=== PATIENT | male | born 1940 | race Caucasian/White ===

== ENCOUNTER 2017-03-29 06:15 | Day surgery (SDC) | payer MEDICARE, OTHER ==
[~2017-03-29] VITALS: Ht 165.1 cm; Wt 83.6 kg
[~2017-03-29 06:15] MED LIST: ACET325T PO; ASPI81CH CHEW; BENA1TAB PO; DIPH25CA PO; DOCU8.6T PO; GLUC15002; PYRI1TAB2 PO; SIMV20TA PO
[2017-03-29 07:01] VITALS: BP 160/84; PULSE 86; RESP 18; TEMP 98.2; O2SAT 94
[2017-03-29] MEDS ORDERED: PYRI100T4 PO (07:05)
[2017-03-29] MEDS ORDERED: [UNRECOGNIZED DRUG - CODE] (07:05)
[2017-03-29] MEDS ORDERED: HYDR-3534 PO (07:05)
[2017-03-29] MEDS ORDERED: IBRU1CAP (07:05)
[2017-03-29] MEDS ORDERED: MULTTAB22 (07:05)
[2017-03-29] MEDS ORDERED: LIDOCAINE HCL 1% 20 ML VIAL ONE (07:55)
[2017-03-29] MEDS ORDERED: SODIUM BICARBONATE 8.4% INJ 50 ML ONE (07:55)
[2017-03-29] MEDS ORDERED: SODIUM CHLOR 0.9% 1000 ML IV SCH (08:00)
[2017-03-29] MEDS ORDERED: MIDAZOLAM HCL 2 MG/2 ML VIAL ONE (08:03)
[2017-03-29 09:00] VITALS: BP 135/71; PULSE 79; PULSE 82; RESP 18; RESP 20; TEMP 98; O2SAT 95; O2SAT 97
[2017-03-29 09:15] VITALS: BP 141/73; PULSE 89; RESP 20; O2SAT 96
[2017-03-29] MEDS ORDERED: ACETAMINOPHEN/HYDROcodone 325 MG/7.5 MG TAB PO PRN (09:30)
[2017-03-29 09:45] VITALS: BP 145/70; PULSE 80; RESP 18; O2SAT 98
[2017-03-29 10:15] VITALS: BP 124/56; PULSE 72; RESP 20; O2SAT 98
[2017-03-29 10:45] VITALS: BP 108/55; PULSE 75; RESP 20; O2SAT 93
--- NOTE | 2017-03-29 15:30 | RADRPT ---
EXAM DATE/TIME: 03/29/2017 08:18 [facility] COMPARISON: No previous studies available for comparison. INDICATIONS : Left retroperitoneal mass. SEDATION TIME: 30 minutes BIOPSY SITE: Left retroperitoneum MEDICATION(S): 1.) 1.5 mg midazolam (Versed) IV 2.) 100 mcg fentanyl (Sublimaze) IV DEVICE(S): 1.) 18 gauge Temno core biopsy needle 15cm MEDICAL HISTORY : Leukemia. Kidney disease SURGICAL HISTORY : None. ENCOUNTER: Initial ACUITY: 1 day PAIN SCORE: 0/10 LOCATION: Left retroperitoneum A total of two core specimen(s) were obtained and sent to the laboratory for pathologic evaluation. PROCEDURE: 1. CT guided abdomen biopsy. 2. Conscious sedation with continuous EKG and oximetry monitoring. Prior to the procedure informed consent was obtained. Any appropriate prior imaging studies were rev iewed. Using automated exposure control and adjustment of the mA and/or kV according to patient size, radiat ion dose was kept as low as reasonably achievable to obtain optimal diagnostic quality images. DICOM format image data is available electronically for review and comparison. The site was prepped in a sterile fashion. Full sterile technique was used, including cap, mask, tony rile gloves and gown and a large sterile sheet. Hand hygiene and 2% chlorhexidine and/or betadine/al cohol prep was utilized per protocol for cutaneous antisepsis. The skin and subcutaneous tissues wer e infiltrated with local anesthetic solution. With CT guidance the previously identified target was localized. Biopsy was performed using the presc ribed needle as above. Adequate hemostasis was obtained with compression at the puncture site. Follow-up CT scan reveals no hemorrhage. The patient tolerated the procedure well and there were no complications. The patient was returned to the Radiology Outpatient Unit in stable condition. CONCLUSION: Uncomplicated CT guided biopsy. Denilson Do MD on March 29, 2017 at 15:28 Board Certified Radiologist. This report was verified electronically.
== END 2017-03-29 11:20 | disposition home or self-care (01) ==
LOC: HRAD 06:15 → HRIP 06:16 → HRAD 11:20
PROVIDERS: ATTEND Internal Medicine Hematology & Oncology
DX: R19.00 Intra-abdominal and pelvic swelling, mass and lump, unspecified site (principal)
CPT/HCPCS: 49180; 77012; 88184; 88185; 88307; 88341; 88342; 99152; 99153; J2250; J3010; J7030; 88305

== ENCOUNTER 2017-05-02 10:20 | Inpatient (IN) | payer MEDICARE, OTHER ==
[~2017-05-02] VITALS: Ht 165.1 cm; Wt 70.7 kg
[~2017-05-02 10:20] MED LIST changes: -ACET325T PO; -DIPH25CA PO; +HYDR-3534 PO; +IBRU1CAP; +MULTTAB22; +PYRI100T4 PO; -PYRI1TAB2 PO; +[UNRECOGNIZED DRUG - CODE]
[2017-05-02 10:56] VITALS: BP 120/54; PULSE 103; RESP 14; TEMP 98.4; O2SAT 95
[2017-05-02] MEDS ORDERED: SODIUM CHLORIDE 0.9% FLUSH 10 ML FLUSH IVF PRN (11:00)
--- NOTE | 2017-05-02 11:04 | PD ---
HPI Chief Complaint: general weakness Time Seen by Provider: 11:00 Travel History International Travel<30 days: No Contact w/Intl Traveler<30days: No Traveled to known affect area: No History of Present Illness HPI 76-year-old male patient with history of CLL, currently following up with Dr. Pereira, had urethral stents placed by Dr. Bull yesterday, here today because of general weakness. He feels that he cannot get up to go to his appointment today with oncology. He denies any fevers, chest pains, shortness of breath, or any other issues. Modifying Factors: None Associated Signs & Symptoms: General weakness Risk Factors: Urethral stents yesterday, CLL PFSH Past Medical History Arthritis: Yes Cancer: Yes ( CLL , LEUKEMIA) Cardiovascular Problems: No High Cholesterol: Yes Diabetes: No Diminished Hearing: No Endocrine: No Genitourinary: No Hepatitis: No Hiatal Hernia: No Hypertension: Yes Immune Disorder: Yes Musculoskeletal: Yes (neck pain ) Neurologic: No Psychiatric: No Reproductive: No Respiratory: Yes (copd) Immunizations Current: Yes Thyroid Disease: No Past Surgical History Abdominal Surgery: Yes (LEFT INGUINAL HERNIA REPAIR) AICD: No Joint Replacement: No Oral Surgery: Yes (tonsillectomy) Pacemaker: No Social History Alcohol Use: No Tobacco Use: Yes (1 PPD) Substance Use: No Allergies-Medications (Allergen,Severity, Reaction): Coded Allergies: levofloxacin (Verified Allergy, Severe, welts and rash, 05/02/17) patient states not an allergy; r/o after it was entered in as an allergy. Sulfa (Sulfonamide Antibiotics) (Verified Allergy, Unknown, welts and rash , 05/02/17) Reported Meds & Prescriptions Reported Meds & Active Scripts Active Reported Lortab (Hydrocodone-Acetaminophen) 7.5-325 Mg Tab 1 Tab PO Q6H PRN Imbruvica (Ibrutinib) 140 Mg Cap 420 Mg Wal-Dryl Allergy (Diphenhydramine HCl) 25 Mg Cap Pyridoxine (Pyridoxine HCl) 100 Mg Tab 100 Mg PO DAILY Multi For Him (Multiple Vitamins W/ Minerals) 0.4 Mg-2 Mg-250 Mcg Tab Simvastatin 20 Mg Tab 20 Mg PO DAILY Lotensin Hct (Benazepril-Hydrochlorothiazide) 10-12.5 Mg Tab 1 Tab PO DAILY Glucosamine 1500 Complex (Fmoghflutmi-Zhcjfdeklru-Oip C-) 1 Cap Cap Docusate Sodium-Senna (Sennosides-Docusate Sodium) 8.6-50 Mg Tab 1 Tab PO HS Aspirin 81 Mg Chew 81 Mg CHEW DAILY Review of Systems Except as stated in HPI: all other systems reviewed are Neg Physical Exam Narrative GENERAL: Well-developed elderly white male patient currently in mild distress. Awake and oriented 3. SKIN: Focused skin assessment warm/dry. HEAD: Atraumatic. Normocephalic. EYES: Pupils equal and round. No scleral icterus. No injection or drainage. ENT: No nasal bleeding or discharge. Mucous membranes pink and moist. NECK: Trachea midline. No JVD. CARDIOVASCULAR: Regular rate and rhythm. No murmur appreciated. RESPIRATORY: No accessory muscle use. Clear to auscultation. Breath sounds equal bilaterally. GASTROINTESTINAL: Abdomen soft, mild left lower quadrant tenderness without guarding or rebound, nondistended. Hepatic and splenic margins not palpable. RECTAL EXAM: No masses or tenderness, stool is brown. Hemoccult negative. MUSCULOSKELETAL: No obvious deformities. No clubbing. No cyanosis. No edema. NEUROLOGICAL: Awake and alert. No obvious cranial nerve deficits. Motor grossly within normal limits. Normal speech. PSYCHIATRIC: Appropriate mood and affect; insight and judgment normal. Data Data Last Documented VS Vital Signs Date Time Temp Pulse Resp B/P (MAP) Pulse Ox O2 Delivery O2 Flow Rate FiO2 05/02/17 11:08 96 Room Air 05/02/17 10:56 98.4 103 14 120/54 (76) Orders Orders Electrocardiogram (05/02/17 11:00) Complete Blood Count With Diff (05/02/17 11:00) Comprehensive Metabolic Panel (05/02/17 11:00) Magnesium (Mg) (05/02/17 11:00) Ckmb (Isoenzyme) Profile (05/02/17 11:00) Troponin I (05/02/17 11:00) Act Partial Throm Time (Ptt) (05/02/17 11:00) Prothrombin Time / Inr (Pt) (05/02/17 11:00) Urinalysis - C+S If Indicated (05/02/17 11:00) Chest, Single Ap (05/02/17 11:00) Ecg Monitoring (05/02/17 11:00) Iv Access Insert/Monitor (05/02/17 11:00) Oximetry (05/02/17 11:00) Sodium Chloride 0.9% Flush (Ns Flush) (05/02/17 11:00) Blood Culture (05/02/17 11:00) Type And Screen (05/02/17 11:00) CKMB (05/02/17 11:10) CKMB% (05/02/17 11:10) Piperacil-Tazo 4.5 Gm Premix (Zosyn 4.5 (05/02/17 12:10) Sodium Chlorid 0.9% 500 Ml Inj (Ns 500 M (05/02/17 12:30) Urine Culture (05/02/17 13:40) Labs Laboratory Tests Test 05/02/17 11:10 05/02/17 13:40 White Blood Count 24.9 TH/MM3 Red Blood Count 3.98 MIL/MM3 Hemoglobin 11.3 GM/DL Hematocrit 35.4 % Mean Corpuscular Volume 88.9 FL Mean Corpuscular Hemoglobin 28.4 PG Mean Corpuscular Hemoglobin Concent 31.9 % Red Cell Distribution Width 14.4 % Platelet Count 210 TH/MM3 Mean Platelet Volume 8.1 FL Neutrophils (%) (Auto) 44.0 % Lymphocytes (%) (Auto) 54.0 % Monocytes (%) (Auto) 1.8 % Eosinophils (%) (Auto) 0.0 % Basophils (%) (Auto) 0.2 % Neutrophils # (Auto) 11.0 TH/MM3 Lymphocytes # (Auto) 13.4 TH/MM3 Monocytes # (Auto) 0.5 TH/MM3 Eosinophils # (Auto) 0.0 TH/MM3 Basophils # (Auto) 0.1 TH/MM3 CBC Comment AUTO DIFF Differential Total Cells Counted 100 Neutrophils % (Manual) 32 % Band Neutrophils % 9 % Lymphocytes % 58 % Monocytes % 1 % Neutrophils # (Manual) 10.2 TH/MM3 Differential Comment FINAL DIFF MANUAL Smudge Cells PRESENT Platelet Estimate NORMAL Platelet Morphology Comment NORMAL Red Cell Morphology Comment NORMAL Prothrombin Time 11.3 SEC Prothromb Time International Ratio 1.0 RATIO Activated Partial Thromboplast Time 28.4 SEC Blood Urea Nitrogen 39 MG/DL Creatinine 2.09 MG/DL Random Glucose 69 MG/DL Total Protein 5.8 GM/DL Albumin 2.9 GM/DL Calcium Level 9.3 MG/DL Magnesium Level 1.7 MG/DL Alkaline Phosphatase 71 U/L Aspartate Amino Transf (AST/SGOT) 67 U/L Alanine Aminotransferase (ALT/SGPT) 22 U/L Total Bilirubin 0.6 MG/DL Sodium Level 128 MEQ/L Potassium Level 3.6 MEQ/L Chloride Level 92 MEQ/L Carbon Dioxide Level 26.2 MEQ/L Anion Gap 10 MEQ/L Estimat Glomerular Filtration Rate 31 ML/MIN Total Creatine Kinase 618 U/L Creatine Kinase MB 16.8 NG/ML Creatine Kinase MB % 2.7 % Troponin I 0.05 NG/ML Urine Color LIGHT-RED Urine Turbidity HAZY Urine pH 6.0 Urine Specific [place] 1.017 Urine Protein 100 mg/dL Urine Glucose (UA) NEG mg/dL Urine Ketones TRACE mg/dL Urine Occult Blood LARGE Urine Nitrite NEG Urine Bilirubin NEG Urine Urobilinogen LESS THAN 2.0 MG/DL Urine Leukocyte Esterase MOD Urine RBC /hpf Urine WBC 63 /hpf Urine Bacteria FEW /hpf Urine Mucus FEW /lpf Microscopic Urinalysis Comment CULTURE INDICATED MDM Medical Decision Making Medical Screen Exam Complete: Yes Emergency Medical Condition: Yes Medical Record Reviewed: Yes Interpretation(s) EKG shows sinus tachycardia at a rate of 100 bpm with no signs of acute ST-T changes. Laboratory Tests Test 05/02/17 11:10 05/02/17 13:40 White Blood Count 24.9 TH/MM3 (4.0-11.0) Red Blood Count 3.98 MIL/MM3 (4.50-5.90) Hemoglobin 11.3 GM/DL (13.0-17.0) Hematocrit 35.4 % (39.0-51.0) Mean Corpuscular Hemoglobin Concent 31.9 % (32.0-36.0) Lymphocytes (%) (Auto) 54.0 % (9.0-44.0) Neutrophils # (Auto) 11.0 TH/MM3 (1.8-7.7) Lymphocytes # (Auto) 13.4 TH/MM3 (1.0-4.8) Band Neutrophils % 9 % (0-6) Lymphocytes % 58 % (9-44) Neutrophils # (Manual) 10.2 TH/MM3 (1.8-7.7) Blood Urea Nitrogen 39 MG/DL (7-18) Creatinine 2.09 MG/DL (0.60-1.30) Random Glucose 69 MG/DL (74-106) Total Protein 5.8 GM/DL (6.4-8.2) Albumin 2.9 GM/DL (3.4-5.0) Aspartate Amino Transf (AST/SGOT) 67 U/L (15-37) Sodium Level 128 MEQ/L (136-145) Chloride Level 92 MEQ/L (98-107) Estimat Glomerular Filtration Rate 31 ML/MIN (>89) Total Creatine Kinase 618 U/L (39-308) Creatine Kinase MB 16.8 NG/ML (0.5-3.6) Urine Color LIGHT-RED (YELLW/STRAW) Urine Turbidity HAZY (CLEAR) Urine Protein 100 mg/dL (NEG-TRACE) Urine Ketones TRACE mg/dL (NEG) Urine Occult Blood LARGE (NEG) Urine Leukocyte Esterase MOD (NEG) Urine WBC 63 /hpf (0-5) Urine Bacteria FEW /hpf (NONE) Urine Mucus FEW /lpf (OCC) Last 24 hours Impressions Chest X-Ray 05/02/17 1100 Signed Impressions: Service Date/Time: Tuesday, May 02, 2017 11:36 - CONCLUSION: Small bilateral pleural effusions otherwise negative. Ted Ray MD FACR Differential Diagnosis General weakness: Metabolic issues versus dehydration versus sepsis Narrative Course Patient is tachycardic, lab work shows elevated BUN/creatinine concerning for dehydration and UA shows significant UTI. There is concern of possible underlying sepsis and IV antibiotics were initiated after cultures were drawn. Case was then discussed with Dr. Pellteier for admission. [facility] Point of Care Internal Pos. & Neg. Controls: Passed Fecal Specimen Occult Blood: Negative Diagnosis Primary Impression: UTI (urinary tract infection) Additional Impression: Dehydration Admitting Information Admitting Physician Requests: Admit Al Peres MD May 02, 2017 11:04
[2017-05-02 11:08] VITALS: O2SAT 96
--- NOTE | 2017-05-02 11:49 | RADRPT ---
EXAM DATE/TIME: 05/02/2017 11:36 [facility] COMPARISON: No previous studies available for comparison. INDICATIONS : Palpitations, stomach and lower back pain. MEDICAL HISTORY : having chemo for chronic lymphatic lymphoma SURGICAL HISTORY : port for chemo ENCOUNTER: Initial ACUITY: 1 day PAIN SCORE: Non-responsive. LOCATION: Bilateral chest FINDINGS: Owjbwn-y-Nigy in good position. Minimal bibasilar parietal changes worse on the right than the left. There is no pneumothorax. CONCLUSION: Small bilateral pleural effusions otherwise negative. Ted Ray MD FACR on May 02, 2017 at 11:47 Board Certified Radiologist. This report was verified electronically.
[2017-05-02 11:50] LABS: BASOPHIL # 0.1 TH/MM3 (0-0.2); BASOPHIL % 0.2 % (0.0-2.0); HEMATOCRIT 35.4 % (39.0-51.0); LYMPHOCYTE # 13.4 TH/MM3 (1.0-4.8); MEAN CELL VOLUME 88.9 FL (80.0-100.0); MEAN CORPUSCULAR HEMOGLOBIN 28.4 PG (27.0-34.0); MEAN CORPUSCULAR HGB CONC 31.9 % (32.0-36.0); MONO % 1.8 % (0.0-8.0); PLATELET COUNT 210 TH/MM3 (150-450); RED BLOOD COUNT 3.98 MIL/MM3 (4.50-5.90); RED CELL DISTRIBUTION WIDTH 14.4 % (11.6-17.2); WHITE BLOOD COUNT 24.9 TH/MM3 (4.0-11.0)
[2017-05-02 11:56] LABS: HEMO FLAGS AUTO DIFF
[2017-05-02 12:01] LABS: APTT (PATIENT) 28.4 SEC (24.3-30.1); PROTHROMBIN TIME - PATIENT 11.3 SEC (9.8-11.6)
[2017-05-02 12:05] LABS: ALT (GPT) 22 U/L (12-78); ANION GAP 10 MEQ/L (5-15); AST (GOT) 67 U/L (15-37); BICARBONATE 26.2 MEQ/L (21.0-32.0); BLOOD UREA NITROGEN 39 MG/DL (7-18); CHLORIDE 92 MEQ/L (98-107); GLOMERULAR FILTRATION RATE 31 ML/MIN (>89); MAGNESIUM 1.7 MG/DL (1.5-2.5); POTASSIUM 3.6 MEQ/L (3.5-5.1); SODIUM (NA) 128 MEQ/L (136-145)
[2017-05-02 12:09] LABS: ALKALINE PHOSPHATASE 71 U/L (45-117); CREATINE KINASE 618 U/L (39-308); TOTAL BILIRUBIN ADULT 0.6 MG/DL (0.2-1.0)
[2017-05-02] MEDS ORDERED: PIPERACIL-TAZO 4.5 GM PREMIX 100 ML IV STA (12:10)
[2017-05-02 12:21] LABS: CKMB 16.8 NG/ML (0.5-3.6)
[2017-05-02] MEDS ORDERED: SODIUM CHLORID 0.9% 500 ML INJ 500 ML IV ONE ×2 (12:30→16:30)
[2017-05-02 13:51] LABS: BANDS 9 % (0-6); NEUTROPHIL # MANUAL DIFF 10.2 TH/MM3 (1.8-7.7); PLATELET ESTIMATE SMEAR NORMAL (NORMAL); PLATELET MORPHOLOGY NORMAL (NORMAL); POLYS (SEG NEUTROPHILS) 32 % (16-70); SCAN/DIFF FINAL DIFF MANUAL; SMUDGE CELLS PRESENT PRESENT; WBC DIFF SAMPLE 100
[2017-05-02 14:20] LABS: BACTERIA, URINE FEW /hpf; BLOOD, URINE LARGE (NEG); COMMENT (UR) CULTURE INDICATED; CULTURE IF INDICATED CULTURE INDICATED; GLUCOSE,URINE NEG (NEG); KETONE, URINE TRACE mg/dL (NEG); MUCUS URINE FEW /lpf (OCC); NITRITE,URINE NEG (NEG)
[2017-05-02 14:21] LABS: URINE COLOR LIGHT-RED (YELLW/STRAW)
--- NOTE | 2017-05-02 14:47 | EKG ---
Date Performed: 05/02/2017 Time Performed: 11:13:22 PTAGE: 76 years EKG: SINUS TACHYCARDIA POSSIBLE LEFT ATRIAL ENLARGEMENT NONSPECIFIC T-WAVE ABNORMALITY ABNORMAL RHYTHM ECG PREVIOUS TRACING : 03/30/2015 10.09 Compared to prior tracing no significant change DOCTOR: Aaron Ty Interpretating Date/Time 05/02/2017 14:47:35
--- NOTE | 2017-05-02 15:19 | HHI.HP ---
[facility] Primary Care Physician Admission Diagnosis Diagnoses: Chief Complaint: Weakness Travel History International Travel<30 Days: No Contact w/Intl Traveler <30 Da: No Traveled to Known Affected Are: No History of Present Illness This is a pleasant 76 y/o male on management by forensic specialist Doctor Aaron Montalvo due to Chronic Lymphocytic Leukemia deletion 13Q he developed bulky adenopathy treated with Rituximab and Bendamustine without clear response, on Ibrutinib with improvement, but developed a large mass in the retroperitoneum extending into the pole of the left kidney, 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 today he came to ER after he had a procedure performed yesterday by Doctor Bull had Urethral stens placed came due to General Weakness. Seen in Emergency room in the presence of nurse, dehydrated. oral thrush. severe ecchymotic lesions on all four extremities. Hematuria present. 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 He developed bulky adenopathy in the neck, mediastinum, axillary, retroperitoneal, para-aortic area. He also developed anemia and thrombocytopenia. He has no hemolysis. Rituxan/Treanda x 2 cycle Jul 2016 poor tolerance ibrutinib 08/2016) Hyperlipidemia Hypertension Kidney Disease Obesity Preferred Language for Healthcare Information (Jamaican) Temporal arteritis COPD Past Surgical History Hernia repair in 1963 - Left Right 03/2015 Tonsillectomy in 1948 Reported Medications Reported Meds & Active Scripts Active Reported Lortab (Hydrocodone-Acetaminophen) 7.5-325 Mg Tab 1 Tab PO Q6H PRN Imbruvica (Ibrutinib) 140 Mg Cap 420 Mg Wal-Dryl Allergy (Diphenhydramine HCl) 25 Mg Cap Pyridoxine (Pyridoxine HCl) 100 Mg Tab 100 Mg PO DAILY Multi For Him (Multiple Vitamins W/ Minerals) 0.4 Mg-2 Mg-250 Mcg Tab Simvastatin 20 Mg Tab 20 Mg PO DAILY Lotensin Hct (Benazepril-Hydrochlorothiazide) 10-12.5 Mg Tab 1 Tab PO DAILY Glucosamine 1500 Complex (Wgxlidxvykj-Tyyzmpqruhy-Nng C-) 1 Cap Cap Docusate Sodium-Senna (Sennosides-Docusate Sodium) 8.6-50 Mg Tab 1 Tab PO HS Aspirin 81 Mg Chew 81 Mg CHEW DAILY Allergies: Coded Allergies: levofloxacin (Verified Allergy, Severe, welts and rash, 05/02/17) patient states not an allergy; r/o after it was entered in as an allergy. Sulfa (Sulfonamide Antibiotics) (Verified Allergy, Unknown, welts and rash , 05/02/17) Active Ordered Medications Current Medications Medications (Trade) Dose Ordered Sig/Stuart Route Start Time Stop Time Status Last Admin (NS Flush) 2 ml UNSCH PRN IVF 05/02/17 11:00 Sodium Chloride 1,000 ml @ 100 mls/hr Q10H IV 05/02/17 15:25 UNV (NS Flush) 2 ml UNSCH PRN IV FLUSH 05/02/17 15:30 UNV (NS Flush) 2 ml BID IV FLUSH 05/02/17 21:00 UNV (Tylenol) 650 mg Q4H PRN PO 05/02/17 15:30 UNV (Zofran Inj) 4 mg Q6H PRN IVP 05/02/17 15:30 UNV (Narcan Inj) 0.4 mg UNSCH PRN IV PUSH 05/02/17 15:30 UNV (Ninfa-Colace) 1 tab BID PO 05/02/17 21:00 UNV (Milk Of Magnesia Liq) 30 ml Q12H PRN PO 05/02/17 15:30 UNV (Senokot) 17.2 mg Q12H PRN PO 05/02/17 15:30 UNV (Dulcolax Supp) 10 mg DAILY PRN RECTAL 05/02/17 15:30 UNV (Lactulose Liq) 30 ml DAILY PRN PO 05/02/17 15:30 UNV (Aspirin Chew) 81 mg DAILY CHEW 05/03/17 09:00 UNV ([place] 7.5-325 Mg) 1 tab Q6H PRN PO 05/02/17 15:30 UNV Non-Formulary Medication 100 mg DAILY PO 05/03/17 09:00 UNV Non-Formulary Medication 20 mg DAILY PO 05/03/17 09:00 UNV Ceftriaxone Sodium 1000 mg/ Sodium Chloride 100 ml @ 200 mls/hr Q24H IV 05/02/17 15:30 UNV (KCl) 40 meq ONCE ONCE PO 05/02/17 15:45 05/02/17 15:46 UNV Family History Father with Cardiac pathologies. Social History Lives with his Son in Law Tobacco dependence one pack daily Physical Exam Vital Signs Vital Signs Date Time Temp Pulse Resp B/P (MAP) Pulse Ox O2 Delivery O2 Flow Rate FiO2 05/02/17 11:08 96 Room Air 05/02/17 10:56 98.4 103 14 120/54 (76) 95 Physical Exam GENERAL: Well-developed elderly white male patient currently in mild distress. Awake and oriented 3. SKIN: Focused skin has Severe ecchymotic lesions on four extremities. HEAD: Atraumatic. Normocephalic. EYES: Pupils equal and round. No scleral icterus. No injection or drainage. ENT: No nasal bleeding or discharge. Oral thrush. NECK: Trachea midline. No JVD. CARDIOVASCULAR: Regular rate and rhythm. No murmur appreciated. RESPIRATORY: Decreased breath sounds bilateral, mild expiratory wheezing. GASTROINTESTINAL: Abdomen soft, mild left lower quadrant tenderness without guarding or rebound, nondistended. MUSCULOSKELETAL: No obvious deformities. Ecchymosis on all four extremities. NEUROLOGICAL: Awake and alert. No obvious cranial nerve deficits. PSYCHIATRIC: Appropriate mood and affect; insight and judgment normal. Laboratory Laboratory Tests Test 05/02/17 11:10 05/02/17 13:40 White Blood Count 24.9 Red Blood Count 3.98 Hemoglobin 11.3 Hematocrit 35.4 Mean Corpuscular Volume 88.9 Mean Corpuscular Hemoglobin 28.4 Mean Corpuscular Hemoglobin Concent 31.9 Red Cell Distribution Width 14.4 Platelet Count 210 Mean Platelet Volume 8.1 Neutrophils (%) (Auto) 44.0 Lymphocytes (%) (Auto) 54.0 Monocytes (%) (Auto) 1.8 Eosinophils (%) (Auto) 0.0 Basophils (%) (Auto) 0.2 Neutrophils # (Auto) 11.0 Lymphocytes # (Auto) 13.4 Monocytes # (Auto) 0.5 Eosinophils # (Auto) 0.0 Basophils # (Auto) 0.1 CBC Comment AUTO DIFF Differential Total Cells Counted 100 Neutrophils % (Manual) 32 Band Neutrophils % 9 Lymphocytes % 58 Monocytes % 1 Neutrophils # (Manual) 10.2 Differential Comment FINAL DIFF MANUAL Smudge Cells PRESENT Platelet Estimate NORMAL Platelet Morphology Comment NORMAL Red Cell Morphology Comment NORMAL Prothrombin Time 11.3 Prothromb Time International Ratio 1.0 Activated Partial Thromboplast Time 28.4 Blood Urea Nitrogen 39 Creatinine 2.09 Random Glucose 69 Total Protein 5.8 Albumin 2.9 Calcium Level 9.3 Magnesium Level 1.7 Alkaline Phosphatase 71 Aspartate Amino Transf (AST/SGOT) 67 Alanine Aminotransferase (ALT/SGPT) 22 Total Bilirubin 0.6 Sodium Level 128 Potassium Level 3.6 Chloride Level 92 Carbon Dioxide Level 26.2 Anion Gap 10 Estimat Glomerular Filtration Rate 31 Total Creatine Kinase 618 Creatine Kinase MB 16.8 Creatine Kinase MB % 2.7 Troponin I 0.05 Urine Color LIGHT-RED Urine Turbidity HAZY Urine pH 6.0 Urine Specific [place] 1.017 Urine Protein 100 Urine Glucose (UA) NEG Urine Ketones TRACE Urine Occult Blood LARGE Urine Nitrite NEG Urine Bilirubin NEG Urine Urobilinogen LESS THAN 2.0 Urine Leukocyte Esterase MOD Urine RBC Urine WBC 63 Urine Bacteria FEW Urine Mucus FEW Microscopic Urinalysis Comment CULTURE INDICATED Date/Time Source Procedure Growth Status 05/02/17 11:15 Blood Peripheral Aerobic Blood Culture Pending Received 05/02/17 11:15 Blood Peripheral Anaerobic Blood Culture Pending Received 05/02/17 13:40 Urine Random Urine Urine Culture Pending Received Result Diagram: 05/02/17 1110 05/02/17 1110 Imaging Last Impressions Chest X-Ray 05/02/17 1100 Signed Impressions: Service Date/Time: Sunday, May 02, 2017 11:36 - CONCLUSION: Small bilateral pleural effusions otherwise negative. Ted Ray MD FACR Caprini VTE Risk Assessment Caprini VTE Risk Assessment: Mod/High Risk (score >= 2) Caprini Risk Assessment Model Point Value = 1 Point Value = 2 Point Value = 3 Point Value = 5 Age 41-60 Minor surgery BMI > 25 kg/m2 Swollen legs Varicose veins or History of unexplained or recurrent spontaneous Oral contraceptives or hormone replacement Sepsis (< 1 month) Serious lung disease, including pneumonia (< 1 month) Abnormal pulmonary function Acute myocardial infarction Congestive heart failure (< 1 month) History of inflammatory bowel disease Medical patient at bed rest Age 61-74 Arthroscopic surgery Major open surgery (> 45 min) Laparoscopic surgery (> 45 min) Malignancy Confined to bed (> 72 hours) Immobilizing plaster cast Central venous access Age >= 75 History of VTE Family history of VTE Factor V Leiden Prothrombin [id number] Lupus anticoagulant Anticardiolipin antibodies Elevated serum homocysteine Heparin-induced thrombocytopenia Other congenital or acquired thrombophilia Stroke (< 1 month) Elective arthroplasty Hip, pelvis, or leg fracture Acute spinal cord injury (< 1 month) Prophylaxis Regimen Total Risk Factor Score Risk Level Prophylaxis Regimen 0-1 Low Early ambulation 2 Moderate Order ONE of the following: *Sequential Compression Device (SCD) *Heparin 5000 units SQ BID 3-4 Higher Order ONE of the following medications: *Heparin 5000 units SQ TID *Enoxaparin/Lovenox 40 mg SQ daily (WT < 150 kg, CrCl > 30 mL/min) *Enoxaparin/Lovenox 30 mg SQ daily (WT < 150 kg, CrCl > 10-29 mL/min) *Enoxaparin/Lovenox 30 mg SQ BID (WT < 150 kg, CrCl > 30 mL/min) AND/OR *Sequential Compression Device (SCD) 5 or more Highest Order ONE of the following medications: *Heparin 5000 units SQ TID (Preferred with Epidurals) *Enoxaparin/Lovenox 40 mg SQ daily (WT < 150 kg, CrCl > 30 mL/min) *Enoxaparin/Lovenox 30 mg SQ daily (WT < 150 kg, CrCl > 10-29 mL/min) *Enoxaparin/Lovenox 30 mg SQ BID (WT < 150 kg, CrCl > 30 mL/min) AND *Sequential Compression Device (SCD) Assessment and Plan Assessment and Plan 1. 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 will consult his primary forensic specialist Doctor Aaron Montalvo 2. Urolithiasis status post ureteral Stent placement today after Baugh cath placement due to Urinary Retention he has Hematuria asked for Urology specialist consult. 3. Acute Renal Injury on chronic kidney disease III, the patient is visibly dehydrated will continue IV fluids and follow on hold SONU inhibitors and diuretics 4. electrolyte derangement replacing and following. 5. Hyperlipidemia will continue Home medicines 6. Hypertension on hold SONU inhibitor and diuretics due to acute on chronic renal failure 7. COPD on Bronchodilator, Mucolytic and incentive spirometry. 8. Oral Thrush started on Nystatin DVT prophylaxis SCDs, the patient has hematuria contraindicated chemical prophylaxis. Consult Urology specialist, forensic specialist, Instructor [employer]am[employer]. Discussed Condition With Al Peres MD Physician Certification 2 Midnight Certification Type: Admission for Inpatient Services Order for Inpatient Services The services are ordered in accordance with Medicare regulations or non- Medicare payer requirements, as applicable. In the case of services not specified as inpatient-only, they are appropriately provided as inpatient services in accordance with the 2-midnight benchmark. Estimated LOS (days): 1 days is the estimated time the patient will need to remain in the hospital, assuming treatment plan goals are met and no additional complications. Post-Hospital Plan: Not yet determined Yoav Bell MD May 02, 2017 15:19
[2017-05-02] MEDS ORDERED: MAGNESIUM HYDROXIDE SUSP 30 ML CUP PO PRN (15:30)
[2017-05-02] MEDS ORDERED: LACTULOSE SYRUP 20 GM/30 ML CUP PO PRN (15:30)
[2017-05-02] MEDS ORDERED: BISACODYL 10 MG SUPP RECTAL PRN (15:30)
[2017-05-02] MEDS ORDERED: NALOXONE HCL 0.4 MG/ML AMP IV PUSH PRN (15:30)
[2017-05-02] MEDS ORDERED: SENNOSIDES 8.6 MG TAB PO PRN (15:30)
[2017-05-02] MEDS ORDERED: ONDANSETRON HCL 4 MG/2 ML VIAL IVP PRN (15:30)
[2017-05-02] MEDS: POTASSIUM CHLORIDE 20 MEQ CONTROLLED RELEASE TAB PO ONE (16:15)
[2017-05-02 16:45] VITALS: BP 136/67; PULSE 102; RESP 17; TEMP 97.2; O2SAT 95
[2017-05-02] MEDS: cefTRIAXone INJ 1,000 MG in SODIUM CHLORIDE 0.9% INJ 100 ML IV SCH ×2 (17:00→22:30)
[2017-05-02] MEDS: MAGNESIUM SULFATE 1 GM PREMIX 100 ML IV SCH ×3 (17:00→23:36)
[2017-05-02] MEDS: NYSTATIN SUSP 500,000 U/5 ML CUP SWISH-SWAL SCH ×2 (18:00→20:37)
[2017-05-02] MEDS: SODIUM CHLOR 0.9% 1000 ML INJ 1,000 ML IV SCH (18:30)
[2017-05-02] MEDS ORDERED: DIATRIZOATE MEGLUM/DIATRIZOATE SOD 9 ML CUP PO ONE (19:30)
[2017-05-02 19:51] LABS: CKMB 9.4 NG/ML (0.5-3.6)
[2017-05-02 20:14] VITALS: BP 120/62; PULSE 93; RESP 18; TEMP 98; O2SAT 93
[2017-05-02] MEDS: DOCUSATE SODIUM 50 MG/SENNA 8.6 MG TAB PO SCH (20:37)
[2017-05-02] MEDS: guaiFENesin E.R. 600 MG TAB PO SCH (20:37)
[2017-05-02] MEDS: HEPARIN SODIUM - SQ 10,000 UNITS/ML VIAL SQ SCH (20:38)
[2017-05-02] MEDS: SODIUM CHLORIDE 0.9% FLUSH 10 ML FLUSH IV FLUSH SCH (20:38)
--- NOTE | 2017-05-02 23:05 | MB ---
cc: MARYAM COLEAMN DATE OF CONSULTATION: 05/02/2017 REASON FOR CONSULTATION: HISTORY OF PRESENT ILLNESS: This is a pleasant 76-year-old male who has a history of chronic lymphocytic leukemia, diagnosed back in 2013. He recently had progression with bulky adenopathy and yesterday underwent cystoscopy with stent placement by Dr. Bull. Due to weakness, the patient came to the emergency room and was admitted. Urology was consulted due to some hematuria and recent ureteral stent placement. CT scan was reviewed from March 2017 which did show mild to moderate bilateral hydronephrosis at the time of the biopsy of the retroperitoneum. The patient states that his pain progressed and the recommendation was to undergo stent placement. PAST MEDICAL HISTORY: 1. Arthritis. 2. Chronic lymphocytic leukemia. 3. Hyperlipidemia. 4. Hypertension. 5. Kidney disease. 6. Temporal arteritis. 7. COPD. PAST SURGICAL HISTORY: 1. Recent ureteral stent placement. 2. Hernia repair. 3. Tonsillectomy. MEDICATIONS: Please refer to the chart. ALLERGIES: LEVAQUIN SULFA FAMILY HISTORY: Notable for cardiac disease. SOCIAL HISTORY: Long history of smoking as noted. REVIEW OF SYSTEMS: Generalized weakness. Denies chest pain. Some shortness of breath is noted. Chronic back pain, flank pain. Denies constipation. Denies trouble with urination. Notes nocturia one to two times. The remainder of the review of systems is reviewed and is negative. PHYSICAL EXAMINATION: VITAL SIGNS: Temperature 97.2, heart rate 102, respiratory rate 17, blood pressure 136/67. GENERAL: A well-developed, well-nourished 76 year-old man in no acute distress. HEENT: Normocephalic, atraumatic. Pupils equal, round and reactive to light. Extraocular movements intact. NECK: Supple. HEART: Regular rate and rhythm. LUNGS: Clear. ABDOMEN: Soft, non-tender, non-distended. : Uncircumcised phallus. Testes descended. 1+ edema is noted. Multiple petechia are noted. Ext: neg C/C/E Neuro: CNII-XII intact Psych: generalized mood MS: neck midline Skin: petechia noted LABORATORY VALUES: White count 24.9, hemoglobin 11.3, hematocrit 35.4, platelet count of 210. Sodium 128, potassium 3.6, chloride 92, CO2 26.2. BUN 39, creatinine 2.0. Glucose of 69. Urinalysis with large blood, moderate leukesterase. 63 white cells, numerous red cells. ASSESSMENT: The patient is a 76 year-old male with a history of chronic lymphocytic leukemia, bulky adenopathy, status post recent stent placement by Dr. Bull with weakness, possible sepsis. Baugh catheter placed at the bedside. Urine is slightly pink in color. The patient not in retention but due to his inability to ambulate, will maintain Baugh catheter for now and follow creatinine, evidence of acute renal failure with creatinine of 2.09. Will obtain KUB x-ray to identify recent stent insertion. Continue IV antibiotics. Check urine culture. Will follow closely with you. Thank you for the consult and allowing me to participate in the care of this patient. Roosevelt MELARA /5:52 PM /10:46 PM MTDKira
--- NOTE | 2017-05-02 23:45 | MB ---
cc: ALBA BARRIOS M.D. DATE OF CONSULTATION May 02, [address] Pelletier REASON FOR CONSULTATION Oncology consulted to render opinion regarding patient with chronic lymphocytic leukemia/lymphoma, admitted with abdominal pain and back pain and a urinary tract infection. 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 Brought in the emergency room by the family because of increased weakness. He was supposed to start chemotherapy at the clinic today. He went to see Dr. Bull yesterday and had a urethral stent placement for hydronephrosis. He stated when he woke up this morning he was very weak. The family had a hard time getting him into the car. He could not get up. He slipped from the seat of his car to the ground and had abrasion on his legs. He also had hematuria since the stent placement. He has not been eating much or drinking much for a few days. He was brought into the emergency room. He is found to be dehydrated and has possible urinary tract infection. He denies any fever or chills. Denies any chest pain. Denies shortness of breath or cough. Denies any nausea. He has pain in bilateral flank area that radiated down the groin to the anterior legs. He also had back pain. 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 Osteoarthritis. Hypertension, hyperlipidemia. Chronic kidney disease. Temporal arteritis. PAST SURGICAL HISTORY Hernia repair, port placement, tonsillectomy. FAMILY HISTORY Noncontributory. SOCIAL HISTORY A 50 pack-year smoking history. He has quit alcohol. ALLERGIES SULFA, LEVAQUIN. MEDICATIONS 1. Aspirin. 2. Vitamin B6. 3. Pravachol. 4. Ninfa-Colace. 5. Guaifenesin. 6. Nystatin. 7. Ceftriaxone. 8. DuoNebs. REVIEW OF SYSTEMS CONSTITUTIONAL: As above. EYES: Negative. ENT: Negative. CARDIOVASCULAR: No chest pressure, palpitation. RESPIRATORY: Denies shortness of breath or cough. GI: As above. : As above. MUSCULOSKELETAL: As above. HEMATOLOGY: As above. ENDOCRINE: Negative. DERMATOLOGY: As above. NEUROLOGIC: As above. PSYCHIATRIC: Negative. PHYSICAL EXAMINATION VITAL SIGNS: Temperature 97.2, blood pressure 136/67, O2 saturation 95% on room air. GENERAL: He is alert and oriented x3. No acute distress. Looks weak. HEENT: Atraumatic, normocephalic. Pupils equal, round and reactive to light. Extraocular muscles intact. No scleral icterus. Oropharynx dry mucosa. Positive thrush. NECK: No thyromegaly. No palpable masses. LYMPHATICS: No palpable cervical, clavicular, axillary, inguinal lymph node. CARDIOVASCULAR: Regular S1-S2. No murmur. LUNGS: Clear to auscultation bilaterally. ABDOMEN: Soft, a little tender in bilateral groin and lower abdominal area. Could not palpate liver or spleen. EXTREMITIES: No cyanosis, clubbing. He has about 2+ bilateral lower extremity edema. BACK: No paravertebral tenderness. SKIN: He has abrasion of bilateral leg. NEUROLOGIC: Exam nonfocal. LABORATORY DATA Reviewed. ASSESSMENT 1. 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 He first presented with bulky adenopathy, treated with Rituxan and bendamustine without clear response. He was then switched to Ibrutinib with very good response. The neck and axillary adenopathy are no longer palpable. However, he recently developed a large mass in retroperitoneum extending from the lower pole of left kidney down along the iliopsoas muscle to the pelvis, measured at least 10 cm. 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 The initial plan is to treat him with Revlimid along with R-CHOP. He was supposed to start chemotherapy at the clinic today but he was not able to make it in the clinic because of weakness. At this point will hold the chemotherapy until he is a little stronger. If he is too weak to be discharge. we may have to give him the chemotherapy as inpatient. 2. Abdominal pain and flank pain due to the large retroperitoneal mass encroaching the iliopsoas muscle. He has more pain in the back. He has now developed lower extremity weakness. He attributed that to pain. I am going to get another CT of the abdomen and pelvic for further evaluation. May also need to do a CT or MRI of the spine if the CT of the abdomen and pelvis is non-revealing. 3. Acute on chronic renal insufficiency due to hydronephrosis. He just had a urethral stent placed yesterday. He possibly has a urinary tract infection. Urology has been consulted. 4. Pleural effusion which was new. He has no significant shortness of breath at this time. 5. Dehydration due to decreased oral intake. 6. Possible urinary tract infection. He was started on antibiotic. RECOMMENDATIONS 1. Get CT chest, abdomen and pelvis without contrast for evaluation. 2. Continue IV fluid hydration. 3. Continue antibiotic per primary team. 4. DVT prophylaxis with heparin. 5. May have to consider starting chemotherapy while he is in the hospital if he does not improve in the next few days. Thank you Dr. Pelletier for asking me to see this patient. MD MARIO Casey/DELONTE /6:19 PM /11:16 PM MTDD
[2017-05-03] VITALS (8 sets, daily range): BP systolic 109–193; BP diastolic 55–87; PULSE 89–100; RESP 16–18; TEMP 96.4–99.1; O2SAT 93–97
[2017-05-03] MEDS: RESP: ALBUTEROL 2.5 MG/IPRATROPIUM 0.5 MG NEB (SCH) NEB ×7 (00:16→23:45)
--- NOTE | 2017-05-03 01:53 | RADRPT ---
EXAM DATE/TIME: 05/03/2017 01:27 [facility] COMPARISON: CT NEEDLE BIOPSY ABDOMEN, March 29, 2017, 8:18. CT ABDOMEN & PELVIS W CONTRAST, February 22, 2014, 17:20. INDICATIONS : Shortness of breath. Evaluate pleural effusion. RADIATION DOSE: 16.19 CTDIvol (mGy) ; Combined studies - Thorax/Abdomen/Pelvis MEDICAL HISTORY : Hypertension. Chronic obstructive pulmonary disease. Leukemia. Kidney disease. SURGICAL HISTORY : None. ENCOUNTER: Initial ACUITY: 1 day PAIN SCALE: 0/10 LOCATION: chest TECHNIQUE: Volumetric scanning of the chest was performed. Using automated exposure control and adjustment of t he mA and/or kV according to patient size, radiation dose was kept as low as reasonably achievable to obtain optimal diagnostic quality images. DICOM format image data is available electronically for r eview and comparison. Follow-up recommendations for detected pulmonary nodules are based at a minimum on nodule size and pa tient risk factors according to Fleischner Society Guidelines. FINDINGS: LUNGS: There is a 2.8 cm masslike area of rounded parenchymal density in the lateral left upper lobe. There is some nodular parenchymal disease in the right lung base. There is compressive atelectasis adjacent to moderately large bilateral pleural effusions. PLEURAE: Moderately large bilateral pleural effusions. MEDIASTINUM: The heart and great vessels demonstrate no acute abnormality. There is no mediastinal or hilar lymph adenopathy. Coronary artery calcifications. AXILLAE: Within normal limits. No lymphadenopathy. MUSCULOSKELETAL: Destructive process involving the T11 vertebra with surrounding soft tissue mass suspected. CONCLUSION: Left upper lobe nodular mass. Parenchymal disease in the right lung base. Moderately large bilateral pleural effusions. Destructive process involving T11 vertebral body Guzman Alcaraz MD on May 03, 2017 at 1:43 Board Certified Radiologist. This report was verified electronically.
--- NOTE | 2017-05-03 01:58 | RADRPT ---
EXAM DATE/TIME: 05/03/2017 01:27 [facility] COMPARISON: No previous studies available for comparison. INDICATIONS : Diffuse abdominal pain. ORAL CONTRAST: Prescribed oral contrast ingested. RADIATION DOSE: 16.19 CTDIvol (mGy) ; Combined studies - Thorax/Abdomen/Pelvis MEDICAL HISTORY : Hypertension. Chronic obstructive pulmonary disease. Leukemia. Kidney disease. SURGICAL HISTORY : Inguinal hernia repair. ENCOUNTER: Initial ACUITY: 1 day PAIN SCALE: 6/10 LOCATION: All quadrants. TECHNIQUE: Volumetric scanning of the abdomen and pelvis was performed. Using automated exposure control and ad justment of the mA and/or kV according to patient size, radiation dose was kept as low as reasonably achievable to obtain optimal diagnostic quality images. DICOM format image data is available electro nically for review and comparison. FINDINGS: LIVER: Homogeneous density without lesion. There is no dilation of the biliary tree. No calcified gallston es. SPLEEN: Normal size without lesion. PANCREAS: Within normal limits. KIDNEYS: Bilateral ureteral stents in place. Nonspecific perinephric fatty tissue stranding. Small stones invo lving the right renal pelvis. ADRENAL GLANDS: Within normal limits. VASCULAR: There is no aortic aneurysm. BOWEL/MESENTERY: Distal colonic diverticula. No abnormal dilatation of bowel. ABDOMINAL WALL: Within normal limits. RETROPERITONEUM: Extensive abnormal soft tissue in the para-aortic region throughout the abdomen and extending into th e upper pelvis. Lobular soft tissue density in the celiac region, likely adenopathy. BLADDER: Decompressed with Baugh catheter. REPRODUCTIVE: Within normal limits. INGUINAL: There is no lymphadenopathy or hernia. MUSCULOSKELETAL: Destructive process involving T11 vertebra with some degree of compressive deformity and bony retropu lsion. CONCLUSION: Extensive abnormal retroperitoneal soft tissue, presumably confluent adenopathy and adenopathy also p resent in the celiac region in the upper abdomen. Destructive process involving T11. Bilateral ureteral stents in place. Guzman Alcaraz MD on May 03, 2017 at 1:51 Board Certified Radiologist. This report was verified electronically.
[2017-05-03] MEDS: SODIUM CHLOR 0.9% 1000 ML INJ 1,000 ML IV SCH ×2 (03:08→12:25)
[2017-05-03 03:18] LABS: AUTOMATED NEUTROPHIL # 6.2 TH/MM3 (1.8-7.7); BASOPHIL % 0.2 % (0.0-2.0); EOSINOPHIL % 0.1 % (0.0-4.0); LYMPH % 62.5 % (9.0-44.0); LYMPHOCYTE # 10.8 TH/MM3 (1.0-4.8); MEAN CELL VOLUME 88.8 FL (80.0-100.0); MEAN CORPUSCULAR HEMOGLOBIN 29.4 PG (27.0-34.0); MEAN CORPUSCULAR HGB CONC 33.1 % (32.0-36.0); MONO % 1.2 % (0.0-8.0); PLATELET COUNT 175 TH/MM3 (150-450); RED BLOOD COUNT 3.49 MIL/MM3 (4.50-5.90); RED CELL DISTRIBUTION WIDTH 14.5 % (11.6-17.2); WHITE BLOOD COUNT 17.3 TH/MM3 (4.0-11.0)
[2017-05-03 03:26] LABS: HEMO FLAGS AUTO DIFF
[2017-05-03 03:44] LABS: BICARBONATE 28.3 MEQ/L (21.0-32.0); URIC ACID 6.3 MG/DL (2.6-7.2)
[2017-05-03 04:14] LABS: BANDS 13 % (0-6); MYELOCYTES 1 % (0-0); NEUTROPHIL # MANUAL DIFF 10.9 TH/MM3 (1.8-7.7); POLYS (SEG NEUTROPHILS) 49 % (16-70); WBC DIFF SAMPLE 100
[2017-05-03 04:15] LABS: PLATELET ESTIMATE SMEAR NORMAL (NORMAL); PLATELET MORPHOLOGY NORMAL (NORMAL); SCAN/DIFF FINAL DIFF MANUAL
[2017-05-03] MEDS ORDERED: POTASSIUM CHLORIDE 25 MEQ EFFERVESCENT TAB PO ONE (06:45)
--- NOTE | 2017-05-03 08:23 | HHI.PR ---
Subjective Patient symptoms today Pt seen and examined. Urine clear. Objective Vital Signs Vital Signs Date Time Temp Pulse Resp B/P (MAP) Pulse Ox O2 Delivery O2 Flow Rate FiO2 05/03/17 08:00 98.1 94 16 127/58 (81) 94 05/03/17 00:19 95 Nasal Cannula 2.00 05/03/17 00:03 96.4 89 18 109/55 (73) 94 05/02/17 20:14 98.0 93 18 120/62 (81) 93 05/02/17 17:25 05/02/17 16:45 97.2 102 17 136/67 (90) 95 05/02/17 11:08 96 Room Air 05/02/17 10:56 98.4 103 14 120/54 (76) 95 Intake & Output 05/03/17 05/03/17 07:00 19:00 Intake Total 2080 ml Output Total 2000 ml Balance 80 ml Intake Oral 780 ml IV Total 1300 ml Output Urine Total 2000 ml # Bowel Movements 0 Result Diagram: 05/03/17 0255 05/03/17 0255 Imaging Last 24 hours Impressions Chest X-Ray 05/02/17 1100 Signed Impressions: Service Date/Time: Tuesday, May 02, 2017 11:36 - CONCLUSION: Small bilateral pleural effusions otherwise negative. Ted Ray MD FACR Objective Remarks Abd:soft,nt,nd Mcmillan with clear urine Medications and IVs Current Medications Medications (Trade) Dose Ordered Sig/Stuart Route Start Time Stop Time Status Last Admin Sodium Chloride 1,000 ml @ 100 mls/hr Q10H IV 05/02/17 17:00 05/03/17 03:08 (NS Flush) 2 ml UNSCH PRN IV FLUSH 05/02/17 15:30 (NS Flush) 2 ml BID IV FLUSH 05/02/17 21:00 (Tylenol) 650 mg Q4H PRN PO 05/02/17 15:30 (Zofran Inj) 4 mg Q6H PRN IVP 05/02/17 15:30 (Narcan Inj) 0.4 mg UNSCH PRN IV PUSH 05/02/17 15:30 (Ninfa-Colace) 1 tab BID PO 05/02/17 21:00 05/02/17 20:37 (Milk Of Magnesia Liq) 30 ml Q12H PRN PO 05/02/17 15:30 (Senokot) 17.2 mg Q12H PRN PO 05/02/17 15:30 (Dulcolax Supp) 10 mg DAILY PRN RECTAL 05/02/17 15:30 (Lactulose Liq) 30 ml DAILY PRN PO 05/02/17 15:30 (Aspirin Chew) 81 mg DAILY CHEW 05/03/17 09:00 ([place] 7.5-325 Mg) 1 tab Q6H PRN PO 05/02/17 15:30 (Vitamin B6) 100 mg DAILY PO 05/03/17 09:00 (Pravachol) 40 mg DAILY PO 05/03/17 09:00 Ceftriaxone Sodium 1000 mg/ Sodium Chloride 100 ml @ 200 mls/hr Q24H IV 05/02/17 17:00 05/02/17 22:30 (Duoneb Neb) 1 ampule Q4HR NEB NEB 05/02/17 16:00 05/03/17 03:03 (Mucinex Er) 600 mg BID PO 05/02/17 21:00 05/02/17 20:37 (Mycostatin Liq) 5 ml QID SWISH-SWAL 05/02/17 18:00 05/02/17 20:37 (Heparin Inj) 5,000 units Q12HR SQ 05/02/17 21:00 05/02/17 20:38 Assessment and Plan Assessment and Plan 76 y.o. male with CLL s/p bilateral ureteral stent placement and AUR Maintain mcmillan for now. Void trial once strength has improved. Rx constipation F/U with Roosevelt Dominguez DO May 03, 2017 08:23
[2017-05-03] MEDS ORDERED: POTASSIUM CHLORIDE 20 MEQ PWD PACKET PO ONE ×2 (08:45→12:00)
[2017-05-03] MEDS: NYSTATIN SUSP 500,000 U/5 ML CUP SWISH-SWAL SCH ×4 (08:48→21:45)
[2017-05-03] MEDS: DOCUSATE SODIUM 50 MG/SENNA 8.6 MG TAB PO SCH ×2 (08:48→21:00)
[2017-05-03] MEDS: PYRIDOXINE HCL 50 MG TAB PO SCH (08:48)
[2017-05-03] MEDS: HEPARIN SODIUM - SQ 10,000 UNITS/ML VIAL SQ SCH ×2 (08:48→21:45)
[2017-05-03] MEDS: SODIUM CHLORIDE 0.9% FLUSH 10 ML FLUSH IV FLUSH SCH ×2 (08:49→21:00)
[2017-05-03] MEDS: PRAVASTATIN SOD 40 MG TAB PO SCH (08:49)
[2017-05-03] MEDS: guaiFENesin E.R. 600 MG TAB PO SCH ×2 (08:49→21:45)
[2017-05-03] MEDS: ASPIRIN 81 MG CHEW TAB CHEW SCH (08:49)
[2017-05-03] MEDS: ACETAMINOPHEN/HYDROcodone 325 MG/7.5 MG TAB PO PRN ×3 (08:54→23:28)
--- NOTE | 2017-05-03 10:36 | HHI.PR ---
Subjective Remarks This is a pleasant 76 y/o male on management by mechanical service specialist Doctor Aaron Montalvo due to Chronic Lymphocytic Leukemia deletion 13Q he developed bulky adenopathy treated with Rituximab and Bendamustine without clear response, on Ibrutinib with improvement, but developed a large mass in the retroperitoneum extending into the pole of the left kidney, 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 today he came to ER after he had a procedure performed yesterday by Doctor Bull had Urethral stens placed came due to General Weakness. Stable in his bedroom already seen by Urology specialist and mechanical service specialist , will need to continue present care, no nausea, vomit or diarrhea on hold Oncologic medicines, meanwhile the patient gets stronger. Objective Vital Signs Date Time Temp Pulse Resp B/P (MAP) Pulse Ox O2 Delivery O2 Flow Rate FiO2 05/03/17 08:00 98.1 94 16 127/58 (81) 94 05/03/17 00:19 95 Nasal Cannula 2.00 05/03/17 00:03 96.4 89 18 109/55 (73) 94 05/02/17 20:14 98.0 93 18 120/62 (81) 93 05/02/17 17:25 05/02/17 16:45 97.2 102 17 136/67 (90) 95 05/02/17 11:08 96 Room Air 05/02/17 10:56 98.4 103 14 120/54 (76) 95 I/O 05/02/17 05/02/17 05/02/17 05/03/17 05/03/17 05/03/17 07:00 15:00 23:00 07:00 15:00 23:00 Intake Total 700 ml 2080 ml Output Total 600 ml 2000 ml Balance 700 ml -600 ml 80 ml Intake Oral 780 ml IV Total 700 ml 1300 ml Output Urine Total 600 ml 2000 ml # Bowel Movements 0 Result Diagram: 05/03/17 0255 05/03/17 0255 Imaging Last Impressions Chest X-Ray 05/02/17 1100 Signed Impressions: Service Date/Time: Tuesday, May 02, 2017 11:36 - CONCLUSION: Small bilateral pleural effusions otherwise negative. Ted Ray MD FACR Chest CT 05/02/17 0000 Signed Impressions: Service Date/Time: April 01:27 - CONCLUSION: Left upper lobe nodular mass. Parenchymal disease in the right lung base. Moderately large bilateral pleural effusions. Destructive process involving T11 vertebral body Guzman Alcaraz MD Abdomen/Pelvis CT 05/02/17 0000 Signed Impressions: Service Date/Time: April 01:27 - CONCLUSION: Extensive abnormal retroperitoneal soft tissue, presumably confluent adenopathy and adenopathy also present in the celiac region in the upper abdomen. Destructive process involving T11. Bilateral ureteral stents in place. Guzman Alcaraz MD Procedures None Other Results Laboratory Tests Test 05/02/17 11:10 05/02/17 13:40 05/02/17 18:45 05/03/17 02:55 Smudge Cells PRESENT Prothrombin Time 11.3 SEC Prothromb Time International Ratio 1.0 RATIO Activated Partial Thromboplast Time 28.4 SEC Blood Urea Nitrogen 39 MG/DL 30 MG/DL Creatinine 2.09 MG/DL 1.22 MG/DL Random Glucose 69 MG/DL 78 MG/DL Total Protein 5.8 GM/DL Albumin 2.9 GM/DL Calcium Level 9.3 MG/DL 8.5 MG/DL Magnesium Level 1.7 MG/DL Alkaline Phosphatase 71 U/L Aspartate Amino Transf (AST/SGOT) 67 U/L Alanine Aminotransferase (ALT/SGPT) 22 U/L Total Bilirubin 0.6 MG/DL Sodium Level 128 MEQ/L 131 MEQ/L Potassium Level 3.6 MEQ/L 3.0 MEQ/L Chloride Level 92 MEQ/L 96 MEQ/L Carbon Dioxide Level 26.2 MEQ/L 28.3 MEQ/L Urine Color LIGHT-RED Urine Turbidity HAZY Urine pH 6.0 Urine Specific [place] 1.017 Urine Protein 100 mg/dL Urine Glucose (UA) NEG mg/dL Urine Ketones TRACE mg/dL Urine Occult Blood LARGE Urine Nitrite NEG Urine Bilirubin NEG Urine Urobilinogen LESS THAN 2.0 MG/DL Urine Leukocyte Esterase MOD Urine RBC /hpf Urine WBC 63 /hpf Urine Bacteria FEW /hpf Urine Mucus FEW /lpf Microscopic Urinalysis Comment CULTURE INDICATED Creatine Kinase MB 9.4 NG/ML Creatine Kinase MB % 2.2 % White Blood Count 17.3 TH/MM3 Red Blood Count 3.49 MIL/MM3 Hemoglobin 10.2 GM/DL Hematocrit 31.0 % Mean Corpuscular Volume 88.8 FL Mean Corpuscular Hemoglobin 29.4 PG Mean Corpuscular Hemoglobin Concent 33.1 % Red Cell Distribution Width 14.5 % Platelet Count 175 TH/MM3 Mean Platelet Volume 8.3 FL Neutrophils (%) (Auto) 36.0 % Lymphocytes (%) (Auto) 62.5 % Monocytes (%) (Auto) 1.2 % Eosinophils (%) (Auto) 0.1 % Basophils (%) (Auto) 0.2 % Neutrophils # (Auto) 6.2 TH/MM3 Lymphocytes # (Auto) 10.8 TH/MM3 Monocytes # (Auto) 0.2 TH/MM3 Eosinophils # (Auto) 0.0 TH/MM3 Basophils # (Auto) 0.0 TH/MM3 CBC Comment AUTO DIFF Differential Total Cells Counted 100 Neutrophils % (Manual) 49 % Band Neutrophils % 13 % Lymphocytes % 35 % Monocytes % 2 % Neutrophils # (Manual) 10.9 TH/MM3 Myelocytes 1 % Differential Comment FINAL DIFF MANUAL Platelet Estimate NORMAL Platelet Morphology Comment NORMAL Red Cell Morphology Comment NORMAL Uric Acid 6.3 MG/DL Lactate Dehydrogenase 267 U/L Anion Gap 7 MEQ/L Estimat Glomerular Filtration Rate 58 ML/MIN Total Creatine Kinase 227 U/L Troponin I 0.04 NG/ML Objective Remarks GENERAL: Well-developed, no acute distress. SKIN: Focused skin has Severe ecchymotic lesions on four extremities. HEAD: Atraumatic. Normocephalic. EYES: Pupils equal and round. No scleral icterus. No injection or drainage. ENT: No nasal bleeding or discharge. Oral thrush. NECK: Trachea midline. No JVD. CARDIOVASCULAR: Regular rate and rhythm. No murmur appreciated. RESPIRATORY: Decreased breath sounds bilateral, mild expiratory wheezing. GASTROINTESTINAL: Abdomen soft, mild left lower quadrant tenderness without guarding or rebound, nondistended. MUSCULOSKELETAL: No obvious deformities. Ecchymosis on all four extremities. NEUROLOGICAL: Awake and alert. No obvious cranial nerve deficits. PSYCHIATRIC: Appropriate mood and affect; insight and judgment normal. Medications and IVs Current Medications Medications (Trade) Dose Ordered Sig/Stuart Route Start Time Stop Time Status Last Admin Sodium Chloride 1,000 ml @ 100 mls/hr Q10H IV 05/02/17 17:00 05/03/17 03:08 (NS Flush) 2 ml UNSCH PRN IV FLUSH 05/02/17 15:30 (NS Flush) 2 ml BID IV FLUSH 05/02/17 21:00 (Tylenol) 650 mg Q4H PRN PO 05/02/17 15:30 (Zofran Inj) 4 mg Q6H PRN IVP 05/02/17 15:30 (Narcan Inj) 0.4 mg UNSCH PRN IV PUSH 05/02/17 15:30 (Ninfa-Colace) 1 tab BID PO 05/02/17 21:00 05/03/17 08:48 (Milk Of Magnesia Liq) 30 ml Q12H PRN PO 05/02/17 15:30 (Senokot) 17.2 mg Q12H PRN PO 05/02/17 15:30 (Dulcolax Supp) 10 mg DAILY PRN RECTAL 05/02/17 15:30 (Lactulose Liq) 30 ml DAILY PRN PO 05/02/17 15:30 (Aspirin Chew) 81 mg DAILY CHEW 05/03/17 09:00 05/03/17 08:49 ([place] 7.5-325 Mg) 1 tab Q6H PRN PO 05/02/17 15:30 05/03/17 08:54 (Vitamin B6) 100 mg DAILY PO 05/03/17 09:00 05/03/17 08:48 (Pravachol) 40 mg DAILY PO 05/03/17 09:00 05/03/17 08:49 Ceftriaxone Sodium 1000 mg/ Sodium Chloride 100 ml @ 200 mls/hr Q24H IV 05/02/17 17:00 05/02/17 22:30 (Duoneb Neb) 1 ampule Q4HR NEB NEB 05/02/17 16:00 05/03/17 03:03 (Mucinex Er) 600 mg BID PO 05/02/17 21:00 05/03/17 08:49 (Mycostatin Liq) 5 ml QID SWISH-SWAL 05/02/17 18:00 05/03/17 08:48 (Heparin Inj) 5,000 units Q12HR SQ 05/02/17 21:00 05/03/17 08:48 (KCl Powder) 40 meq ONCE ONCE PO 05/03/17 12:00 05/03/17 12:01 A/P Assessment and Plan 1. 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 seen by his primary mechanical service specialist Doctor Aaron Montalvo, on hold oncologic medicine 2. Urolithiasis status post ureteral Stent placement today after Baugh cath placement due to Urinary Retention he has Hematuria asked for Urology specialist consult. recommended to continue Baugh cath and antibiotics. 3. Acute Renal Injury on chronic kidney disease III, Improved to baseline. 4. electrolyte derangement replacing and following. 5. Hyperlipidemia will continue Home medicines 6. Hypertension on hold SONU inhibitor and diuretics due to acute on chronic renal failure will follow hospitalized re start blood pressure medicine depend of clinical course. 7. COPD on Bronchodilator, Mucolytic and incentive spirometry. 8. Oral Thrush continue on Nystatin DVT prophylaxis SCDs, the patient has hematuria contraindicated chemical prophylaxis. Discussed Condition With Patient in the room, all questions answered to the best of my abilities. Discharge Planning Once cleared by specialists. Yoav Bell MD May 03, 2017 10:36
--- NOTE | 2017-05-03 11:59 | RF ---
cc: OCTAVIANO CAREY MD F o l l o w u p R e p o r t DATE OF SERVICE: 05/03/2017 AGE: 76 SEX: M Mr. Hercules is a 76-year-old male inpatient with history of lymphoma, now with biopsy-proven involvement of the thoracic spine and abdomen. Recent pathology obtained as an inpatient demonstrates this. Dr. Montalvo contacted me about the circumstances. He has pain at the T11 area. He does have collapse of the vertical body there. CT of the abdomen and pelvis demonstrate the destructive process involving T11 vertebral body with compressive deformity, bony retropulsion, as well as extensive abnormal retroperitoneal soft tissue adenopathy present in the celiac area of the upper abdomen as well. He was initially diagnosed with CLL in 2013 and now is with new bulky adenopathy. Biopsy again confirms the area at the retroperitoneum. He notes significant back pain. PAST MEDICAL AND SURGICAL HISTORY 1. Arthritis. 2. CLL. 3. Hyperlipidemia. 4. Hypertension. 5. Kidney disease. 6. Temporal arteritis. 7. COPD. 8. Neural stent replacement. 9. Tonsillectomy. ALLERGIES LEVAQUIN. SULFA. FAMILY HISTORY No first degree relatives with malignancy. SOCIAL HISTORY History of smoking. MEDICATIONS See electronic medical records. REVIEW OF SYSTEMS Reports back pain, flank pain. Denies constipation. Denies urination. Notes nocturia. Reports difficulty walking due to pain. He is an inpatient currently. He reports some weight loss due to decreased appetite. He denies chest pain, palpitations, denies cough. Denies any prior radiation therapy. Denies history of lupus, collagen vascular disease, scleroderma, ulcerative colitis or Crohn's. We discussed palliative radiation therapy to spine. Potential pain could be from retroperitoneal adenopathy. We discussed palliative radiation therapy to the spine. He may have bone cement placed. We will schedule CT simulation. Due to the palliative doses, would not anticipate bone cement, density changing dosimetry to the spinal cord to critical normal structure. We discussed 3-D planning. Complex blocking will be done. CT images will be reconstructed and treatment planning. We will schedule him for CT simulation today. He does note difficulty walking due to the pain. PLAN 20-30 Gy five-ten fractions to T11 and L2. To begin chemotherapy first due to disease progression discussed with dr montalvo. Also consider palliative radiation therapy to retroperitoneal adenopathy. Octaviano Carey MD Radiation Oncologist TOD[facility] /11:31 AM /11:38 AM ROMULO
[2017-05-03] MEDS ORDERED: LORazepam 2 MG/ML VIAL IV PUSH ONE (12:00)
[2017-05-03] MEDS ORDERED: MORPHINE SULFATE 2 MG/ML INJ IV PRN (12:00)
--- NOTE | 2017-05-03 12:01 | PD.ONC.PN ---
Subjective Subjective Remarks Afebrile overnight Reports he still has significant back pain despite the Lortab. Objective Data Date Time Temp Pulse Resp B/P (MAP) Pulse Ox O2 Delivery O2 Flow Rate FiO2 05/03/17 08:00 98.1 94 16 127/58 (81) 94 05/03/17 00:19 95 Nasal Cannula 2.00 05/03/17 00:03 96.4 89 18 109/55 (73) 94 05/02/17 20:14 98.0 93 18 120/62 (81) 93 05/02/17 17:25 05/02/17 16:45 97.2 102 17 136/67 (90) 95 05/03/17 05/03/17 05/03/17 07:00 15:00 23:00 Intake Total 2080 ml Output Total 2000 ml Balance 80 ml Result Diagram: 05/03/17 0255 05/03/17 0255 Laboratory Results Laboratory Tests Test 05/02/17 13:40 05/02/17 18:45 05/03/17 02:55 Urine Color LIGHT-RED Urine Turbidity HAZY Urine pH 6.0 Urine Specific [place] 1.017 Urine Protein 100 mg/dL Urine Glucose (UA) NEG mg/dL Urine Ketones TRACE mg/dL Urine Occult Blood LARGE Urine Nitrite NEG Urine Bilirubin NEG Urine Urobilinogen LESS THAN 2.0 MG/DL Urine Leukocyte Esterase MOD Urine RBC /hpf Urine WBC 63 /hpf Urine Bacteria FEW /hpf Urine Mucus FEW /lpf Microscopic Urinalysis Comment CULTURE INDICATED Total Creatine Kinase 424 U/L 227 U/L Creatine Kinase MB 9.4 NG/ML Creatine Kinase MB % 2.2 % Troponin I 0.05 NG/ML 0.04 NG/ML White Blood Count 17.3 TH/MM3 Red Blood Count 3.49 MIL/MM3 Hemoglobin 10.2 GM/DL Hematocrit 31.0 % Mean Corpuscular Volume 88.8 FL Mean Corpuscular Hemoglobin 29.4 PG Mean Corpuscular Hemoglobin Concent 33.1 % Red Cell Distribution Width 14.5 % Platelet Count 175 TH/MM3 Mean Platelet Volume 8.3 FL Neutrophils (%) (Auto) 36.0 % Lymphocytes (%) (Auto) 62.5 % Monocytes (%) (Auto) 1.2 % Eosinophils (%) (Auto) 0.1 % Basophils (%) (Auto) 0.2 % Neutrophils # (Auto) 6.2 TH/MM3 Lymphocytes # (Auto) 10.8 TH/MM3 Monocytes # (Auto) 0.2 TH/MM3 Eosinophils # (Auto) 0.0 TH/MM3 Basophils # (Auto) 0.0 TH/MM3 CBC Comment AUTO DIFF Differential Total Cells Counted 100 Neutrophils % (Manual) 49 % Band Neutrophils % 13 % Lymphocytes % 35 % Monocytes % 2 % Neutrophils # (Manual) 10.9 TH/MM3 Myelocytes 1 % Differential Comment FINAL DIFF MANUAL Platelet Estimate NORMAL Platelet Morphology Comment NORMAL Red Cell Morphology Comment NORMAL Blood Urea Nitrogen 30 MG/DL Creatinine 1.22 MG/DL Random Glucose 78 MG/DL Calcium Level 8.5 MG/DL Uric Acid 6.3 MG/DL Lactate Dehydrogenase 267 U/L Sodium Level 131 MEQ/L Potassium Level 3.0 MEQ/L Chloride Level 96 MEQ/L Carbon Dioxide Level 28.3 MEQ/L Anion Gap 7 MEQ/L Estimat Glomerular Filtration Rate 58 ML/MIN Culture Results Microbiology Date/Time Source Procedure Growth Status 05/02/17 11:15 Blood Peripheral Aerobic Blood Culture - Preliminary NO GROWTH IN 1 DAY Resulted 05/02/17 11:15 Blood Peripheral Anaerobic Blood Culture - Preliminary NO GROWTH IN 1 DAY Resulted 05/02/17 11:10 Blood Peripheral Aerobic Blood Culture - Preliminary NO GROWTH IN 1 DAY Resulted 05/02/17 11:10 Blood Peripheral Anaerobic Blood Culture - Preliminary NO GROWTH IN 1 DAY Resulted 05/02/17 13:40 Urine Random Urine Urine Culture Pending Received Administered Medications Medications (Trade) Dose Ordered Sig/Stuart Route PRN Reason Start Time Stop Time Status Last Admin Dose Admin Sodium Chloride 1,000 ml @ 100 mls/hr Q10H IV 05/02/17 17:00 05/03/17 03:08 Senna/Docusate Sodium (Ninfa-Colace) 1 tab BID PO 05/02/17 21:00 05/03/17 08:48 Aspirin (Aspirin Chew) 81 mg DAILY CHEW 05/03/17 09:00 05/03/17 08:49 Acetaminophen/ Hydrocodone Bitart ([place] 7.5-325 Mg) 1 tab Q6H PRN PO PAIN 05/02/17 15:30 05/03/17 08:54 Pyridoxine HCl (Vitamin B6) 100 mg DAILY PO 05/03/17 09:00 05/03/17 08:48 Pravastatin Sodium (Pravachol) 40 mg DAILY PO 05/03/17 09:00 05/03/17 08:49 Ceftriaxone Sodium 1000 mg/ Sodium Chloride 100 ml @ 200 mls/hr Q24H IV 05/02/17 17:00 05/02/17 22:30 Albuterol/ Ipratropium (Duoneb Neb) 1 ampule Q4HR NEB NEB 05/02/17 16:00 05/03/17 03:03 Guaifenesin (Mucinex Er) 600 mg BID PO 05/02/17 21:00 05/03/17 08:49 Nystatin (Mycostatin Liq) 5 ml QID SWISH-SWAL 05/02/17 18:00 05/03/17 08:48 Heparin Sodium (Porcine) (Heparin Inj) 5,000 units Q12HR SQ 05/02/17 21:00 05/03/17 08:48 Objective Remarks GENERAL: Older male, resting in bed in no acute distress SKIN: Warm and dry. Multiple scattered ecchymoses to upper and lower extremities. HEAD: Normocephalic. EYES: No injection or drainage. NECK: Supple, trachea midline. CARDIOVASCULAR: Regular rate and rhythm without murmurs. RESPIRATORY: Clear anteriorly. Breathing unlabored. GASTROINTESTINAL: Abdomen soft, nondistended. Tender to deep palpation EXTREMITIES: No cyanosis. Generalized edema to bilateral lower extremities NEUROLOGICAL: No obvious focal deficit. Awake, alert, and oriented x3. Assessment/Plan Problem List: (1) CLL (chronic lymphocytic leukemia) ICD Codes: C91.10 - Chronic lymphocytic leukemia of B-cell type not having achieved remission Plan: -- Abdominal pain and flank pain due to the large retroperitoneal mass encroaching the iliopsoas muscle. 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 She was supposed to begin chemotherapy in the clinic yesterday however developed significant weakness and fell when his family was trying to get him into the car. He was brought to the emergency room for further evaluation Assessment 76-year-old male with chronic lymphocytic leukemia/lymphoma, admitted with abdominal pain and back pain and a urinary tract infection. Plan 1. We'll get MRI thoracic and lumbar for possible kyphoplasty 2. Interventional radiology consulted 3. Patient will have radiation simulation today with possible start of radiation on Sunday 4. Add on low-dose morphine for pain uncontrolled by Lortab. Attending Statement The exam, history, and the medical decision-making described in the above note were completed with the assistance of the mid-level provider. I reviewed and agree with the findings presented. I attest that I had a [id number] encounter with the patient on the same day, and personally performed and documented my assessment and findings in the medical record. +low back pain radiating to groin. Reviewed CT with radiologist and . Will get MRI to see if he is a good candidate for kyphoplasty +/- RFA. Plan to give him palliative XRT. He will also need chemotherapy and will coordinate with XRT. Will give him pulse decadron. Lyla Villaseñor May 03, 2017 12:01 Aaron Montalvo MD May 03, 2017 16:42
--- NOTE | 2017-05-03 12:03 | PD.WCN.NOT ---
Wound Consult Additional Information: Patitimmy not seen spoke with RN regarding inappropriate wound consult. Diane Sharif [facility] May 03, 2017 12:03
--- NOTE | 2017-05-03 15:11 | RADRPT ---
EXAM DATE/TIME: 05/03/2017 12:42 [facility] COMPARISON: CT ABDOMEN & PELVIS W/O CONTRAST, May 03, 2017, 1:27. INDICATIONS : Lesion. Back pain. MEDICAL HISTORY : Leukemia. SURGICAL HISTORY : Hernia repair. ENCOUNTER: Subsequent ACUITY: 2 day PAIN SCORE: 5/10 LOCATION: back. TECHNIQUE: Multiplanar multisequence MRI of the lumbar spine was performed without contrast. FINDINGS: Study is degraded somewhat by motion artifact. See the MRI of the thoracic spine reported separately. The most caudal appearing lumbar vertebra is numbered as L5. VERTEBRAE: There is abnormal signal involving the L2 vertebral body with mild loss of height. This abnormal sign al extends into the pedicles bilaterally. Some involvement of the lamina also noted on the left. Ther e is bowing of the posterior cortical margin with extension and 4 mm posteriorly. 10% loss of height of the vertebral body. [place]: Normal level and configuration. T12-L1: The thecal sac has a normal diameter. No evidence of disc bulge or protrusion. The neural foramina are patent bilaterally. L1-L2: The thecal sac has a normal diameter. No evidence of disc bulge or protrusion. The neural foramina are patent bilaterally. L2-L3: Destructive changes involving the L2 vertebral body as detailed in the above discussion. There is bow ing of the posterior cortical margin of 4 mm which narrows the central canal. There is obscuration of the neural foramina bilaterally by the destructive changes. This is more pronounced on the left. L3-L4: The thecal sac has a normal diameter. No evidence of disc bulge or protrusion. The neural foramina are patent bilaterally. L4-L5: The thecal sac has a normal diameter. No evidence of disc bulge or protrusion. The neural foramina are patent bilaterally. L5-S1: The thecal sac has a normal diameter. No evidence of disc bulge or protrusion. The neural foramina are patent bilaterally. CONCLUSION: 1. Please see the MRI of the thoracic spine reported separately. 2. Current study limited by motion artifact. 3. Destructive process involving the L2 vertebral body with extension into the pedicles bilaterally a s well the left lamina with narrowing of the central canal due to posterior displacement of the poste rior cortical margin as well as obscuration of the neural foramina. 10% loss of height. This is felt to relate to a metastatic focus. 4. Prominent retroperitoneal soft tissue previous described on the CT scan. Rakesh Farnsworth Jr., MD on May 03, 2017 at 13:27 Board Certified Radiologist. This report was verified electronically.
--- NOTE | 2017-05-03 15:13 | RADRPT ---
EXAM DATE/TIME: 05/03/2017 12:42 [facility] COMPARISON: No previous studies available for comparison. INDICATIONS : Lesion. Back pain. MEDICAL HISTORY : Leukemia. SURGICAL HISTORY : Hernia repair. Finger amputation. ENCOUNTER: Subsequent ACUITY: 2 day PAIN SCORE: 5/10 LOCATION: back. TECHNIQUE: Multiplanar multisequence MRI of the thoracic spine was performed. FINDINGS: The study is degraded by motion artifact. Please see the MRI of the lumbar spine reported separately. VERTEBRA: There is abnormal signal involving the T11 vertebral body which extends into the pedicles bilaterally . No displacement of the posterior cord margin. 40% loss of height of the vertebral body. The remaini ng vertebral bodies are unremarkable. ALIGNMENT: Normal. CORD: Normal position and configuration. T1-T2: Normal. T2-T3: The thecal sac has a normal diameter. No evidence of disc bulge or protrusion. T3-T4: The thecal sac has a normal diameter. No evidence of disc bulge or protrusion. T4-T5: The thecal sac has a normal diameter. No evidence of disc bulge or protrusion. T5-T6: The thecal sac has a normal diameter. No evidence of disc bulge or protrusion. T6-T7: The thecal sac has a normal diameter. No evidence of disc bulge or protrusion. T7-T8: The thecal sac has a normal diameter. No evidence of disc bulge or protrusion. T8-T9: The thecal sac has a normal diameter. No evidence of disc bulge or protrusion. T9-T10: The thecal sac has a normal diameter. No evidence of disc bulge or protrusion. T10-T11: The thecal sac has a normal diameter. No evidence of disc bulge or protrusion. T11-T12: The thecal sac has a normal diameter. No evidence of disc bulge or protrusion. T12-L1: The thecal sac has a normal diameter. No evidence of disc bulge or protrusion. CONCLUSION: 1. Please see the MRI of the lumbar spine reported separately. 2. Study is motion degraded. 3. Destructive process involving the T11 vertebral body with 40% loss of height but no retropulsion. This is suggestive of a metastatic focus. Rakesh Farnsworth Jr., MD on May 03, 2017 at 15:09 Board Certified Radiologist. This report was verified electronically.
[2017-05-03] MEDS: cefTRIAXone INJ 1,000 MG in SODIUM CHLORIDE 0.9% INJ 100 ML IV SCH (17:06)
[2017-05-04] VITALS (11 sets, daily range): BP systolic 128–190; BP diastolic 61–90; PULSE 91–114; RESP 17–22; TEMP 97.2–100.7; O2SAT 93–96
[2017-05-04] MEDS: SODIUM CHLOR 0.9% 1000 ML INJ 1,000 ML IV SCH ×2 (02:45→08:11)
[2017-05-04] MEDS: RESP: ALBUTEROL 2.5 MG/IPRATROPIUM 0.5 MG NEB (SCH) NEB ×4 (03:48→15:18)
[2017-05-04 06:33] LABS: AUTOMATED NEUTROPHIL # 8.1 TH/MM3 (1.8-7.7); BASOPHIL # 0.1 TH/MM3 (0-0.2); BASOPHIL % 0.5 % (0.0-2.0); HEMATOCRIT 34.6 % (39.0-51.0); LYMPH % 56.6 % (9.0-44.0); MEAN CELL VOLUME 88.6 FL (80.0-100.0); MEAN CORPUSCULAR HEMOGLOBIN 28.5 PG (27.0-34.0); MEAN CORPUSCULAR HGB CONC 32.2 % (32.0-36.0); MONO % 1.3 % (0.0-8.0); NEUT % 41.6 % (16.0-70.0); PLATELET COUNT 221 TH/MM3 (150-450); RED CELL DISTRIBUTION WIDTH 14.4 % (11.6-17.2); WHITE BLOOD COUNT 19.4 TH/MM3 (4.0-11.0)
[2017-05-04 06:46] LABS: HEMO FLAGS AUTO DIFF
[2017-05-04] MEDS: DOCUSATE SODIUM 50 MG/SENNA 8.6 MG TAB PO SCH ×2 (06:53→21:00)
[2017-05-04 07:33] LABS: BLOOD UREA NITROGEN 14 MG/DL (7-18)
[2017-05-04 07:34] LABS: ALKALINE PHOSPHATASE 64 U/L (45-117); ALT (GPT) 20 U/L (12-78); ANION GAP 11 MEQ/L (5-15); AST (GOT) 49 U/L (15-37); BICARBONATE 23.1 MEQ/L (21.0-32.0); CHLORIDE 96 MEQ/L (98-107); GLOMERULAR FILTRATION RATE 112 ML/MIN (>89); POTASSIUM 3.6 MEQ/L (3.5-5.1); SODIUM (NA) 130 MEQ/L (136-145); TOTAL BILIRUBIN ADULT 0.6 MG/DL (0.2-1.0)
[2017-05-04] MEDS: ASPIRIN 81 MG CHEW TAB CHEW SCH (08:11)
[2017-05-04] MEDS: NYSTATIN SUSP 500,000 U/5 ML CUP SWISH-SWAL SCH ×4 (08:11→21:59)
[2017-05-04] MEDS: SODIUM CHLORIDE 0.9% FLUSH 10 ML FLUSH IV FLUSH SCH ×2 (08:11→22:00)
[2017-05-04] MEDS: PRAVASTATIN SOD 40 MG TAB PO SCH (08:11)
[2017-05-04] MEDS: guaiFENesin E.R. 600 MG TAB PO SCH ×2 (08:11→22:00)
[2017-05-04] MEDS: DEXAMETHASONE 4 MG TAB PO SCH (08:11)
[2017-05-04] MEDS: PYRIDOXINE HCL 50 MG TAB PO SCH (08:11)
[2017-05-04] MEDS: HEPARIN SODIUM - SQ 10,000 UNITS/ML VIAL SQ SCH ×2 (08:12→22:00)
--- NOTE | 2017-05-04 08:21 | HHI.PR ---
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 today he came to ER after he had a procedure performed yesterday by Doctor Blul had Urethral stens placed came due to General Weakness. 05/04: Seen in his bedroom, stable but frustrated due to the worsening Metastatic disease and the need for Palliative Radiation, discussed with patient and his Son Mr. Maldonado Hercules, and his Daughter in law, overall poor short term prognosis. No nausea, vomit or diarrhea. Objective Vital Signs Date Time Temp Pulse Resp B/P (MAP) Pulse Ox O2 Delivery O2 Flow Rate FiO2 05/04/17 07:35 96 Nasal Cannula 3.00 05/04/17 00:00 98.2 91 18 128/61 (83) 96 05/03/17 21:40 96 Nasal Cannula 3.00 05/03/17 20:13 97 Nasal Cannula 3.00 05/03/17 20:00 99.1 100 18 154/70 (98) 96 05/03/17 16:07 96 Nasal Cannula 3.00 05/03/17 16:00 97.6 94 18 193/87 (122) 96 05/03/17 12:00 96.4 97 17 176/78 (110) 93 I/O 05/03/17 05/03/17 05/03/17 05/04/17 05/04/17 05/04/17 07:00 15:00 23:00 07:00 15:00 23:00 Intake Total 2080 ml 300 ml 1800 ml Output Total 2000 ml 1300 ml 2200 ml Balance 80 ml -1000 ml -400 ml Intake Oral 780 ml 300 ml 800 ml IV Total 1300 ml 1000 ml Output Urine Total 2000 ml 1300 ml 2200 ml # Bowel Movements 0 1 Result Diagram: 10/13/17 0611 10/13/17 0611 Imaging Last Impressions Thoracic Spine MRI 05/03/17 0000 Signed Impressions: Service Date/Time: April 12:42 - CONCLUSION: 1. Please see the MRI of the lumbar spine reported separately. 2. Study is motion degraded. 3. Destructive process involving the T11 vertebral body with 40%% loss of height but no retropulsion. This is suggestive of a metastatic focus. Rakesh Farnsworth Jr., MD Lumbar Spine MRI 05/03/17 0000 Signed Impressions: Service Date/Time: April 12:42 - CONCLUSION: 1. Please see the MRI of the thoracic spine reported separately. 2. Current study limited by motion artifact. 3. Destructive process involving the L2 vertebral body with extension into the pedicles bilaterally as well the left lamina with narrowing of the central canal due to posterior displacement of the posterior cortical margin as well as obscuration of the neural foramina. 10%% loss of height. This is felt to relate to a metastatic focus. 4. Prominent retroperitoneal soft tissue previous described on the CT scan. Rakesh Farnsworth Jr., MD Chest X-Ray 05/02/17 1100 Signed Impressions: Service Date/Time: Tuesday, May 02, 2017 11:36 - CONCLUSION: Small bilateral pleural effusions otherwise negative. Ted Ray MD FACR Chest CT 05/02/17 0000 Signed Impressions: Service Date/Time: April 01:27 - CONCLUSION: Left upper lobe nodular mass. Parenchymal disease in the right lung base. Moderately large bilateral pleural effusions. Destructive process involving T11 vertebral body Guzman Alcaraz MD Abdomen/Pelvis CT 05/02/17 0000 Signed Impressions: Service Date/Time: April 01:27 - CONCLUSION: Extensive abnormal retroperitoneal soft tissue, presumably confluent adenopathy and adenopathy also present in the celiac region in the upper abdomen. Destructive process involving T11. Bilateral ureteral stents in place. Guzman Alcaraz MD Procedures None Other Results Laboratory Tests Test 05/02/17 11:10 05/02/17 13:40 05/02/17 18:45 05/03/17 02:55 Smudge Cells PRESENT Prothrombin Time 11.3 SEC Prothromb Time International Ratio 1.0 RATIO Activated Partial Thromboplast Time 28.4 SEC Blood Urea Nitrogen 39 MG/DL 30 MG/DL Creatinine 2.09 MG/DL 1.22 MG/DL Random Glucose 69 MG/DL 78 MG/DL Total Protein 5.8 GM/DL Albumin 2.9 GM/DL Calcium Level 9.3 MG/DL 8.5 MG/DL Magnesium Level 1.7 MG/DL Alkaline Phosphatase 71 U/L Aspartate Amino Transf (AST/SGOT) 67 U/L Alanine Aminotransferase (ALT/SGPT) 22 U/L Total Bilirubin 0.6 MG/DL Sodium Level 128 MEQ/L 131 MEQ/L Potassium Level 3.6 MEQ/L 3.0 MEQ/L Chloride Level 92 MEQ/L 96 MEQ/L Carbon Dioxide Level 26.2 MEQ/L 28.3 MEQ/L Urine Color LIGHT-RED Urine Turbidity HAZY Urine pH 6.0 Urine Specific [place] 1.017 Urine Protein 100 mg/dL Urine Glucose (UA) NEG mg/dL Urine Ketones TRACE mg/dL Urine Occult Blood LARGE Urine Nitrite NEG Urine Bilirubin NEG Urine Urobilinogen LESS THAN 2.0 MG/DL Urine Leukocyte Esterase MOD Urine RBC /hpf Urine WBC 63 /hpf Urine Bacteria FEW /hpf Urine Mucus FEW /lpf Microscopic Urinalysis Comment CULTURE INDICATED Creatine Kinase MB 9.4 NG/ML Creatine Kinase MB % 2.2 % Differential Total Cells Counted 100 Neutrophils % (Manual) 49 % Band Neutrophils % 13 % Lymphocytes % 35 % Monocytes % 2 % Neutrophils # (Manual) 10.9 TH/MM3 Myelocytes 1 % Platelet Estimate NORMAL Platelet Morphology Comment NORMAL Red Cell Morphology Comment NORMAL Uric Acid 6.3 MG/DL Lactate Dehydrogenase 267 U/L Total Creatine Kinase 227 U/L Troponin I 0.04 NG/ML Test 05/04/17 06:11 White Blood Count 19.4 TH/MM3 Red Blood Count 3.90 MIL/MM3 Hemoglobin 11.1 GM/DL Hematocrit 34.6 % Mean Corpuscular Volume 88.6 FL Mean Corpuscular Hemoglobin 28.5 PG Mean Corpuscular Hemoglobin Concent 32.2 % Red Cell Distribution Width 14.4 % Platelet Count 221 TH/MM3 Mean Platelet Volume 7.9 FL Neutrophils (%) (Auto) 41.6 % Lymphocytes (%) (Auto) 56.6 % Monocytes (%) (Auto) 1.3 % Eosinophils (%) (Auto) 0.0 % Basophils (%) (Auto) 0.5 % Neutrophils # (Auto) 8.1 TH/MM3 Lymphocytes # (Auto) 11.0 TH/MM3 Monocytes # (Auto) 0.3 TH/MM3 Eosinophils # (Auto) 0.0 TH/MM3 Basophils # (Auto) 0.1 TH/MM3 CBC Comment AUTO DIFF Blood Urea Nitrogen 14 MG/DL Creatinine 0.69 MG/DL Random Glucose 77 MG/DL Total Protein 5.3 GM/DL Albumin 2.4 GM/DL Calcium Level 8.5 MG/DL Alkaline Phosphatase 64 U/L Aspartate Amino Transf (AST/SGOT) 49 U/L Alanine Aminotransferase (ALT/SGPT) 20 U/L Total Bilirubin 0.6 MG/DL Sodium Level 130 MEQ/L Potassium Level 3.6 MEQ/L Chloride Level 96 MEQ/L Carbon Dioxide Level 23.1 MEQ/L Anion Gap 11 MEQ/L Estimat Glomerular Filtration Rate 112 ML/MIN Objective Remarks GENERAL: Well-developed, no acute distress. SKIN: Focused skin has Severe ecchymotic lesions on four extremities. HEAD: Atraumatic. Normocephalic. EYES: Pupils equal and round. No scleral icterus. No injection or drainage. ENT: No nasal bleeding or discharge. Oral thrush. NECK: Trachea midline. No JVD. CARDIOVASCULAR: Regular rate and rhythm. No murmur appreciated. RESPIRATORY: Decreased breath sounds bilateral, mild expiratory wheezing. GASTROINTESTINAL: Abdomen soft, mild left lower quadrant tenderness without guarding or rebound, nondistended. MUSCULOSKELETAL: No obvious deformities. Ecchymosis on all four extremities. NEUROLOGICAL: Awake and alert. No obvious cranial nerve deficits. PSYCHIATRIC: Appropriate mood and affect; insight and judgment normal. Medications and IVs Current Medications Medications (Trade) Dose Ordered Sig/Stuart Route Start Time Stop Time Status Last Admin Sodium Chloride 1,000 ml @ 100 mls/hr Q10H IV 05/02/17 17:00 05/04/17 02:45 (NS Flush) 2 ml UNSCH PRN IV FLUSH 05/02/17 15:30 (NS Flush) 2 ml BID IV FLUSH 05/02/17 21:00 (Tylenol) 650 mg Q4H PRN PO 05/02/17 15:30 (Zofran Inj) 4 mg Q6H PRN IVP 05/02/17 15:30 (Narcan Inj) 0.4 mg UNSCH PRN IV PUSH 05/02/17 15:30 (Ninfa-Colace) 1 tab BID PO 05/02/17 21:00 05/03/17 08:48 (Milk Of Magnesia Liq) 30 ml Q12H PRN PO 05/02/17 15:30 (Senokot) 17.2 mg Q12H PRN PO 05/02/17 15:30 (Dulcolax Supp) 10 mg DAILY PRN RECTAL 05/02/17 15:30 (Lactulose Liq) 30 ml DAILY PRN PO 05/02/17 15:30 (Aspirin Chew) 81 mg DAILY CHEW 05/03/17 09:00 05/04/17 08:11 ([place] 7.5-325 Mg) 1 tab Q6H PRN PO 05/02/17 15:30 05/03/17 23:28 (Vitamin B6) 100 mg DAILY PO 05/03/17 09:00 05/04/17 08:11 (Pravachol) 40 mg DAILY PO 05/03/17 09:00 05/04/17 08:11 Ceftriaxone Sodium 1000 mg/ Sodium Chloride 100 ml @ 200 mls/hr Q24H IV 05/02/17 17:00 05/03/17 17:06 (Duoneb Neb) 1 ampule Q4HR NEB NEB 05/02/17 16:00 05/04/17 07:35 (Mucinex Er) 600 mg BID PO 05/02/17 21:00 05/04/17 08:11 (Mycostatin Liq) 5 ml QID SWISH-SWAL 05/02/17 18:00 05/04/17 08:11 (Heparin Inj) 5,000 units Q12HR SQ 05/02/17 21:00 05/04/17 08:12 (Morphine Inj) 2 mg Q4H PRN IV 05/03/17 12:00 (Decadron) 40 mg DAILY PO 05/04/17 09:00 05/07/17 08:59 05/04/17 08:11 A/P Assessment and Plan 1. Chronic lymphocytic leukemia deletion 13Q, developed bulky adenopathy, treated initially with Rituximab, then Ibrutinib, developed a large mass in the retroperitoneum extending from the pole of left kidney along the iliopsoas muscle down to the pelvis, Biopsy showed lymphoplasma blastic lymphoma, taken by Oncology as probable transformation from chronic lymphocytic leukemia The plan is to treat him with Revlimid and R-CHOP, Seen by Radiation client technical specialist Doctor Octaviano Carey, due to Back pain, and destructive process at T11, recommended for Palliative Radiation therapy to Spine, schedule for CT stimulation. also recommended Palliative Radiation to his retroperitoneal Adenopathy. 2. Urolithiasis status post ureteral Stent placement today after Baugh cath placement due to Urinary Retention he has Hematuria asked for Urology specialist consult. recommended to continue Baugh cath and antibiotics. 3. Acute Renal Injury improved. 4. electrolyte derangement replacing and following. 5. Hyperlipidemia will continue Home medicines 6. Hypertension uncontrolled will re start his home medicine at the same dosages. 7. COPD on Bronchodilator, Mucolytic and incentive spirometry. 8. Oral Thrush continue on Nystatin DVT prophylaxis SCDs, the patient has hematuria contraindicated chemical prophylaxis. Discussed Condition With Patient, his Son Mr. Maldonado Hercules and Daughter in law. all questions answered to the best of my abilities. Overall Poor short term prognosis. Discharge Planning Once cleared by specialists. Yoav Bell MD May 04, 2017 08:21
[2017-05-04] MEDS ORDERED: POTASSIUM CHLORIDE 20 MEQ CONTROLLED RELEASE TAB PO ONE (08:30)
[2017-05-04] MEDS ORDERED: MORPHINE SULFATE 2 MG/ML INJ IV PUSH ONE (08:45)
[2017-05-04] MEDS ORDERED: REMOVE OLD PATCH T-DERMAL SCH (09:00)
[2017-05-04] MEDS ORDERED: MORPHINE SULFATE 2 MG/ML INJ IV PRN (09:00)
[2017-05-04] MEDS ORDERED: NICOTINE 14 MG/24 HR PATCH T-DERMAL SCH (09:00)
[2017-05-04] MEDS: NICOTINE 21 MG/24 HR PATCH T-DERMAL SCH (09:51)
[2017-05-04 09:52] LABS: BANDS 1 % (0-6); BASOPHILS 1 % (0-2); METAMYELOCYTES 1 % (0-1); NEUTROPHIL # MANUAL DIFF 3.9 TH/MM3 (1.8-7.7); POLYS (SEG NEUTROPHILS) 18 % (16-70); SMUDGE CELLS PRESENT PRESENT; WBC DIFF SAMPLE 100
[2017-05-04 09:53] LABS: TOXIC GRANULATION 2+ (NORMAL)
[2017-05-04 09:54] LABS: OVALOCYTES 1+ (NORMAL)
[2017-05-04 09:55] LABS: ACANTHOCYTES OCC (NORMAL); SCAN/DIFF FINAL DIFF MANUAL
--- NOTE | 2017-05-04 10:41 | PD.ONC.PN ---
Subjective Subjective Remarks Afebrile overnight. Patient resting in bed. Complaining of pain in back. Morphine 2mg not relieving pain. Objective Data Date Time Temp Pulse Resp B/P (MAP) Pulse Ox O2 Delivery O2 Flow Rate FiO2 05/04/17 08:00 98.5 114 18 190/88 (122) 93 05/04/17 07:35 96 Nasal Cannula 3.00 05/04/17 00:00 98.2 91 18 128/61 (83) 96 05/03/17 21:40 96 Nasal Cannula 3.00 05/03/17 20:13 97 Nasal Cannula 3.00 05/03/17 20:00 99.1 100 18 154/70 (98) 96 05/03/17 16:07 96 Nasal Cannula 3.00 05/03/17 16:00 97.6 94 18 193/87 (122) 96 05/03/17 12:00 96.4 97 17 176/78 (110) 93 05/04/17 05/04/17 05/04/17 07:00 15:00 23:00 Intake Total 1800 ml Output Total 2200 ml Balance -400 ml Result Diagram: 05/04/17 0611 05/04/17 0611 Laboratory Results Laboratory Tests Test 05/04/17 06:11 White Blood Count 19.4 TH/MM3 Red Blood Count 3.90 MIL/MM3 Hemoglobin 11.1 GM/DL Hematocrit 34.6 % Mean Corpuscular Volume 88.6 FL Mean Corpuscular Hemoglobin 28.5 PG Mean Corpuscular Hemoglobin Concent 32.2 % Red Cell Distribution Width 14.4 % Platelet Count 221 TH/MM3 Mean Platelet Volume 7.9 FL Neutrophils (%) (Auto) 41.6 % Lymphocytes (%) (Auto) 56.6 % Monocytes (%) (Auto) 1.3 % Eosinophils (%) (Auto) 0.0 % Basophils (%) (Auto) 0.5 % Neutrophils # (Auto) 8.1 TH/MM3 Lymphocytes # (Auto) 11.0 TH/MM3 Monocytes # (Auto) 0.3 TH/MM3 Eosinophils # (Auto) 0.0 TH/MM3 Basophils # (Auto) 0.1 TH/MM3 CBC Comment AUTO DIFF Differential Total Cells Counted 100 Neutrophils % (Manual) 18 % Band Neutrophils % 1 % Lymphocytes % 77 % Monocytes % 2 % Basophils % 1 % Neutrophils # (Manual) 3.9 TH/MM3 Metamyelocytes 1 % Differential Comment FINAL DIFF MANUAL Smudge Cells PRESENT Toxic Granulation 2+ Ovalocytes 1+ Acanthocytes OCC Blood Urea Nitrogen 14 MG/DL Creatinine 0.69 MG/DL Random Glucose 77 MG/DL Total Protein 5.3 GM/DL Albumin 2.4 GM/DL Calcium Level 8.5 MG/DL Alkaline Phosphatase 64 U/L Aspartate Amino Transf (AST/SGOT) 49 U/L Alanine Aminotransferase (ALT/SGPT) 20 U/L Total Bilirubin 0.6 MG/DL Sodium Level 130 MEQ/L Potassium Level 3.6 MEQ/L Chloride Level 96 MEQ/L Carbon Dioxide Level 23.1 MEQ/L Anion Gap 11 MEQ/L Estimat Glomerular Filtration Rate 112 ML/MIN Culture Results Microbiology Date/Time Source Procedure Growth Status 05/02/17 11:15 Blood Peripheral Aerobic Blood Culture - Preliminary NO GROWTH IN 1 DAY Resulted 05/02/17 11:15 Blood Peripheral Anaerobic Blood Culture - Preliminary NO GROWTH IN 1 DAY Resulted 05/02/17 11:10 Blood Peripheral Aerobic Blood Culture - Preliminary NO GROWTH IN 1 DAY Resulted 05/02/17 11:10 Blood Peripheral Anaerobic Blood Culture - Preliminary NO GROWTH IN 1 DAY Resulted 05/02/17 13:40 Urine Random Urine Urine Culture - Final NO GROWTH IN 48 HOURS. Complete Administered Medications Medications (Trade) Dose Ordered Sig/Stuart Route PRN Reason Start Time Stop Time Status Last Admin Dose Admin Sodium Chloride 1,000 ml @ 100 mls/hr Q10H IV 05/02/17 17:00 05/04/17 02:45 Senna/Docusate Sodium (Ninfa-Colace) 1 tab BID PO 05/02/17 21:00 05/03/17 08:48 Aspirin (Aspirin Chew) 81 mg DAILY CHEW 05/03/17 09:00 05/04/17 08:11 Pyridoxine HCl (Vitamin B6) 100 mg DAILY PO 05/03/17 09:00 05/04/17 08:11 Pravastatin Sodium (Pravachol) 40 mg DAILY PO 05/03/17 09:00 05/04/17 08:11 Ceftriaxone Sodium 1000 mg/ Sodium Chloride 100 ml @ 200 mls/hr Q24H IV 05/02/17 17:00 05/03/17 17:06 Albuterol/ Ipratropium (Duoneb Neb) 1 ampule Q4HR NEB NEB 05/02/17 16:00 05/04/17 07:35 Guaifenesin (Mucinex Er) 600 mg BID PO 05/02/17 21:00 05/04/17 08:11 Nystatin (Mycostatin Liq) 5 ml QID SWISH-SWAL 05/02/17 18:00 05/04/17 08:11 Heparin Sodium (Porcine) (Heparin Inj) 5,000 units Q12HR SQ 05/02/17 21:00 05/04/17 08:12 Dexamethasone (Decadron) 40 mg DAILY PO 05/04/17 09:00 05/07/17 08:59 05/04/17 08:11 Nicotine (Habitrol 21 Mg Patch.24 Hr) 1 patch DAILY T-DERMAL 05/04/17 09:00 05/04/17 09:51 Objective Remarks GENERAL: Pleasant elderly male sitting upright in bed in nad. SKIN: Warm and dry. HEAD: Normocephalic. EYES: No injection or drainage. NECK: Supple, trachea midline. CARDIOVASCULAR: Regular rate and rhythm RESPIRATORY: anterior sanchez clear. on 3L O2 via NC GASTROINTESTINAL: Abdomen soft, non-tender, nondistended. EXTREMITIES: No cyanosis NEUROLOGICAL: awake and alert, normal speech. Assessment/Plan Problem List: (1) CLL (chronic lymphocytic leukemia) ICD Codes: C91.10 - Chronic lymphocytic leukemia of B-cell type not having achieved remission Plan: -- Abdominal pain and flank pain due to the large retroperitoneal mass encroaching the iliopsoas muscle. -- Lesion noted on T11 that may be able to get kyphoplasty -- Radiation oncology following simulation planned for 05/04. 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 She was supposed to begin chemotherapy in the clinic yesterday however developed significant weakness and fell when his family was trying to get him into the car. He was brought to the emergency room for further evaluation Assessment 76-year-old male with chronic lymphocytic leukemia/lymphoma, admitted with abdominal pain and back pain and a urinary tract infection. Plan 1. XRT simulation today 2. increase morphine to 4mg IV q 2 hours PRN pain for pain 6-10. will titrate up as needed 3. continue bowel regimen 4. transfer to oncology unit--plan to give Rituxan/EPOCH starting today. Attending Statement The exam, history, and the medical decision-making described in the above note were completed with the assistance of the mid-level provider. I reviewed and agree with the findings presented. I attest that I had a [id number] encounter with the patient on the same day, and personally performed and documented my assessment and findings in the medical record. Still has back pain. Will increase morphine. Consider SENIOR DENTIST if pain not controlled. Will give pulse decadron x1. Discussed with , pt was not able to tolerate simulation yesterday, will try again today. He may not be able to tolerate XRT because he can not lay flat. Plan to treat him with R-EPOCH and then give him the XRT after the chemo. Contiue allopurinol and monitor for TLS. Explained to pt and family. They understand the plan. Karen Pinto May 04, 2017 10:41 Aaron Montalvo MD May 04, 2017 15:01
[2017-05-04] MEDS: LISINOPRIL 10 MG TAB PO SCH (11:16)
[2017-05-04] MEDS: HYDROCHLOROTHIAZIDE 12.5 MG CAP PO SCH (11:16)
[2017-05-04] MEDS: MORPHINE SULFATE 4 MG/ML INJ IV PUSH PRN ×2 (11:43→17:57)
[2017-05-04] MEDS ORDERED: ALLOPURINOL 300 MG TAB PO ONE (15:00)
[2017-05-04] MEDS ORDERED: MORPHINE SULFATE 2 MG/ML INJ IV PUSH PRN (15:00)
[2017-05-04] MEDS ORDERED: diphenhydrAMINE HCL 50 MG CAP PO ONE (15:30)
[2017-05-04] MEDS ORDERED: ACETAMINOPHEN 325 MG TAB PO ONE (15:30)
[2017-05-04] MEDS ORDERED: SODIUM CHLORID 0.9% IV ONE (16:00)
[2017-05-04] MEDS ORDERED: RITUXIMAB IV ONE (16:00)
[2017-05-04] MEDS: REMOVE OLD PATCH T-DERMAL SCH (21:00)
[2017-05-05] VITALS (8 sets, daily range): BP systolic 139–164; BP diastolic 75–85; PULSE 102–111; RESP 16–20; TEMP 98.3–99; O2SAT 91–95
[2017-05-05] MEDS: RESP: ALBUTEROL 2.5 MG/IPRATROPIUM 0.5 MG NEB (SCH) NEB ×7 (01:53→23:45)
[2017-05-05] MEDS: MORPHINE SULFATE 4 MG/ML INJ IV PUSH PRN ×7 (02:10→21:23)
[2017-05-05] MEDS: cefTRIAXone INJ 1,000 MG in SODIUM CHLORIDE 0.9% INJ 100 ML IV SCH (04:50)
[2017-05-05] MEDS: SODIUM CHLOR 0.9% 1000 ML INJ 1,000 ML IV SCH (04:52)
[2017-05-05 05:18] LABS: BASOPHIL # 0.1 TH/MM3 (0-0.2); BASOPHIL % 0.3 % (0.0-2.0); HEMATOCRIT 33.4 % (39.0-51.0); LYMPH % 48.7 % (9.0-44.0); LYMPHOCYTE # 9.7 TH/MM3 (1.0-4.8); MEAN CELL VOLUME 87.4 FL (80.0-100.0); MEAN CORPUSCULAR HEMOGLOBIN 28.3 PG (27.0-34.0); MEAN CORPUSCULAR HGB CONC 32.4 % (32.0-36.0); MONO % 0.9 % (0.0-8.0); NEUT % 50.1 % (16.0-70.0); PLATELET COUNT 213 TH/MM3 (150-450); RED BLOOD COUNT 3.83 MIL/MM3 (4.50-5.90); RED CELL DISTRIBUTION WIDTH 14.4 % (11.6-17.2); WHITE BLOOD COUNT 19.9 TH/MM3 (4.0-11.0)
[2017-05-05 05:23] LABS: HEMO FLAGS AUTO DIFF
[2017-05-05 05:31] LABS: ANION GAP 11 MEQ/L (5-15); AST (GOT) 61 U/L (15-37); BICARBONATE 24.5 MEQ/L (21.0-32.0); BLOOD UREA NITROGEN 13 MG/DL (7-18); CHLORIDE 96 MEQ/L (98-107); GLOMERULAR FILTRATION RATE 116 ML/MIN (>89); POTASSIUM 3.8 MEQ/L (3.5-5.1); SODIUM (NA) 131 MEQ/L (136-145)
[2017-05-05 05:40] LABS: ALKALINE PHOSPHATASE 57 U/L (45-117); ALT (GPT) 23 U/L (12-78); LDH SERUM 453 U/L (87-241); TOTAL BILIRUBIN ADULT 0.6 MG/DL (0.2-1.0); URIC ACID 5.5 MG/DL (2.6-7.2)
--- NOTE | 2017-05-05 08:31 | PD.ONC.PN ---
Subjective Subjective Remarks Tmax 100.7 overnight. Patient resting in bed in nad. Tolerated Rituxan yesterday. Had one episode of diarrhea overnight. Pain better controlled on 4mg morphine IV. Objective Data Date Time Temp Pulse Resp B/P (MAP) Pulse Ox O2 Delivery O2 Flow Rate FiO2 05/05/17 08:06 92 Nasal Cannula 2.00 05/05/17 04:00 98.3 109 20 155/85 (108) 95 05/05/17 03:10 18 05/05/17 01:53 93 Nasal Cannula 2.00 05/05/17 00:25 99.0 102 18 149/84 (105) 94 05/04/17 23:25 99.6 106 20 163/89 (113) 94 05/04/17 22:25 99.6 100 20 145/80 (101) 94 05/04/17 21:25 99.6 105 20 141/76 (97) 94 05/04/17 20:00 100.7 105 20 141/76 (97) 94 05/04/17 18:21 155/80 (105) 05/04/17 17:35 99.5 99 22 165/90 (115) 94 05/04/17 17:00 Nasal Cannula 2.00 05/04/17 16:00 97.2 103 18 187/84 (118) 94 05/04/17 12:00 98.1 103 17 151/72 (98) 94 05/05/17 05/05/17 05/05/17 07:00 15:00 23:00 Intake Total 1600 ml Output Total 2000 ml Balance -400 ml Result Diagram: 05/05/17 0456 05/05/17 0456 Laboratory Results Laboratory Tests Test 05/04/17 12:11 05/05/17 04:56 Lactic Acid Level 1.2 mmol/L White Blood Count 19.9 TH/MM3 Red Blood Count 3.83 MIL/MM3 Hemoglobin 10.8 GM/DL Hematocrit 33.4 % Mean Corpuscular Volume 87.4 FL Mean Corpuscular Hemoglobin 28.3 PG Mean Corpuscular Hemoglobin Concent 32.4 % Red Cell Distribution Width 14.4 % Platelet Count 213 TH/MM3 Mean Platelet Volume 7.9 FL Neutrophils (%) (Auto) 50.1 % Lymphocytes (%) (Auto) 48.7 % Monocytes (%) (Auto) 0.9 % Eosinophils (%) (Auto) 0.0 % Basophils (%) (Auto) 0.3 % Neutrophils # (Auto) 10.0 TH/MM3 Lymphocytes # (Auto) 9.7 TH/MM3 Monocytes # (Auto) 0.2 TH/MM3 Eosinophils # (Auto) 0.0 TH/MM3 Basophils # (Auto) 0.1 TH/MM3 CBC Comment AUTO DIFF Blood Urea Nitrogen 13 MG/DL Creatinine 0.67 MG/DL Random Glucose 104 MG/DL Total Protein 5.5 GM/DL Albumin 2.5 GM/DL Calcium Level 9.3 MG/DL Uric Acid 5.5 MG/DL Alkaline Phosphatase 57 U/L Aspartate Amino Transf (AST/SGOT) 61 U/L Alanine Aminotransferase (ALT/SGPT) 23 U/L Lactate Dehydrogenase 453 U/L Total Bilirubin 0.6 MG/DL Sodium Level 131 MEQ/L Potassium Level 3.8 MEQ/L Chloride Level 96 MEQ/L Carbon Dioxide Level 24.5 MEQ/L Anion Gap 11 MEQ/L Estimat Glomerular Filtration Rate 116 ML/MIN Culture Results Microbiology Date/Time Source Procedure Growth Status 05/02/17 11:15 Blood Peripheral Aerobic Blood Culture - Preliminary NO GROWTH IN 2 DAYS Resulted 05/02/17 11:15 Blood Peripheral Anaerobic Blood Culture - Preliminary NO GROWTH IN 2 DAYS Resulted 05/02/17 11:10 Blood Peripheral Aerobic Blood Culture - Preliminary NO GROWTH IN 2 DAYS Resulted 05/02/17 11:10 Blood Peripheral Anaerobic Blood Culture - Preliminary NO GROWTH IN 2 DAYS Resulted 05/02/17 13:40 Urine Random Urine Urine Culture - Final NO GROWTH IN 48 HOURS. Complete Administered Medications Medications (Trade) Dose Ordered Sig/Stuart Route PRN Reason Start Time Stop Time Status Last Admin Dose Admin Sodium Chloride 1,000 ml @ 100 mls/hr Q10H IV 05/02/17 17:00 05/05/17 04:52 Sodium Chloride (NS Flush) 2 ml BID IV FLUSH 05/02/17 21:00 05/04/17 22:00 Senna/Docusate Sodium (Ninfa-Colace) 1 tab BID PO 05/02/17 21:00 05/03/17 08:48 Aspirin (Aspirin Chew) 81 mg DAILY CHEW 05/03/17 09:00 05/04/17 08:11 Pyridoxine HCl (Vitamin B6) 100 mg DAILY PO 05/03/17 09:00 05/04/17 08:11 Pravastatin Sodium (Pravachol) 40 mg DAILY PO 05/03/17 09:00 05/04/17 08:11 Ceftriaxone Sodium 1000 mg/ Sodium Chloride 100 ml @ 200 mls/hr Q24H IV 05/02/17 17:00 05/05/17 04:50 Albuterol/ Ipratropium (Duoneb Neb) 1 ampule Q4HR NEB NEB 05/02/17 16:00 05/05/17 08:03 Guaifenesin (Mucinex Er) 600 mg BID PO 05/02/17 21:00 05/04/17 22:00 Nystatin (Mycostatin Liq) 5 ml QID SWISH-SWAL 05/02/17 18:00 05/04/17 21:59 Heparin Sodium (Porcine) (Heparin Inj) 5,000 units Q12HR SQ 05/02/17 21:00 05/04/17 22:00 Dexamethasone (Decadron) 40 mg DAILY PO 05/04/17 09:00 05/07/17 08:59 05/04/17 08:11 Nicotine (Habitrol 21 Mg Patch.24 Hr) 1 patch DAILY T-DERMAL 05/04/17 09:00 05/04/17 09:51 Miscellaneous Information 1 HS T-DERMAL 05/04/17 21:00 05/04/17 21:00 Morphine Sulfate (Morphine Inj) 4 mg Q2HR PRN IV PUSH PAIN SCALE 6 TO 8 05/04/17 08:45 05/05/17 04:52 Hydrochlorothiazide (Microzide) 12.5 mg DAILY PO 05/04/17 10:30 05/04/17 11:16 Lisinopril (Prinivil) 10 mg DAILY PO 05/04/17 10:30 05/04/17 11:16 Objective Remarks GENERAL: Pleasant male, lying in bed in nad. SKIN: Warm and dry. scattered bruising on arms and legs. HEAD: Normocephalic. EYES: No injection or drainage. NECK: Supple, trachea midline. CARDIOVASCULAR: Regular rate and rhythm RESPIRATORY: diminished at bases, anterior sanchez clear. on 2L O2 via [place] GASTROINTESTINAL: Abdomen soft, non-tender, nondistended. EXTREMITIES: No cyanosis NEUROLOGICAL: awake and alert, normal speech. 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 --first presented with bulky adenopathy, treated with Rituxan and bendamustine without clear response. --then switched to Ibrutinib with very good response. neck and axillary adenopathy are no longer palpable. --recently developed a large mass in retroperitoneum extending from the lower pole of left kidney down along the iliopsoas muscle to the pelvis, measured at least 10 cm. 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 --plan was to treat him with Revlimid along with R-CHOP. was supposed to start chemotherapy at the clinic but was too weak. (3) Flank pain ICD Codes: R10.9 - Unspecified abdominal pain Plan: --on PRN IV morphine. -- Abdominal pain and flank pain due to the large retroperitoneal mass encroaching the iliopsoas muscle. -- Lesion noted on T11 that may be able to get kyphoplasty -- s/p simulation 05/04. (4) Dehydration ICD Codes: E86.0 - Dehydration Status: Acute Plan: --on IVF --monitor hyponatremia (5) History of urethral stent ICD Codes: Z98.890 - Other specified postprocedural states Plan: --had a urethral stent placement for hydronephrosis on 05/01 Assessment 76-year-old male with chronic lymphocytic leukemia/lymphoma, admitted with abdominal pain and back pain and a urinary tract infection. Attending Statement The exam, history, and the medical decision-making described in the above note were completed with the assistance of the mid-level provider. I reviewed and agree with the findings presented. I attest that I had a [id number] encounter with the patient on the same day, and personally performed and documented my assessment and findings in the medical record. Tolerated Rituxan well last night. On EPOCH chemo today. so far has no problem. pt states `` I was wrong last night and nurse was right. I apologize``. Karen Pinto May 05, 2017 08:31 Carter Hooper MD May 05, 2017 19:17
[2017-05-05] MEDS: NYSTATIN SUSP 500,000 U/5 ML CUP SWISH-SWAL SCH ×4 (08:35→21:09)
[2017-05-05] MEDS: SODIUM CHLORIDE 0.9% FLUSH 10 ML FLUSH IV FLUSH SCH ×2 (08:35→21:00)
[2017-05-05] MEDS: guaiFENesin E.R. 600 MG TAB PO SCH ×2 (08:35→21:09)
[2017-05-05] MEDS: ASPIRIN 81 MG CHEW TAB CHEW SCH (08:36)
[2017-05-05] MEDS: DEXAMETHASONE 4 MG TAB PO SCH (08:36)
[2017-05-05] MEDS: LISINOPRIL 10 MG TAB PO SCH (08:38)
[2017-05-05] MEDS: ALLOPURINOL 300 MG TAB PO SCH (08:39)
[2017-05-05] MEDS: predniSONE 50 MG TAB PO SCH (08:39)
[2017-05-05] MEDS: HYDROCHLOROTHIAZIDE 12.5 MG CAP PO SCH (08:39)
[2017-05-05] MEDS: predniSONE 5 MG TAB PO SCH (08:39)
[2017-05-05] MEDS: HEPARIN SODIUM - SQ 10,000 UNITS/ML VIAL SQ SCH ×2 (08:39→21:09)
[2017-05-05] MEDS: PRAVASTATIN SOD 40 MG TAB PO SCH (08:39)
[2017-05-05] MEDS: NICOTINE 21 MG/24 HR PATCH T-DERMAL SCH (08:40)
[2017-05-05] MEDS: DOCUSATE SODIUM 50 MG/SENNA 8.6 MG TAB PO SCH ×2 (08:46→21:00)
[2017-05-05] MEDS: PYRIDOXINE HCL 50 MG TAB PO SCH (08:46)
[2017-05-05 09:57] LABS: BANDS 1 % (0-6); NEUTROPHIL # MANUAL DIFF 5.2 TH/MM3 (1.8-7.7); POLYS (SEG NEUTROPHILS) 25 % (16-70); TOXIC GRANULATION 2+ (NORMAL); WBC DIFF SAMPLE 100
[2017-05-05 09:58] LABS: ACANTHOCYTES OCC (NORMAL); OVALOCYTES 1+ (NORMAL); PLATELET ESTIMATE SMEAR NORMAL (NORMAL); PLATELET MORPHOLOGY ENLARGED (NORMAL)
[2017-05-05 09:59] LABS: SCAN/DIFF FINAL DIFF MANUAL; SMUDGE CELLS PRESENT PRESENT
[2017-05-05] MEDS ORDERED: DEXAMETHASONE INJ 20 MG in SODIUM CHLORIDE 0.9% INJ 50 ML IV SCH (10:30)
[2017-05-05] MEDS: GRANISETRON HCL 1 MG/ML VIAL IV SCH (11:18)
[2017-05-05] MEDS: DOXORUBICIN IV SCH (12:03)
[2017-05-05] MEDS: [UNRECOGNIZED DRUG - OTHER] IV SCH (12:03)
[2017-05-05] MEDS: ETOPOSIDE IV SCH (12:03)
[2017-05-05] MEDS: VINCRISTINE IV SCH (12:03)
--- NOTE | 2017-05-05 12:45 | HHI.PR ---
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 today he came to ER after he had a procedure performed yesterday by Doctor Bull had Urethral stens placed came due to General Weakness. 05/04: Seen in his bedroom, stable but frustrated due to the worsening Metastatic disease and the need for Palliative Radiation, discussed with patient and his Son Mr. Maldonado Hercules, and his Daughter in law, overall poor short term prognosis. 05/05: Stable seen in his bedroom he is Frustrated with his management, discussed with security systems specialist SHELL, Miss Karen Pinto, patient with Lymphoblastic diffuse Lymphoma, Given Rituxan, and today for first day of EPOCH (Etoposide Phosphate, Prednisone Vincristine Sulfate, Cyclophosphamide, Doxorubicin Hydrochloride), that started as Chronic Lymphocytic Leukemia. complaint of Nausea. no diarrhea. Objective Vital Signs Date Time Temp Pulse Resp B/P (MAP) Pulse Ox O2 Delivery O2 Flow Rate FiO2 05/05/17 11:24 98.3 104 18 139/80 (99) 91 05/05/17 08:06 92 Nasal Cannula 2.00 05/05/17 08:00 98.5 107 18 164/84 (110) 92 05/05/17 04:00 98.3 109 20 155/85 (108) 95 05/05/17 03:10 18 05/05/17 01:53 93 Nasal Cannula 2.00 05/05/17 00:25 99.0 102 18 149/84 (105) 94 05/04/17 23:25 99.6 106 20 163/89 (113) 94 05/04/17 22:25 99.6 100 20 145/80 (101) 94 05/04/17 21:25 99.6 105 20 141/76 (97) 94 05/04/17 20:00 100.7 105 20 141/76 (97) 94 05/04/17 18:21 155/80 (105) 05/04/17 17:35 99.5 99 22 165/90 (115) 94 05/04/17 17:00 Nasal Cannula 2.00 05/04/17 16:00 97.2 103 18 187/84 (118) 94 I/O 05/04/17 05/04/17 05/04/17 05/05/17 05/05/17 05/05/17 07:00 15:00 23:00 07:00 15:00 23:00 Intake Total 1800 ml 1600 ml 510 ml Output Total 2200 ml 2000 ml Balance -400 ml -400 ml 510 ml Intake Oral 800 ml 600 ml IV Total 1000 ml 1000 ml 510 ml Output Urine Total 2200 ml 2000 ml # Bowel Movements 1 Result Diagram: 05/05/17 0456 05/05/17 0456 Imaging Last Impressions Thoracic Spine MRI 05/03/17 0000 Signed Impressions: Service Date/Time: April 12:42 - CONCLUSION: 1. Please see the MRI of the lumbar spine reported separately. 2. Study is motion degraded. 3. Destructive process involving the T11 vertebral body with 40%% loss of height but no retropulsion. This is suggestive of a metastatic focus. Rakesh Farnsworth Jr., MD Lumbar Spine MRI 05/03/17 0000 Signed Impressions: Service Date/Time: April 12:42 - CONCLUSION: 1. Please see the MRI of the thoracic spine reported separately. 2. Current study limited by motion artifact. 3. Destructive process involving the L2 vertebral body with extension into the pedicles bilaterally as well the left lamina with narrowing of the central canal due to posterior displacement of the posterior cortical margin as well as obscuration of the neural foramina. 10%% loss of height. This is felt to relate to a metastatic focus. 4. Prominent retroperitoneal soft tissue previous described on the CT scan. Rakesh Farnsworth Jr., MD Chest X-Ray 05/02/17 1100 Signed Impressions: Service Date/Time: Tuesday, May 02, 2017 11:36 - CONCLUSION: Small bilateral pleural effusions otherwise negative. Ted Ray MD FACR Chest CT 05/02/17 0000 Signed Impressions: Service Date/Time: April 01:27 - CONCLUSION: Left upper lobe nodular mass. Parenchymal disease in the right lung base. Moderately large bilateral pleural effusions. Destructive process involving T11 vertebral body Guzman Alcaraz MD Abdomen/Pelvis CT 05/02/17 0000 Signed Impressions: Service Date/Time: April 01:27 - CONCLUSION: Extensive abnormal retroperitoneal soft tissue, presumably confluent adenopathy and adenopathy also present in the celiac region in the upper abdomen. Destructive process involving T11. Bilateral ureteral stents in place. Guzman Alcaraz MD Procedures None Other Results Laboratory Tests Test 05/02/17 11:10 05/02/17 13:40 05/02/17 18:45 05/03/17 02:55 Prothrombin Time 11.3 SEC Prothromb Time International Ratio 1.0 RATIO Activated Partial Thromboplast Time 28.4 SEC Blood Urea Nitrogen 39 MG/DL Creatinine 2.09 MG/DL Random Glucose 69 MG/DL Total Protein 5.8 GM/DL Albumin 2.9 GM/DL Calcium Level 9.3 MG/DL Magnesium Level 1.7 MG/DL Alkaline Phosphatase 71 U/L Aspartate Amino Transf (AST/SGOT) 67 U/L Alanine Aminotransferase (ALT/SGPT) 22 U/L Total Bilirubin 0.6 MG/DL Sodium Level 128 MEQ/L Potassium Level 3.6 MEQ/L Chloride Level 92 MEQ/L Carbon Dioxide Level 26.2 MEQ/L Urine Color LIGHT-RED Urine Turbidity HAZY Urine pH 6.0 Urine Specific [place] 1.017 Urine Protein 100 mg/dL Urine Glucose (UA) NEG mg/dL Urine Ketones TRACE mg/dL Urine Occult Blood LARGE Urine Nitrite NEG Urine Bilirubin NEG Urine Urobilinogen LESS THAN 2.0 MG/DL Urine Leukocyte Esterase MOD Urine RBC /hpf Urine WBC 63 /hpf Urine Bacteria FEW /hpf Urine Mucus FEW /lpf Microscopic Urinalysis Comment CULTURE INDICATED Creatine Kinase MB 9.4 NG/ML Creatine Kinase MB % 2.2 % Myelocytes 1 % Red Cell Morphology Comment NORMAL Total Creatine Kinase 227 U/L Troponin I 0.04 NG/ML Test 05/04/17 06:11 05/04/17 12:11 05/05/17 04:56 Monocytes % 2 % Basophils % 1 % Metamyelocytes 1 % Lactic Acid Level 1.2 mmol/L White Blood Count 19.9 TH/MM3 Red Blood Count 3.83 MIL/MM3 Hemoglobin 10.8 GM/DL Hematocrit 33.4 % Mean Corpuscular Volume 87.4 FL Mean Corpuscular Hemoglobin 28.3 PG Mean Corpuscular Hemoglobin Concent 32.4 % Red Cell Distribution Width 14.4 % Platelet Count 213 TH/MM3 Mean Platelet Volume 7.9 FL Neutrophils (%) (Auto) 50.1 % Lymphocytes (%) (Auto) 48.7 % Monocytes (%) (Auto) 0.9 % Eosinophils (%) (Auto) 0.0 % Basophils (%) (Auto) 0.3 % Neutrophils # (Auto) 10.0 TH/MM3 Lymphocytes # (Auto) 9.7 TH/MM3 Monocytes # (Auto) 0.2 TH/MM3 Eosinophils # (Auto) 0.0 TH/MM3 Basophils # (Auto) 0.1 TH/MM3 CBC Comment AUTO DIFF Differential Total Cells Counted 100 Neutrophils % (Manual) 25 % Band Neutrophils % 1 % Lymphocytes % 74 % Neutrophils # (Manual) 5.2 TH/MM3 Differential Comment FINAL DIFF MANUAL Smudge Cells PRESENT Toxic Granulation 2+ Platelet Estimate NORMAL Platelet Morphology Comment ENLARGED Ovalocytes 1+ Acanthocytes OCC Blood Urea Nitrogen 13 MG/DL Creatinine 0.67 MG/DL Random Glucose 104 MG/DL Total Protein 5.5 GM/DL Albumin 2.5 GM/DL Calcium Level 9.3 MG/DL Uric Acid 5.5 MG/DL Alkaline Phosphatase 57 U/L Aspartate Amino Transf (AST/SGOT) 61 U/L Alanine Aminotransferase (ALT/SGPT) 23 U/L Lactate Dehydrogenase 453 U/L Total Bilirubin 0.6 MG/DL Sodium Level 131 MEQ/L Potassium Level 3.8 MEQ/L Chloride Level 96 MEQ/L Carbon Dioxide Level 24.5 MEQ/L Anion Gap 11 MEQ/L Estimat Glomerular Filtration Rate 116 ML/MIN Objective Remarks GENERAL: Well-developed, no acute distress. SKIN: Focused skin has Severe ecchymotic lesions on four extremities. HEAD: Atraumatic. Normocephalic. EYES: Pupils equal and round. No scleral icterus. No injection or drainage. ENT: No nasal bleeding or discharge. Oral thrush. NECK: Trachea midline. No JVD. CARDIOVASCULAR: Regular rate and rhythm. No murmur appreciated. RESPIRATORY: Decreased breath sounds bilateral, mild expiratory wheezing. GASTROINTESTINAL: Abdomen soft, mild left lower quadrant tenderness without guarding or rebound, nondistended. MUSCULOSKELETAL: No obvious deformities. Ecchymosis on all four extremities. NEUROLOGICAL: Awake and alert. No obvious cranial nerve deficits. PSYCHIATRIC: Appropriate mood and affect; insight and judgment normal. Medications and IVs Current Medications Medications (Trade) Dose Ordered Sig/Stuart Route Start Time Stop Time Status Last Admin (NS Flush) 2 ml UNSCH PRN IV FLUSH 05/02/17 15:30 (NS Flush) 2 ml BID IV FLUSH 05/02/17 21:00 05/05/17 08:35 (Tylenol) 650 mg Q4H PRN PO 05/02/17 15:30 (Zofran Inj) 4 mg Q6H PRN IVP 05/02/17 15:30 (Narcan Inj) 0.4 mg UNSCH PRN IV PUSH 05/02/17 15:30 (Ninfa-Colace) 1 tab BID PO 05/02/17 21:00 05/03/17 08:48 (Milk Of Magnesia Liq) 30 ml Q12H PRN PO 05/02/17 15:30 (Senokot) 17.2 mg Q12H PRN PO 05/02/17 15:30 (Dulcolax Supp) 10 mg DAILY PRN RECTAL 05/02/17 15:30 (Lactulose Liq) 30 ml DAILY PRN PO 05/02/17 15:30 (Aspirin Chew) 81 mg DAILY CHEW 05/03/17 09:00 05/05/17 08:36 (Vitamin B6) 100 mg DAILY PO 05/03/17 09:00 05/05/17 08:46 (Pravachol) 40 mg DAILY PO 05/03/17 09:00 05/05/17 08:39 Ceftriaxone Sodium 1000 mg/ Sodium Chloride 100 ml @ 200 mls/hr Q24H IV 05/02/17 17:00 05/05/17 04:50 (Duoneb Neb) 1 ampule Q4HR NEB NEB 05/02/17 16:00 05/05/17 11:27 (Mucinex Er) 600 mg BID PO 05/02/17 21:00 05/05/17 08:35 (Mycostatin Liq) 5 ml QID SWISH-SWAL 05/02/17 18:00 05/05/17 08:35 (Heparin Inj) 5,000 units Q12HR SQ 05/02/17 21:00 05/05/17 08:39 (Decadron) 40 mg DAILY PO 05/04/17 09:00 05/07/17 08:59 05/05/17 08:36 (Habitrol 21 Mg Patch.24 Hr) 1 patch DAILY T-DERMAL 05/04/17 09:00 05/05/17 08:40 Miscellaneous Information 1 HS T-DERMAL 05/04/17 21:00 05/04/17 21:00 (Morphine Inj) 2 mg Q2HR PRN IV 05/04/17 09:00 (Morphine Inj) 4 mg Q2HR PRN IV PUSH 05/04/17 08:45 05/05/17 11:18 (Microzide) 12.5 mg DAILY PO 05/04/17 10:30 05/05/17 08:39 (Prinivil) 10 mg DAILY PO 05/04/17 10:30 05/05/17 08:38 (Morphine Inj) 6 mg Q4H PRN IV PUSH 05/04/17 15:00 (Zyloprim) 300 mg DAILY PO 05/05/17 09:00 05/05/17 08:39 (Deltasone) 100 mg DAILY PO 05/05/17 09:00 05/09/17 09:01 05/05/17 08:39 (Deltasone) 5 mg DAILY PO 05/05/17 09:00 05/09/17 09:01 05/05/17 08:39 (Kytril Inj) 1 mg DAILY@1030 IV 05/05/17 10:30 05/09/17 10:31 05/05/17 11:18 Dexamethasone Sodium Phosphate 20 mg/Sodium Chloride 55 ml @ 330 mls/hr DAILY@1030 IV 05/05/17 10:30 05/09/17 10:39 05/05/17 11:18 Etoposide 89 mg/ Doxorubicin HCl 17.8 mg/ Vincristine Sulfate 0.7 mg/ Sodium Chloride 514.05 ml @ 21.419 mls/hr DAILY@1100 IV 05/05/17 11:00 05/09/17 10:59 05/05/17 12:03 Cyclophosphamide 1335 mg/Sodium Chloride 570 ml @ 570 mls/hr DAILY@1100 ONCE IV 05/09/17 11:00 05/09/17 11:59 A/P Assessment and Plan 1. Chronic lymphocytic leukemia deletion 13Q, developed bulky adenopathy, treated initially with Rituximab, then Ibrutinib, developed a large mass in the retroperitoneum extending from the pole of left kidney along the iliopsoas muscle down to the pelvis, Biopsy showed lymphoplasma blastic lymphoma, taken by Oncology as probable transformation from chronic lymphocytic leukemia The plan is to treat him with Revlimid and R-CHOP, Seen by Radiation security systems specialist Doctor Octaviano Carey, due to Back pain, and destructive process at T11, recommended for Palliative Radiation therapy to Spine, discussed with security systems specialist FILLER BLENDER, Miss Kaern Pinto, Given Rituxan, and today for first day of EPOCH ( Etoposide Phosphate, Prednisone Vincristine Sulfate, Cyclophosphamide, Doxorubicin Hydrochloride). 2. Urolithiasis status post ureteral Stent placement today after Baugh cath placement due to Urinary Retention he has Hematuria asked for Urology specialist consult. recommended to continue Baugh cath and antibiotics. 3. Acute Renal Injury improved. 4. electrolyte derangement replaced 5. Hyperlipidemia will continue Home medicines 6. Hypertension controlled. 7. COPD on Bronchodilator, Mucolytic and incentive spirometry. 8. Oral Thrush continue on Nystatin DVT prophylaxis SCDs, the patient has hematuria contraindicated chemical prophylaxis. Discussed Condition With Patient. all questions answered to the best of my abilities. Discharge Planning Once cleared by specialists. Yoav Bell MD May 05, 2017 12:45
[2017-05-05] MEDS: REMOVE OLD PATCH T-DERMAL SCH (21:00)
[2017-05-06] VITALS (7 sets, daily range): BP systolic 116–156; BP diastolic 59–88; PULSE 97–119; RESP 16–18; TEMP 97.6–99.1; O2SAT 91–95
[2017-05-06] MEDS: RESP: ALBUTEROL 2.5 MG/IPRATROPIUM 0.5 MG NEB (SCH) NEB ×4 (03:06→15:44)
[2017-05-06] MEDS: MORPHINE SULFATE 4 MG/ML INJ IV PUSH PRN ×2 (04:15→09:30)
[2017-05-06] MEDS: cefTRIAXone INJ 1,000 MG in SODIUM CHLORIDE 0.9% INJ 100 ML IV SCH (04:30)
[2017-05-06 06:20] LABS: AUTOMATED NEUTROPHIL # 11.3 TH/MM3 (1.8-7.7); BASOPHIL % 0.2 % (0.0-2.0); HEMATOCRIT 33.5 % (39.0-51.0); LYMPHOCYTE # 8.1 TH/MM3 (1.0-4.8); MEAN CELL VOLUME 87.4 FL (80.0-100.0); MEAN CORPUSCULAR HEMOGLOBIN 28.3 PG (27.0-34.0); MEAN CORPUSCULAR HGB CONC 32.4 % (32.0-36.0); MONO % 1.4 % (0.0-8.0); NEUT % 57.4 % (16.0-70.0); PLATELET COUNT 218 TH/MM3 (150-450); RED BLOOD COUNT 3.84 MIL/MM3 (4.50-5.90); RED CELL DISTRIBUTION WIDTH 14.5 % (11.6-17.2); WHITE BLOOD COUNT 19.8 TH/MM3 (4.0-11.0)
[2017-05-06 06:26] LABS: HEMO FLAGS AUTO DIFF
[2017-05-06 06:51] LABS: ANION GAP 10 MEQ/L (5-15); AST (GOT) 59 U/L (15-37); BICARBONATE 27.5 MEQ/L (21.0-32.0); BLOOD UREA NITROGEN 15 MG/DL (7-18); CHLORIDE 98 MEQ/L (98-107); GLOMERULAR FILTRATION RATE 142 ML/MIN (>89); POTASSIUM 3.4 MEQ/L (3.5-5.1); SODIUM (NA) 135 MEQ/L (136-145)
[2017-05-06 06:52] LABS: ALT (GPT) 31 U/L (12-78); LDH SERUM 422 U/L (87-241); URIC ACID 5.6 MG/DL (2.6-7.2)
[2017-05-06 06:55] LABS: ALKALINE PHOSPHATASE 55 U/L (45-117); TOTAL BILIRUBIN ADULT 0.4 MG/DL (0.2-1.0)
[2017-05-06] MEDS ORDERED: POTASSIUM CHLORIDE 20 MEQ CONTROLLED RELEASE TAB PO ONE (07:45)
[2017-05-06 08:30] LABS: BANDS 2 % (0-6); NEUTROPHIL # MANUAL DIFF 8.7 TH/MM3 (1.8-7.7); POLYS (SEG NEUTROPHILS) 42 % (16-70); WBC DIFF SAMPLE 100
[2017-05-06 08:33] LABS: PLATELET ESTIMATE SMEAR NORMAL (NORMAL); PLATELET MORPHOLOGY NORMAL (NORMAL); SCAN/DIFF FINAL DIFF MANUAL; SMUDGE CELLS PRESENT PRESENT
[2017-05-06] MEDS: SODIUM CHLORIDE 0.9% FLUSH 10 ML FLUSH IV FLUSH SCH ×2 (09:00→21:25)
[2017-05-06] MEDS: HEPARIN SODIUM - SQ 10,000 UNITS/ML VIAL SQ SCH ×2 (09:29→21:25)
[2017-05-06] MEDS: predniSONE 5 MG TAB PO SCH (09:30)
[2017-05-06] MEDS: ASPIRIN 81 MG CHEW TAB CHEW SCH (09:30)
[2017-05-06] MEDS: PRAVASTATIN SOD 40 MG TAB PO SCH (09:30)
[2017-05-06] MEDS: guaiFENesin E.R. 600 MG TAB PO SCH ×2 (09:30→21:25)
[2017-05-06] MEDS: NYSTATIN SUSP 500,000 U/5 ML CUP SWISH-SWAL SCH ×4 (09:31→21:25)
[2017-05-06] MEDS: ALLOPURINOL 300 MG TAB PO SCH (09:31)
[2017-05-06] MEDS: DOCUSATE SODIUM 50 MG/SENNA 8.6 MG TAB PO SCH ×2 (09:31→21:25)
[2017-05-06] MEDS: PYRIDOXINE HCL 50 MG TAB PO SCH (09:31)
[2017-05-06] MEDS: NICOTINE 21 MG/24 HR PATCH T-DERMAL SCH (09:31)
[2017-05-06] MEDS: LISINOPRIL 10 MG TAB PO SCH (09:31)
[2017-05-06] MEDS: HYDROCHLOROTHIAZIDE 12.5 MG CAP PO SCH (09:31)
--- NOTE | 2017-05-06 10:13 | PD.ONC.PN ---
Subjective Subjective Remarks Afebrile overnight. Patient slept well overnight. Tolerating chemotherapy. No complaints. Objective Data Date Time Temp Pulse Resp B/P (MAP) Pulse Ox O2 Delivery O2 Flow Rate FiO2 05/06/17 09:27 97.6 105 18 150/75 (100) 91 05/06/17 07:26 93 Nasal Cannula 3.00 05/06/17 04:42 98 16 137/79 (98) 92 05/06/17 00:33 98.7 119 16 156/88 (110) 92 05/05/17 21:24 91 Nasal Cannula 2.00 05/05/17 21:09 Nasal Cannula 2.00 05/05/17 16:31 98.7 111 16 146/75 (98) 91 05/05/17 11:24 98.3 104 18 139/80 (99) 91 05/06/17 05/06/17 05/06/17 07:00 15:00 23:00 Intake Total 256 ml Output Total 1550 ml Balance -1294 ml Result Diagram: 05/06/17 0415 05/06/17 0415 Laboratory Results Laboratory Tests Test 05/06/17 04:15 White Blood Count 19.8 TH/MM3 Red Blood Count 3.84 MIL/MM3 Hemoglobin 10.9 GM/DL Hematocrit 33.5 % Mean Corpuscular Volume 87.4 FL Mean Corpuscular Hemoglobin 28.3 PG Mean Corpuscular Hemoglobin Concent 32.4 % Red Cell Distribution Width 14.5 % Platelet Count 218 TH/MM3 Mean Platelet Volume 7.8 FL Neutrophils (%) (Auto) 57.4 % Lymphocytes (%) (Auto) 41.0 % Monocytes (%) (Auto) 1.4 % Eosinophils (%) (Auto) 0.0 % Basophils (%) (Auto) 0.2 % Neutrophils # (Auto) 11.3 TH/MM3 Lymphocytes # (Auto) 8.1 TH/MM3 Monocytes # (Auto) 0.3 TH/MM3 Eosinophils # (Auto) 0.0 TH/MM3 Basophils # (Auto) 0.0 TH/MM3 CBC Comment AUTO DIFF Differential Total Cells Counted 100 Neutrophils % (Manual) 42 % Band Neutrophils % 2 % Lymphocytes % 56 % Neutrophils # (Manual) 8.7 TH/MM3 Differential Comment FINAL DIFF MANUAL Smudge Cells PRESENT Platelet Estimate NORMAL Platelet Morphology Comment NORMAL Basophilic Stippling FAINT Blood Urea Nitrogen 15 MG/DL Creatinine 0.56 MG/DL Random Glucose 99 MG/DL Total Protein 5.3 GM/DL Albumin 2.4 GM/DL Calcium Level 9.1 MG/DL Uric Acid 5.6 MG/DL Alkaline Phosphatase 55 U/L Aspartate Amino Transf (AST/SGOT) 59 U/L Alanine Aminotransferase (ALT/SGPT) 31 U/L Lactate Dehydrogenase 422 U/L Total Bilirubin 0.4 MG/DL Sodium Level 135 MEQ/L Potassium Level 3.4 MEQ/L Chloride Level 98 MEQ/L Carbon Dioxide Level 27.5 MEQ/L Anion Gap 10 MEQ/L Estimat Glomerular Filtration Rate 142 ML/MIN Administered Medications Medications (Trade) Dose Ordered Sig/Stuart Route PRN Reason Start Time Stop Time Status Last Admin Dose Admin Sodium Chloride (NS Flush) 2 ml BID IV FLUSH 05/02/17 21:00 05/05/17 08:35 Senna/Docusate Sodium (Ninfa-Colace) 1 tab BID PO 05/02/17 21:00 05/06/17 09:31 Aspirin (Aspirin Chew) 81 mg DAILY CHEW 05/03/17 09:00 05/06/17 09:30 Pyridoxine HCl (Vitamin B6) 100 mg DAILY PO 05/03/17 09:00 05/06/17 09:31 Pravastatin Sodium (Pravachol) 40 mg DAILY PO 05/03/17 09:00 05/06/17 09:30 Albuterol/ Ipratropium (Duoneb Neb) 1 ampule Q4HR NEB NEB 05/02/17 16:00 05/06/17 07:26 Guaifenesin (Mucinex Er) 600 mg BID PO 05/02/17 21:00 05/06/17 09:30 Nystatin (Mycostatin Liq) 5 ml QID SWISH-SWAL 05/02/17 18:00 05/06/17 09:31 Heparin Sodium (Porcine) (Heparin Inj) 5,000 units Q12HR SQ 05/02/17 21:00 05/06/17 09:29 Dexamethasone (Decadron) 40 mg DAILY PO 05/04/17 09:00 05/07/17 08:59 05/05/17 08:36 Nicotine (Habitrol 21 Mg Patch.24 Hr) 1 patch DAILY T-DERMAL 05/04/17 09:00 05/06/17 09:31 Miscellaneous Information 1 HS T-DERMAL 05/04/17 21:00 05/05/17 21:00 Morphine Sulfate (Morphine Inj) 4 mg Q2HR PRN IV PUSH PAIN SCALE 6 TO 8 05/04/17 08:45 05/06/17 09:30 Hydrochlorothiazide (Microzide) 12.5 mg DAILY PO 05/04/17 10:30 05/06/17 09:31 Lisinopril (Prinivil) 10 mg DAILY PO 05/04/17 10:30 05/06/17 09:31 Allopurinol (Zyloprim) 300 mg DAILY PO 05/05/17 09:00 05/06/17 09:31 Prednisone (Deltasone) 100 mg DAILY PO 05/05/17 09:00 05/09/17 09:01 05/05/17 08:39 Prednisone (Deltasone) 5 mg DAILY PO 05/05/17 09:00 05/09/17 09:01 05/06/17 09:30 Granisetron HCl (Kytril Inj) 1 mg DAILY@1030 IV 05/05/17 10:30 05/09/17 10:31 05/05/17 11:18 Etoposide 89 mg/ Doxorubicin HCl 17.8 mg/ Vincristine Sulfate 0.7 mg/ Sodium Chloride 514.05 ml @ 21.419 mls/hr DAILY@1100 IV 05/05/17 11:00 05/09/17 10:59 05/05/17 12:03 Ceftriaxone Sodium 1000 mg/ Sodium Chloride 100 ml @ 200 mls/hr Q24H IV 05/06/17 05:00 05/06/17 04:30 Objective Remarks GENERAL: Pleasant male, supine in bed resting. SKIN: Warm and dry. HEAD: Normocephalic. EYES: No injection or drainage. NECK: Supple, trachea midline. CARDIOVASCULAR: Regular rate and rhythm RESPIRATORY: diminished at bases. anterior sanchez clear. On 3L O2 via NC GASTROINTESTINAL: Abdomen soft, non-tender, nondistended. EXTREMITIES: No cyanosis NEUROLOGICAL: awake and alert, normal speech. 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 --05/06: D2 EPOCH. tolerating chemo. no adverse effects. replace potassium. 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 --first presented with bulky adenopathy, treated with Rituxan and bendamustine without clear response. --then switched to Ibrutinib with very good response. neck and axillary adenopathy are no longer palpable. --recently developed a large mass in retroperitoneum extending from the lower pole of left kidney down along the iliopsoas muscle to the pelvis, measured at least 10 cm. 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 --plan was to treat him with Revlimid along with R-CHOP. was supposed to start chemotherapy at the clinic but was too weak. (3) Flank pain ICD Codes: R10.9 - Unspecified abdominal pain Plan: --on PRN IV morphine. -- Abdominal pain and flank pain due to the large retroperitoneal mass encroaching the iliopsoas muscle. -- Lesion noted on T11 that may be able to get kyphoplasty -- s/p simulation 05/04. (4) History of urethral stent ICD Codes: Z98.890 - Other specified postprocedural states Plan: --had a urethral stent placement for hydronephrosis on 05/01 Assessment 76-year-old male with chronic lymphocytic leukemia/lymphoma, admitted with abdominal pain and back pain and a urinary tract infection. Attending Statement The exam, history, and the medical decision-making described in the above note were completed with the assistance of the mid-level provider. I reviewed and agree with the findings presented. I attest that I had a [id number] encounter with the patient on the same day, and personally performed and documented my assessment and findings in the medical record. c/o epigastric and back pain. NO N/V day 2 of EPOCH with no problems so far. pain meds for backache. Karen Pinto May 06, 2017 10:12 Carter Hooper MD May 06, 2017 17:09
[2017-05-06] MEDS: predniSONE 50 MG TAB PO SCH (10:25)
--- NOTE | 2017-05-06 11:13 | HHI.PR ---
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 today he came to ER after he had a procedure performed yesterday by Doctor Bull had Urethral stens placed came due to General Weakness. 05/04: Seen in his bedroom, stable but frustrated due to the worsening Metastatic disease and the need for Palliative Radiation, discussed with patient and his Son Mr. Maldonado Hercules, and his Daughter in law, overall poor short term prognosis. 05/05: Stable seen in his bedroom he is Frustrated with his management, discussed with post closing specialist SHELL, Miss Karen Pinto, patient with Lymphoblastic diffuse Lymphoma, Given Rituxan, and today for first day of EPOCH (Etoposide Phosphate, Prednisone Vincristine Sulfate, Cyclophosphamide, Doxorubicin Hydrochloride), that started as Chronic Lymphocytic Leukemia. complaint of Nausea. no diarrhea. 10-15 STILL HAVING SOME PAIN- HE STATES NOT WELL CONTROLLED WILL ADJUST DW RN AND PT AND FAMILY PERCOCET 1 TO 2 Q4H PRN PAINS Objective Vitals Vital Signs Date Time Temp Pulse Resp B/P (MAP) Pulse Ox O2 Delivery O2 Flow Rate FiO2 05/06/17 09:27 97.6 105 18 150/75 (100) 91 05/06/17 09:00 Nasal Cannula 2.00 05/06/17 07:26 93 Nasal Cannula 3.00 05/06/17 04:42 98 16 137/79 (98) 92 05/06/17 00:33 98.7 119 16 156/88 (110) 92 05/05/17 21:24 91 Nasal Cannula 2.00 05/05/17 21:09 Nasal Cannula 2.00 05/05/17 16:31 98.7 111 16 146/75 (98) 91 05/05/17 11:24 98.3 104 18 139/80 (99) 91 I/O 05/05/17 05/05/17 05/05/17 05/06/17 05/06/17 05/06/17 07:00 15:00 23:00 07:00 15:00 23:00 Intake Total 1600 ml 510 ml 256 ml Output Total 2000 ml 2000 ml 1550 ml Balance -400 ml 510 ml -2000 ml -1294 ml Intake Oral 600 ml IV Total 1000 ml 510 ml 256 ml Output Urine Total 2000 ml 2000 ml 1550 ml # Bowel Movements 1 1 Result Diagram: 05/06/17 0415 05/06/17 0415 Other Results Laboratory Tests Test 05/04/17 06:11 05/04/17 12:11 05/05/17 04:56 05/06/17 04:15 White Blood Count 19.4 TH/MM3 19.9 TH/MM3 19.8 TH/MM3 Red Blood Count 3.90 MIL/MM3 3.83 MIL/MM3 3.84 MIL/MM3 Hemoglobin 11.1 GM/DL 10.8 GM/DL 10.9 GM/DL Hematocrit 34.6 % 33.4 % 33.5 % Mean Corpuscular Volume 88.6 FL 87.4 FL 87.4 FL Mean Corpuscular Hemoglobin 28.5 PG 28.3 PG 28.3 PG Mean Corpuscular Hemoglobin Concent 32.2 % 32.4 % 32.4 % Red Cell Distribution Width 14.4 % 14.4 % 14.5 % Platelet Count 221 TH/MM3 213 TH/MM3 218 TH/MM3 Mean Platelet Volume 7.9 FL 7.9 FL 7.8 FL Neutrophils (%) (Auto) 41.6 % 50.1 % 57.4 % Lymphocytes (%) (Auto) 56.6 % 48.7 % 41.0 % Monocytes (%) (Auto) 1.3 % 0.9 % 1.4 % Eosinophils (%) (Auto) 0.0 % 0.0 % 0.0 % Basophils (%) (Auto) 0.5 % 0.3 % 0.2 % Neutrophils # (Auto) 8.1 TH/MM3 10.0 TH/MM3 11.3 TH/MM3 Lymphocytes # (Auto) 11.0 TH/MM3 9.7 TH/MM3 8.1 TH/MM3 Monocytes # (Auto) 0.3 TH/MM3 0.2 TH/MM3 0.3 TH/MM3 Eosinophils # (Auto) 0.0 TH/MM3 0.0 TH/MM3 0.0 TH/MM3 Basophils # (Auto) 0.1 TH/MM3 0.1 TH/MM3 0.0 TH/MM3 CBC Comment AUTO DIFF AUTO DIFF AUTO DIFF Differential Total Cells Counted 100 100 100 Neutrophils % (Manual) 18 % 25 % 42 % Band Neutrophils % 1 % 1 % 2 % Lymphocytes % 77 % 74 % 56 % Monocytes % 2 % Basophils % 1 % Neutrophils # (Manual) 3.9 TH/MM3 5.2 TH/MM3 8.7 TH/MM3 Metamyelocytes 1 % Differential Comment FINAL DIFF MANUAL FINAL DIFF MANUAL FINAL DIFF MANUAL Smudge Cells PRESENT PRESENT PRESENT Toxic Granulation 2+ 2+ Ovalocytes 1+ 1+ Acanthocytes OCC OCC Blood Urea Nitrogen 14 MG/DL 13 MG/DL 15 MG/DL Creatinine 0.69 MG/DL 0.67 MG/DL 0.56 MG/DL Random Glucose 77 MG/DL 104 MG/DL 99 MG/DL Total Protein 5.3 GM/DL 5.5 GM/DL 5.3 GM/DL Albumin 2.4 GM/DL 2.5 GM/DL 2.4 GM/DL Calcium Level 8.5 MG/DL 9.3 MG/DL 9.1 MG/DL Alkaline Phosphatase 64 U/L 57 U/L 55 U/L Aspartate Amino Transf (AST/SGOT) 49 U/L 61 U/L 59 U/L Alanine Aminotransferase (ALT/SGPT) 20 U/L 23 U/L 31 U/L Total Bilirubin 0.6 MG/DL 0.6 MG/DL 0.4 MG/DL Sodium Level 130 MEQ/L 131 MEQ/L 135 MEQ/L Potassium Level 3.6 MEQ/L 3.8 MEQ/L 3.4 MEQ/L Chloride Level 96 MEQ/L 96 MEQ/L 98 MEQ/L Carbon Dioxide Level 23.1 MEQ/L 24.5 MEQ/L 27.5 MEQ/L Anion Gap 11 MEQ/L 11 MEQ/L 10 MEQ/L Estimat Glomerular Filtration Rate 112 ML/MIN 116 ML/MIN 142 ML/MIN Lactic Acid Level 1.2 mmol/L Platelet Estimate NORMAL NORMAL Platelet Morphology Comment ENLARGED NORMAL Uric Acid 5.5 MG/DL 5.6 MG/DL Lactate Dehydrogenase 453 U/L 422 U/L Basophilic Stippling FAINT Imaging Laboratory Tests Test 05/04/17 06:11 05/04/17 12:11 05/05/17 04:56 05/06/17 04:15 White Blood Count 19.4 TH/MM3 19.9 TH/MM3 19.8 TH/MM3 Red Blood Count 3.90 MIL/MM3 3.83 MIL/MM3 3.84 MIL/MM3 Hemoglobin 11.1 GM/DL 10.8 GM/DL 10.9 GM/DL Hematocrit 34.6 % 33.4 % 33.5 % Mean Corpuscular Volume 88.6 FL 87.4 FL 87.4 FL Mean Corpuscular Hemoglobin 28.5 PG 28.3 PG 28.3 PG Mean Corpuscular Hemoglobin Concent 32.2 % 32.4 % 32.4 % Red Cell Distribution Width 14.4 % 14.4 % 14.5 % Platelet Count 221 TH/MM3 213 TH/MM3 218 TH/MM3 Mean Platelet Volume 7.9 FL 7.9 FL 7.8 FL Neutrophils (%) (Auto) 41.6 % 50.1 % 57.4 % Lymphocytes (%) (Auto) 56.6 % 48.7 % 41.0 % Monocytes (%) (Auto) 1.3 % 0.9 % 1.4 % Eosinophils (%) (Auto) 0.0 % 0.0 % 0.0 % Basophils (%) (Auto) 0.5 % 0.3 % 0.2 % Neutrophils # (Auto) 8.1 TH/MM3 10.0 TH/MM3 11.3 TH/MM3 Lymphocytes # (Auto) 11.0 TH/MM3 9.7 TH/MM3 8.1 TH/MM3 Monocytes # (Auto) 0.3 TH/MM3 0.2 TH/MM3 0.3 TH/MM3 Eosinophils # (Auto) 0.0 TH/MM3 0.0 TH/MM3 0.0 TH/MM3 Basophils # (Auto) 0.1 TH/MM3 0.1 TH/MM3 0.0 TH/MM3 CBC Comment AUTO DIFF AUTO DIFF AUTO DIFF Differential Total Cells Counted 100 100 100 Neutrophils % (Manual) 18 % 25 % 42 % Band Neutrophils % 1 % 1 % 2 % Lymphocytes % 77 % 74 % 56 % Monocytes % 2 % Basophils % 1 % Neutrophils # (Manual) 3.9 TH/MM3 5.2 TH/MM3 8.7 TH/MM3 Metamyelocytes 1 % Differential Comment FINAL DIFF MANUAL FINAL DIFF MANUAL FINAL DIFF MANUAL Smudge Cells PRESENT PRESENT PRESENT Toxic Granulation 2+ 2+ Ovalocytes 1+ 1+ Acanthocytes OCC OCC Blood Urea Nitrogen 14 MG/DL 13 MG/DL 15 MG/DL Creatinine 0.69 MG/DL 0.67 MG/DL 0.56 MG/DL Random Glucose 77 MG/DL 104 MG/DL 99 MG/DL Total Protein 5.3 GM/DL 5.5 GM/DL 5.3 GM/DL Albumin 2.4 GM/DL 2.5 GM/DL 2.4 GM/DL Calcium Level 8.5 MG/DL 9.3 MG/DL 9.1 MG/DL Alkaline Phosphatase 64 U/L 57 U/L 55 U/L Aspartate Amino Transf (AST/SGOT) 49 U/L 61 U/L 59 U/L Alanine Aminotransferase (ALT/SGPT) 20 U/L 23 U/L 31 U/L Total Bilirubin 0.6 MG/DL 0.6 MG/DL 0.4 MG/DL Sodium Level 130 MEQ/L 131 MEQ/L 135 MEQ/L Potassium Level 3.6 MEQ/L 3.8 MEQ/L 3.4 MEQ/L Chloride Level 96 MEQ/L 96 MEQ/L 98 MEQ/L Carbon Dioxide Level 23.1 MEQ/L 24.5 MEQ/L 27.5 MEQ/L Anion Gap 11 MEQ/L 11 MEQ/L 10 MEQ/L Estimat Glomerular Filtration Rate 112 ML/MIN 116 ML/MIN 142 ML/MIN Lactic Acid Level 1.2 mmol/L Platelet Estimate NORMAL NORMAL Platelet Morphology Comment ENLARGED NORMAL Uric Acid 5.5 MG/DL 5.6 MG/DL Lactate Dehydrogenase 453 U/L 422 U/L Basophilic Stippling FAINT Objective Remarks Last Impressions Thoracic Spine MRI 05/03/17 Signed Impressions: Service Date/Time: April 12:42 - CONCLUSION: 1. Please see the MRI of the lumbar spine reported separately. 2. Study is motion degraded. 3. Destructive process involving the T11 vertebral body with 40%% loss of height but no retropulsion. This is suggestive of a metastatic focus. Rakesh Farnsworth Jr., MD Lumbar Spine MRI 05/03/17 Signed Impressions: Service Date/Time: April 12:42 - CONCLUSION: 1. Please see the MRI of the thoracic spine reported separately. 2. Current study limited by motion artifact. 3. Destructive process involving the L2 vertebral body with extension into the pedicles bilaterally as well the left lamina with narrowing of the central canal due to posterior displacement of the posterior cortical margin as well as obscuration of the neural foramina. 10%% loss of height. This is felt to relate to a metastatic focus. 4. Prominent retroperitoneal soft tissue previous described on the CT scan. Rakesh Farnsworth Jr., MD Chest X-Ray 05/02/17 1100 Signed Impressions: Service Date/Time: Tuesday, May 02, 2017 11:36 - CONCLUSION: Small bilateral pleural effusions otherwise negative. Ted Ray MD FACR Chest CT 05/02/17 0000 Signed Impressions: Service Date/Time: April 01:27 - CONCLUSION: Left upper lobe nodular mass. Parenchymal disease in the right lung base. Moderately large bilateral pleural effusions. Destructive process involving T11 vertebral body Guzman Alcaraz MD Abdomen/Pelvis CT 05/02/17 0000 Signed Impressions: Service Date/Time: April 01:27 - CONCLUSION: Extensive abnormal retroperitoneal soft tissue, presumably confluent adenopathy and adenopathy also present in the celiac region in the upper abdomen. Destructive process involving T11. Bilateral ureteral stents in place. Guzman Alcaraz MD Medications and IVs Current Medications Sodium Chloride (NS Flush) 2 ml UNSCH PRN IVF FLUSH AFTER USING IV ACCESS; Start 05/02/17 at 11:00; Stop 05/02/17 at 16:02; Status DC Piperacillin Sod/ Tazobactam Sod 100 ml @ 200 mls/hr ONCE STAT IV Last administered on 05/02/17 12:10; Start 05/02/17 at 12:10; Stop 05/02/17 at 12 :39; Status DC Sodium Chloride 500 ml @ 500 mls/hr BOLUS ONCE IV Last administered on 12:30; Start 05/02/17 at 12:30; Stop 05/02/17 at 13:29; Status DC Sodium Chloride 1,000 ml @ 100 mls/hr Q10H IV Last administered on 05/05/17 04:52; Start 05/02/17 at 17:00; Stop 05/05/17 at 12:21; Status DC Sodium Chloride (NS Flush) 2 ml UNSCH PRN IV FLUSH FLUSH AFTER USING IV ACCESS ; Start 05/02/17 at 15:30 Sodium Chloride (NS Flush) 2 ml BID IV FLUSH Last administered on 05/05/17 08 :35; Start 05/02/17 at 21:00 Acetaminophen (Tylenol) 650 mg Q4H PRN PO TEMP > 100.4; Start 05/02/17 at 15: 30 Ondansetron HCl (Zofran Inj) 4 mg Q6H PRN IVP NAUSEA OR VOMITING; Start at 15:30 Naloxone HCl (Narcan Inj) 0.4 mg UNSCH PRN IV PUSH SEE LABEL COMMENTS; Start 05/02/17 at 15:30 Senna/Docusate Sodium (Ninfa-Colace) 1 tab BID PO Last administered on 09:31; Start 05/02/17 at 21:00 Magnesium Hydroxide (Milk Of Magnesia Liq) 30 ml Q12H PRN PO MILD - MODERATE CONSTIPATION; Start 05/02/17 at 15:30 Sennosides (Senokot) 17.2 mg Q12H PRN PO MODERATE - SEVERE CONSTIPATION; Start 05/02/17 at 15:30 Bisacodyl (Dulcolax Supp) 10 mg DAILY PRN RECTAL SEVERE CONSITIPATION; Start 05/02/17 at 15:30 Lactulose (Lactulose Liq) 30 ml DAILY PRN PO SEVERE CONSITIPATION; Start 05/02 at 15:30 Aspirin (Aspirin Chew) 81 mg DAILY CHEW Last administered on 05/06/17 09:30; Start 05/03/17 at 09:00 Acetaminophen/ Hydrocodone Bitart ([place] 7.5-325 Mg) 1 tab Q6H PRN PO PAIN Last administered on 05/03/17 23:28; Start 05/02/17 at 15:30; Stop 05/04/17 at 08:49; Status DC Pyridoxine HCl (Vitamin B6) 100 mg DAILY PO Last administered on 05/06/17 09: 31; Start 05/03/17 at 09:00 Pravastatin Sodium (Pravachol) 40 mg DAILY PO Last administered on 05/06/17 09:30; Start 05/03/17 at 09:00 Ceftriaxone Sodium 1000 mg/ Sodium Chloride 100 ml @ 200 mls/hr Q24H IV Last administered on 05/05/17 04:50; Start 05/02/17 at 17:00; Stop 05/05/17 at 17 :44; Status DC Potassium Chloride (KCl) 40 meq ONCE ONCE PO ; Start 05/02/17 at 16:15; Stop 05/02/17 at 16:16; Status DC Sodium Chloride 500 ml @ 500 mls/hr BOLUS ONCE IV Last administered on 18:40; Start 05/02/17 at 16:30; Stop 05/02/17 at 17:29; Status DC Albuterol/ Ipratropium (Duoneb Neb) 1 ampule Q4HR NEB NEB Last administered on 05/06/17 07:26; Start 05/02/17 at 16:00 Guaifenesin (Mucinex Er) 600 mg BID PO Last administered on 05/06/17 09:30; Start 05/02/17 at 21:00 Magnesium Sulfate/ Dextrose 100 ml @ 100 mls/hr Q1H IV ; Start 05/02/17 at 17: 00; Stop 05/02/17 at 17:59; Status DC Nystatin (Mycostatin Liq) 5 ml QID SWISH-SWAL Last administered on 05/06/17 09:31; Start 05/02/17 at 18:00 Heparin Sodium (Porcine) (Heparin Inj) 5,000 units Q12HR SQ Last administered on 05/06/17 09:29; Start 05/02/17 at 21:00 Diatrizoate Meglum/ Diatrizoate Sod ( Gastroview Liq) 18 ml ONCE ONCE PO Last administered on 05/02/17 20:44; Start 05/02/17 at 19:30; Stop 05/02/17 at 19:31; Status DC Magnesium Sulfate/ Dextrose 100 ml @ 100 mls/hr Q1H IV Last administered on 23:36; Start 05/02/17 at 23:30; Stop 05/03/17 at 01:29; Status DC Potassium Bicarb/ Potassium Chloride (K-Lyte Cl Eff) 50 meq ONCE ONCE PO Last administered on 05/03/17 06:43; Start 05/03/17 at 06:45; Stop 05/03/17 at 06:46; Status DC Potassium Chloride (KCl Powder) 40 meq ONCE ONCE PO Last administered on 05/03 11:24; Start 05/03/17 at 08:45; Stop 05/03/17 at 09:43; Status DC Potassium Chloride (KCl Powder) 40 meq ONCE ONCE PO Last administered on 05/03 12:00; Start 05/03/17 at 12:00; Stop 05/03/17 at 12:01; Status DC Lorazepam (Ativan Inj) 1 mg ONCE ONCE IV PUSH Last administered on 05/03/17 11:59; Start 05/03/17 at 12:00; Stop 05/03/17 at 12:01; Status DC Morphine Sulfate (Morphine Inj) 2 mg Q4H PRN IV PAIN GREATER THAN 8 Last administered on 05/04/17 08:19; Start 05/03/17 at 12:00; Stop 05/04/17 at 08 :48; Status DC Dexamethasone (Decadron) 40 mg DAILY PO Last administered on 05/05/17 08:36; Start 05/04/17 at 09:00; Stop 05/06/17 at 10:18; Status DC Potassium Chloride (KCl) 40 meq ONCE ONCE PO Last administered on 05/04/17 09:51; Start 05/04/17 at 08:30; Stop 05/04/17 at 09:14; Status DC Nicotine (Habitrol 14 Mg Patch.24 Hr) 1 patch DAILY T-DERMAL ; Start 05/04/17 at 09:00; Stop 05/04/17 at 09:00; Status DC Miscellaneous Information 1 DAILY T-DERMAL ; Start 05/04/17 at 09:00; Stop at 09:00; Status DC Nicotine (Habitrol 21 Mg Patch.24 Hr) 1 patch DAILY T-DERMAL Last administered on 05/06/17 09:31; Start 05/04/17 at 09:00 Miscellaneous Information 1 HS T-DERMAL Last administered on 05/05/17 21:00; Start 05/04/17 at 21:00 Morphine Sulfate (Morphine Inj) 2 mg Q2HR PRN IV PAIN SCALE 1 TO 5; Start at 09:00 Morphine Sulfate (Morphine Inj) 4 mg Q2HR PRN IV PUSH PAIN SCALE 6 TO 8 Last administered on 05/06/17 09:30; Start 05/04/17 at 08:45 Morphine Sulfate (Morphine Inj) 2 mg ONCE ONCE IV PUSH Last administered on 09:52; Start 05/04/17 at 08:45; Stop 05/04/17 at 09:13; Status DC Hydrochlorothiazide (Microzide) 12.5 mg DAILY PO Last administered on 09:31; Start 05/04/17 at 10:30 Lisinopril (Prinivil) 10 mg DAILY PO Last administered on 05/06/17 09:31; Start 05/04/17 at 10:30 Morphine Sulfate (Morphine Inj) 6 mg Q4H PRN IV PUSH PAIN SCALE 9 TO 10; Start 05/04/17 at 15:00 Allopurinol (Zyloprim) 300 mg DAILY PO Last administered on 05/06/17 09:31; Start 05/05/17 at 09:00 Allopurinol (Zyloprim) 300 mg ONCE ONCE PO Last administered on 05/04/17 17: 06; Start 05/04/17 at 15:00; Stop 05/04/17 at 15:01; Status DC Acetaminophen (Tylenol) 650 mg ONCE ONCE PO Last administered on 05/04/17 17 :06; Start 05/04/17 at 15:30; Stop 05/04/17 at 15:31; Status DC Diphenhydramine HCl (Benadryl) 50 mg ONCE ONCE PO Last administered on 17:05; Start 05/04/17 at 15:30; Stop 05/04/17 at 15:31; Status DC Rituximab 667.5 mg/Sodium Chloride 566.75 ml @ 0 mls/hr ONCE ONCE IV Last administered on 05/04/17 18:28; Start 05/04/17 at 16:00; Stop 05/04/17 at 16 :01; Status DC Prednisone (Deltasone) 100 mg DAILY PO Last administered on 05/06/17 10:25; Start 05/05/17 at 09:00; Stop 05/09/17 at 09:01 Prednisone (Deltasone) 5 mg DAILY PO Last administered on 05/06/17 09:30; Start 05/05/17 at 09:00; Stop 05/09/17 at 09:01 Granisetron HCl (Kytril Inj) 1 mg DAILY@1030 IV Last administered on 11:18; Start 05/05/17 at 10:30; Stop 05/09/17 at 10:31 Dexamethasone Sodium Phosphate 20 mg/Sodium Chloride 55 ml @ 330 mls/hr DAILY@ 1030 IV Last administered on 05/05/17 11:18; Start 05/05/17 at 10:30; Stop 05/05/17 at 12:47; Status DC Etoposide 89 mg/ Doxorubicin HCl 17.8 mg/ Vincristine Sulfate 0.7 mg/ Sodium Chloride 514.05 ml @ 21.419 mls/hr DAILY@1100 IV Last administered on 12:03; Start 05/05/17 at 11:00; Stop 05/09/17 at 10:59 Cyclophosphamide 1335 mg/Sodium Chloride 570 ml @ 570 mls/hr DAILY@1100 ONCE IV ; Start 05/09/17 at 11:00; Stop 05/09/17 at 11:59 Ceftriaxone Sodium 1000 mg/ Sodium Chloride 100 ml @ 200 mls/hr Q24H IV Last administered on 05/06/17 04:30; Start 05/06/17 at 05:00 Potassium Chloride (KCl) 40 meq ONCE ONCE PO Last administered on 05/06/17 09:30; Start 05/06/17 at 07:45; Stop 05/06/17 at 07:47; Status DC A/P Assessment and Plan 1. Chronic lymphocytic leukemia deletion 13Q, developed bulky adenopathy, treated initially with Rituximab, then Ibrutinib, developed a large mass in the retroperitoneum extending from the pole of left kidney along the iliopsoas muscle down to the pelvis, Biopsy showed lymphoplasma blastic lymphoma, taken by Oncology as probable transformation from chronic lymphocytic leukemia The plan is to treat him with Revlimid and R-CHOP, Seen by Radiation post closing specialist Doctor Octaviano Carey, due to Back pain, and destructive process at T11, recommended for Palliative Radiation therapy to Spine, discussed with post closing specialist SHELL, Miss Karen Pinto, Given Rituxan, and today for first day of EPOCH 10- 14 (Etoposide Phosphate, Prednisone Vincristine Sulfate, Cyclophosphamide, Doxorubicin Hydrochloride). 2. Urolithiasis status post ureteral Stent placement today after Baugh cath placement due to Urinary Retention he has Hematuria asked for Urology specialist consult. recommended to continue Baugh cath and antibiotics. 3. Acute Renal Injury improved. 4. electrolyte derangement replaced 5. Hyperlipidemia will continue Home medicines 6. Hypertension controlled. 7. COPD on Bronchodilator, Mucolytic and incentive spirometry. 8. Oral Thrush continue on Nystatin DVT prophylaxis SCDs, the patient has hematuria contraindicated chemical prophylaxis. COMPLAINS OF PAIN WILL ADJUST ADD PERCOCET 1 TO 2 Q4H PRN PAINS Discharge Planning PENDING ONCOLOGY CLEARANCE Ted Donnelly DO May 06, 2017 11:13
[2017-05-06] MEDS ORDERED: oxyCODONE/ACETAMINOPHEN 5 MG/325 MG TAB PO PRN (11:15)
[2017-05-06] MEDS: oxyCODONE/ACETAMINOPHEN 5 MG/325 MG TAB PO PRN ×3 (12:14→21:15)
[2017-05-06] MEDS: GRANISETRON HCL 1 MG/ML VIAL IV SCH (14:25)
[2017-05-06] MEDS: VINCRISTINE IV SCH (14:29)
[2017-05-06] MEDS: DOXORUBICIN IV SCH (14:29)
[2017-05-06] MEDS: ETOPOSIDE IV SCH (14:29)
[2017-05-06] MEDS: [UNRECOGNIZED DRUG - OTHER] IV SCH (14:29)
[2017-05-06] MEDS: REMOVE OLD PATCH T-DERMAL SCH (21:00)
[2017-05-07 00:18] VITALS: BP 129/74; PULSE 97; RESP 16; TEMP 98.5; O2SAT 97
[2017-05-07] MEDS: oxyCODONE/ACETAMINOPHEN 5 MG/325 MG TAB PO PRN ×3 (01:29→09:51)
[2017-05-07 04:25] VITALS: BP 144/87; PULSE 104; RESP 18; TEMP 98.7; O2SAT 92
[2017-05-07 04:47] LABS: HEMATOCRIT 34.4 % (39.0-51.0); MEAN CELL VOLUME 87.7 FL (80.0-100.0); MEAN CORPUSCULAR HEMOGLOBIN 28.8 PG (27.0-34.0); MEAN CORPUSCULAR HGB CONC 32.8 % (32.0-36.0); PLATELET COUNT 236 TH/MM3 (150-450); RED BLOOD COUNT 3.92 MIL/MM3 (4.50-5.90); RED CELL DISTRIBUTION WIDTH 14.6 % (11.6-17.2); WHITE BLOOD COUNT 19.6 TH/MM3 (4.0-11.0)
[2017-05-07 04:52] LABS: HEMO FLAGS AUTO DIFF
[2017-05-07 05:13] LABS: ANION GAP 6 MEQ/L (5-15); AST (GOT) 93 U/L (15-37); BICARBONATE 28.4 MEQ/L (21.0-32.0); BLOOD UREA NITROGEN 25 MG/DL (7-18); CHLORIDE 98 MEQ/L (98-107); GLOMERULAR FILTRATION RATE 89 ML/MIN (>89); LDH SERUM 395 U/L (87-241); MAGNESIUM 1.8 MG/DL (1.5-2.5); SODIUM (NA) 132 MEQ/L (136-145)
[2017-05-07 05:31] LABS: ALKALINE PHOSPHATASE 62 U/L (45-117); ALT (GPT) 64 U/L (12-78); FREE T4 1.14 NG/DL (0.76-1.46); TOTAL BILIRUBIN ADULT 0.5 MG/DL (0.2-1.0)
[2017-05-07] MEDS: cefTRIAXone INJ 1,000 MG in SODIUM CHLORIDE 0.9% INJ 100 ML IV SCH (05:36)
[2017-05-07 05:37] LABS: NEUTROPHIL # MANUAL DIFF 8.2 TH/MM3 (1.8-7.7); PLATELET ESTIMATE SMEAR NORMAL (NORMAL); PLATELET MORPHOLOGY NORMAL (NORMAL); POLYS (SEG NEUTROPHILS) 42 % (16-70); SCAN/DIFF FINAL DIFF MANUAL; WBC DIFF SAMPLE 100
[2017-05-07] MEDS: SODIUM CHLORIDE 0.9% FLUSH 10 ML FLUSH IV FLUSH PRN ×2 (05:39→07:36)
[2017-05-07 08:13] VITALS: BP 132/76; PULSE 90; RESP 18; TEMP 98.5; O2SAT 94
[2017-05-07] MEDS: SODIUM CHLORIDE 0.9% FLUSH 10 ML FLUSH IV FLUSH SCH ×2 (09:00→21:15)
[2017-05-07] MEDS: HEPARIN SODIUM - SQ 10,000 UNITS/ML VIAL SQ SCH ×2 (09:00→21:14)
[2017-05-07] MEDS: HYDROCHLOROTHIAZIDE 12.5 MG CAP PO SCH (09:49)
[2017-05-07] MEDS: DOCUSATE SODIUM 50 MG/SENNA 8.6 MG TAB PO SCH ×2 (09:49→21:00)
[2017-05-07] MEDS: NICOTINE 21 MG/24 HR PATCH T-DERMAL SCH (09:49)
[2017-05-07] MEDS: PRAVASTATIN SOD 40 MG TAB PO SCH (09:49)
[2017-05-07] MEDS: ALLOPURINOL 300 MG TAB PO SCH (09:49)
[2017-05-07] MEDS: predniSONE 50 MG TAB PO SCH ×2 (09:50→21:12)
[2017-05-07] MEDS: LISINOPRIL 10 MG TAB PO SCH (09:50)
[2017-05-07] MEDS: predniSONE 5 MG TAB PO SCH ×2 (09:50→21:12)
[2017-05-07] MEDS: guaiFENesin E.R. 600 MG TAB PO SCH ×2 (09:50→21:14)
[2017-05-07] MEDS: ASPIRIN 81 MG CHEW TAB CHEW SCH (09:51)
[2017-05-07] MEDS: NYSTATIN SUSP 500,000 U/5 ML CUP SWISH-SWAL SCH ×4 (09:51→21:14)
--- NOTE | 2017-05-07 10:11 | PD.ONC.PN ---
Subjective Subjective Remarks Afebrile overnight. Patient reporting breakthrough pain. States the morphine only lasts an hour. Wants something that lasts longer. Family at bedside is anxious. Objective Data Date Time Temp Pulse Resp B/P (MAP) Pulse Ox O2 Delivery O2 Flow Rate FiO2 05/07/17 04:25 98.7 104 18 144/87 (106) 92 05/07/17 00:18 98.5 97 16 129/74 (92) 97 05/06/17 21:19 Nasal Cannula 3.00 05/06/17 21:16 99.1 102 138/76 (96) 94 05/06/17 15:33 98.6 100 18 140/78 (98) 93 05/06/17 12:11 98.6 97 18 116/59 (78) 93 05/07/17 05/07/17 05/07/17 07:00 15:00 23:00 Intake Total 450 ml Output Total 700 ml Balance -250 ml Result Diagram: 05/07/17 0435 05/07/17 0435 Laboratory Results Laboratory Tests Test 05/07/17 04:35 White Blood Count 19.6 TH/MM3 Red Blood Count 3.92 MIL/MM3 Hemoglobin 11.3 GM/DL Hematocrit 34.4 % Mean Corpuscular Volume 87.7 FL Mean Corpuscular Hemoglobin 28.8 PG Mean Corpuscular Hemoglobin Concent 32.8 % Red Cell Distribution Width 14.6 % Platelet Count 236 TH/MM3 Mean Platelet Volume 7.5 FL CBC Comment AUTO DIFF Differential Total Cells Counted 100 Neutrophils % (Manual) 42 % Lymphocytes % 58 % Neutrophils # (Manual) 8.2 TH/MM3 Differential Comment FINAL DIFF MANUAL Platelet Estimate NORMAL Platelet Morphology Comment NORMAL Blood Urea Nitrogen 25 MG/DL Creatinine 0.84 MG/DL Random Glucose 99 MG/DL Total Protein 5.4 GM/DL Albumin 2.4 GM/DL Calcium Level 8.8 MG/DL Phosphorus Level 3.0 MG/DL Magnesium Level 1.8 MG/DL Uric Acid 5.0 MG/DL Alkaline Phosphatase 62 U/L Aspartate Amino Transf (AST/SGOT) 93 U/L Alanine Aminotransferase (ALT/SGPT) 64 U/L Lactate Dehydrogenase 395 U/L Total Bilirubin 0.5 MG/DL Sodium Level 132 MEQ/L Potassium Level 4.0 MEQ/L Chloride Level 98 MEQ/L Carbon Dioxide Level 28.4 MEQ/L Anion Gap 6 MEQ/L Estimat Glomerular Filtration Rate 89 ML/MIN Free Thyroxine 1.14 NG/DL Thyroid Stimulating Hormone 3rd Gen 0.190 uIU/ML Administered Medications Medications (Trade) Dose Ordered Sig/Stuart Route PRN Reason Start Time Stop Time Status Last Admin Dose Admin Sodium Chloride (NS Flush) 2 ml UNSCH PRN IV FLUSH FLUSH AFTER USING IV ACCESS 05/02/17 15:30 05/07/17 07:36 Sodium Chloride (NS Flush) 2 ml BID IV FLUSH 05/02/17 21:00 05/07/17 09:00 Senna/Docusate Sodium (Ninfa-Colace) 1 tab BID PO 05/02/17 21:00 05/07/17 09:49 Aspirin (Aspirin Chew) 81 mg DAILY CHEW 05/03/17 09:00 05/07/17 09:51 Pyridoxine HCl (Vitamin B6) 100 mg DAILY PO 05/03/17 09:00 05/06/17 09:31 Pravastatin Sodium (Pravachol) 40 mg DAILY PO 05/03/17 09:00 05/07/17 09:49 Guaifenesin (Mucinex Er) 600 mg BID PO 05/02/17 21:00 05/07/17 09:50 Nystatin (Mycostatin Liq) 5 ml QID SWISH-SWAL 05/02/17 18:00 05/07/17 09:51 Heparin Sodium (Porcine) (Heparin Inj) 5,000 units Q12HR SQ 05/02/17 21:00 05/06/17 21:25 Nicotine (Habitrol 21 Mg Patch.24 Hr) 1 patch DAILY T-DERMAL 05/04/17 09:00 05/07/17 09:49 Miscellaneous Information 1 HS T-DERMAL 05/04/17 21:00 05/06/17 21:00 Morphine Sulfate (Morphine Inj) 4 mg Q2HR PRN IV PUSH PAIN SCALE 6 TO 8 05/04/17 08:45 05/06/17 09:30 Hydrochlorothiazide (Microzide) 12.5 mg DAILY PO 05/04/17 10:30 05/07/17 09:49 Lisinopril (Prinivil) 10 mg DAILY PO 05/04/17 10:30 05/07/17 09:50 Allopurinol (Zyloprim) 300 mg DAILY PO 05/05/17 09:00 05/07/17 09:49 Granisetron HCl (Kytril Inj) 1 mg DAILY@1030 IV 05/05/17 10:30 05/09/17 10:31 05/06/17 14:25 Etoposide 89 mg/ Doxorubicin HCl 17.8 mg/ Vincristine Sulfate 0.7 mg/ Sodium Chloride 514.05 ml @ 21.419 mls/hr DAILY@1100 IV 05/05/17 11:00 05/09/17 10:59 05/06/17 14:29 Ceftriaxone Sodium 1000 mg/ Sodium Chloride 100 ml @ 200 mls/hr Q24H IV 05/06/17 05:00 05/07/17 05:36 Oxycodone/ Acetaminophen (Percocet 5-325 Mg) 2 tab Q4H PRN PO PAIN 6-05/06/17 11:15 05/07/17 09:51 Prednisone (Deltasone) 100 mg BID PO 05/07/17 09:00 05/09/17 21:01 05/07/17 09:50 Prednisone (Deltasone) 5 mg BID PO 05/07/17 09:00 05/09/17 21:01 05/07/17 09:50 Objective Remarks GENERAL: Elderly male, supine in bed in nad. SKIN: Warm and dry. HEAD: Normocephalic. EYES: No injection or drainage. NECK: Supple, trachea midline. CARDIOVASCULAR: Regular rate and rhythm RESPIRATORY: diminished at bases. anterior sanchez clear. On 3L O2 via NC GASTROINTESTINAL: Abdomen soft, non-tender, nondistended. EXTREMITIES: No cyanosis. NEUROLOGICAL: awake and alert, normal speech. moving all extremities. 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 --05/06: D2 EPOCH. tolerating chemo. no adverse effects. replace potassium. --05/07: D3 EPOCH. continue chemo. resume prednisone BID dosing. 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 --first presented with bulky adenopathy, treated with Rituxan and bendamustine without clear response. --then switched to Ibrutinib with very good response. neck and axillary adenopathy are no longer palpable. --recently developed a large mass in retroperitoneum extending from the lower pole of left kidney down along the iliopsoas muscle to the pelvis, measured at least 10 cm. 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 --plan was to treat him with Revlimid along with R-CHOP. was supposed to start chemotherapy at the clinic but was too weak. (3) Flank pain ICD Codes: R10.9 - Unspecified abdominal pain Plan: --on PRN IV morphine and PRN Oxycodone -- Abdominal pain and flank pain due to the large retroperitoneal mass encroaching the iliopsoas muscle. -- Lesion noted on T11 that may be able to get kyphoplasty -- s/p simulation 05/04. (4) History of urethral stent ICD Codes: Z98.890 - Other specified postprocedural states Plan: --had a urethral stent placement for hydronephrosis on 05/01 Assessment 76-year-old male with chronic lymphocytic leukemia/lymphoma, admitted with abdominal pain and back pain and a urinary tract infection. Plan 1. continue chemotherapy--Day 3 EPOCH to start at 2:30 today. 2. resume BID dosing for Prednisone 3. monitor electrolytes. 4. await start of XRT 5. Stop Percocet, start Oxycodone to avoid acetaminophen overdosing or masking of fever. will also start long-acting morphine tonight at low dose (Oramorph 15mg) Attending Statement The exam, history, and the medical decision-making described in the above note were completed with the assistance of the mid-level provider. I reviewed and agree with the findings presented. I attest that I had a [id number] encounter with the patient on the same day, and personally performed and documented my assessment and findings in the medical record. Pain slightly better but still difficult to sit up due to pain. Tolerating EPOCH. Continue to titrate pain meds and continue chemotherapy protocol. Plan to radiate the Spine next week. Extensive discussion with patient. Coye,Karen Chayito PA May 07, 2017 10:11 Aaron Montalvo MD May 07, 2017 14:33
--- NOTE | 2017-05-07 10:52 | HHI.PR ---
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 today he came to ER after he had a procedure performed yesterday by Doctor Bull had Urethral stens placed came due to General Weakness. 05/04: Seen in his bedroom, stable but frustrated due to the worsening Metastatic disease and the need for Palliative Radiation, discussed with patient and his Son Mr. Maldonado Hercules, and his Daughter in law, overall poor short term prognosis. 05/05: Stable seen in his bedroom he is Frustrated with his management, discussed with medicaid eligibility specialist SHELL, Miss Karen Pinto, patient with Lymphoblastic diffuse Lymphoma, Given Rituxan, and today for first day of EPOCH (Etoposide Phosphate, Prednisone Vincristine Sulfate, Cyclophosphamide, Doxorubicin Hydrochloride), that started as Chronic Lymphocytic Leukemia. complaint of Nausea. no diarrhea. 10-15 STILL HAVING SOME PAIN- HE STATES NOT WELL CONTROLLED WILL ADJUST DW RN AND PT AND FAMILY PERCOCET 1 TO 2 Q4H PRN PAINS 10-16 PATIENT IS ASKING FOR DILAUDID- HAS NOT BEEN ON IT THIS WHOLE ADMISSION MEDS ADJUSTED TO MORPHINE AND PERCOCET DW RN AND PATIENT MONITOR PAIN CONTROL - DOES NOT REMEMBER ME FROM YESTERDAY AT ALL- Objective Vitals Vital Signs Date Time Temp Pulse Resp B/P (MAP) Pulse Ox O2 Delivery O2 Flow Rate FiO2 05/07/17 04:25 98.7 104 18 144/87 (106) 92 05/07/17 00:18 98.5 97 16 129/74 (92) 97 05/06/17 21:19 Nasal Cannula 3.00 05/06/17 21:16 99.1 102 138/76 (96) 94 05/06/17 15:33 98.6 100 18 140/78 (98) 93 05/06/17 12:11 98.6 97 18 116/59 (78) 93 I/O 05/06/17 05/06/17 05/06/17 05/07/17 05/07/17 05/07/17 07:00 15:00 23:00 07:00 15:00 23:00 Intake Total 256 ml 450 ml Output Total 1550 ml 600 ml 200 ml 700 ml Balance -1294 ml -600 ml -200 ml -250 ml Intake Oral 450 ml IV Total 256 ml Output Urine Total 1550 ml 600 ml 200 ml 700 ml # Bowel Movements 1 Result Diagram: 05/07/17 0435 05/07/17 0435 Other Results Laboratory Tests Test 05/04/17 12:11 05/05/17 04:56 05/06/17 04:15 05/07/17 04:35 Lactic Acid Level 1.2 mmol/L White Blood Count 19.9 TH/MM3 19.8 TH/MM3 19.6 TH/MM3 Red Blood Count 3.83 MIL/MM3 3.84 MIL/MM3 3.92 MIL/MM3 Hemoglobin 10.8 GM/DL 10.9 GM/DL 11.3 GM/DL Hematocrit 33.4 % 33.5 % 34.4 % Mean Corpuscular Volume 87.4 FL 87.4 FL 87.7 FL Mean Corpuscular Hemoglobin 28.3 PG 28.3 PG 28.8 PG Mean Corpuscular Hemoglobin Concent 32.4 % 32.4 % 32.8 % Red Cell Distribution Width 14.4 % 14.5 % 14.6 % Platelet Count 213 TH/MM3 218 TH/MM3 236 TH/MM3 Mean Platelet Volume 7.9 FL 7.8 FL 7.5 FL Neutrophils (%) (Auto) 50.1 % 57.4 % Lymphocytes (%) (Auto) 48.7 % 41.0 % Monocytes (%) (Auto) 0.9 % 1.4 % Eosinophils (%) (Auto) 0.0 % 0.0 % Basophils (%) (Auto) 0.3 % 0.2 % Neutrophils # (Auto) 10.0 TH/MM3 11.3 TH/MM3 Lymphocytes # (Auto) 9.7 TH/MM3 8.1 TH/MM3 Monocytes # (Auto) 0.2 TH/MM3 0.3 TH/MM3 Eosinophils # (Auto) 0.0 TH/MM3 0.0 TH/MM3 Basophils # (Auto) 0.1 TH/MM3 0.0 TH/MM3 CBC Comment AUTO DIFF AUTO DIFF AUTO DIFF Differential Total Cells Counted 100 100 100 Neutrophils % (Manual) 25 % 42 % 42 % Band Neutrophils % 1 % 2 % Lymphocytes % 74 % 56 % 58 % Neutrophils # (Manual) 5.2 TH/MM3 8.7 TH/MM3 8.2 TH/MM3 Differential Comment FINAL DIFF MANUAL FINAL DIFF MANUAL FINAL DIFF MANUAL Smudge Cells PRESENT PRESENT Toxic Granulation 2+ Platelet Estimate NORMAL NORMAL NORMAL Platelet Morphology Comment ENLARGED NORMAL NORMAL Ovalocytes 1+ Acanthocytes OCC Blood Urea Nitrogen 13 MG/DL 15 MG/DL 25 MG/DL Creatinine 0.67 MG/DL 0.56 MG/DL 0.84 MG/DL Random Glucose 104 MG/DL 99 MG/DL 99 MG/DL Total Protein 5.5 GM/DL 5.3 GM/DL 5.4 GM/DL Albumin 2.5 GM/DL 2.4 GM/DL 2.4 GM/DL Calcium Level 9.3 MG/DL 9.1 MG/DL 8.8 MG/DL Uric Acid 5.5 MG/DL 5.6 MG/DL 5.0 MG/DL Alkaline Phosphatase 57 U/L 55 U/L 62 U/L Aspartate Amino Transf (AST/SGOT) 61 U/L 59 U/L 93 U/L Alanine Aminotransferase (ALT/SGPT) 23 U/L 31 U/L 64 U/L Lactate Dehydrogenase 453 U/L 422 U/L 395 U/L Total Bilirubin 0.6 MG/DL 0.4 MG/DL 0.5 MG/DL Sodium Level 131 MEQ/L 135 MEQ/L 132 MEQ/L Potassium Level 3.8 MEQ/L 3.4 MEQ/L 4.0 MEQ/L Chloride Level 96 MEQ/L 98 MEQ/L 98 MEQ/L Carbon Dioxide Level 24.5 MEQ/L 27.5 MEQ/L 28.4 MEQ/L Anion Gap 11 MEQ/L 10 MEQ/L 6 MEQ/L Estimat Glomerular Filtration Rate 116 ML/MIN 142 ML/MIN 89 ML/MIN Basophilic Stippling FAINT Phosphorus Level 3.0 MG/DL Magnesium Level 1.8 MG/DL Free Thyroxine 1.14 NG/DL Thyroid Stimulating Hormone 3rd Gen 0.190 uIU/ML Imaging Last Impressions Thoracic Spine MRI 05/03/17 0000 Signed Impressions: Service Date/Time: April 12:42 - CONCLUSION: 1. Please see the MRI of the lumbar spine reported separately. 2. Study is motion degraded. 3. Destructive process involving the T11 vertebral body with 40%% loss of height but no retropulsion. This is suggestive of a metastatic focus. Rakesh Farnsworth Jr., MD Lumbar Spine MRI 05/03/17 0000 Signed Impressions: Service Date/Time: April 12:42 - CONCLUSION: 1. Please see the MRI of the thoracic spine reported separately. 2. Current study limited by motion artifact. 3. Destructive process involving the L2 vertebral body with extension into the pedicles bilaterally as well the left lamina with narrowing of the central canal due to posterior displacement of the posterior cortical margin as well as obscuration of the neural foramina. 10%% loss of height. This is felt to relate to a metastatic focus. 4. Prominent retroperitoneal soft tissue previous described on the CT scan. Rakesh Farnsworth Jr., MD Chest X-Ray 05/02/17 1100 Signed Impressions: Service Date/Time: Tuesday, May 02, 2017 11:36 - CONCLUSION: Small bilateral pleural effusions otherwise negative. Ted Ray MD FACR Chest CT 05/02/17 0000 Signed Impressions: Service Date/Time: April 01:27 - CONCLUSION: Left upper lobe nodular mass. Parenchymal disease in the right lung base. Moderately large bilateral pleural effusions. Destructive process involving T11 vertebral body Guzman Alcaraz MD Abdomen/Pelvis CT 05/02/17 0000 Signed Impressions: Service Date/Time: April 01:27 - CONCLUSION: Extensive abnormal retroperitoneal soft tissue, presumably confluent adenopathy and adenopathy also present in the celiac region in the upper abdomen. Destructive process involving T11. Bilateral ureteral stents in place. Guzman Alcaraz MD Objective Remarks GENERAL: Awake and alert and some confusion SKIN: Warm and dry. HEAD: Atraumatic. Normocephalic. EYES: Pupils equal and round. No scleral icterus. No injection or drainage. EOMI ENT: No nasal bleeding or discharge. Mucous membranes pink and moist. Tongue is midline NECK: Trachea midline. No JVD. Neck is supple S1 and S2 no S3 or S4 no heave or thrill or rub CARDIOVASCULAR: Regular rate and rhythm. RESPIRATORY: No accessory muscle use. Clear to auscultation. Breath sounds equal bilaterally. GASTROINTESTINAL: Abdomen soft, non-tender, nondistended. Hepatic and splenic margins not palpable. MUSCULOSKELETAL: Extremities without clubbing, cyanosis, +1 lower edema. No obvious deformities. NEUROLOGICAL: Awake and alert. No obvious cranial nerve deficits. Motor grossly within normal limits. 4 out of 5 muscle strength in the arms and legs. Normal speech. PSYCHIATRIC: INAppropriate mood and affect; insight and judgment ABnormal. Medications and IVs Current Medications Sodium Chloride (NS Flush) 2 ml UNSCH PRN IVF FLUSH AFTER USING IV ACCESS; Start 05/02/17 at 11:00; Stop 05/02/17 at 16:02; Status DC Piperacillin Sod/ Tazobactam Sod 100 ml @ 200 mls/hr ONCE STAT IV Last administered on 05/02/17 12:10; Start 05/02/17 at 12:10; Stop 05/02/17 at 12 :39; Status DC Sodium Chloride 500 ml @ 500 mls/hr BOLUS ONCE IV Last administered on 12:30; Start 05/02/17 at 12:30; Stop 05/02/17 at 13:29; Status DC Sodium Chloride 1,000 ml @ 100 mls/hr Q10H IV Last administered on 05/05/17 04:52; Start 05/02/17 at 17:00; Stop 05/05/17 at 12:21; Status DC Sodium Chloride (NS Flush) 2 ml UNSCH PRN IV FLUSH FLUSH AFTER USING IV ACCESS Last administered on 05/07/17 07:36; Start 05/02/17 at 15:30 Sodium Chloride (NS Flush) 2 ml BID IV FLUSH Last administered on 05/07/17 09 :00; Start 05/02/17 at 21:00 Acetaminophen (Tylenol) 650 mg Q4H PRN PO TEMP > 100.4; Start 05/02/17 at 15: 30 Ondansetron HCl (Zofran Inj) 4 mg Q6H PRN IVP NAUSEA OR VOMITING; Start at 15:30 Naloxone HCl (Narcan Inj) 0.4 mg UNSCH PRN IV PUSH SEE LABEL COMMENTS; Start 05/02/17 at 15:30 Senna/Docusate Sodium (Ninfa-Colace) 1 tab BID PO Last administered on 09:49; Start 05/02/17 at 21:00 Magnesium Hydroxide (Milk Of Magnesia Liq) 30 ml Q12H PRN PO MILD - MODERATE CONSTIPATION; Start 05/02/17 at 15:30 Sennosides (Senokot) 17.2 mg Q12H PRN PO MODERATE - SEVERE CONSTIPATION; Start 05/02/17 at 15:30 Bisacodyl (Dulcolax Supp) 10 mg DAILY PRN RECTAL SEVERE CONSITIPATION; Start 05/02/17 at 15:30 Lactulose (Lactulose Liq) 30 ml DAILY PRN PO SEVERE CONSITIPATION; Start 05/02 at 15:30 Aspirin (Aspirin Chew) 81 mg DAILY CHEW Last administered on 05/07/17 09:51; Start 05/03/17 at 09:00 Acetaminophen/ Hydrocodone Bitart ([place] 7.5-325 Mg) 1 tab Q6H PRN PO PAIN Last administered on 05/03/17 23:28; Start 05/02/17 at 15:30; Stop 05/04/17 at 08:49; Status DC Pyridoxine HCl (Vitamin B6) 100 mg DAILY PO Last administered on 05/06/17 09: 31; Start 05/03/17 at 09:00 Pravastatin Sodium (Pravachol) 40 mg DAILY PO Last administered on 05/07/17 09:49; Start 05/03/17 at 09:00 Ceftriaxone Sodium 1000 mg/ Sodium Chloride 100 ml @ 200 mls/hr Q24H IV Last administered on 05/05/17 04:50; Start 05/02/17 at 17:00; Stop 05/05/17 at 17 :44; Status DC Potassium Chloride (KCl) 40 meq ONCE ONCE PO ; Start 05/02/17 at 16:15; Stop 05/02/17 at 16:16; Status DC Sodium Chloride 500 ml @ 500 mls/hr BOLUS ONCE IV Last administered on 18:40; Start 05/02/17 at 16:30; Stop 05/02/17 at 17:29; Status DC Albuterol/ Ipratropium (Duoneb Neb) 1 ampule Q4HR NEB NEB Last administered on 05/06/17 15:44; Start 05/02/17 at 16:00; Stop 05/06/17 at 15:59; Status DC Guaifenesin (Mucinex Er) 600 mg BID PO Last administered on 05/07/17 09:50; Start 05/02/17 at 21:00 Magnesium Sulfate/ Dextrose 100 ml @ 100 mls/hr Q1H IV ; Start 05/02/17 at 17: 00; Stop 05/02/17 at 17:59; Status DC Nystatin (Mycostatin Liq) 5 ml QID SWISH-SWAL Last administered on 05/07/17 09:51; Start 05/02/17 at 18:00 Heparin Sodium (Porcine) (Heparin Inj) 5,000 units Q12HR SQ Last administered on 05/06/17 21:25; Start 05/02/17 at 21:00 Diatrizoate Meglum/ Diatrizoate Sod ( Gastroview Liq) 18 ml ONCE ONCE PO Last administered on 05/02/17 20:44; Start 05/02/17 at 19:30; Stop 05/02/17 at 19:31; Status DC Magnesium Sulfate/ Dextrose 100 ml @ 100 mls/hr Q1H IV Last administered on 23:36; Start 05/02/17 at 23:30; Stop 05/03/17 at 01:29; Status DC Potassium Bicarb/ Potassium Chloride (K-Lyte Cl Eff) 50 meq ONCE ONCE PO Last administered on 05/03/17 06:43; Start 05/03/17 at 06:45; Stop 05/03/17 at 06:46; Status DC Potassium Chloride (KCl Powder) 40 meq ONCE ONCE PO Last administered on 05/03 11:24; Start 05/03/17 at 08:45; Stop 05/03/17 at 09:43; Status DC Potassium Chloride (KCl Powder) 40 meq ONCE ONCE PO Last administered on 05/03 12:00; Start 05/03/17 at 12:00; Stop 05/03/17 at 12:01; Status DC Lorazepam (Ativan Inj) 1 mg ONCE ONCE IV PUSH Last administered on 05/03/17 11:59; Start 05/03/17 at 12:00; Stop 05/03/17 at 12:01; Status DC Morphine Sulfate (Morphine Inj) 2 mg Q4H PRN IV PAIN GREATER THAN 8 Last administered on 05/04/17 08:19; Start 05/03/17 at 12:00; Stop 05/04/17 at 08 :48; Status DC Dexamethasone (Decadron) 40 mg DAILY PO Last administered on 05/05/17 08:36; Start 05/04/17 at 09:00; Stop 05/06/17 at 10:18; Status DC Potassium Chloride (KCl) 40 meq ONCE ONCE PO Last administered on 05/04/17 09:51; Start 05/04/17 at 08:30; Stop 05/04/17 at 09:14; Status DC Nicotine (Habitrol 14 Mg Patch.24 Hr) 1 patch DAILY T-DERMAL ; Start 05/04/17 at 09:00; Stop 05/04/17 at 09:00; Status DC Miscellaneous Information 1 DAILY T-DERMAL ; Start 05/04/17 at 09:00; Stop at 09:00; Status DC Nicotine (Habitrol 21 Mg Patch.24 Hr) 1 patch DAILY T-DERMAL Last administered on 05/07/17 09:49; Start 05/04/17 at 09:00 Miscellaneous Information 1 HS T-DERMAL Last administered on 05/06/17 21:00; Start 05/04/17 at 21:00 Morphine Sulfate (Morphine Inj) 2 mg Q2HR PRN IV PAIN SCALE 1 TO 5; Start at 09:00 Morphine Sulfate (Morphine Inj) 4 mg Q2HR PRN IV PUSH PAIN SCALE 6 TO 8 Last administered on 05/06/17 09:30; Start 05/04/17 at 08:45 Morphine Sulfate (Morphine Inj) 2 mg ONCE ONCE IV PUSH Last administered on 09:52; Start 05/04/17 at 08:45; Stop 05/04/17 at 09:13; Status DC Hydrochlorothiazide (Microzide) 12.5 mg DAILY PO Last administered on 09:49; Start 05/04/17 at 10:30 Lisinopril (Prinivil) 10 mg DAILY PO Last administered on 05/07/17 09:50; Start 05/04/17 at 10:30 Morphine Sulfate (Morphine Inj) 6 mg Q4H PRN IV PUSH PAIN SCALE 9 TO 10; Start 05/04/17 at 15:00 Allopurinol (Zyloprim) 300 mg DAILY PO Last administered on 05/07/17 09:49; Start 05/05/17 at 09:00 Allopurinol (Zyloprim) 300 mg ONCE ONCE PO Last administered on 05/04/17 17: 06; Start 05/04/17 at 15:00; Stop 05/04/17 at 15:01; Status DC Acetaminophen (Tylenol) 650 mg ONCE ONCE PO Last administered on 05/04/17 17 :06; Start 05/04/17 at 15:30; Stop 05/04/17 at 15:31; Status DC Diphenhydramine HCl (Benadryl) 50 mg ONCE ONCE PO Last administered on 17:05; Start 05/04/17 at 15:30; Stop 05/04/17 at 15:31; Status DC Rituximab 667.5 mg/Sodium Chloride 566.75 ml @ 0 mls/hr ONCE ONCE IV Last administered on 05/04/17 18:28; Start 05/04/17 at 16:00; Stop 05/04/17 at 16 :01; Status DC Prednisone (Deltasone) 100 mg DAILY PO Last administered on 05/06/17 10:25; Start 05/05/17 at 09:00; Stop 05/07/17 at 08:41; Status DC Prednisone (Deltasone) 5 mg DAILY PO Last administered on 05/06/17 09:30; Start 05/05/17 at 09:00; Stop 05/07/17 at 08:42; Status DC Granisetron HCl (Kytril Inj) 1 mg DAILY@1030 IV Last administered on 14:25; Start 05/05/17 at 10:30; Stop 05/09/17 at 10:31 Dexamethasone Sodium Phosphate 20 mg/Sodium Chloride 55 ml @ 330 mls/hr DAILY@ 1030 IV Last administered on 05/05/17 11:18; Start 05/05/17 at 10:30; Stop 05/05/17 at 12:47; Status DC Etoposide 89 mg/ Doxorubicin HCl 17.8 mg/ Vincristine Sulfate 0.7 mg/ Sodium Chloride 514.05 ml @ 21.419 mls/hr DAILY@1100 IV Last administered on 14:29; Start 05/05/17 at 11:00; Stop 05/09/17 at 10:59 Cyclophosphamide 1335 mg/Sodium Chloride 570 ml @ 570 mls/hr DAILY@1100 ONCE IV ; Start 05/09/17 at 11:00; Stop 05/09/17 at 11:59 Ceftriaxone Sodium 1000 mg/ Sodium Chloride 100 ml @ 200 mls/hr Q24H IV Last administered on 05/07/17 05:36; Start 05/06/17 at 05:00 Potassium Chloride (KCl) 40 meq ONCE ONCE PO Last administered on 05/06/17 09:30; Start 05/06/17 at 07:45; Stop 05/06/17 at 07:47; Status DC Oxycodone/ Acetaminophen (Percocet 5-325 Mg) 1 tab Q4H PRN PO PAIN 1-5; Start 05/06/17 at 11:15 Oxycodone/ Acetaminophen (Percocet 5-325 Mg) 2 tab Q4H PRN PO PAIN 6-10 Last administered on 05/07/17 09:51; Start 05/06/17 at 11:15 Prednisone (Deltasone) 100 mg BID PO Last administered on 05/07/17 09:50; Start 05/07/17 at 09:00; Stop 05/09/17 at 21:01 Prednisone (Deltasone) 5 mg BID PO Last administered on 05/07/17 09:50; Start 05/07/17 at 09:00; Stop 05/09/17 at 21:01 A/P Assessment and Plan 1. Chronic lymphocytic leukemia deletion 13Q, developed bulky adenopathy, treated initially with Rituximab, then Ibrutinib, developed a large mass in the retroperitoneum extending from the pole of left kidney along the iliopsoas muscle down to the pelvis, Biopsy showed lymphoplasma blastic lymphoma, taken by Oncology as probable transformation from chronic lymphocytic leukemia The plan is to treat him with Revlimid and R-CHOP, Seen by Radiation medicaid eligibility specialist Doctor Octaviano Carey, due to Back pain, and destructive process at T11, recommended for Palliative Radiation therapy to Spine, discussed with medicaid eligibility specialist SHELL, Miss Karen Pinto, Given Rituxan, and today for first day of EPOCH 10- 14 (Etoposide Phosphate, Prednisone Vincristine Sulfate, Cyclophosphamide, Doxorubicin Hydrochloride). 2. Urolithiasis status post ureteral Stent placement today after Baugh cath placement due to Urinary Retention he has Hematuria asked for Urology specialist consult. recommended to continue Baugh cath and antibiotics. 3. Acute Renal Injury improved. 4. electrolyte derangement replaced 5. Hyperlipidemia will continue Home medicines 6. Hypertension controlled. 7. COPD on Bronchodilator, Mucolytic and incentive spirometry. 8. Oral Thrush continue on Nystatin DVT prophylaxis SCDs, the patient has hematuria contraindicated chemical prophylaxis. COMPLAINS OF PAIN WILL ADJUST ADD PERCOCET 1 TO 2 Q4H PRN PAINS PATIENT MENTIONS DILAUDID BUT HAS NOT BEEN ON IT THIS WHOLE ADMISSION DERICK RN AND PT Discharge Planning PENDING ONCOLOGY CLEARANCE Ted Donnelly DO May 07, 2017 10:52
[2017-05-07] MEDS: GRANISETRON HCL 1 MG/ML VIAL IV SCH (11:03)
[2017-05-07] MEDS: PYRIDOXINE HCL 50 MG TAB PO SCH (11:04)
[2017-05-07] MEDS: MORPHINE SULFATE 4 MG/ML INJ IV PUSH PRN (13:20)
[2017-05-07 16:00] VITALS: BP 144/82; PULSE 99; RESP 16; TEMP 98.3; O2SAT 93
[2017-05-07 16:55] LABS: HEMOGLOBIN A1a 0.8 %; HEMOGLOBIN Ao 84.8 %; HEMOGLOBIN F 0.9 %; HEMOGLOBIN LA1C 2.2 %; HEMOGLOBIN P3 5.8 %
[2017-05-07] MEDS: ETOPOSIDE IV SCH (17:35)
[2017-05-07] MEDS: [UNRECOGNIZED DRUG - OTHER] IV SCH (17:35)
[2017-05-07] MEDS: DOXORUBICIN IV SCH (17:35)
[2017-05-07] MEDS: VINCRISTINE IV SCH (17:35)
[2017-05-07 20:12] VITALS: BP 144/80; PULSE 88; RESP 18; TEMP 98.5; O2SAT 93
[2017-05-07] MEDS: MORPHINE SULFATE 15 MG CONTROLLED RELEASE TAB PO SCH (21:14)
[2017-05-07] MEDS: REMOVE OLD PATCH T-DERMAL SCH (21:27)
[2017-05-08 00:45] VITALS: BP 142/84; PULSE 83; RESP 16; TEMP 99; O2SAT 94
[2017-05-08 04:00] VITALS: BP 139/76; PULSE 80; RESP 16; TEMP 98.3; O2SAT 94
[2017-05-08] MEDS: cefTRIAXone INJ 1,000 MG in SODIUM CHLORIDE 0.9% INJ 100 ML IV SCH (04:49)
[2017-05-08] MEDS: SODIUM CHLORIDE 0.9% FLUSH 10 ML FLUSH IV FLUSH PRN (05:05)
[2017-05-08 05:51] LABS: BASOPHIL % 0.1 % (0.0-2.0); LYMPH % 44.6 % (9.0-44.0); LYMPHOCYTE # 5.7 TH/MM3 (1.0-4.8); MEAN CELL VOLUME 87.1 FL (80.0-100.0); MEAN CORPUSCULAR HEMOGLOBIN 28.1 PG (27.0-34.0); MEAN CORPUSCULAR HGB CONC 32.3 % (32.0-36.0); MONO % 0.4 % (0.0-8.0); NEUT % 54.9 % (16.0-70.0); PLATELET COUNT 197 TH/MM3 (150-450); RED CELL DISTRIBUTION WIDTH 14.8 % (11.6-17.2); WHITE BLOOD COUNT 12.8 TH/MM3 (4.0-11.0)
[2017-05-08 06:10] LABS: HEMO FLAGS AUTO DIFF
[2017-05-08 06:13] LABS: ANION GAP 7 MEQ/L (5-15); AST (GOT) 48 U/L (15-37); BICARBONATE 29.5 MEQ/L (21.0-32.0); BLOOD UREA NITROGEN 26 MG/DL (7-18); CHLORIDE 97 MEQ/L (98-107); GLOMERULAR FILTRATION RATE 122 ML/MIN (>89); MAGNESIUM 1.8 MG/DL (1.5-2.5); POTASSIUM 3.6 MEQ/L (3.5-5.1); SODIUM (NA) 133 MEQ/L (136-145); URIC ACID 4.5 MG/DL (2.6-7.2)
[2017-05-08 06:15] LABS: ALT (GPT) 48 U/L (12-78); LDH SERUM 362 U/L (87-241)
[2017-05-08 06:17] LABS: ALKALINE PHOSPHATASE 52 U/L (45-117); TOTAL BILIRUBIN ADULT 0.4 MG/DL (0.2-1.0)
[2017-05-08 07:22] LABS: BANDS 6 % (0-6); NEUTROPHIL # MANUAL DIFF 7.4 TH/MM3 (1.8-7.7); PLATELET ESTIMATE SMEAR NORMAL (NORMAL); PLATELET MORPHOLOGY NORMAL (NORMAL); POLYS (SEG NEUTROPHILS) 52 % (16-70); SCAN/DIFF FINAL DIFF MANUAL; WBC DIFF SAMPLE 100
[2017-05-08 08:00] VITALS: BP 143/73; PULSE 88; RESP 18; TEMP 98.5; O2SAT 93
[2017-05-08] MEDS: DOCUSATE SODIUM 50 MG/SENNA 8.6 MG TAB PO SCH ×2 (09:00→21:00)
[2017-05-08] MEDS: SODIUM CHLORIDE 0.9% FLUSH 10 ML FLUSH IV FLUSH SCH ×2 (09:00→21:26)
[2017-05-08] MEDS: PRAVASTATIN SOD 40 MG TAB PO SCH (09:59)
[2017-05-08] MEDS: ALLOPURINOL 300 MG TAB PO SCH (09:59)
[2017-05-08] MEDS: guaiFENesin E.R. 600 MG TAB PO SCH ×2 (09:59→21:24)
[2017-05-08] MEDS: HYDROCHLOROTHIAZIDE 12.5 MG CAP PO SCH (10:00)
[2017-05-08] MEDS: LISINOPRIL 10 MG TAB PO SCH (10:00)
[2017-05-08] MEDS: PYRIDOXINE HCL 50 MG TAB PO SCH (10:00)
[2017-05-08] MEDS: ASPIRIN 81 MG CHEW TAB CHEW SCH (10:01)
[2017-05-08] MEDS: predniSONE 5 MG TAB PO SCH ×2 (10:01→21:24)
[2017-05-08] MEDS: predniSONE 50 MG TAB PO SCH ×2 (10:01→21:24)
[2017-05-08] MEDS: NYSTATIN SUSP 500,000 U/5 ML CUP SWISH-SWAL SCH ×4 (10:01→21:25)
[2017-05-08] MEDS: MORPHINE SULFATE 15 MG CONTROLLED RELEASE TAB PO SCH ×3 (10:02→21:25)
[2017-05-08] MEDS: NICOTINE 21 MG/24 HR PATCH T-DERMAL SCH (10:03)
[2017-05-08] MEDS: HEPARIN SODIUM - SQ 10,000 UNITS/ML VIAL SQ SCH ×2 (10:03→21:25)
--- NOTE | 2017-05-08 11:10 | HHI.PR ---
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 today he came to ER after he had a procedure performed yesterday by Doctor Bull had Urethral stens placed came due to General Weakness. 05/04: Seen in his bedroom, stable but frustrated due to the worsening Metastatic disease and the need for Palliative Radiation, discussed with patient and his Son Mr. Maldonado Hercules, and his Daughter in law, overall poor short term prognosis. 05/05: Stable seen in his bedroom he is Frustrated with his management, discussed with offender employment specialist SHELL, Miss Karen Pinto, patient with Lymphoblastic diffuse Lymphoma, Given Rituxan, and today for first day of EPOCH (Etoposide Phosphate, Prednisone Vincristine Sulfate, Cyclophosphamide, Doxorubicin Hydrochloride), that started as Chronic Lymphocytic Leukemia. complaint of Nausea. no diarrhea. 1015 STILL HAVING SOME PAIN- HE STATES NOT WELL CONTROLLED WILL ADJUST DW RN AND PT AND FAMILY PERCOCET 1 TO 2 Q4H PRN PAINS - PATIENT IS ASKING FOR DILAUDID- HAS NOT BEEN ON IT THIS WHOLE ADMISSION MEDS ADJUSTED TO MORPHINE AND PERCOCET DW RN AND PATIENT MONITOR PAIN CONTROL - DOES NOT REMEMBER ME FROM YESTERDAY AT ALL- 05-08 PAIN MEDICATIONS ADJUSTED BY ONCOLOGY BETTER PAIN CONTROL TODAY DW RN AND PT CHEMO PER ONCOLOGY NEEDS TO BE MORE MOBILE Objective Vitals Vital Signs Date Time Temp Pulse Resp B/P (MAP) Pulse Ox O2 Delivery O2 Flow Rate FiO2 05/08/17 08:00 98.5 88 18 143/73 (96) 93 05/08/17 04:00 98.3 80 16 139/76 (97) 94 05/08/17 00:45 99.0 83 16 142/84 (103) 94 05/07/17 20:19 Nasal Cannula 3.00 05/07/17 20:12 98.5 88 18 144/80 (101) 93 05/07/17 16:00 98.3 99 16 144/82 (102) 93 05/07/17 15:48 Nasal Cannula 3.00 I/O 05/07/17 05/07/17 05/07/17 05/08/17 05/08/17 05/08/17 07:00 15:00 23:00 07:00 15:00 23:00 Intake Total 550 ml 720 ml 1897 ml 305 ml Output Total 700 ml 1250 ml 1400 ml Balance -150 ml 720 ml 647 ml -1095 ml Intake Oral 450 ml 720 ml 800 ml 200 ml IV Total 100 ml 1097 ml 105 ml Output Urine Total 700 ml 1250 ml 1400 ml # Voids 1 # Bowel Movements 1 Result Diagram: 05/08/17 0500 05/08/17 0500 Other Results Laboratory Tests Test 05/06/17 04:15 05/07/17 04:35 05/08/17 05:00 White Blood Count 19.8 TH/MM3 19.6 TH/MM3 12.8 TH/MM3 Red Blood Count 3.84 MIL/MM3 3.92 MIL/MM3 3.90 MIL/MM3 Hemoglobin 10.9 GM/DL 11.3 GM/DL 11.0 GM/DL Hematocrit 33.5 % 34.4 % 34.0 % Mean Corpuscular Volume 87.4 FL 87.7 FL 87.1 FL Mean Corpuscular Hemoglobin 28.3 PG 28.8 PG 28.1 PG Mean Corpuscular Hemoglobin Concent 32.4 % 32.8 % 32.3 % Red Cell Distribution Width 14.5 % 14.6 % 14.8 % Platelet Count 218 TH/MM3 236 TH/MM3 197 TH/MM3 Mean Platelet Volume 7.8 FL 7.5 FL 7.8 FL Neutrophils (%) (Auto) 57.4 % 54.9 % Lymphocytes (%) (Auto) 41.0 % 44.6 % Monocytes (%) (Auto) 1.4 % 0.4 % Eosinophils (%) (Auto) 0.0 % 0.0 % Basophils (%) (Auto) 0.2 % 0.1 % Neutrophils # (Auto) 11.3 TH/MM3 7.0 TH/MM3 Lymphocytes # (Auto) 8.1 TH/MM3 5.7 TH/MM3 Monocytes # (Auto) 0.3 TH/MM3 0.0 TH/MM3 Eosinophils # (Auto) 0.0 TH/MM3 0.0 TH/MM3 Basophils # (Auto) 0.0 TH/MM3 0.0 TH/MM3 CBC Comment AUTO DIFF AUTO DIFF AUTO DIFF Differential Total Cells Counted 100 100 100 Neutrophils % (Manual) 42 % 42 % 52 % Band Neutrophils % 2 % 6 % Lymphocytes % 56 % 58 % 41 % Neutrophils # (Manual) 8.7 TH/MM3 8.2 TH/MM3 7.4 TH/MM3 Differential Comment FINAL DIFF MANUAL FINAL DIFF MANUAL FINAL DIFF MANUAL Smudge Cells PRESENT Platelet Estimate NORMAL NORMAL NORMAL Platelet Morphology Comment NORMAL NORMAL NORMAL Basophilic Stippling FAINT Blood Urea Nitrogen 15 MG/DL 25 MG/DL 26 MG/DL Creatinine 0.56 MG/DL 0.84 MG/DL 0.64 MG/DL Random Glucose 99 MG/DL 99 MG/DL 92 MG/DL Total Protein 5.3 GM/DL 5.4 GM/DL 4.9 GM/DL Albumin 2.4 GM/DL 2.4 GM/DL 2.4 GM/DL Calcium Level 9.1 MG/DL 8.8 MG/DL 8.7 MG/DL Uric Acid 5.6 MG/DL 5.0 MG/DL 4.5 MG/DL Alkaline Phosphatase 55 U/L 62 U/L 52 U/L Aspartate Amino Transf (AST/SGOT) 59 U/L 93 U/L 48 U/L Alanine Aminotransferase (ALT/SGPT) 31 U/L 64 U/L 48 U/L Lactate Dehydrogenase 422 U/L 395 U/L 362 U/L Total Bilirubin 0.4 MG/DL 0.5 MG/DL 0.4 MG/DL Sodium Level 135 MEQ/L 132 MEQ/L 133 MEQ/L Potassium Level 3.4 MEQ/L 4.0 MEQ/L 3.6 MEQ/L Chloride Level 98 MEQ/L 98 MEQ/L 97 MEQ/L Carbon Dioxide Level 27.5 MEQ/L 28.4 MEQ/L 29.5 MEQ/L Anion Gap 10 MEQ/L 6 MEQ/L 7 MEQ/L Estimat Glomerular Filtration Rate 142 ML/MIN 89 ML/MIN 122 ML/MIN Phosphorus Level 3.0 MG/DL 3.0 MG/DL Magnesium Level 1.8 MG/DL 1.8 MG/DL Hemoglobin A1c 4.8 % Free Thyroxine 1.14 NG/DL Thyroid Stimulating Hormone 3rd Gen 0.190 uIU/ML Monocytes % 1 % Red Cell Morphology Comment NORMAL Imaging Last Impressions Thoracic Spine MRI 05/03/17 0000 Signed Impressions: Service Date/Time: April 12:42 - CONCLUSION: 1. Please see the MRI of the lumbar spine reported separately. 2. Study is motion degraded. 3. Destructive process involving the T11 vertebral body with 40%% loss of height but no retropulsion. This is suggestive of a metastatic focus. Rakesh Farnsworth Jr., MD Lumbar Spine MRI 05/03/17 0000 Signed Impressions: Service Date/Time: April 12:42 - CONCLUSION: 1. Please see the MRI of the thoracic spine reported separately. 2. Current study limited by motion artifact. 3. Destructive process involving the L2 vertebral body with extension into the pedicles bilaterally as well the left lamina with narrowing of the central canal due to posterior displacement of the posterior cortical margin as well as obscuration of the neural foramina. 10%% loss of height. This is felt to relate to a metastatic focus. 4. Prominent retroperitoneal soft tissue previous described on the CT scan. Rakesh Farnsworth Jr., MD Chest X-Ray 05/02/17 1100 Signed Impressions: Service Date/Time: Tuesday, May 02, 2017 11:36 - CONCLUSION: Small bilateral pleural effusions otherwise negative. Ted Ray MD FACR Chest CT 05/02/17 0000 Signed Impressions: Service Date/Time: April 01:27 - CONCLUSION: Left upper lobe nodular mass. Parenchymal disease in the right lung base. Moderately large bilateral pleural effusions. Destructive process involving T11 vertebral body Guzman Alcaraz MD Abdomen/Pelvis CT 05/02/17 0000 Signed Impressions: Service Date/Time: April 01:27 - CONCLUSION: Extensive abnormal retroperitoneal soft tissue, presumably confluent adenopathy and adenopathy also present in the celiac region in the upper abdomen. Destructive process involving T11. Bilateral ureteral stents in place. Guzman Alcaraz MD Objective Remarks GENERAL: Awake and alert and some confusion SKIN: Warm and dry. HEAD: Atraumatic. Normocephalic. EYES: Pupils equal and round. No scleral icterus. No injection or drainage. EOMI ENT: No nasal bleeding or discharge. Mucous membranes pink and moist. Tongue is midline NECK: Trachea midline. No JVD. Neck is supple S1 and S2 no S3 or S4 no heave or thrill or rub CARDIOVASCULAR: Regular rate and rhythm. RESPIRATORY: No accessory muscle use. Clear to auscultation. Breath sounds equal bilaterally. GASTROINTESTINAL: Abdomen soft, non-tender, nondistended. Hepatic and splenic margins not palpable. MUSCULOSKELETAL: Extremities without clubbing, cyanosis, +1 lower edema. No obvious deformities. NEUROLOGICAL: Awake and alert. No obvious cranial nerve deficits. Motor grossly within normal limits. 4 out of 5 muscle strength in the arms and legs. Normal speech. PSYCHIATRIC: INAppropriate mood and affect; insight and judgment ABnormal. Medications and IVs Current Medications Sodium Chloride (NS Flush) 2 ml UNSCH PRN IVF FLUSH AFTER USING IV ACCESS; Start 05/02/17 at 11:00; Stop 05/02/17 at 16:02; Status DC Piperacillin Sod/ Tazobactam Sod 100 ml @ 200 mls/hr ONCE STAT IV Last administered on 05/02/17 12:10; Start 05/02/17 at 12:10; Stop 05/02/17 at 12 :39; Status DC Sodium Chloride 500 ml @ 500 mls/hr BOLUS ONCE IV Last administered on 12:30; Start 05/02/17 at 12:30; Stop 05/02/17 at 13:29; Status DC Sodium Chloride 1,000 ml @ 100 mls/hr Q10H IV Last administered on 05/05/17 04:52; Start 05/02/17 at 17:00; Stop 05/05/17 at 12:21; Status DC Sodium Chloride (NS Flush) 2 ml UNSCH PRN IV FLUSH FLUSH AFTER USING IV ACCESS Last administered on 05/08/17 05:05; Start 05/02/17 at 15:30 Sodium Chloride (NS Flush) 2 ml BID IV FLUSH Last administered on 05/07/17 21 :15; Start 05/02/17 at 21:00 Acetaminophen (Tylenol) 650 mg Q4H PRN PO TEMP > 100.4; Start 05/02/17 at 15: 30 Ondansetron HCl (Zofran Inj) 4 mg Q6H PRN IVP NAUSEA OR VOMITING; Start at 15:30 Naloxone HCl (Narcan Inj) 0.4 mg UNSCH PRN IV PUSH SEE LABEL COMMENTS; Start 05/02/17 at 15:30 Senna/Docusate Sodium (Ninfa-Colace) 1 tab BID PO Last administered on 09:49; Start 05/02/17 at 21:00 Magnesium Hydroxide (Milk Of Magnesia Liq) 30 ml Q12H PRN PO MILD - MODERATE CONSTIPATION; Start 05/02/17 at 15:30 Sennosides (Senokot) 17.2 mg Q12H PRN PO MODERATE - SEVERE CONSTIPATION; Start 05/02/17 at 15:30 Bisacodyl (Dulcolax Supp) 10 mg DAILY PRN RECTAL SEVERE CONSITIPATION; Start 05/02/17 at 15:30 Lactulose (Lactulose Liq) 30 ml DAILY PRN PO SEVERE CONSITIPATION; Start 05/02 at 15:30 Aspirin (Aspirin Chew) 81 mg DAILY CHEW Last administered on 05/08/17 10:01; Start 05/03/17 at 09:00 Acetaminophen/ Hydrocodone Bitart (G[place]ham 7.5-325 Mg) 1 tab Q6H PRN PO PAIN Last administered on 05/03/17 23:28; Start 05/02/17 at 15:30; Stop 05/04/17 at 08:49; Status DC Pyridoxine HCl (Vitamin B6) 100 mg DAILY PO Last administered on 05/08/17 10: 00; Start 05/03/17 at 09:00 Pravastatin Sodium (Pravachol) 40 mg DAILY PO Last administered on 05/08/17 09:59; Start 05/03/17 at 09:00 Ceftriaxone Sodium 1000 mg/ Sodium Chloride 100 ml @ 200 mls/hr Q24H IV Last administered on 05/05/17 04:50; Start 05/02/17 at 17:00; Stop 05/05/17 at 17 :44; Status DC Potassium Chloride (KCl) 40 meq ONCE ONCE PO ; Start 05/02/17 at 16:15; Stop 05/02/17 at 16:16; Status DC Sodium Chloride 500 ml @ 500 mls/hr BOLUS ONCE IV Last administered on 18:40; Start 05/02/17 at 16:30; Stop 05/02/17 at 17:29; Status DC Albuterol/ Ipratropium (Duoneb Neb) 1 ampule Q4HR NEB NEB Last administered on 05/06/17 15:44; Start 05/02/17 at 16:00; Stop 05/06/17 at 15:59; Status DC Guaifenesin (Mucinex Er) 600 mg BID PO Last administered on 05/08/17 09:59; Start 05/02/17 at 21:00 Magnesium Sulfate/ Dextrose 100 ml @ 100 mls/hr Q1H IV ; Start 05/02/17 at 17: 00; Stop 05/02/17 at 17:59; Status DC Nystatin (Mycostatin Liq) 5 ml QID SWISH-SWAL Last administered on 05/08/17 10:01; Start 05/02/17 at 18:00 Heparin Sodium (Porcine) (Heparin Inj) 5,000 units Q12HR SQ Last administered on 05/08/17 10:03; Start 05/02/17 at 21:00 Diatrizoate Meglum/ Diatrizoate Sod ( Gastroview Liq) 18 ml ONCE ONCE PO Last administered on 05/02/17 20:44; Start 05/02/17 at 19:30; Stop 05/02/17 at 19:31; Status DC Magnesium Sulfate/ Dextrose 100 ml @ 100 mls/hr Q1H IV Last administered on 23:36; Start 05/02/17 at 23:30; Stop 05/03/17 at 01:29; Status DC Potassium Bicarb/ Potassium Chloride (K-Lyte Cl Eff) 50 meq ONCE ONCE PO Last administered on 05/03/17 06:43; Start 05/03/17 at 06:45; Stop 05/03/17 at 06:46; Status DC Potassium Chloride (KCl Powder) 40 meq ONCE ONCE PO Last administered on 05/03 11:24; Start 05/03/17 at 08:45; Stop 05/03/17 at 09:43; Status DC Potassium Chloride (KCl Powder) 40 meq ONCE ONCE PO Last administered on 05/03 12:00; Start 05/03/17 at 12:00; Stop 05/03/17 at 12:01; Status DC Lorazepam (Ativan Inj) 1 mg ONCE ONCE IV PUSH Last administered on 05/03/17 11:59; Start 05/03/17 at 12:00; Stop 05/03/17 at 12:01; Status DC Morphine Sulfate (Morphine Inj) 2 mg Q4H PRN IV PAIN GREATER THAN 8 Last administered on 05/04/17 08:19; Start 05/03/17 at 12:00; Stop 05/04/17 at 08 :48; Status DC Dexamethasone (Decadron) 40 mg DAILY PO Last administered on 05/05/17 08:36; Start 05/04/17 at 09:00; Stop 05/06/17 at 10:18; Status DC Potassium Chloride (KCl) 40 meq ONCE ONCE PO Last administered on 05/04/17 09:51; Start 05/04/17 at 08:30; Stop 05/04/17 at 09:14; Status DC Nicotine (Habitrol 14 Mg Patch.24 Hr) 1 patch DAILY T-DERMAL ; Start 05/04/17 at 09:00; Stop 05/04/17 at 09:00; Status DC Miscellaneous Information 1 DAILY T-DERMAL ; Start 05/04/17 at 09:00; Stop at 09:00; Status DC Nicotine (Habitrol 21 Mg Patch.24 Hr) 1 patch DAILY T-DERMAL Last administered on 05/08/17 10:03; Start 05/04/17 at 09:00 Miscellaneous Information 1 HS T-DERMAL Last administered on 05/07/17 21:27; Start 05/04/17 at 21:00 Morphine Sulfate (Morphine Inj) 2 mg Q2HR PRN IV PAIN SCALE 1 TO 5; Start at 09:00; Stop 05/07/17 at 13:32; Status DC Morphine Sulfate (Morphine Inj) 4 mg Q2HR PRN IV PUSH PAIN SCALE 6 TO 8 Last administered on 05/07/17 13:20; Start 05/04/17 at 08:45; Stop 05/07/17 at 13 :32; Status DC Morphine Sulfate (Morphine Inj) 2 mg ONCE ONCE IV PUSH Last administered on 09:52; Start 05/04/17 at 08:45; Stop 05/04/17 at 09:13; Status DC Hydrochlorothiazide (Microzide) 12.5 mg DAILY PO Last administered on 10:00; Start 05/04/17 at 10:30 Lisinopril (Prinivil) 10 mg DAILY PO Last administered on 05/08/17 10:00; Start 05/04/17 at 10:30 Morphine Sulfate (Morphine Inj) 6 mg Q4H PRN IV PUSH PAIN SCALE 9 TO 10; Start 05/04/17 at 15:00; Stop 05/07/17 at 13:17; Status DC Allopurinol (Zyloprim) 300 mg DAILY PO Last administered on 05/08/17 09:59; Start 05/05/17 at 09:00 Allopurinol (Zyloprim) 300 mg ONCE ONCE PO Last administered on 05/04/17 17: 06; Start 05/04/17 at 15:00; Stop 05/04/17 at 15:01; Status DC Acetaminophen (Tylenol) 650 mg ONCE ONCE PO Last administered on 05/04/17 17 :06; Start 05/04/17 at 15:30; Stop 05/04/17 at 15:31; Status DC Diphenhydramine HCl (Benadryl) 50 mg ONCE ONCE PO Last administered on 17:05; Start 05/04/17 at 15:30; Stop 05/04/17 at 15:31; Status DC Rituximab 667.5 mg/Sodium Chloride 566.75 ml @ 0 mls/hr ONCE ONCE IV Last administered on 05/04/17 18:28; Start 05/04/17 at 16:00; Stop 05/04/17 at 16 :01; Status DC Prednisone (Deltasone) 100 mg DAILY PO Last administered on 05/06/17 10:25; Start 05/05/17 at 09:00; Stop 05/07/17 at 08:41; Status DC Prednisone (Deltasone) 5 mg DAILY PO Last administered on 05/06/17 09:30; Start 05/05/17 at 09:00; Stop 05/07/17 at 08:42; Status DC Granisetron HCl (Kytril Inj) 1 mg DAILY@1030 IV Last administered on 11:03; Start 05/05/17 at 10:30; Stop 05/09/17 at 10:31 Dexamethasone Sodium Phosphate 20 mg/Sodium Chloride 55 ml @ 330 mls/hr DAILY@ 1030 IV Last administered on 05/05/17 11:18; Start 05/05/17 at 10:30; Stop 05/05/17 at 12:47; Status DC Etoposide 89 mg/ Doxorubicin HCl 17.8 mg/ Vincristine Sulfate 0.7 mg/ Sodium Chloride 514.05 ml @ 21.419 mls/hr DAILY@1100 IV Last administered on 17:35; Start 05/05/17 at 11:00; Stop 05/09/17 at 10:59 Cyclophosphamide 1335 mg/Sodium Chloride 570 ml @ 570 mls/hr DAILY@1100 ONCE IV ; Start 05/09/17 at 11:00; Stop 05/09/17 at 11:59 Ceftriaxone Sodium 1000 mg/ Sodium Chloride 100 ml @ 200 mls/hr Q24H IV Last administered on 05/08/17 04:49; Start 05/06/17 at 05:00 Potassium Chloride (KCl) 40 meq ONCE ONCE PO Last administered on 05/06/17 09:30; Start 05/06/17 at 07:45; Stop 05/06/17 at 07:47; Status DC Oxycodone/ Acetaminophen (Percocet 5-325 Mg) 1 tab Q4H PRN PO PAIN 1-5; Start 05/06/17 at 11:15; Stop 05/07/17 at 13:32; Status DC Oxycodone/ Acetaminophen (Percocet 5-325 Mg) 2 tab Q4H PRN PO PAIN 6-10 Last administered on 05/07/17 09:51; Start 05/06/17 at 11:15; Stop 05/07/17 at 13 :32; Status DC Prednisone (Deltasone) 100 mg BID PO Last administered on 05/08/17 10:01; Start 05/07/17 at 09:00; Stop 05/09/17 at 21:01 Prednisone (Deltasone) 5 mg BID PO Last administered on 05/08/17 10:01; Start 05/07/17 at 09:00; Stop 05/09/17 at 21:01 Morphine Sulfate (Oramorph Sr) 15 mg Q12HR PO Last administered on 05/08/17 10:02; Start 05/07/17 at 21:00; Stop 05/08/17 at 10:52; Status DC Morphine Sulfate (Morphine Inj) 2 mg Q2HR PRN IV PUSH SEVERE BREAKTHROUGH PAIN ; Start 05/07/17 at 13:30 Oxycodone HCl (Roxicodone) 10 mg Q4H PRN PO PAIN 1-10 Last administered on t 04:56; Start 05/07/17 at 13:30 Morphine Sulfate (Oramorph Sr) 15 mg Q8HR PO ; Start 05/08/17 at 14:00; Status UNV Urinary Catheter: No A/P Assessment and Plan 1. Chronic lymphocytic leukemia deletion 13Q, developed bulky adenopathy, treated initially with Rituximab, then Ibrutinib, developed a large mass in the retroperitoneum extending from the pole of left kidney along the iliopsoas muscle down to the pelvis, Biopsy showed lymphoplasma blastic lymphoma, taken by Oncology as probable transformation from chronic lymphocytic leukemia The plan is to treat him with Revlimid and R-CHOP, Seen by Radiation offender employment specialist Doctor Octaviano Carey, due to Back pain, and destructive process at T11, recommended for Palliative Radiation therapy to Spine, discussed with offender employment specialist [employer], Miss Karen Pinto, Given Rituxan, and today for first day of EPOCH 10- 14 (Etoposide Phosphate, Prednisone Vincristine Sulfate, Cyclophosphamide, Doxorubicin Hydrochloride). 2. Urolithiasis status post ureteral Stent placement today after Baugh cath placement due to Urinary Retention he has Hematuria asked for Urology specialist consult. recommended to continue Baugh cath and antibiotics. 3. Acute Renal Injury improved. 4. electrolyte derangement replaced 5. Hyperlipidemia will continue Home medicines 6. Hypertension controlled. 7. COPD on Bronchodilator, Mucolytic and incentive spirometry. 8. Oral Thrush continue on Nystatin DVT prophylaxis SCDs, the patient has hematuria contraindicated chemical prophylaxis. COMPLAINS OF PAIN WILL ADJUST PAIN MEDS SWITCHED AROUND BY ONCOLOGY DOING MUCH BETTER ON CURRENT REGIMENT DW RN AND PT AM LABS CONTINUE CURRENT CARE Discharge Planning PENDING ONCOLOGY CLEARANCE Ted Donnelly DO May 08, 2017 11:10
--- NOTE | 2017-05-08 11:39 | PD.ONC.PN ---
Subjective Subjective Remarks Afebrile overnight. Patient reporting improved pain control with Oramorph and Oxycodone. However, he states he is hoping to get his pain down to a 2 or 3 today. Had one episode of diarrhea overnight. Tolerating chemotherapy. Objective Data Date Time Temp Pulse Resp B/P (MAP) Pulse Ox O2 Delivery O2 Flow Rate FiO2 05/08/17 08:00 98.5 88 18 143/73 (96) 93 05/08/17 04:00 98.3 80 16 139/76 (97) 94 05/08/17 00:45 99.0 83 16 142/84 (103) 94 05/07/17 20:19 Nasal Cannula 3.00 05/07/17 20:12 98.5 88 18 144/80 (101) 93 05/07/17 16:00 98.3 99 16 144/82 (102) 93 05/07/17 15:48 Nasal Cannula 3.00 05/08/17 05/08/17 05/08/17 07:00 15:00 23:00 Intake Total 305 ml Output Total 1400 ml Balance -1095 ml Result Diagram: 05/08/17 0500 05/08/17 0500 Laboratory Results Laboratory Tests Test 05/08/17 05:00 White Blood Count 12.8 TH/MM3 Red Blood Count 3.90 MIL/MM3 Hemoglobin 11.0 GM/DL Hematocrit 34.0 % Mean Corpuscular Volume 87.1 FL Mean Corpuscular Hemoglobin 28.1 PG Mean Corpuscular Hemoglobin Concent 32.3 % Red Cell Distribution Width 14.8 % Platelet Count 197 TH/MM3 Mean Platelet Volume 7.8 FL Neutrophils (%) (Auto) 54.9 % Lymphocytes (%) (Auto) 44.6 % Monocytes (%) (Auto) 0.4 % Eosinophils (%) (Auto) 0.0 % Basophils (%) (Auto) 0.1 % Neutrophils # (Auto) 7.0 TH/MM3 Lymphocytes # (Auto) 5.7 TH/MM3 Monocytes # (Auto) 0.0 TH/MM3 Eosinophils # (Auto) 0.0 TH/MM3 Basophils # (Auto) 0.0 TH/MM3 CBC Comment AUTO DIFF Differential Total Cells Counted 100 Neutrophils % (Manual) 52 % Band Neutrophils % 6 % Lymphocytes % 41 % Monocytes % 1 % Neutrophils # (Manual) 7.4 TH/MM3 Differential Comment FINAL DIFF MANUAL Platelet Estimate NORMAL Platelet Morphology Comment NORMAL Red Cell Morphology Comment NORMAL Blood Urea Nitrogen 26 MG/DL Creatinine 0.64 MG/DL Random Glucose 92 MG/DL Total Protein 4.9 GM/DL Albumin 2.4 GM/DL Calcium Level 8.7 MG/DL Phosphorus Level 3.0 MG/DL Magnesium Level 1.8 MG/DL Uric Acid 4.5 MG/DL Alkaline Phosphatase 52 U/L Aspartate Amino Transf (AST/SGOT) 48 U/L Alanine Aminotransferase (ALT/SGPT) 48 U/L Lactate Dehydrogenase 362 U/L Total Bilirubin 0.4 MG/DL Sodium Level 133 MEQ/L Potassium Level 3.6 MEQ/L Chloride Level 97 MEQ/L Carbon Dioxide Level 29.5 MEQ/L Anion Gap 7 MEQ/L Estimat Glomerular Filtration Rate 122 ML/MIN Administered Medications Medications (Trade) Dose Ordered Sig/Stuart Route PRN Reason Start Time Stop Time Status Last Admin Dose Admin Sodium Chloride (NS Flush) 2 ml UNSCH PRN IV FLUSH FLUSH AFTER USING IV ACCESS 05/02/17 15:30 05/08/17 05:05 Sodium Chloride (NS Flush) 2 ml BID IV FLUSH 05/02/17 21:00 05/07/17 21:15 Senna/Docusate Sodium (Ninfa-Colace) 1 tab BID PO 05/02/17 21:00 05/07/17 09:49 Aspirin (Aspirin Chew) 81 mg DAILY CHEW 05/03/17 09:00 05/08/17 10:01 Pyridoxine HCl (Vitamin B6) 100 mg DAILY PO 05/03/17 09:00 05/08/17 10:00 Pravastatin Sodium (Pravachol) 40 mg DAILY PO 05/03/17 09:00 05/08/17 09:59 Guaifenesin (Mucinex Er) 600 mg BID PO 05/02/17 21:00 05/08/17 09:59 Nystatin (Mycostatin Liq) 5 ml QID SWISH-SWAL 05/02/17 18:00 05/08/17 10:01 Heparin Sodium (Porcine) (Heparin Inj) 5,000 units Q12HR SQ 05/02/17 21:00 05/08/17 10:03 Nicotine (Habitrol 21 Mg Patch.24 Hr) 1 patch DAILY T-DERMAL 05/04/17 09:00 05/08/17 10:03 Miscellaneous Information 1 HS T-DERMAL 05/04/17 21:00 05/07/17 21:27 Hydrochlorothiazide (Microzide) 12.5 mg DAILY PO 05/04/17 10:30 05/08/17 10:00 Lisinopril (Prinivil) 10 mg DAILY PO 05/04/17 10:30 05/08/17 10:00 Allopurinol (Zyloprim) 300 mg DAILY PO 05/05/17 09:00 05/08/17 09:59 Granisetron HCl (Kytril Inj) 1 mg DAILY@1030 IV 05/05/17 10:30 05/09/17 10:31 05/07/17 11:03 Etoposide 89 mg/ Doxorubicin HCl 17.8 mg/ Vincristine Sulfate 0.7 mg/ Sodium Chloride 514.05 ml @ 21.419 mls/hr DAILY@1100 IV 05/05/17 11:00 05/09/17 10:59 05/07/17 17:35 Ceftriaxone Sodium 1000 mg/ Sodium Chloride 100 ml @ 200 mls/hr Q24H IV 05/06/17 05:00 05/08/17 04:49 Prednisone (Deltasone) 100 mg BID PO 05/07/17 09:00 05/09/17 21:01 05/08/17 10:01 Prednisone (Deltasone) 5 mg BID PO 05/07/17 09:00 05/09/17 21:01 05/08/17 10:01 Oxycodone HCl (Roxicodone) 10 mg Q4H PRN PO PAIN 1-10 05/07/17 13:30 05/08/17 04:56 Objective Remarks GENERAL: Elderly male sitting up in bed talking with student nurse. SKIN: Warm and dry. scattered bruising on all extremities. HEAD: Normocephalic. EYES: No injection or drainage. NECK: Supple, trachea midline. CARDIOVASCULAR: Regular rate and rhythm RESPIRATORY: anterior sanchez with occasional rhonchi. GASTROINTESTINAL: Abdomen soft, non-tender, nondistended. EXTREMITIES: No cyanosis NEUROLOGICAL: awake and alert, normal speech. 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 --05/06: D2 EPOCH. tolerating chemo. no adverse effects. replace potassium. --05/07: D3 EPOCH. continue chemo. resume prednisone BID dosing. --05/08: D4 EPOCH to start this afternoon. will complete chemotherapy tomorrow. 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 --first presented with bulky adenopathy, treated with Rituxan and bendamustine without clear response. --then switched to Ibrutinib with very good response. neck and axillary adenopathy are no longer palpable. --recently developed a large mass in retroperitoneum extending from the lower pole of left kidney down along the iliopsoas muscle to the pelvis, measured at least 10 cm. 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 --plan was to treat him with Revlimid along with R-CHOP. was supposed to start chemotherapy at the clinic but was too weak. (4) Flank pain ICD Codes: R10.9 - Unspecified abdominal pain Plan: --on PRN IV morphine and PRN Oxycodone, --long acting morphine started on 05/07 -- Abdominal pain and flank pain due to the large retroperitoneal mass encroaching the iliopsoas muscle. -- Lesion noted on T11 that may be able to get kyphoplasty -- s/p simulation 05/04. awaiting start of radiation-->most likely will start the week of 05/14 (5) History of urethral stent ICD Codes: Z98.890 - Other specified postprocedural states Plan: --had a urethral stent placement for hydronephrosis on 05/01 --urine culture negative. --currently on antibiotics per urology recommendations --mcmillan catheter in place. last seen by urology on 05/03. recommends: Maintain mcmillan for now. Void trial once strength has improved. Assessment 76-year-old male with chronic lymphocytic leukemia/lymphoma, admitted with abdominal pain and back pain and a urinary tract infection. h/o Arthritis. Chronic lymphocytic leukemia. Hyperlipidemia. Hypertension. Temporal arteritis. COPD. DVT prophylaxis: Heparin 5000U SQ q 12 Plan 1. continue chemotherapy--Day 4 EPOCH to start at 5:30 today. 2. increase long-acting morphine to 15mg PO TID. 3. continue Oxycodone 10mg PO and Morphine 2mg IV for breakthrough pain. 4. monitor electrolytes. 5. await start of XRT 6. chest Xray 7. will check with primary/urology about how long to continue antibiotics since urine culture was negative. Attending Statement The exam, history, and the medical decision-making described in the above note were completed with the assistance of the mid-level provider. I reviewed and agree with the findings presented. I attest that I had a [id number] encounter with the patient on the same day, and personally performed and documented my assessment and findings in the medical record. Pain better controlled. +diarrhea last night. No abdominal pain. Tolerating EPOCH relatively well. Continue chemotx per protocol. Plan to give him palliative XRT to spine next week. Problem Qualifiers (1) Dyspnea: Qualified Codes: R06.02 - Shortness of breath Karen Pinto May 08, 2017 11:39 Aaron Montalvo MD May 08, 2017 16:28
[2017-05-08 12:00] VITALS: BP 149/70; PULSE 84; RESP 16; TEMP 98.5; O2SAT 95
[2017-05-08 16:47] VITALS: BP 137/78; PULSE 86; RESP 18; TEMP 98.3; O2SAT 94
--- NOTE | 2017-05-08 18:51 | RADRPT ---
EXAM DATE/TIME: 05/08/2017 18:20 [facility] COMPARISON: CHEST SINGLE AP, May 02, 2017, 11:36. INDICATIONS : Cough. MEDICAL HISTORY : None. SURGICAL HISTORY : None. ENCOUNTER: Initial ACUITY: 1 day PAIN SCORE: 0/10 LOCATION: Bilateral chest FINDINGS: Small bilateral pleural effusions have not changed. Slight degree of compressive consolidation and/or collapse may be present both lung bases. Right IJ line is present with tip overlapping the expected region of the SVC. The rest of the examination has not significantly changed. CONCLUSION: No appreciable change. Maribeth Pittman MD on May 08, 2017 at 18:49 Board Certified Radiologist. This report was verified electronically.
[2017-05-08 21:00] VITALS: BP 148/79; PULSE 86; TEMP 98.4; O2SAT 95
[2017-05-08] MEDS: GRANISETRON HCL 1 MG/ML VIAL IV SCH (21:18)
[2017-05-08] MEDS: DOXORUBICIN IV SCH (21:45)
[2017-05-08] MEDS: VINCRISTINE IV SCH (21:45)
[2017-05-08] MEDS: ETOPOSIDE IV SCH (21:45)
[2017-05-08] MEDS: [UNRECOGNIZED DRUG - OTHER] IV SCH (21:45)
[2017-05-08] MEDS: REMOVE OLD PATCH T-DERMAL SCH (21:58)
[2017-05-09 00:21] VITALS: BP 144/83; PULSE 79; RESP 18; TEMP 98.4; O2SAT 96
[2017-05-09 03:59] VITALS: BP 150/76; PULSE 72; RESP 18; TEMP 98.2; O2SAT 97
[2017-05-09 05:08] LABS: AUTOMATED NEUTROPHIL # 5.9 TH/MM3 (1.8-7.7); BASOPHIL % 0.3 % (0.0-2.0); HEMATOCRIT 34.7 % (39.0-51.0); LYMPH % 43.7 % (9.0-44.0); LYMPHOCYTE # 4.7 TH/MM3 (1.0-4.8); MEAN CELL VOLUME 86.9 FL (80.0-100.0); MEAN CORPUSCULAR HEMOGLOBIN 28.6 PG (27.0-34.0); MEAN CORPUSCULAR HGB CONC 32.9 % (32.0-36.0); MONO % 0.4 % (0.0-8.0); NEUT % 55.6 % (16.0-70.0); PLATELET COUNT 176 TH/MM3 (150-450); RED BLOOD COUNT 3.99 MIL/MM3 (4.50-5.90); RED CELL DISTRIBUTION WIDTH 14.5 % (11.6-17.2); WHITE BLOOD COUNT 10.7 TH/MM3 (4.0-11.0)
[2017-05-09 05:11] LABS: HEMO FLAGS AUTO DIFF
[2017-05-09 05:14] LABS: ANION GAP 7 MEQ/L (5-15); AST (GOT) 28 U/L (15-37); BLOOD UREA NITROGEN 30 MG/DL (7-18); CHLORIDE 99 MEQ/L (98-107); GLOMERULAR FILTRATION RATE 112 ML/MIN (>89); MAGNESIUM 1.9 MG/DL (1.5-2.5); POTASSIUM 3.2 MEQ/L (3.5-5.1); SODIUM (NA) 136 MEQ/L (136-145)
[2017-05-09 05:15] LABS: APTT (PATIENT) 25.4 SEC (24.3-30.1); INTERNATIONAL NORMALIZED RATIO 1.1 RATIO; PROTHROMBIN TIME - PATIENT 11.8 SEC (9.8-11.6)
[2017-05-09 05:16] LABS: ALT (GPT) 40 U/L (12-78)
[2017-05-09 05:17] LABS: ALKALINE PHOSPHATASE 53 U/L (45-117); TOTAL BILIRUBIN ADULT 0.4 MG/DL (0.2-1.0)
[2017-05-09] MEDS: cefTRIAXone INJ 1,000 MG in SODIUM CHLORIDE 0.9% INJ 100 ML IV SCH (05:28)
[2017-05-09] MEDS: SODIUM CHLORIDE 0.9% FLUSH 10 ML FLUSH IV FLUSH PRN (05:30)
[2017-05-09] MEDS: MORPHINE SULFATE 15 MG CONTROLLED RELEASE TAB PO SCH ×3 (05:31→22:17)
[2017-05-09 08:00] VITALS: BP 130/66; PULSE 64; RESP 18; TEMP 97.7; O2SAT 97
[2017-05-09 08:54] LABS: BANDS 3 % (0-6); METAMYELOCYTES 3 % (0-1); MYELOCYTES 1 % (0-0); NEUTROPHIL # MANUAL DIFF 3.4 TH/MM3 (1.8-7.7); POLYS (SEG NEUTROPHILS) 25 % (16-70); SMUDGE CELLS PRESENT PRESENT; WBC DIFF SAMPLE 100
[2017-05-09 08:55] LABS: SCAN/DIFF FINAL DIFF MANUAL
[2017-05-09] MEDS: DOCUSATE SODIUM 50 MG/SENNA 8.6 MG TAB PO SCH ×2 (09:00→20:44)
--- NOTE | 2017-05-09 09:20 | HHI.PR ---
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 today he came to ER after he had a procedure performed yesterday by Doctor Bull had Urethral stens placed came due to General Weakness. 05/04: Seen in his bedroom, stable but frustrated due to the worsening Metastatic disease and the need for Palliative Radiation, discussed with patient and his Son Mr. Maldonado Hercules, and his Daughter in law, overall poor short term prognosis. 05/05: Stable seen in his bedroom he is Frustrated with his management, discussed with behavior support specialist SHELL, Miss Karen Pinto, patient with Lymphoblastic diffuse Lymphoma, Given Rituxan, and today for first day of EPOCH (Etoposide Phosphate, Prednisone Vincristine Sulfate, Cyclophosphamide, Doxorubicin Hydrochloride), that started as Chronic Lymphocytic Leukemia. complaint of Nausea. no diarrhea. 10-15 STILL HAVING SOME PAIN- HE STATES NOT WELL CONTROLLED WILL ADJUST DW RN AND PT AND FAMILY PERCOCET 1 TO 2 Q4H PRN PAINS 10-16 PATIENT IS ASKING FOR DILAUDID- HAS NOT BEEN ON IT THIS WHOLE ADMISSION MEDS ADJUSTED TO MORPHINE AND PERCOCET DW RN AND PATIENT MONITOR PAIN CONTROL - DOES NOT REMEMBER ME FROM YESTERDAY AT ALL- 10-17 PAIN MEDICATIONS ADJUSTED BY ONCOLOGY BETTER PAIN CONTROL TODAY DW RN AND PT CHEMO PER ONCOLOGY NEEDS TO BE MORE MOBILE - NOT VERY MOBILE YET WORKING WITH PT AND OT HAVING BLADDER TRAINING RECONSULT UROLOGY CONTINUE ON ANTIBIOTICS WHILE LOPEZ IS IN DW RN AND PT AND HEMATOLOGY AM LABS Objective Vitals Vital Signs Date Time Temp Pulse Resp B/P (MAP) Pulse Ox O2 Delivery O2 Flow Rate FiO2 05/09/17 03:59 98.2 72 18 150/76 (100) 97 05/09/17 00:21 98.4 79 18 144/83 (103) 96 05/08/17 21:00 98.4 86 148/79 (102) 95 05/08/17 21:00 Nasal Cannula 3.00 05/08/17 16:47 98.3 86 18 137/78 (97) 94 05/08/17 15:34 Nasal Cannula 3.00 05/08/17 12:00 98.5 84 16 149/70 (96) 95 I/O 05/08/17 05/08/17 05/08/17 05/09/17 05/09/17 05/09/17 07:00 15:00 23:00 07:00 15:00 23:00 Intake Total 305 ml 475 ml 515 ml Output Total 1400 ml 800 ml 850 ml Balance -1095 ml -325 ml -335 ml Intake Oral 200 ml 240 ml IV Total 105 ml 475 ml 275 ml Output Urine Total 1400 ml 800 ml 850 ml # Voids 1 # Bowel Movements 1 2 1 Result Diagram: 05/09/17 0350 05/09/17 0350 Other Results Laboratory Tests Test 05/07/17 04:35 05/08/17 05:00 05/09/17 03:50 White Blood Count 19.6 TH/MM3 12.8 TH/MM3 10.7 TH/MM3 Red Blood Count 3.92 MIL/MM3 3.90 MIL/MM3 3.99 MIL/MM3 Hemoglobin 11.3 GM/DL 11.0 GM/DL 11.4 GM/DL Hematocrit 34.4 % 34.0 % 34.7 % Mean Corpuscular Volume 87.7 FL 87.1 FL 86.9 FL Mean Corpuscular Hemoglobin 28.8 PG 28.1 PG 28.6 PG Mean Corpuscular Hemoglobin Concent 32.8 % 32.3 % 32.9 % Red Cell Distribution Width 14.6 % 14.8 % 14.5 % Platelet Count 236 TH/MM3 197 TH/MM3 176 TH/MM3 Mean Platelet Volume 7.5 FL 7.8 FL 7.6 FL CBC Comment AUTO DIFF AUTO DIFF AUTO DIFF Differential Total Cells Counted 100 100 100 Neutrophils % (Manual) 42 % 52 % 25 % Lymphocytes % 58 % 41 % 68 % Neutrophils # (Manual) 8.2 TH/MM3 7.4 TH/MM3 3.4 TH/MM3 Differential Comment FINAL DIFF MANUAL FINAL DIFF MANUAL FINAL DIFF MANUAL Platelet Estimate NORMAL NORMAL Platelet Morphology Comment NORMAL NORMAL Blood Urea Nitrogen 25 MG/DL 26 MG/DL 30 MG/DL Creatinine 0.84 MG/DL 0.64 MG/DL 0.69 MG/DL Random Glucose 99 MG/DL 92 MG/DL 106 MG/DL Total Protein 5.4 GM/DL 4.9 GM/DL 5.0 GM/DL Albumin 2.4 GM/DL 2.4 GM/DL 2.4 GM/DL Calcium Level 8.8 MG/DL 8.7 MG/DL 8.4 MG/DL Phosphorus Level 3.0 MG/DL 3.0 MG/DL 3.1 MG/DL Magnesium Level 1.8 MG/DL 1.8 MG/DL 1.9 MG/DL Uric Acid 5.0 MG/DL 4.5 MG/DL Alkaline Phosphatase 62 U/L 52 U/L 53 U/L Aspartate Amino Transf (AST/SGOT) 93 U/L 48 U/L 28 U/L Alanine Aminotransferase (ALT/SGPT) 64 U/L 48 U/L 40 U/L Lactate Dehydrogenase 395 U/L 362 U/L Total Bilirubin 0.5 MG/DL 0.4 MG/DL 0.4 MG/DL Sodium Level 132 MEQ/L 133 MEQ/L 136 MEQ/L Potassium Level 4.0 MEQ/L 3.6 MEQ/L 3.2 MEQ/L Chloride Level 98 MEQ/L 97 MEQ/L 99 MEQ/L Carbon Dioxide Level 28.4 MEQ/L 29.5 MEQ/L 30.0 MEQ/L Anion Gap 6 MEQ/L 7 MEQ/L 7 MEQ/L Estimat Glomerular Filtration Rate 89 ML/MIN 122 ML/MIN 112 ML/MIN Hemoglobin A1c 4.8 % Free Thyroxine 1.14 NG/DL Thyroid Stimulating Hormone 3rd Gen 0.190 uIU/ML Neutrophils (%) (Auto) 54.9 % 55.6 % Lymphocytes (%) (Auto) 44.6 % 43.7 % Monocytes (%) (Auto) 0.4 % 0.4 % Eosinophils (%) (Auto) 0.0 % 0.0 % Basophils (%) (Auto) 0.1 % 0.3 % Neutrophils # (Auto) 7.0 TH/MM3 5.9 TH/MM3 Lymphocytes # (Auto) 5.7 TH/MM3 4.7 TH/MM3 Monocytes # (Auto) 0.0 TH/MM3 0.0 TH/MM3 Eosinophils # (Auto) 0.0 TH/MM3 0.0 TH/MM3 Basophils # (Auto) 0.0 TH/MM3 0.0 TH/MM3 Band Neutrophils % 6 % 3 % Monocytes % 1 % Red Cell Morphology Comment NORMAL Metamyelocytes 3 % Myelocytes 1 % Smudge Cells PRESENT Prothrombin Time 11.8 SEC Prothromb Time International Ratio 1.1 RATIO Activated Partial Thromboplast Time 25.4 SEC Fibrinogen 163 mg/dL Imaging Last Impressions Chest X-Ray 05/08/17 Signed Impressions: Service Date/Time: Monday, May 08, 2017 18:20 - CONCLUSION: No appreciable change. Maribeth Pittman MD Thoracic Spine MRI 05/03/17 Signed Impressions: Service Date/Time: April 12:42 - CONCLUSION: 1. Please see the MRI of the lumbar spine reported separately. 2. Study is motion degraded. 3. Destructive process involving the T11 vertebral body with 40%% loss of height but no retropulsion. This is suggestive of a metastatic focus. Rakesh Farnsworth Jr., MD Lumbar Spine MRI 05/03/17 Signed Impressions: Service Date/Time: April 12:42 - CONCLUSION: 1. Please see the MRI of the thoracic spine reported separately. 2. Current study limited by motion artifact. 3. Destructive process involving the L2 vertebral body with extension into the pedicles bilaterally as well the left lamina with narrowing of the central canal due to posterior displacement of the posterior cortical margin as well as obscuration of the neural foramina. 10%% loss of height. This is felt to relate to a metastatic focus. 4. Prominent retroperitoneal soft tissue previous described on the CT scan. Rakesh Farnsworth Jr., MD Chest CT 05/02/17 0000 Signed Impressions: Service Date/Time: April 01:27 - CONCLUSION: Left upper lobe nodular mass. Parenchymal disease in the right lung base. Moderately large bilateral pleural effusions. Destructive process involving T11 vertebral body Guzman Alcaraz MD Abdomen/Pelvis CT 05/02/17 Signed Impressions: Service Date/Time: April 01:27 - CONCLUSION: Extensive abnormal retroperitoneal soft tissue, presumably confluent adenopathy and adenopathy also present in the celiac region in the upper abdomen. Destructive process involving T11. Bilateral ureteral stents in place. Guzman Alcarza MD Objective Remarks GENERAL: Awake and alert and some confusion SKIN: Warm and dry. HEAD: Atraumatic. Normocephalic. EYES: Pupils equal and round. No scleral icterus. No injection or drainage. EOMI ENT: No nasal bleeding or discharge. Mucous membranes pink and moist. Tongue is midline NECK: Trachea midline. No JVD. Neck is supple S1 and S2 no S3 or S4 no heave or thrill or rub CARDIOVASCULAR: Regular rate and rhythm. RESPIRATORY: No accessory muscle use. Clear to auscultation. Breath sounds equal bilaterally. GASTROINTESTINAL: Abdomen soft, non-tender, nondistended. Hepatic and splenic margins not palpable. MUSCULOSKELETAL: Extremities without clubbing, cyanosis, +1 lower edema. No obvious deformities. NEUROLOGICAL: Awake and alert. No obvious cranial nerve deficits. Motor grossly within normal limits. 4 out of 5 muscle strength in the arms and legs. Normal speech. PSYCHIATRIC: INAppropriate mood and affect; insight and judgment ABnormal. Medications and IVs Current Medications Sodium Chloride (NS Flush) 2 ml UNSCH PRN IVF FLUSH AFTER USING IV ACCESS; Start 05/02/17 at 11:00; Stop 05/02/17 at 16:02; Status DC Piperacillin Sod/ Tazobactam Sod 100 ml @ 200 mls/hr ONCE STAT IV Last administered on 05/02/17 12:10; Start 05/02/17 at 12:10; Stop 05/02/17 at 12 :39; Status DC Sodium Chloride 500 ml @ 500 mls/hr BOLUS ONCE IV Last administered on 12:30; Start 05/02/17 at 12:30; Stop 05/02/17 at 13:29; Status DC Sodium Chloride 1,000 ml @ 100 mls/hr Q10H IV Last administered on 05/05/17 04:52; Start 05/02/17 at 17:00; Stop 05/05/17 at 12:21; Status DC Sodium Chloride (NS Flush) 2 ml UNSCH PRN IV FLUSH FLUSH AFTER USING IV ACCESS Last administered on 05/09/17 05:30; Start 05/02/17 at 15:30 Sodium Chloride (NS Flush) 2 ml BID IV FLUSH Last administered on 05/08/17 21 :26; Start 05/02/17 at 21:00 Acetaminophen (Tylenol) 650 mg Q4H PRN PO TEMP > 100.4; Start 05/02/17 at 15: 30 Ondansetron HCl (Zofran Inj) 4 mg Q6H PRN IVP NAUSEA OR VOMITING; Start at 15:30 Naloxone HCl (Narcan Inj) 0.4 mg UNSCH PRN IV PUSH SEE LABEL COMMENTS; Start 05/02/17 at 15:30 Senna/Docusate Sodium (Ninfa-Colace) 1 tab BID PO Last administered on 09:49; Start 05/02/17 at 21:00 Magnesium Hydroxide (Milk Of Magnesia Liq) 30 ml Q12H PRN PO MILD - MODERATE CONSTIPATION; Start 05/02/17 at 15:30 Sennosides (Senokot) 17.2 mg Q12H PRN PO MODERATE - SEVERE CONSTIPATION; Start 05/02/17 at 15:30 Bisacodyl (Dulcolax Supp) 10 mg DAILY PRN RECTAL SEVERE CONSITIPATION; Start 05/02/17 at 15:30 Lactulose (Lactulose Liq) 30 ml DAILY PRN PO SEVERE CONSITIPATION; Start 05/02 at 15:30 Aspirin (Aspirin Chew) 81 mg DAILY CHEW Last administered on 05/08/17 10:01; Start 05/03/17 at 09:00 Acetaminophen/ Hydrocodone Bitart (Anselmo 7.5-325 Mg) 1 tab Q6H PRN PO PAIN Last administered on 05/03/17 23:28; Start 05/02/17 at 15:30; Stop 05/04/17 at 08:49; Status DC Pyridoxine HCl (Vitamin B6) 100 mg DAILY PO Last administered on 05/08/17 10: 00; Start 05/03/17 at 09:00 Pravastatin Sodium (Pravachol) 40 mg DAILY PO Last administered on 05/08/17 09:59; Start 05/03/17 at 09:00 Ceftriaxone Sodium 1000 mg/ Sodium Chloride 100 ml @ 200 mls/hr Q24H IV Last administered on 05/05/17 04:50; Start 05/02/17 at 17:00; Stop 05/05/17 at 17 :44; Status DC Potassium Chloride (KCl) 40 meq ONCE ONCE PO ; Start 05/02/17 at 16:15; Stop 05/02/17 at 16:16; Status DC Sodium Chloride 500 ml @ 500 mls/hr BOLUS ONCE IV Last administered on 18:40; Start 05/02/17 at 16:30; Stop 05/02/17 at 17:29; Status DC Albuterol/ Ipratropium (Duoneb Neb) 1 ampule Q4HR NEB NEB Last administered on 05/06/17 15:44; Start 05/02/17 at 16:00; Stop 05/06/17 at 15:59; Status DC Guaifenesin (Mucinex Er) 600 mg BID PO Last administered on 05/08/17 21:24; Start 05/02/17 at 21:00 Magnesium Sulfate/ Dextrose 100 ml @ 100 mls/hr Q1H IV ; Start 05/02/17 at 17: 00; Stop 05/02/17 at 17:59; Status DC Nystatin (Mycostatin Liq) 5 ml QID SWISH-SWAL Last administered on 05/08/17 21:25; Start 05/02/17 at 18:00 Heparin Sodium (Porcine) (Heparin Inj) 5,000 units Q12HR SQ Last administered on 05/08/17 21:25; Start 05/02/17 at 21:00 Diatrizoate Meglum/ Diatrizoate Sod ( Gastroview Liq) 18 ml ONCE ONCE PO Last administered on 05/02/17 20:44; Start 05/02/17 at 19:30; Stop 05/02/17 at 19:31; Status DC Magnesium Sulfate/ Dextrose 100 ml @ 100 mls/hr Q1H IV Last administered on 23:36; Start 05/02/17 at 23:30; Stop 05/03/17 at 01:29; Status DC Potassium Bicarb/ Potassium Chloride (K-Lyte Cl Eff) 50 meq ONCE ONCE PO Last administered on 05/03/17 06:43; Start 05/03/17 at 06:45; Stop 05/03/17 at 06:46; Status DC Potassium Chloride (KCl Powder) 40 meq ONCE ONCE PO Last administered on 05/03 11:24; Start 05/03/17 at 08:45; Stop 05/03/17 at 09:43; Status DC Potassium Chloride (KCl Powder) 40 meq ONCE ONCE PO Last administered on 05/03 12:00; Start 05/03/17 at 12:00; Stop 05/03/17 at 12:01; Status DC Lorazepam (Ativan Inj) 1 mg ONCE ONCE IV PUSH Last administered on 05/03/17 11:59; Start 05/03/17 at 12:00; Stop 05/03/17 at 12:01; Status DC Morphine Sulfate (Morphine Inj) 2 mg Q4H PRN IV PAIN GREATER THAN 8 Last administered on 05/04/17 08:19; Start 05/03/17 at 12:00; Stop 05/04/17 at 08 :48; Status DC Dexamethasone (Decadron) 40 mg DAILY PO Last administered on 05/05/17 08:36; Start 05/04/17 at 09:00; Stop 05/06/17 at 10:18; Status DC Potassium Chloride (KCl) 40 meq ONCE ONCE PO Last administered on 05/04/17 09:51; Start 05/04/17 at 08:30; Stop 05/04/17 at 09:14; Status DC Nicotine (Habitrol 14 Mg Patch.24 Hr) 1 patch DAILY T-DERMAL ; Start 05/04/17 at 09:00; Stop 05/04/17 at 09:00; Status DC Miscellaneous Information 1 DAILY T-DERMAL ; Start 05/04/17 at 09:00; Stop at 09:00; Status DC Nicotine (Habitrol 21 Mg Patch.24 Hr) 1 patch DAILY T-DERMAL Last administered on 05/08/17 10:03; Start 05/04/17 at 09:00 Miscellaneous Information 1 HS T-DERMAL Last administered on 05/08/17 21:58; Start 05/04/17 at 21:00 Morphine Sulfate (Morphine Inj) 2 mg Q2HR PRN IV PAIN SCALE 1 TO 5; Start at 09:00; Stop 05/07/17 at 13:32; Status DC Morphine Sulfate (Morphine Inj) 4 mg Q2HR PRN IV PUSH PAIN SCALE 6 TO 8 Last administered on 05/07/17 13:20; Start 05/04/17 at 08:45; Stop 05/07/17 at 13 :32; Status DC Morphine Sulfate (Morphine Inj) 2 mg ONCE ONCE IV PUSH Last administered on 09:52; Start 05/04/17 at 08:45; Stop 05/04/17 at 09:13; Status DC Hydrochlorothiazide (Microzide) 12.5 mg DAILY PO Last administered on 10:00; Start 05/04/17 at 10:30 Lisinopril (Prinivil) 10 mg DAILY PO Last administered on 05/08/17 10:00; Start 05/04/17 at 10:30 Morphine Sulfate (Morphine Inj) 6 mg Q4H PRN IV PUSH PAIN SCALE 9 TO 10; Start 05/04/17 at 15:00; Stop 05/07/17 at 13:17; Status DC Allopurinol (Zyloprim) 300 mg DAILY PO Last administered on 05/08/17 09:59; Start 05/05/17 at 09:00 Allopurinol (Zyloprim) 300 mg ONCE ONCE PO Last administered on 05/04/17 17: 06; Start 05/04/17 at 15:00; Stop 05/04/17 at 15:01; Status DC Acetaminophen (Tylenol) 650 mg ONCE ONCE PO Last administered on 05/04/17 17 :06; Start 05/04/17 at 15:30; Stop 05/04/17 at 15:31; Status DC Diphenhydramine HCl (Benadryl) 50 mg ONCE ONCE PO Last administered on 17:05; Start 05/04/17 at 15:30; Stop 05/04/17 at 15:31; Status DC Rituximab 667.5 mg/Sodium Chloride 566.75 ml @ 0 mls/hr ONCE ONCE IV Last administered on 05/04/17 18:28; Start 05/04/17 at 16:00; Stop 05/04/17 at 16 :01; Status DC Prednisone (Deltasone) 100 mg DAILY PO Last administered on 05/06/17 10:25; Start 05/05/17 at 09:00; Stop 05/07/17 at 08:41; Status DC Prednisone (Deltasone) 5 mg DAILY PO Last administered on 05/06/17 09:30; Start 05/05/17 at 09:00; Stop 05/07/17 at 08:42; Status DC Granisetron HCl (Kytril Inj) 1 mg DAILY@1030 IV Last administered on 21:18; Start 05/05/17 at 10:30; Stop 05/09/17 at 10:31 Dexamethasone Sodium Phosphate 20 mg/Sodium Chloride 55 ml @ 330 mls/hr DAILY@ 1030 IV Last administered on 05/05/17 11:18; Start 05/05/17 at 10:30; Stop 05/05/17 at 12:47; Status DC Etoposide 89 mg/ Doxorubicin HCl 17.8 mg/ Vincristine Sulfate 0.7 mg/ Sodium Chloride 514.05 ml @ 21.419 mls/hr DAILY@1100 IV Last administered on 21:45; Start 05/05/17 at 11:00; Stop 05/09/17 at 10:59 Cyclophosphamide 1335 mg/Sodium Chloride 570 ml @ 570 mls/hr DAILY@1100 ONCE IV ; Start 05/09/17 at 11:00; Stop 05/09/17 at 11:59 Ceftriaxone Sodium 1000 mg/ Sodium Chloride 100 ml @ 200 mls/hr Q24H IV Last administered on 05/09/17 05:28; Start 05/06/17 at 05:00 Potassium Chloride (KCl) 40 meq ONCE ONCE PO Last administered on 05/06/17 09:30; Start 05/06/17 at 07:45; Stop 05/06/17 at 07:47; Status DC Oxycodone/ Acetaminophen (Percocet 5-325 Mg) 1 tab Q4H PRN PO PAIN 1-5; Start 05/06/17 at 11:15; Stop 05/07/17 at 13:32; Status DC Oxycodone/ Acetaminophen (Percocet 5-325 Mg) 2 tab Q4H PRN PO PAIN 6-10 Last administered on 05/07/17 09:51; Start 05/06/17 at 11:15; Stop 05/07/17 at 13 :32; Status DC Prednisone (Deltasone) 100 mg BID PO Last administered on 05/08/17 21:24; Start 05/07/17 at 09:00; Stop 05/09/17 at 21:01 Prednisone (Deltasone) 5 mg BID PO Last administered on 05/08/17 21:24; Start 05/07/17 at 09:00; Stop 05/09/17 at 21:01 Morphine Sulfate (Oramorph Sr) 15 mg Q12HR PO Last administered on 05/08/17 10:02; Start 05/07/17 at 21:00; Stop 05/08/17 at 10:52; Status DC Morphine Sulfate (Morphine Inj) 2 mg Q2HR PRN IV PUSH SEVERE BREAKTHROUGH PAIN ; Start 05/07/17 at 13:30 Oxycodone HCl (Roxicodone) 10 mg Q4H PRN PO PAIN 1-10 Last administered on 18:06; Start 05/07/17 at 13:30 Morphine Sulfate (Oramorph Sr) 15 mg Q8HR PO Last administered on 05/09/17 05 :31; Start 05/08/17 at 14:00 Urinary Catheter: Yes Assessment to: Continue Lopez insert reason: Obstruction/Retention A/P Assessment and Plan 1. Chronic lymphocytic leukemia deletion 13Q, developed bulky adenopathy, treated initially with Rituximab, then Ibrutinib, developed a large mass in the retroperitoneum extending from the pole of left kidney along the iliopsoas muscle down to the pelvis, Biopsy showed lymphoplasma blastic lymphoma, taken by Oncology as probable transformation from chronic lymphocytic leukemia The plan is to treat him with Revlimid and R-CHOP, Seen by Radiation behavior support specialist Doctor Octaviano Carey, due to Back pain, and destructive process at T11, recommended for Palliative Radiation therapy to Spine, discussed with behavior support specialist SHELL, Miss Karen Pinto, Given Rituxan, and today for first day of EPOCH 10- 14 (Etoposide Phosphate, Prednisone Vincristine Sulfate, Cyclophosphamide, Doxorubicin Hydrochloride). 2. Urolithiasis status post ureteral Stent placement today after Lopez cath placement due to Urinary Retention he has Hematuria asked for Urology specialist consult. recommended to continue Lopez cath and antibiotics. 3. Acute Renal Injury improved. 4. electrolyte derangement replaced 5. Hyperlipidemia will continue Home medicines 6. Hypertension controlled. 7. COPD on Bronchodilator, Mucolytic and incentive spirometry. 8. Oral Thrush continue on Nystatin DVT prophylaxis SCDs, the patient has hematuria contraindicated chemical prophylaxis. COMPLAINS OF PAIN WILL ADJUST PAIN MEDS SWITCHED AROUND BY ONCOLOGY DOING MUCH BETTER ON CURRENT REGIMENT CONTINUE LOPEZ- ON ROCEPHIN- RECONSULT UROLOGY- START BLADDER TRAINING WILL NEED SNF VS [facility] NOT MOBILE AT ALL YET DW RN AND PT AM LABS CONTINUE CURRENT CARE HYPOKALEMIA WILL REPLACE Discharge Planning PENDING ONCOLOGY CLEARANCE Ted Donnelly DO May 09, 2017 09:20
[2017-05-09] MEDS ORDERED: POTASSIUM BICARBONATE 25 MEQ EFFERVESCENT TAB PO ONE (09:30)
--- NOTE | 2017-05-09 10:05 | HHI.PR ---
Subjective Patient symptoms today Pt seen and examined. Not OOB/ No change in ambulatory status. Objective Vital Signs Vital Signs Date Time Temp Pulse Resp B/P (MAP) Pulse Ox O2 Delivery O2 Flow Rate FiO2 05/09/17 03:59 98.2 72 18 150/76 (100) 97 05/09/17 00:21 98.4 79 18 144/83 (103) 96 05/08/17 21:00 98.4 86 148/79 (102) 95 05/08/17 21:00 Nasal Cannula 3.00 05/08/17 16:47 98.3 86 18 137/78 (97) 94 05/08/17 15:34 Nasal Cannula 3.00 05/08/17 12:00 98.5 84 16 149/70 (96) 95 Intake & Output 05/09/17 05/09/17 07:00 19:00 Intake Total 990 ml Output Total 1650 ml Balance -660 ml Intake Oral 240 ml IV Total 750 ml Output Urine Total 1650 ml # Bowel Movements 1 Result Diagram: 05/09/1734905/09/17349 Objective Remarks Abd:soft,nt,nd Mcmillan with clear urine 05/09 Abd:soft,nt,nd Mcmillan with clear urine Medications and IVs Current Medications Medications (Trade) Dose Ordered Sig/Stuart Route Start Time Stop Time Status Last Admin (NS Flush) 2 ml UNSCH PRN IV FLUSH 05/02/17 15:30 05/09/17 05:30 (NS Flush) 2 ml BID IV FLUSH 05/02/17 21:00 05/08/17 21:26 (Tylenol) 650 mg Q4H PRN PO 05/02/17 15:30 (Zofran Inj) 4 mg Q6H PRN IVP 05/02/17 15:30 (Narcan Inj) 0.4 mg UNSCH PRN IV PUSH 05/02/17 15:30 (Ninfa-Colace) 1 tab BID PO 05/02/17 21:00 05/07/17 09:49 (Milk Of Magnesia Liq) 30 ml Q12H PRN PO 05/02/17 15:30 (Senokot) 17.2 mg Q12H PRN PO 05/02/17 15:30 (Dulcolax Supp) 10 mg DAILY PRN RECTAL 05/02/17 15:30 (Lactulose Liq) 30 ml DAILY PRN PO 05/02/17 15:30 (Aspirin Chew) 81 mg DAILY CHEW 05/03/17 09:00 05/08/17 10:01 (Vitamin B6) 100 mg DAILY PO 05/03/17 09:00 05/08/17 10:00 (Pravachol) 40 mg DAILY PO 05/03/17 09:00 05/08/17 09:59 (Mucinex Er) 600 mg BID PO 05/02/17 21:00 05/08/17 21:24 (Mycostatin Liq) 5 ml QID SWISH-SWAL 05/02/17 18:00 05/08/17 21:25 (Heparin Inj) 5,000 units Q12HR SQ 05/02/17 21:00 05/08/17 21:25 (Habitrol 21 Mg Patch.24 Hr) 1 patch DAILY T-DERMAL 05/04/17 09:00 05/08/17 10:03 Miscellaneous Information 1 HS T-DERMAL 05/04/17 21:00 05/08/17 21:58 (Microzide) 12.5 mg DAILY PO 05/04/17 10:30 05/08/17 10:00 (Prinivil) 10 mg DAILY PO 05/04/17 10:30 05/08/17 10:00 (Zyloprim) 300 mg DAILY PO 05/05/17 09:00 05/08/17 09:59 (Kytril Inj) 1 mg DAILY@1030 IV 05/05/17 10:30 05/09/17 10:31 05/08/17 21:18 Etoposide 89 mg/ Doxorubicin HCl 17.8 mg/ Vincristine Sulfate 0.7 mg/ Sodium Chloride 514.05 ml @ 21.419 mls/hr DAILY@1100 IV 05/05/17 11:00 05/09/17 10:59 05/08/17 21:45 Cyclophosphamide 1335 mg/Sodium Chloride 570 ml @ 570 mls/hr DAILY@1100 ONCE IV 05/09/17 11:00 05/09/17 11:59 Ceftriaxone Sodium 1000 mg/ Sodium Chloride 100 ml @ 200 mls/hr Q24H IV 05/06/17 05:00 05/09/17 05:28 (Deltasone) 100 mg BID PO 05/07/17 09:00 05/09/17 21:01 05/08/17 21:24 (Deltasone) 5 mg BID PO 05/07/17 09:00 05/09/17 21:01 05/08/17 21:24 (Morphine Inj) 2 mg Q2HR PRN IV PUSH 05/07/17 13:30 (Roxicodone) 10 mg Q4H PRN PO 05/07/17 13:30 05/08/17 18:06 (Oramorph Sr) 15 mg Q8HR PO 05/08/17 14:00 05/09/17 05:31 (Effer-K Eff) 25 meq DAILY PO 05/10/17 09:00 UNV (Effer-K Eff) 50 meq ONCE ONCE PO 05/09/17 09:30 05/09/17 09:31 UNV Assessment and Plan Assessment and Plan 76 y.o. male with CLL s/p bilateral ureteral stent placement and AUR Maintain mcmillan for now. Void trial once strength has improved. Rx constipation F/U with Dr. Bull 05/09 76 y.o. male with CLL s/p bilateral ureteral stent placement and AUR Maintain mcmillan for now. Void trial once strength has improved. Which means when he is up and ambulating; then give a void trial D/C bladder training as this is not effective Flomax Rx constipation F/U with Dr. Bull as outpt Roosevelt Cameron DO May 09, 2017 10:05
[2017-05-09] MEDS ORDERED: SODIUM CHLORID 0.9% IV ONE (11:00)
[2017-05-09] MEDS ORDERED: CYCLOPHOSPHAMIDE IV ONE (11:00)
[2017-05-09] MEDS: NICOTINE 21 MG/24 HR PATCH T-DERMAL SCH (11:14)
[2017-05-09] MEDS: NYSTATIN SUSP 500,000 U/5 ML CUP SWISH-SWAL SCH ×4 (11:19→20:44)
[2017-05-09] MEDS: TAMSULOSIN HCL 0.4 MG CAP PO SCH (11:20)
[2017-05-09] MEDS: PRAVASTATIN SOD 40 MG TAB PO SCH ×2 (11:20→11:34)
[2017-05-09] MEDS: predniSONE 5 MG TAB PO SCH ×2 (11:21→20:43)
[2017-05-09] MEDS: predniSONE 50 MG TAB PO SCH ×2 (11:21→20:43)
[2017-05-09] MEDS: PYRIDOXINE HCL 50 MG TAB PO SCH (11:22)
[2017-05-09] MEDS: LISINOPRIL 10 MG TAB PO SCH (11:23)
[2017-05-09] MEDS: HYDROCHLOROTHIAZIDE 12.5 MG CAP PO SCH (11:23)
[2017-05-09] MEDS: ASPIRIN 81 MG CHEW TAB CHEW SCH (11:33)
[2017-05-09] MEDS: guaiFENesin E.R. 600 MG TAB PO SCH ×2 (11:34→20:43)
[2017-05-09] MEDS: ALLOPURINOL 300 MG TAB PO SCH (11:34)
[2017-05-09] MEDS: HEPARIN SODIUM - SQ 10,000 UNITS/ML VIAL SQ SCH ×2 (11:34→20:43)
--- NOTE | 2017-05-09 11:52 | PD.ONC.PN ---
Subjective Subjective Remarks Afebrile overnight. Patient resting comfortably. Reporting pain is well controlled. Tolerating chemotherapy. Objective Data Date Time Temp Pulse Resp B/P (MAP) Pulse Ox O2 Delivery O2 Flow Rate FiO2 05/09/17 03:59 98.2 72 18 150/76 (100) 97 05/09/17 00:21 98.4 79 18 144/83 (103) 96 05/08/17 21:00 98.4 86 148/79 (102) 95 05/08/17 21:00 Nasal Cannula 3.00 05/08/17 16:47 98.3 86 18 137/78 (97) 94 05/08/17 15:34 Nasal Cannula 3.00 05/08/17 12:00 98.5 84 16 149/70 (96) 95 05/09/17 05/09/17 05/09/17 07:00 15:00 23:00 Intake Total 515 ml Output Total 850 ml Balance -335 ml Result Diagram: 05/09/17 0350 05/09/17 0350 Laboratory Results Laboratory Tests Test 05/09/17 03:50 White Blood Count 10.7 TH/MM3 Red Blood Count 3.99 MIL/MM3 Hemoglobin 11.4 GM/DL Hematocrit 34.7 % Mean Corpuscular Volume 86.9 FL Mean Corpuscular Hemoglobin 28.6 PG Mean Corpuscular Hemoglobin Concent 32.9 % Red Cell Distribution Width 14.5 % Platelet Count 176 TH/MM3 Mean Platelet Volume 7.6 FL Neutrophils (%) (Auto) 55.6 % Lymphocytes (%) (Auto) 43.7 % Monocytes (%) (Auto) 0.4 % Eosinophils (%) (Auto) 0.0 % Basophils (%) (Auto) 0.3 % Neutrophils # (Auto) 5.9 TH/MM3 Lymphocytes # (Auto) 4.7 TH/MM3 Monocytes # (Auto) 0.0 TH/MM3 Eosinophils # (Auto) 0.0 TH/MM3 Basophils # (Auto) 0.0 TH/MM3 CBC Comment AUTO DIFF Differential Total Cells Counted 100 Neutrophils % (Manual) 25 % Band Neutrophils % 3 % Lymphocytes % 68 % Neutrophils # (Manual) 3.4 TH/MM3 Metamyelocytes 3 % Myelocytes 1 % Differential Comment FINAL DIFF MANUAL Smudge Cells PRESENT Prothrombin Time 11.8 SEC Prothromb Time International Ratio 1.1 RATIO Activated Partial Thromboplast Time 25.4 SEC Fibrinogen 163 mg/dL Blood Urea Nitrogen 30 MG/DL Creatinine 0.69 MG/DL Random Glucose 106 MG/DL Total Protein 5.0 GM/DL Albumin 2.4 GM/DL Calcium Level 8.4 MG/DL Phosphorus Level 3.1 MG/DL Magnesium Level 1.9 MG/DL Alkaline Phosphatase 53 U/L Aspartate Amino Transf (AST/SGOT) 28 U/L Alanine Aminotransferase (ALT/SGPT) 40 U/L Total Bilirubin 0.4 MG/DL Sodium Level 136 MEQ/L Potassium Level 3.2 MEQ/L Chloride Level 99 MEQ/L Carbon Dioxide Level 30.0 MEQ/L Anion Gap 7 MEQ/L Estimat Glomerular Filtration Rate 112 ML/MIN Administered Medications Medications (Trade) Dose Ordered Sig/Stuart Route PRN Reason Start Time Stop Time Status Last Admin Dose Admin Sodium Chloride (NS Flush) 2 ml UNSCH PRN IV FLUSH FLUSH AFTER USING IV ACCESS 05/02/17 15:30 05/09/17 05:30 Sodium Chloride (NS Flush) 2 ml BID IV FLUSH 05/02/17 21:00 05/08/17 21:26 Senna/Docusate Sodium (Ninfa-Colace) 1 tab BID PO 05/02/17 21:00 05/07/17 09:49 Aspirin (Aspirin Chew) 81 mg DAILY CHEW 05/03/17 09:00 05/08/17 10:01 Pyridoxine HCl (Vitamin B6) 100 mg DAILY PO 05/03/17 09:00 05/08/17 10:00 Pravastatin Sodium (Pravachol) 40 mg DAILY PO 05/03/17 09:00 05/08/17 09:59 Guaifenesin (Mucinex Er) 600 mg BID PO 05/02/17 21:00 05/08/17 21:24 Nystatin (Mycostatin Liq) 5 ml QID SWISH-SWAL 05/02/17 18:00 05/08/17 21:25 Heparin Sodium (Porcine) (Heparin Inj) 5,000 units Q12HR SQ 05/02/17 21:00 05/08/17 21:25 Nicotine (Habitrol 21 Mg Patch.24 Hr) 1 patch DAILY T-DERMAL 05/04/17 09:00 05/08/17 10:03 Miscellaneous Information 1 HS T-DERMAL 05/04/17 21:00 05/08/17 21:58 Hydrochlorothiazide (Microzide) 12.5 mg DAILY PO 05/04/17 10:30 05/08/17 10:00 Lisinopril (Prinivil) 10 mg DAILY PO 05/04/17 10:30 05/08/17 10:00 Allopurinol (Zyloprim) 300 mg DAILY PO 05/05/17 09:00 05/08/17 09:59 Etoposide 89 mg/ Doxorubicin HCl 17.8 mg/ Vincristine Sulfate 0.7 mg/ Sodium Chloride 514.05 ml @ 21.419 mls/hr DAILY@1100 IV 05/05/17 11:00 05/09/17 10:59 05/08/17 21:45 Ceftriaxone Sodium 1000 mg/ Sodium Chloride 100 ml @ 200 mls/hr Q24H IV 05/06/17 05:00 05/09/17 05:28 Prednisone (Deltasone) 100 mg BID PO 05/07/17 09:00 05/09/17 21:01 05/08/17 21:24 Prednisone (Deltasone) 5 mg BID PO 05/07/17 09:00 05/09/17 21:01 05/08/17 21:24 Oxycodone HCl (Roxicodone) 10 mg Q4H PRN PO PAIN 1-10 05/07/17 13:30 05/08/17 18:06 Morphine Sulfate (Oramorph Sr) 15 mg Q8HR PO 05/08/17 14:00 05/09/17 05:31 Objective Remarks GENERAL: Elderly male upright in bed in [facility]. SKIN: Warm and dry. ecchymoses scattered on extremities. HEAD: Normocephalic. EYES: No injection or drainage. NECK: Supple, trachea midline. CARDIOVASCULAR: Regular rate and rhythm RESPIRATORY: anterior sanchez clear. On 3L O2 via NC GASTROINTESTINAL: Abdomen soft, non-tender, nondistended. EXTREMITIES: No cyanosis NEUROLOGICAL: awake and alert, normal speech. 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 --05/06: D2 EPOCH. tolerating chemo. no adverse effects. replace potassium. --05/07: D3 EPOCH. continue chemo. resume prednisone BID dosing. --05/08: D4 EPOCH to start this afternoon. will complete chemotherapy tomorrow. --05/09: D5--will complete EPOCH 4th bag this evening and give Cytoxan this evening. 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 --first presented with bulky adenopathy, treated with Rituxan and bendamustine without clear response. --then switched to Ibrutinib with very good response. neck and axillary adenopathy are no longer palpable. --recently developed a large mass in retroperitoneum extending from the lower pole of left kidney down along the iliopsoas muscle to the pelvis, measured at least 10 cm. 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 --plan was to treat him with Revlimid along with R-CHOP. was supposed to start chemotherapy at the clinic but was too weak. (4) Flank pain ICD Codes: R10.9 - Unspecified abdominal pain Plan: --on PRN IV morphine and PRN Oxycodone, --long acting morphine started on 05/07 -- Abdominal pain and flank pain due to the large retroperitoneal mass encroaching the iliopsoas muscle. -- Lesion noted on T11 that may be able to get kyphoplasty -- s/p simulation 05/04. awaiting start of radiation-->most likely will start the week of 05/14 (5) History of urethral stent ICD Codes: Z98.890 - Other specified postprocedural states Plan: --had a urethral stent placement for hydronephrosis on 05/01 --urine culture negative. --currently on antibiotics per urology recommendations --mcmillan catheter in place. last seen by urology on 05/09. recommends: Maintain mcmillan for now. Void trial when he is up and ambulating; --on Flomax Assessment 76-year-old male with chronic lymphocytic leukemia/lymphoma, admitted with abdominal pain and back pain and a urinary tract infection. h/o Arthritis. Chronic lymphocytic leukemia. Hyperlipidemia. Hypertension. Temporal arteritis. COPD. DVT prophylaxis: Heparin 5000U SQ q 12 Plan 1. last day of chemotherapy today--EPOCH 2. continue Oramorph 15mg PO TID with Oxycodone for breakthrough. will increase as needed 3. await start of XRT 4. appreciate urology recommendations for mcmillan catheter Attending Statement The exam, history, and the medical decision-making described in the above note were completed with the assistance of the mid-level provider. I reviewed and agree with the findings presented. I attest that I had a [id number] encounter with the patient on the same day, and personally performed and documented my assessment and findings in the medical record. Pain better controlled. Had diarrhea last night. Tolerating chemotherapy well. Continue chemotherapy per protocol. Titrate pain meds. Await XRT to start next week. Problem Qualifiers (1) Dyspnea: Qualified Codes: R06.02 - Shortness of breath Karen Pinto May 09, 2017 11:52 Aaron Montalvo MD May 09, 2017 12:57
[2017-05-09 16:37] VITALS: BP 130/76; PULSE 62; RESP 18; TEMP 98.1; O2SAT 98
[2017-05-09] MEDS: SODIUM CHLORIDE 0.9% FLUSH 10 ML FLUSH IV FLUSH SCH ×2 (19:27→20:44)
[2017-05-09 20:00] VITALS: BP 133/67; PULSE 71; RESP 18; TEMP 98.2; O2SAT 96
[2017-05-09] MEDS: REMOVE OLD PATCH T-DERMAL SCH (20:44)
[2017-05-09] MEDS: GRANISETRON HCL 1 MG/ML VIAL IV SCH (20:46)
[2017-05-10 00:17] VITALS: BP 129/74; PULSE 72; RESP 18; TEMP 98.1; O2SAT 96
[2017-05-10] MEDS: cefTRIAXone INJ 1,000 MG in SODIUM CHLORIDE 0.9% INJ 100 ML IV SCH (03:57)
[2017-05-10 04:36] VITALS: BP 149/79; PULSE 63; RESP 18; TEMP 97.6; O2SAT 97
[2017-05-10 04:48] LABS: AUTOMATED NEUTROPHIL # 4.5 TH/MM3 (1.8-7.7); BASOPHIL % 0.5 % (0.0-2.0); EOSINOPHIL % 0.1 % (0.0-4.0); HEMATOCRIT 34.4 % (39.0-51.0); LYMPH % 55.2 % (9.0-44.0); LYMPHOCYTE # 5.7 TH/MM3 (1.0-4.8); MEAN CELL VOLUME 86.8 FL (80.0-100.0); MEAN CORPUSCULAR HEMOGLOBIN 28.9 PG (27.0-34.0); MEAN CORPUSCULAR HGB CONC 33.3 % (32.0-36.0); MONO % 0.2 % (0.0-8.0); PLATELET COUNT 155 TH/MM3 (150-450); RED BLOOD COUNT 3.96 MIL/MM3 (4.50-5.90); RED CELL DISTRIBUTION WIDTH 14.4 % (11.6-17.2); WHITE BLOOD COUNT 10.3 TH/MM3 (4.0-11.0)
[2017-05-10 04:55] LABS: HEMO FLAGS AUTO DIFF
[2017-05-10 05:12] LABS: ALT (GPT) 43 U/L (12-78); ANION GAP 5 MEQ/L (5-15); AST (GOT) 34 U/L (15-37); BICARBONATE 31.7 MEQ/L (21.0-32.0); BLOOD UREA NITROGEN 30 MG/DL (7-18); CHLORIDE 99 MEQ/L (98-107); GLOMERULAR FILTRATION RATE 124 ML/MIN (>89); MAGNESIUM 1.9 MG/DL (1.5-2.5); POTASSIUM 3.4 MEQ/L (3.5-5.1); SODIUM (NA) 136 MEQ/L (136-145)
[2017-05-10 05:15] LABS: ALKALINE PHOSPHATASE 54 U/L (45-117); TOTAL BILIRUBIN ADULT 0.3 MG/DL (0.2-1.0)
[2017-05-10] MEDS: MORPHINE SULFATE 15 MG CONTROLLED RELEASE TAB PO SCH ×3 (05:39→21:52)
[2017-05-10 06:55] LABS: BANDS 2 % (0-6); NEUTROPHIL # MANUAL DIFF 3.6 TH/MM3 (1.8-7.7); POLYS (SEG NEUTROPHILS) 33 % (16-70); WBC DIFF SAMPLE 100
[2017-05-10 06:57] LABS: OVALOCYTES 1+ (NORMAL); PLATELET ESTIMATE SMEAR NORMAL (NORMAL); PLATELET MORPHOLOGY NORMAL (NORMAL); SCAN/DIFF FINAL DIFF MANUAL; SMUDGE CELLS PRESENT PRESENT
[2017-05-10 07:50] VITALS: BP 149/76; PULSE 68; RESP 18; O2SAT 95
[2017-05-10] MEDS: HEPARIN SODIUM - SQ 10,000 UNITS/ML VIAL SQ SCH ×2 (07:58→19:47)
[2017-05-10] MEDS: POTASSIUM BICARBONATE 25 MEQ EFFERVESCENT TAB PO SCH (07:59)
[2017-05-10] MEDS: PRAVASTATIN SOD 40 MG TAB PO SCH (07:59)
[2017-05-10] MEDS: ASPIRIN 81 MG CHEW TAB CHEW SCH (07:59)
[2017-05-10] MEDS: guaiFENesin E.R. 600 MG TAB PO SCH ×2 (07:59→19:47)
[2017-05-10] MEDS: PYRIDOXINE HCL 50 MG TAB PO SCH (07:59)
[2017-05-10] MEDS: ALLOPURINOL 300 MG TAB PO SCH (07:59)
[2017-05-10] MEDS: HYDROCHLOROTHIAZIDE 12.5 MG CAP PO SCH (08:00)
[2017-05-10] MEDS: TAMSULOSIN HCL 0.4 MG CAP PO SCH (08:00)
[2017-05-10] MEDS: LISINOPRIL 10 MG TAB PO SCH (08:00)
[2017-05-10] MEDS: NICOTINE 21 MG/24 HR PATCH T-DERMAL SCH (08:01)
[2017-05-10] MEDS: NYSTATIN SUSP 500,000 U/5 ML CUP SWISH-SWAL SCH ×4 (08:01→19:48)
[2017-05-10] MEDS: DOCUSATE SODIUM 50 MG/SENNA 8.6 MG TAB PO SCH ×2 (08:01→19:47)
[2017-05-10] MEDS: SODIUM CHLORIDE 0.9% FLUSH 10 ML FLUSH IV FLUSH SCH ×2 (08:01→19:48)
--- NOTE | 2017-05-10 10:13 | PD.ONC.PN ---
Subjective Subjective Remarks Afebrile overnight. Patient resting in bed in NAD. Reports he was able to get out of bed yesterday with assistance. States he does NOT want to go to rehab. Would prefer to go home when discharged. Objective Data Date Time Temp Pulse Resp B/P (MAP) Pulse Ox O2 Delivery O2 Flow Rate FiO2 05/10/17 07:50 68 18 149/76 (100) 95 05/10/17 04:57 18 05/10/17 04:36 97.6 63 18 149/79 (102) 97 05/10/17 00:17 98.1 72 18 129/74 (92) 96 05/09/17 20:58 96 2.00 05/09/17 20:00 98.2 71 18 133/67 (89) 96 05/09/17 17:16 18 05/09/17 16:37 98.1 62 18 130/76 (94) 98 05/10/17 05/10/17 05/10/17 06:59 14:59 22:59 Intake Total 570 ml Output Total 500 ml Balance 70 ml Result Diagram: 05/10/17 0400 05/10/17 0400 Laboratory Results Laboratory Tests Test 05/10/17 04:00 White Blood Count 10.3 TH/MM3 Red Blood Count 3.96 MIL/MM3 Hemoglobin 11.4 GM/DL Hematocrit 34.4 % Mean Corpuscular Volume 86.8 FL Mean Corpuscular Hemoglobin 28.9 PG Mean Corpuscular Hemoglobin Concent 33.3 % Red Cell Distribution Width 14.4 % Platelet Count 155 TH/MM3 Mean Platelet Volume 7.7 FL Neutrophils (%) (Auto) 44.0 % Lymphocytes (%) (Auto) 55.2 % Monocytes (%) (Auto) 0.2 % Eosinophils (%) (Auto) 0.1 % Basophils (%) (Auto) 0.5 % Neutrophils # (Auto) 4.5 TH/MM3 Lymphocytes # (Auto) 5.7 TH/MM3 Monocytes # (Auto) 0.0 TH/MM3 Eosinophils # (Auto) 0.0 TH/MM3 Basophils # (Auto) 0.0 TH/MM3 CBC Comment AUTO DIFF Differential Total Cells Counted 100 Neutrophils % (Manual) 33 % Band Neutrophils % 2 % Lymphocytes % 65 % Neutrophils # (Manual) 3.6 TH/MM3 Differential Comment FINAL DIFF MANUAL Smudge Cells PRESENT Platelet Estimate NORMAL Platelet Morphology Comment NORMAL Ovalocytes 1+ Blood Urea Nitrogen 30 MG/DL Creatinine 0.63 MG/DL Random Glucose 106 MG/DL Total Protein 4.8 GM/DL Albumin 2.3 GM/DL Calcium Level 7.9 MG/DL Phosphorus Level 2.9 MG/DL Magnesium Level 1.9 MG/DL Alkaline Phosphatase 54 U/L Aspartate Amino Transf (AST/SGOT) 34 U/L Alanine Aminotransferase (ALT/SGPT) 43 U/L Total Bilirubin 0.3 MG/DL Sodium Level 136 MEQ/L Potassium Level 3.4 MEQ/L Chloride Level 99 MEQ/L Carbon Dioxide Level 31.7 MEQ/L Anion Gap 5 MEQ/L Estimat Glomerular Filtration Rate 124 ML/MIN Administered Medications Medications (Trade) Dose Ordered Sig/Stuart Route PRN Reason Start Time Stop Time Status Last Admin Dose Admin Sodium Chloride (NS Flush) 2 ml UNSCH PRN IV FLUSH FLUSH AFTER USING IV ACCESS 05/02/17 15:30 05/09/17 05:30 Sodium Chloride (NS Flush) 2 ml BID IV FLUSH 05/02/17 21:00 05/10/17 08:01 Senna/Docusate Sodium (Ninfa-Colace) 1 tab BID PO 05/02/17 21:00 05/07/17 09:49 Aspirin (Aspirin Chew) 81 mg DAILY CHEW 05/03/17 09:00 05/10/17 07:59 Pyridoxine HCl (Vitamin B6) 100 mg DAILY PO 05/03/17 09:00 05/10/17 07:59 Pravastatin Sodium (Pravachol) 40 mg DAILY PO 05/03/17 09:00 05/10/17 07:59 Guaifenesin (Mucinex Er) 600 mg BID PO 05/02/17 21:00 05/10/17 07:59 Nystatin (Mycostatin Liq) 5 ml QID SWISH-SWAL 05/02/17 18:00 05/10/17 08:01 Heparin Sodium (Porcine) (Heparin Inj) 5,000 units Q12HR SQ 05/02/17 21:00 05/10/17 07:58 Nicotine (Habitrol 21 Mg Patch.24 Hr) 1 patch DAILY T-DERMAL 05/04/17 09:00 05/10/17 08:01 Miscellaneous Information 1 HS T-DERMAL 05/04/17 21:00 05/09/17 20:44 Hydrochlorothiazide (Microzide) 12.5 mg DAILY PO 05/04/17 10:30 05/10/17 08:00 Lisinopril (Prinivil) 10 mg DAILY PO 05/04/17 10:30 05/10/17 08:00 Allopurinol (Zyloprim) 300 mg DAILY PO 05/05/17 09:00 05/10/17 07:59 Ceftriaxone Sodium 1000 mg/ Sodium Chloride 100 ml @ 200 mls/hr Q24H IV 05/06/17 05:00 05/10/17 03:57 Oxycodone HCl (Roxicodone) 10 mg Q4H PRN PO PAIN 1-10 05/07/17 13:30 05/10/17 03:56 Morphine Sulfate (Oramorph Sr) 15 mg Q8HR PO 05/08/17 14:00 05/10/17 05:39 Potassium Bicarbonate (Effer-K Eff) 25 meq DAILY PO 05/10/17 09:00 05/10/17 07:59 Tamsulosin HCl (Flomax) 0.4 mg DAILY PO 05/09/17 10:15 05/10/17 08:00 Objective Remarks GENERAL: Elderly male sitting up in bed in [facility]. SKIN: Warm and dry. scattered bruising. HEAD: Normocephalic. EYES: No injection or drainage. NECK: Supple, trachea midline. CARDIOVASCULAR: Regular rate and rhythm RESPIRATORY: Breath sounds equal bilaterally. No accessory muscle use. GASTROINTESTINAL: Abdomen soft, non-tender, nondistended. EXTREMITIES: No cyanosis NEUROLOGICAL: awake and alert, normal speech. 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 --05/06: D2 EPOCH. tolerating chemo. no adverse effects. replace potassium. --05/07: D3 EPOCH. continue chemo. resume prednisone BID dosing. --05/08: D4 EPOCH to start this afternoon. will complete chemotherapy tomorrow. --05/09: D5--will complete EPOCH 4th bag this evening and give Cytoxan this evening. --05/09: D6--chemotherapy complete. 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 --first presented with bulky adenopathy, treated with Rituxan and bendamustine without clear response. --then switched to Ibrutinib with very good response. neck and axillary adenopathy are no longer palpable. --recently developed a large mass in retroperitoneum extending from the lower pole of left kidney down along the iliopsoas muscle to the pelvis, measured at least 10 cm. 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 --plan was to treat him with Revlimid along with R-CHOP. was supposed to start chemotherapy at the clinic but was too weak. (4) Flank pain ICD Codes: R10.9 - Unspecified abdominal pain Plan: --on PRN IV morphine and PRN Oxycodone, --long acting morphine started on 05/07 -- Abdominal pain and flank pain due to the large retroperitoneal mass encroaching the iliopsoas muscle. -- Lesion noted on T11 that may be able to get kyphoplasty -- s/p simulation 05/04. awaiting start of radiation-->most likely will start the week of 05/14 (5) History of urethral stent ICD Codes: Z98.890 - Other specified postprocedural states Plan: --had a urethral stent placement for hydronephrosis on 05/01 --urine culture negative. --currently on antibiotics per urology recommendations --mcmillan catheter in place. last seen by urology on 05/09. recommends: Maintain mcmillan for now. Void trial when he is up and ambulating; --on Flomax Assessment 76-year-old male with chronic lymphocytic leukemia/lymphoma, admitted with abdominal pain and back pain and a urinary tract infection. h/o Arthritis. Chronic lymphocytic leukemia. Hyperlipidemia. Hypertension. Temporal arteritis. COPD. DVT prophylaxis: Heparin 5000U SQ q 12 Plan 1. continue Oramorph 15mg PO TID + Oxycodone for breakthrough pain 2. continue physical therapy 3. await start of XRT Attending Statement The exam, history, and the medical decision-making described in the above note were completed with the assistance of the mid-level provider. I reviewed and agree with the findings presented. I attest that I had a [id number] encounter with the patient on the same day, and personally performed and documented my assessment and findings in the medical record. Completed chemotherapy and tolerated well. Pain better controlled but still not able to walk. Discussed with , pt will have simulation tomorrow and plan to start XRT on Sunday. Problem Qualifiers (1) Dyspnea: Qualified Codes: R06.02 - Shortness of breath Karen Pinto May 10, 2017 10:13 Aaron Montalvo MD May 10, 2017 17:42
[2017-05-10 11:48] VITALS: BP 106/60; PULSE 86; RESP 18; TEMP 98.1; O2SAT 98
[2017-05-10] MEDS: MORPHINE SULFATE 2 MG/ML INJ IV PUSH PRN (17:18)
[2017-05-10 17:25] VITALS: BP 102/62; PULSE 70; RESP 18; TEMP 97.7; O2SAT 100
--- NOTE | 2017-05-10 19:24 | HHI.PR ---
Subjective Remarks patient c/o low back pain. Patient also c/o diarrhea, deneis abdominal pain. Denies fevers or chills Vital signs stable. Does not want to go to rehab. Objective Vitals Vital Signs Date Time Temp Pulse Resp B/P (MAP) Pulse Ox O2 Delivery O2 Flow Rate FiO2 05/10/17 18:02 Room Air 05/10/17 17:25 97.7 70 18 102/62 (75) 100 05/10/17 11:48 98.1 86 18 106/60 (75) 98 05/10/17 07:50 68 18 149/76 (100) 95 05/10/17 04:57 18 05/10/17 04:36 97.6 63 18 149/79 (102) 97 05/10/17 00:17 98.1 72 18 129/74 (92) 96 05/09/17 20:58 96 2.00 05/09/17 20:00 98.2 71 18 133/67 (89) 96 I/O 05/09/17 05/09/17 05/09/17 05/10/17 05/10/17 05/10/17 07:00 15:00 23:00 07:00 15:00 23:00 Intake Total 515 ml 570 ml 500 ml Output Total 850 ml 500 ml 600 ml Balance -335 ml 70 ml -100 ml Intake Oral 240 ml 500 ml IV Total 275 ml 570 ml Output Urine Total 850 ml 500 ml 600 ml # Voids 1 # Bowel Movements 1 Result Diagram: 05/10/17 0400 05/10/17 0400 Imaging Last Impressions Chest X-Ray 05/08/17 0000 Signed Impressions: Service Date/Time: Monday, May 08, 2017 18:20 - CONCLUSION: No appreciable change. Maribeth Pittman MD Thoracic Spine MRI 05/03/17 0000 Signed Impressions: Service Date/Time: April 12:42 - CONCLUSION: 1. Please see the MRI of the lumbar spine reported separately. 2. Study is motion degraded. 3. Destructive process involving the T11 vertebral body with 40%% loss of height but no retropulsion. This is suggestive of a metastatic focus. Rakesh Farnsworth Jr., MD Lumbar Spine MRI 05/03/17 0000 Signed Impressions: Service Date/Time: April 12:42 - CONCLUSION: 1. Please see the MRI of the thoracic spine reported separately. 2. Current study limited by motion artifact. 3. Destructive process involving the L2 vertebral body with extension into the pedicles bilaterally as well the left lamina with narrowing of the central canal due to posterior displacement of the posterior cortical margin as well as obscuration of the neural foramina. 10%% loss of height. This is felt to relate to a metastatic focus. 4. Prominent retroperitoneal soft tissue previous described on the CT scan. Rakesh Farnsworth Jr., MD Chest CT 05/02/17 0000 Signed Impressions: Service Date/Time: April 01:27 - CONCLUSION: Left upper lobe nodular mass. Parenchymal disease in the right lung base. Moderately large bilateral pleural effusions. Destructive process involving T11 vertebral body Guzman Alcaraz MD Abdomen/Pelvis CT 05/02/17 0000 Signed Impressions: Service Date/Time: April 01:27 - CONCLUSION: Extensive abnormal retroperitoneal soft tissue, presumably confluent adenopathy and adenopathy also present in the celiac region in the upper abdomen. Destructive process involving T11. Bilateral ureteral stents in place. Guzman Alcaraz MD Objective Remarks AAOx3 lungs clear BL abdomen soft, NT, ND S1S2 RRR, no MRG no edema in lower extremities Medications and IVs Current Medications Medications (Trade) Dose Ordered Sig/Stuart Route Start Time Stop Time Status Last Admin (NS Flush) 2 ml UNSCH PRN IV FLUSH 05/02/17 15:30 05/09/17 05:30 (NS Flush) 2 ml BID IV FLUSH 05/02/17 21:00 05/10/17 19:48 (Tylenol) 650 mg Q4H PRN PO 05/02/17 15:30 (Zofran Inj) 4 mg Q6H PRN IVP 05/02/17 15:30 (Narcan Inj) 0.4 mg UNSCH PRN IV PUSH 05/02/17 15:30 (Ninfa-Colace) 1 tab BID PO 05/02/17 21:00 05/07/17 09:49 (Milk Of Magnesia Liq) 30 ml Q12H PRN PO 05/02/17 15:30 (Senokot) 17.2 mg Q12H PRN PO 05/02/17 15:30 (Dulcolax Supp) 10 mg DAILY PRN RECTAL 05/02/17 15:30 (Lactulose Liq) 30 ml DAILY PRN PO 05/02/17 15:30 (Aspirin Chew) 81 mg DAILY CHEW 05/03/17 09:00 05/10/17 07:59 (Vitamin B6) 100 mg DAILY PO 05/03/17 09:00 05/10/17 07:59 (Pravachol) 40 mg DAILY PO 05/03/17 09:00 05/10/17 07:59 (Mucinex Er) 600 mg BID PO 05/02/17 21:00 05/10/17 19:47 (Mycostatin Liq) 5 ml QID SWISH-SWAL 05/02/17 18:00 05/10/17 19:48 (Heparin Inj) 5,000 units Q12HR SQ 05/02/17 21:00 05/10/17 19:47 (Habitrol 21 Mg Patch.24 Hr) 1 patch DAILY T-DERMAL 05/04/17 09:00 05/10/17 08:01 Miscellaneous Information 1 HS T-DERMAL 05/04/17 21:00 05/09/17 20:44 (Microzide) 12.5 mg DAILY PO 05/04/17 10:30 05/10/17 08:00 (Prinivil) 10 mg DAILY PO 05/04/17 10:30 05/10/17 08:00 (Zyloprim) 300 mg DAILY PO 05/05/17 09:00 05/10/17 07:59 Ceftriaxone Sodium 1000 mg/ Sodium Chloride 100 ml @ 200 mls/hr Q24H IV 05/06/17 05:00 05/10/17 03:57 (Morphine Inj) 2 mg Q2HR PRN IV PUSH 05/07/17 13:30 05/10/17 17:18 (Roxicodone) 10 mg Q4H PRN PO 05/07/17 13:30 05/10/17 19:48 (Oramorph Sr) 15 mg Q8HR PO 05/08/17 14:00 05/10/17 13:34 (Effer-K Eff) 25 meq DAILY PO 05/10/17 09:00 05/10/17 07:59 (Flomax) 0.4 mg DAILY PO 05/09/17 10:15 05/10/17 08:00 A/P Problem List: (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 --05/06: D2 EPOCH. tolerating chemo. no adverse effects. replace potassium. --05/07: D3 EPOCH. continue chemo. resume prednisone BID dosing. --05/08: D4 EPOCH to start this afternoon. will complete chemotherapy tomorrow. --05/09: D5--will complete EPOCH 4th bag this evening and give Cytoxan this evening. --05/09: D6--chemotherapy complete. 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 --first presented with bulky adenopathy, treated with Rituxan and bendamustine without clear response. --then switched to Ibrutinib with very good response. neck and axillary adenopathy are no longer palpable. --recently developed a large mass in retroperitoneum extending from the lower pole of left kidney down along the iliopsoas muscle to the pelvis, measured at least 10 cm. 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 --plan was to treat him with Revlimid along with R-CHOP. was supposed to start chemotherapy at the clinic but was too weak. (3) UTI (urinary tract infection) ICD Code: N39.0 - Urinary tract infection, site not specified Status: Acute Plan: Continue IV Rocephin. Urine culture negative. (4) History of urethral stent ICD Code: Z98.890 - Other specified postprocedural states Plan: Urology consulted. Continue Baugh catheter. (5) Low back pain ICD Code: M54.5 - Low back pain Plan: Likely due to metastatic disease. Continue Morphine SR and Morphine IV Will prescribe K thermia. MRI shows destructive process at the level of L2 extending into the pedicles. Consult neurosurgery. (6) Hypokalemia ICD Code: E87.6 - Hypokalemia Status: Acute Plan: Replace K orally and continue to monitor BMP. (7) Hyponatremia ICD Code: E87.1 - Hypo-osmolality and hyponatremia Status: Resolved Plan: Resolved, monitor BMP. Assessment and Plan DVT prophylaxis - heparin SQ GI prophylaxis: Javier Edouard MD May 10, 2017 19:24
[2017-05-10] MEDS: POTASSIUM CHLORIDE 20 MEQ CONTROLLED RELEASE TAB PO ONE (19:53)
[2017-05-10 20:00] VITALS: BP 103/60; PULSE 77; RESP 18; TEMP 97.8; O2SAT 100
[2017-05-10] MEDS: REMOVE OLD PATCH T-DERMAL SCH (21:00)
[2017-05-11] VITALS (7 sets, daily range): BP systolic 82–119; BP diastolic 41–63; PULSE 73–111; RESP 16–19; TEMP 97.7–99; O2SAT 94–99
[2017-05-11] MEDS: cefTRIAXone INJ 1,000 MG in SODIUM CHLORIDE 0.9% INJ 100 ML IV SCH (04:00)
[2017-05-11] MEDS: MORPHINE SULFATE 15 MG CONTROLLED RELEASE TAB PO SCH ×3 (05:00→21:34)
[2017-05-11 05:19] LABS: HEMATOCRIT 31.8 % (39.0-51.0); MEAN CELL VOLUME 86.9 FL (80.0-100.0); MEAN CORPUSCULAR HEMOGLOBIN 28.8 PG (27.0-34.0); MEAN CORPUSCULAR HGB CONC 33.2 % (32.0-36.0); PLATELET COUNT 105 TH/MM3 (150-450); RED BLOOD COUNT 3.66 MIL/MM3 (4.50-5.90); RED CELL DISTRIBUTION WIDTH 14.2 % (11.6-17.2); REVIEW FLAG FINAL; WHITE BLOOD COUNT 5.5 TH/MM3 (4.0-11.0)
[2017-05-11 05:41] LABS: BICARBONATE 31.7 MEQ/L (21.0-32.0)
[2017-05-11] MEDS: PRAVASTATIN SOD 40 MG TAB PO SCH (08:54)
[2017-05-11] MEDS: ALLOPURINOL 300 MG TAB PO SCH (08:54)
[2017-05-11] MEDS: guaiFENesin E.R. 600 MG TAB PO SCH ×2 (08:54→21:34)
[2017-05-11] MEDS: NYSTATIN SUSP 500,000 U/5 ML CUP SWISH-SWAL SCH ×4 (08:54→21:33)
[2017-05-11] MEDS: POTASSIUM BICARBONATE 25 MEQ EFFERVESCENT TAB PO SCH (08:54)
[2017-05-11] MEDS: PYRIDOXINE HCL 50 MG TAB PO SCH (08:54)
[2017-05-11] MEDS: DOCUSATE SODIUM 50 MG/SENNA 8.6 MG TAB PO SCH ×2 (08:55→21:35)
[2017-05-11] MEDS: ASPIRIN 81 MG CHEW TAB CHEW SCH (08:55)
[2017-05-11] MEDS: TAMSULOSIN HCL 0.4 MG CAP PO SCH (08:55)
[2017-05-11] MEDS: NICOTINE 21 MG/24 HR PATCH T-DERMAL SCH (08:56)
[2017-05-11] MEDS: HEPARIN SODIUM - SQ 10,000 UNITS/ML VIAL SQ SCH ×2 (08:56→21:34)
[2017-05-11] MEDS: LISINOPRIL 10 MG TAB PO SCH (09:00)
[2017-05-11] MEDS: SODIUM CHLORIDE 0.9% FLUSH 10 ML FLUSH IV FLUSH SCH ×2 (09:00→21:35)
[2017-05-11] MEDS: HYDROCHLOROTHIAZIDE 12.5 MG CAP PO SCH (09:00)
--- NOTE | 2017-05-11 09:07 | PD.CONS ---
(Carloz Gutierrez MD) HPI Consult Requested By Primary Care Physician No Primary Care Physician (Carloz Gutierrez MD) Service Neurosurgery Consult Requested By Dr. Gaona Reason for Consult severe low back pain, L2 destructive process History of Present Illness Mr. 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 He also has a large retroperitoneal mass. He underwent urethral stent placement due to Hydronephrosis. He follows Dr. Montalvo, Oncologist and was supposed to start Chemotherapy at his clinic. However the patient was brought into the emergency room as he has becoming increasingly weak. He has had difficulty getting up, as well as not eating and drinking much. He had complained of back pain, and pain radiating into his flank, groin, and anterior thighs. He also reports of weakness in his legs. He had some therapy yesterday and reported may have overdone himself. However today he feels a bit better. An MRI of the Thoracic and Lumbar spine has been obtained. (Shannon Murphy) Review of Systems Constitutional: DENIES: Fever, Chills Eyes: DENIES: Diplopia, Vision loss Cardiovascular: DENIES: Chest pain Gastrointestinal: DENIES: Nausea, Vomiting Musculoskeletal: COMPLAINS OF: Muscle aches, Back pain Neurologic: COMPLAINS OF: Abnormal gait, Localized weakness, DENIES: Seizures Psychiatric: DENIES: Hallucinations (Shannon Murphy) Past Family Social History Allergies: Coded Allergies: levofloxacin (Verified Allergy, Severe, welts and rash, 05/02/17) patient states not an allergy; r/o after it was entered in as an allergy. 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 Hypertension Hyperlipidemia Temporal arteritis CKD Past Surgical History Hernia repair Port placement Tonsillectomy Reported Medications reviewed in EMR Active Ordered Medications Current Medications Medications (Trade) Dose Ordered Sig/Stuart Route PRN Reason Start Time Stop Time Status Last Admin Dose Admin Sodium Chloride (NS Flush) 2 ml UNSCH PRN IV FLUSH FLUSH AFTER USING IV ACCESS 05/02/17 15:30 05/09/17 05:30 Sodium Chloride (NS Flush) 2 ml BID IV FLUSH 05/02/17 21:00 05/10/17 19:48 Acetaminophen (Tylenol) 650 mg Q4H PRN PO TEMP > 100.4 05/02/17 15:30 Ondansetron HCl (Zofran Inj) 4 mg Q6H PRN IVP NAUSEA OR VOMITING 05/02/17 15:30 Naloxone HCl (Narcan Inj) 0.4 mg UNSCH PRN IV PUSH SEE LABEL COMMENTS 05/02/17 15:30 Senna/Docusate Sodium (Ninfa-Colace) 1 tab BID PO 05/02/17 21:00 05/07/17 09:49 Magnesium Hydroxide (Milk Of Magnesia Liq) 30 ml Q12H PRN PO MILD - MODERATE CONSTIPATION 05/02/17 15:30 Sennosides (Senokot) 17.2 mg Q12H PRN PO MODERATE - SEVERE CONSTIPATION 05/02/17 15:30 Bisacodyl (Dulcolax Supp) 10 mg DAILY PRN RECTAL SEVERE CONSITIPATION 05/02/17 15:30 Lactulose (Lactulose Liq) 30 ml DAILY PRN PO SEVERE CONSITIPATION 05/02/17 15:30 Aspirin (Aspirin Chew) 81 mg DAILY CHEW 05/03/17 09:00 05/11/17 08:55 Pyridoxine HCl (Vitamin B6) 100 mg DAILY PO 05/03/17 09:00 05/11/17 08:54 Pravastatin Sodium (Pravachol) 40 mg DAILY PO 05/03/17 09:00 05/11/17 08:54 Guaifenesin (Mucinex Er) 600 mg BID PO 05/02/17 21:00 05/11/17 08:54 Nystatin (Mycostatin Liq) 5 ml QID SWISH-SWAL 05/02/17 18:00 05/11/17 12:00 Heparin Sodium (Porcine) (Heparin Inj) 5,000 units Q12HR SQ 05/02/17 21:00 05/11/17 08:56 Nicotine (Habitrol 21 Mg Patch.24 Hr) 1 patch DAILY T-DERMAL 05/04/17 09:00 05/11/17 08:56 Miscellaneous Information 1 HS T-DERMAL 05/04/17 21:00 05/10/17 21:00 Hydrochlorothiazide (Microzide) 12.5 mg DAILY PO 05/04/17 10:30 Future Hold 05/10/17 08:00 Lisinopril (Prinivil) 10 mg DAILY PO 05/04/17 10:30 Future Hold 05/10/17 08:00 Allopurinol (Zyloprim) 300 mg DAILY PO 05/05/17 09:00 05/11/17 08:54 Ceftriaxone Sodium 1000 mg/ Sodium Chloride 100 ml @ 200 mls/hr Q24H IV 05/06/17 05:00 05/11/17 04:00 Morphine Sulfate (Morphine Inj) 2 mg Q2HR PRN IV PUSH SEVERE BREAKTHROUGH PAIN 05/07/17 13:30 05/10/17 17:18 Oxycodone HCl (Roxicodone) 10 mg Q4H PRN PO PAIN 1-10 05/07/17 13:30 05/11/17 06:55 Morphine Sulfate (Oramorph Sr) 15 mg Q8HR PO 05/08/17 14:00 05/11/17 05:00 Potassium Bicarbonate (Effer-K Eff) 25 meq DAILY PO 05/10/17 09:00 05/11/17 08:54 Tamsulosin HCl (Flomax) 0.4 mg DAILY PO 05/09/17 10:15 05/11/17 08:55 Filgrastim 300 mcg/Dextrose 25 ml @ 100 mls/hr DAILY@14 IV 05/11/17 14:00 Loperamide HCl (Imodium) 2 mg Q4H PRN PO DIARRHEA 05/11/17 11:15 Lactobacillus Acidophilus (Lactinex Pkt) 1 gm TID PO 05/11/17 13:00 Family History Reported Father with cardiac disease Social History Smokes 1ppd, no current etoh use or illicit drug use. (Shannon Murphy) Physical Exam Vital Signs Vital Signs Date Time Temp Pulse Resp B/P (MAP) Pulse Ox O2 Delivery O2 Flow Rate FiO2 05/11/17 08:45 98.1 82 16 87/47 (60) 95 05/11/17 03:58 98.1 77 18 101/57 (72) 94 05/11/17 00:56 98.1 73 18 107/63 (78) 99 05/10/17 20:00 97.8 77 18 103/60 (74) 100 05/10/17 19:00 Room Air 05/10/17 18:02 Room Air 05/10/17 17:25 97.7 70 18 102/62 (75) 100 05/10/17 11:48 98.1 86 18 106/60 (75) 98 Laboratory Laboratory Tests Test 05/11/17 04:59 05/11/17 05:56 White Blood Count 5.5 Red Blood Count 3.66 Hemoglobin 10.6 Hematocrit 31.8 Mean Corpuscular Volume 86.9 Mean Corpuscular Hemoglobin 28.8 Mean Corpuscular Hemoglobin Concent 33.2 Red Cell Distribution Width 14.2 Platelet Count 105 Mean Platelet Volume 7.6 Blood Urea Nitrogen 29 Creatinine 0.65 Random Glucose 77 Calcium Level 8.2 Sodium Level 137 Potassium Level 3.0 Chloride Level 99 Carbon Dioxide Level 31.7 Anion Gap 6 Estimat Glomerular Filtration Rate 120 Date/Time Source Procedure Growth Status 05/02/17 11:15 Blood Peripheral Aerobic Blood Culture - Final NO GROWTH IN 5 DAYS Complete 05/02/17 11:15 Blood Peripheral Anaerobic Blood Culture - Final NO GROWTH IN 5 DAYS Complete 05/02/17 13:40 Urine Random Urine Urine Culture - Final NO GROWTH IN 48 HOURS. Complete (Carloz Gutierrez MD) Physical Exam Mr. Hercules is alert, awake and oriented to time, place and person. Speech is fluent. Follows commands without difficulty. Cranial nerve examination demonstrates the pupils to be equal, round, and reactive to light. Extra-ocular movements are intact. Facial motor and sensory function are normal and symmetrical. Gross hearing is intact, bilaterally. The uvula is midline and elevates symmetrically with the soft palate. Sternocleidomastoid and trapezius muscles have normal and symmetrical strength. Cervical spine mild decrease range of motion in anterior flexion, extension, lateral bending, and rotation. Muscle strength is 5/5 in all muscle groups of both upper extremities including deltoid, biceps, triceps and tetryl blender operator. In the lower extremities, strength is 2-3/5 in both iliopsoas, quadriceps, hamstrings, 5/5 plantar flexion, dorsiflexion, and extensor hallicus longus. Sensory examination is intact to light touch in both the upper and lower extremities, symmetrically. Deep tendon reflexes are 1+ and symmetrical in the biceps, triceps, and brachioradialis, bilaterally, in the upper extremities. In the lower extremities, the patellar and Achilles are trace, bilaterally. There is a bilateral plantar flexion response. Hoffmanns sign is negative. Questionable slight 1-2 beat mild ankle clonus. Cerebellar examination is intact to [id number] test. Diffuse ecchymoses in his legs (Shannon Murphy) Result Diagram: 05/11/1745805/11/17458 Imaging Last Impressions Chest X-Ray 05/08/17 Signed Impressions: Service Date/Time: Monday, May 08, 2017 18:20 - CONCLUSION: No appreciable change. Maribeth Pittman MD Thoracic Spine MRI 05/03/17 Signed Impressions: Service Date/Time: April 12:42 - CONCLUSION: 1. Please see the MRI of the lumbar spine reported separately. 2. Study is motion degraded. 3. Destructive process involving the T11 vertebral body with 40%% loss of height but no retropulsion. This is suggestive of a metastatic focus. Rakesh Farnsworth Jr., MD Lumbar Spine MRI 05/03/17 Signed Impressions: Service Date/Time: April 12:42 - CONCLUSION: 1. Please see the MRI of the thoracic spine reported separately. 2. Current study limited by motion artifact. 3. Destructive process involving the L2 vertebral body with extension into the pedicles bilaterally as well the left lamina with narrowing of the central canal due to posterior displacement of the posterior cortical margin as well as obscuration of the neural foramina. 10%% loss of height. This is felt to relate to a metastatic focus. 4. Prominent retroperitoneal soft tissue previous described on the CT scan. Rakesh Farnsworth Jr., MD Chest CT 05/02/17 Signed Impressions: Service Date/Time: April 01:27 - CONCLUSION: Left upper lobe nodular mass. Parenchymal disease in the right lung base. Moderately large bilateral pleural effusions. Destructive process involving T11 vertebral body Guzman Alcaraz MD Abdomen/Pelvis CT 05/02/17 Signed Impressions: Service Date/Time: Thursday, May 03, 2017 01:27 - CONCLUSION: Extensive abnormal retroperitoneal soft tissue, presumably confluent adenopathy and adenopathy also present in the celiac region in the upper abdomen. Destructive process involving T11. Bilateral ureteral stents in place. Guzman Alcaraz MD (Shannon Murphy) Attending Statement I have reviewed with Mr. Hercules his clinical and radiological findings. He has a pathological fracture with retropulsion and cord compression. I have discussed with him the alternative methods of treatment. I recommend a surgical decompression with open reduction and internal fixation of his pathological fracture. We have discussed the details including the [id number] details of the surgical procedure, its indications, alternatives, risks, and potential complications. He is requesting to proceed with radiation therapy He is now infected, and has C diff enteritis, which places him at very high surgical risk HTN. Treat with antihypertensives as needed acetaminophen/cooling blanket as needed for temperature greater than 100.4 respiratory aggressive pulmonary toilette, nasotracheal suction, and breathing treatments with nebulizers. Nutrition. Oral diet Renal. monitor closely urine output, BUN and creatinine Baugh. Monitor intake and output. Monitor electrolytes and replace as indicated per ICU electrolyte replacement protocol. ENDO:Acute hyperglycemia secondary to trauma. Monitor bedside glucose and initiate low-dose insulin sliding scale as indicated for glucose greater than 180 Protonix for stress ulcer prophylaxis Kingsley hose and SCD's for DVT prophylaxis. (Carloz Gutierrez MD) Carloz Gutierrez MD May 11, 2017 09:07 Shannon Murphy May 11, 2017 13:40
[2017-05-11] MEDS ORDERED: SODIUM CHLOR 0.9% 250 ML INJ 250 ML IV ONE (09:45)
[2017-05-11 10:32] LABS: C. DIFF EPI 027 PRESUMPTIVE NEGATIVE (NEGATIVE)
--- NOTE | 2017-05-11 11:08 | HHI.PR ---
Subjective Remarks c/o 4 episodes of diarrhea. Denies cp/sob Denies fevers/chills denies nausea, vomiting or abdominal pain noted to be hypotensive with sbp in the 80's Objective Vitals Vital Signs Date Time Temp Pulse Resp B/P (MAP) Pulse Ox O2 Delivery O2 Flow Rate FiO2 05/11/17 08:45 98.1 82 16 87/47 (60) 95 05/11/17 03:58 98.1 77 18 101/57 (72) 94 05/11/17 00:56 98.1 73 18 107/63 (78) 99 05/10/17 20:00 97.8 77 18 103/60 (74) 100 05/10/17 19:00 Room Air 05/10/17 18:02 Room Air 05/10/17 17:25 97.7 70 18 102/62 (75) 100 05/10/17 11:48 98.1 86 18 106/60 (75) 98 I/O 05/10/17 05/10/17 05/10/17 05/11/17 05/11/17 05/11/17 07:00 15:00 23:00 07:00 15:00 23:00 Intake Total 570 ml 500 ml 820 ml Output Total 500 ml 1700 ml 927 ml Balance 70 ml -1200 ml -107 ml Intake Oral 500 ml 720 ml IV Total 570 ml 100 ml Output Urine Total 500 ml 1700 ml 925 ml Stool Total 2 ml # Voids 1 # Bowel Movements 1 1 Result Diagram: 05/11/17 0459 05/11/17 0459 Imaging Last Impressions Chest X-Ray 05/08/17 0000 Signed Impressions: Service Date/Time: Monday, May 08, 2017 18:20 - CONCLUSION: No appreciable change. Maribeht Pittman MD Thoracic Spine MRI 05/03/17 0000 Signed Impressions: Service Date/Time: April 12:42 - CONCLUSION: 1. Please see the MRI of the lumbar spine reported separately. 2. Study is motion degraded. 3. Destructive process involving the T11 vertebral body with 40%% loss of height but no retropulsion. This is suggestive of a metastatic focus. Rakesh Farnsworth Jr., MD Lumbar Spine MRI 05/03/17 0000 Signed Impressions: Service Date/Time: April 12:42 - CONCLUSION: 1. Please see the MRI of the thoracic spine reported separately. 2. Current study limited by motion artifact. 3. Destructive process involving the L2 vertebral body with extension into the pedicles bilaterally as well the left lamina with narrowing of the central canal due to posterior displacement of the posterior cortical margin as well as obscuration of the neural foramina. 10%% loss of height. This is felt to relate to a metastatic focus. 4. Prominent retroperitoneal soft tissue previous described on the CT scan. Rakesh Farnsworth Jr., MD Chest CT 05/02/17 0000 Signed Impressions: Service Date/Time: April 01:27 - CONCLUSION: Left upper lobe nodular mass. Parenchymal disease in the right lung base. Moderately large bilateral pleural effusions. Destructive process involving T11 vertebral body Guzman Alcaraz MD Abdomen/Pelvis CT 05/02/17 0000 Signed Impressions: Service Date/Time: April 01:27 - CONCLUSION: Extensive abnormal retroperitoneal soft tissue, presumably confluent adenopathy and adenopathy also present in the celiac region in the upper abdomen. Destructive process involving T11. Bilateral ureteral stents in place. Guzman Alcaraz MD Objective Remarks AAOx3 lungs clear BL abdomen soft, NT, ND S1S2 RRR, no MRG no edema in lower extremities Medications and IVs Current Medications Medications (Trade) Dose Ordered Sig/Stuart Route Start Time Stop Time Status Last Admin (NS Flush) 2 ml UNSCH PRN IV FLUSH 05/02/17 15:30 05/09/17 05:30 (NS Flush) 2 ml BID IV FLUSH 05/02/17 21:00 05/10/17 19:48 (Tylenol) 650 mg Q4H PRN PO 05/02/17 15:30 (Zofran Inj) 4 mg Q6H PRN IVP 05/02/17 15:30 (Narcan Inj) 0.4 mg UNSCH PRN IV PUSH 05/02/17 15:30 (Ninfa-Colace) 1 tab BID PO 05/02/17 21:00 05/07/17 09:49 (Milk Of Magnesia Liq) 30 ml Q12H PRN PO 05/02/17 15:30 (Senokot) 17.2 mg Q12H PRN PO 05/02/17 15:30 (Dulcolax Supp) 10 mg DAILY PRN RECTAL 05/02/17 15:30 (Lactulose Liq) 30 ml DAILY PRN PO 05/02/17 15:30 (Aspirin Chew) 81 mg DAILY CHEW 05/03/17 09:00 05/11/17 08:55 (Vitamin B6) 100 mg DAILY PO 05/03/17 09:00 05/11/17 08:54 (Pravachol) 40 mg DAILY PO 05/03/17 09:00 05/11/17 08:54 (Mucinex Er) 600 mg BID PO 05/02/17 21:00 05/11/17 08:54 (Mycostatin Liq) 5 ml QID SWISH-SWAL 05/02/17 18:00 05/11/17 08:54 (Heparin Inj) 5,000 units Q12HR SQ 05/02/17 21:00 05/11/17 08:56 (Habitrol 21 Mg Patch.24 Hr) 1 patch DAILY T-DERMAL 05/04/17 09:00 05/11/17 08:56 Miscellaneous Information 1 HS T-DERMAL 05/04/17 21:00 05/10/17 21:00 (Microzide) 12.5 mg DAILY PO 05/04/17 10:30 Future Hold 05/10/17 08:00 (Prinivil) 10 mg DAILY PO 05/04/17 10:30 Future Hold 05/10/17 08:00 (Zyloprim) 300 mg DAILY PO 05/05/17 09:00 05/11/17 08:54 Ceftriaxone Sodium 1000 mg/ Sodium Chloride 100 ml @ 200 mls/hr Q24H IV 05/06/17 05:00 05/11/17 04:00 (Morphine Inj) 2 mg Q2HR PRN IV PUSH 05/07/17 13:30 05/10/17 17:18 (Roxicodone) 10 mg Q4H PRN PO 05/07/17 13:30 05/11/17 06:55 (Oramorph Sr) 15 mg Q8HR PO 05/08/17 14:00 05/11/17 05:00 (Effer-K Eff) 25 meq DAILY PO 05/10/17 09:00 05/11/17 08:54 (Flomax) 0.4 mg DAILY PO 05/09/17 10:15 05/11/17 08:55 Filgrastim 300 mcg/Dextrose 25 ml @ 100 mls/hr DAILY@14 IV 05/11/17 14:00 (Imodium) 2 mg Q4H PRN PO 05/11/17 11:15 A/P Problem List: (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 --05/06: D2 EPOCH. tolerating chemo. no adverse effects. replace potassium. --05/07: D3 EPOCH. continue chemo. resume prednisone BID dosing. --05/08: D4 EPOCH to start this afternoon. will complete chemotherapy tomorrow. --05/09: D5--will complete EPOCH 4th bag this evening and give Cytoxan this evening. --05/09: D6--chemotherapy complete. 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 --first presented with bulky adenopathy, treated with Rituxan and bendamustine without clear response. --then switched to Ibrutinib with very good response. neck and axillary adenopathy are no longer palpable. --recently developed a large mass in retroperitoneum extending from the lower pole of left kidney down along the iliopsoas muscle to the pelvis, measured at least 10 cm. 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 --plan was to treat him with Revlimid along with R-CHOP. was supposed to start chemotherapy at the clinic but was too weak. (3) UTI (urinary tract infection) ICD Code: N39.0 - Urinary tract infection, site not specified Status: Acute Plan: Continue IV Rocephin. Urine culture negative. 05/11 DC IV Rocephin. Sp treatment x 5 days and culture negative. (4) History of urethral stent ICD Code: Z98.890 - Other specified postprocedural states Status: Acute Plan: Urology consulted. Continue Baugh catheter. (5) Low back pain ICD Code: M54.5 - Low back pain Plan: Likely due to metastatic disease. Continue Morphine SR and Morphine IV Will prescribe K thermia. MRI shows destructive process at the level of L2 extending into the pedicles. Neurosurgery consulted - awaiting recommendations. (6) Hypokalemia ICD Code: E87.6 - Hypokalemia Status: Acute Plan: Replace K orally and continue to monitor BMP. K 3.0 (7) Hyponatremia ICD Code: E87.1 - Hypo-osmolality and hyponatremia Status: Resolved Plan: Resolved, monitor BMP. (8) Hypotension ICD Code: I95.9 - Hypotension, unspecified Plan: Due to diarrhea, hold antihypertensive medications, Agree with fluid bolus. Continue to monitor vital signs. (9) Diarrhea ICD Code: R19.7 - Diarrhea, unspecified Plan: C diff negative, likely secondary to chemotherapy. Will Rx Imodium and Lactobacillus Acidophilus. Assessment and Plan DVT prophylaxis - heparin SQ GI prophylaxis: Discharge Planning Patient to start Radiotherapy next week. Problem Qualifiers (1) Low back pain: Qualified Codes: M54.5 - Low back pain (2) Diarrhea: Qualified Codes: R19.7 - Diarrhea, unspecified Javier Edouard MD May 11, 2017 11:07
--- NOTE | 2017-05-11 11:14 | PD.ONC.PN ---
Subjective Subjective Remarks Afebrile overnight. Patient reporting he overdid it with physical therapy yesterday. Now having increased pain in back and especially right hip. Objective Data Date Time Temp Pulse Resp B/P (MAP) Pulse Ox O2 Delivery O2 Flow Rate FiO2 05/11/17 08:45 98.1 82 16 87/47 (60) 95 05/11/17 03:58 98.1 77 18 101/57 (72) 94 05/11/17 00:56 98.1 73 18 107/63 (78) 99 05/10/17 20:00 97.8 77 18 103/60 (74) 100 05/10/17 19:00 Room Air 05/10/17 18:02 Room Air 05/10/17 17:25 97.7 70 18 102/62 (75) 100 05/10/17 11:48 98.1 86 18 106/60 (75) 98 05/11/17 05/11/17 05/11/17 07:00 15:00 23:00 Intake Total 820 ml Output Total 927 ml Balance -107 ml Result Diagram: 05/11/17 0459 05/11/17 0459 Laboratory Results Laboratory Tests Test 05/11/17 04:59 05/11/17 05:56 White Blood Count 5.5 TH/MM3 Red Blood Count 3.66 MIL/MM3 Hemoglobin 10.6 GM/DL Hematocrit 31.8 % Mean Corpuscular Volume 86.9 FL Mean Corpuscular Hemoglobin 28.8 PG Mean Corpuscular Hemoglobin Concent 33.2 % Red Cell Distribution Width 14.2 % Platelet Count 105 TH/MM3 Mean Platelet Volume 7.6 FL Blood Urea Nitrogen 29 MG/DL Creatinine 0.65 MG/DL Random Glucose 77 MG/DL Calcium Level 8.2 MG/DL Sodium Level 137 MEQ/L Potassium Level 3.0 MEQ/L Chloride Level 99 MEQ/L Carbon Dioxide Level 31.7 MEQ/L Anion Gap 6 MEQ/L Estimat Glomerular Filtration Rate 120 ML/MIN Stool C. difficile Toxin (PCR) NEGATIVE Stl C. difficile Toxin Epiderm 027 PRESUMPTIVE NEGATIVE Administered Medications Medications (Trade) Dose Ordered Sig/Stuart Route PRN Reason Start Time Stop Time Status Last Admin Dose Admin Sodium Chloride (NS Flush) 2 ml UNSCH PRN IV FLUSH FLUSH AFTER USING IV ACCESS 05/02/17 15:30 05/09/17 05:30 Sodium Chloride (NS Flush) 2 ml BID IV FLUSH 05/02/17 21:00 05/10/17 19:48 Senna/Docusate Sodium (Ninfa-Colace) 1 tab BID PO 05/02/17 21:00 05/07/17 09:49 Aspirin (Aspirin Chew) 81 mg DAILY CHEW 05/03/17 09:00 05/11/17 08:55 Pyridoxine HCl (Vitamin B6) 100 mg DAILY PO 05/03/17 09:00 05/11/17 08:54 Pravastatin Sodium (Pravachol) 40 mg DAILY PO 05/03/17 09:00 05/11/17 08:54 Guaifenesin (Mucinex Er) 600 mg BID PO 05/02/17 21:00 05/11/17 08:54 Nystatin (Mycostatin Liq) 5 ml QID SWISH-SWAL 05/02/17 18:00 05/11/17 08:54 Heparin Sodium (Porcine) (Heparin Inj) 5,000 units Q12HR SQ 05/02/17 21:00 05/11/17 08:56 Nicotine (Habitrol 21 Mg Patch.24 Hr) 1 patch DAILY T-DERMAL 05/04/17 09:00 05/11/17 08:56 Miscellaneous Information 1 HS T-DERMAL 05/04/17 21:00 05/10/17 21:00 Hydrochlorothiazide (Microzide) 12.5 mg DAILY PO 05/04/17 10:30 05/10/17 08:00 Lisinopril (Prinivil) 10 mg DAILY PO 05/04/17 10:30 05/10/17 08:00 Allopurinol (Zyloprim) 300 mg DAILY PO 05/05/17 09:00 05/11/17 08:54 Ceftriaxone Sodium 1000 mg/ Sodium Chloride 100 ml @ 200 mls/hr Q24H IV 05/06/17 05:00 05/11/17 04:00 Morphine Sulfate (Morphine Inj) 2 mg Q2HR PRN IV PUSH SEVERE BREAKTHROUGH PAIN 05/07/17 13:30 05/10/17 17:18 Oxycodone HCl (Roxicodone) 10 mg Q4H PRN PO PAIN 1-10 05/07/17 13:30 05/11/17 06:55 Morphine Sulfate (Oramorph Sr) 15 mg Q8HR PO 05/08/17 14:00 05/11/17 05:00 Potassium Bicarbonate (Effer-K Eff) 25 meq DAILY PO 05/10/17 09:00 05/11/17 08:54 Tamsulosin HCl (Flomax) 0.4 mg DAILY PO 05/09/17 10:15 05/11/17 08:55 Objective Remarks GENERAL: Elderly male upright in bed, working on bills with last scourer at bedside. SKIN: Warm and dry. scattered ecchymoses all extremities. HEAD: Normocephalic. EYES: No injection or drainage. NECK: Supple, trachea midline. CARDIOVASCULAR: Regular rate and rhythm RESPIRATORY: Breath sounds equal bilaterally. No accessory muscle use. GASTROINTESTINAL: Abdomen soft, non-tender, nondistended. EXTREMITIES: No cyanosis. no ecchymoses noted along right hip. no crepitus. mild tenderness to palpation. NEUROLOGICAL: awake and alert, normal speech. 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 --05/06: D2 EPOCH. tolerating chemo. no adverse effects. replace potassium. --05/07: D3 EPOCH. continue chemo. resume prednisone BID dosing. --05/08: D4 EPOCH to start this afternoon. will complete chemotherapy tomorrow. --05/09: D5--will complete EPOCH 4th bag this evening and give Cytoxan this evening. --05/09: D6--chemotherapy complete. 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 --first presented with bulky adenopathy, treated with Rituxan and bendamustine without clear response. --then switched to Ibrutinib with very good response. neck and axillary adenopathy are no longer palpable. --recently developed a large mass in retroperitoneum extending from the lower pole of left kidney down along the iliopsoas muscle to the pelvis, measured at least 10 cm. 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 --plan was to treat him with Revlimid along with R-CHOP. was supposed to start chemotherapy at the clinic but was too weak. (4) Flank pain ICD Codes: R10.9 - Unspecified abdominal pain Plan: --on PRN IV morphine and PRN Oxycodone, --long acting morphine started on 05/07 -- Abdominal pain and flank pain due to the large retroperitoneal mass encroaching the iliopsoas muscle. -- Lesion noted on T11 that may be able to get kyphoplasty -- s/p simulation 05/04. awaiting start of radiation-->most likely will start the week of 05/14 (5) History of urethral stent ICD Codes: Z98.890 - Other specified postprocedural states Status: Acute Plan: --had a urethral stent placement for hydronephrosis on 05/01 --urine culture negative. --currently on antibiotics per urology recommendations --mcmillan catheter in place. last seen by urology on 05/09. recommends: Maintain mcmillan for now. Void trial when he is up and ambulating; --on Flomax Assessment 76-year-old male with chronic lymphocytic leukemia/lymphoma, admitted with abdominal pain and back pain and a urinary tract infection. h/o Arthritis. Chronic lymphocytic leukemia. Hyperlipidemia. Hypertension. Temporal arteritis. COPD. DVT prophylaxis: Heparin 5000U SQ q 12 Plan 1. continue Oramorph 15mg PO TID + Oxycodone for breakthrough pain 2. XRT planned for starting early next week--hopefully Sunday. 3. check XR right hip Attending Statement The exam, history, and the medical decision-making described in the above note were completed with the assistance of the mid-level provider. I reviewed and agree with the findings presented. I attest that I had a [id number] encounter with the patient on the same day, and personally performed and documented my assessment and findings in the medical record. He c/o of pain this morning and stated that he did too much with PT yesterday. Continue to titrate pain meds. Blood counts beginning to trend lower, start neupogen. He will start XRT on Sunday per . Problem Qualifiers (1) Dyspnea: Qualified Codes: R06.02 - Shortness of breath Karen Pinto May 11, 2017 11:14 Aaron Montalvo MD May 11, 2017 16:30
[2017-05-11] MEDS ORDERED: LOPERAMIDE HCL 2 MG CAP PO ONE (11:30)
[2017-05-11 12:39] LABS: APTT (PATIENT) 26.1 SEC (24.3-30.1); PROTHROMBIN TIME - PATIENT 11.4 SEC (9.8-11.6)
[2017-05-11] MEDS: LACTOBACILLUS ACIDOPHILUS 1 GM PACKET PO SCH ×2 (13:00→18:00)
[2017-05-11] MEDS: DEXAMETHASONE 4 MG TAB PO SCH ×3 (14:00→21:35)
[2017-05-11] MEDS ORDERED: FILGRASTIM INJ 300 MCG in DEXTROSE 5% IN WATER INJ 24 ML IV SCH ×2 (14:00)
[2017-05-11] MEDS: PANTOPRAZOLE SOD 40 MG DELAYED RELEASE TAB PO SCH (14:00)
[2017-05-11] MEDS ORDERED: NS + KCL 20 MEQ INJ 1,000 ML IV SCH (15:00)
[2017-05-11] MEDS ORDERED: FILGRASTIM INJ 480 MCG in DEXTROSE 5% IN WATER INJ 48.4 ML IV ONE ×2 (16:00)
--- NOTE | 2017-05-11 17:08 | RADRPT ---
EXAM DATE/TIME: 05/11/2017 16:52 [facility] COMPARISON: No previous studies available for comparison. INDICATIONS : Right hip pain after working out yesterday with no known injury MEDICAL HISTORY : None. SURGICAL HISTORY : None. ENCOUNTER: Initial ACUITY: 1 day PAIN SCORE: 8/10 LOCATION: Right entire hip FINDINGS: 3 views of the pelvis and right hip show joint space narrowing with periarticular sclerotic change an d osteophyte production involving both hips. No femoral head flattening or subchondral geode formatio n. No fracture or dislocation. Soft tissues are unremarkable. Bilateral double-J stents. Gas distende d loops of small bowel. Atherosclerotic calcifications. CONCLUSION: 1. No acute abnormality. 2. Bilateral hip osteoarthritis. 3. Mildly distended loops of gas-filled small bowel. Rakesh Farnsworth Jr., MD on May 11, 2017 at 17:01 Board Certified Radiologist. This report was verified electronically.
[2017-05-11] MEDS: REMOVE OLD PATCH T-DERMAL SCH (21:37)
[2017-05-12] VITALS: BP 112/57; PULSE 85; RESP 19; TEMP 98; O2SAT 92
[2017-05-12 04:00] VITALS: BP 120/64; PULSE 67; RESP 18; TEMP 98.3; O2SAT 95
[2017-05-12] MEDS: MORPHINE SULFATE 15 MG CONTROLLED RELEASE TAB PO SCH ×3 (05:39→21:03)
[2017-05-12] MEDS: DEXAMETHASONE 4 MG TAB PO SCH ×3 (05:39→21:02)
[2017-05-12] MEDS: cefTRIAXone INJ 1,000 MG in SODIUM CHLORIDE 0.9% INJ 100 ML IV SCH (05:39)
[2017-05-12 07:18] LABS: AUTOMATED NEUTROPHIL # 1.9 TH/MM3 (1.8-7.7); BASOPHIL % 0.2 % (0.0-2.0); EOSINOPHIL # 0.1 TH/MM3 (0-0.4); EOSINOPHIL % 1.6 % (0.0-4.0); HEMATOCRIT 30.3 % (39.0-51.0); LYMPH % 51.7 % (9.0-44.0); LYMPHOCYTE # 2.1 TH/MM3 (1.0-4.8); MEAN CORPUSCULAR HEMOGLOBIN 28.9 PG (27.0-34.0); MEAN CORPUSCULAR HGB CONC 33.6 % (32.0-36.0); MONO % 0.1 % (0.0-8.0); NEUT % 46.4 % (16.0-70.0); PLATELET COUNT 67 TH/MM3 (150-450); RED BLOOD COUNT 3.52 MIL/MM3 (4.50-5.90); RED CELL DISTRIBUTION WIDTH 14.3 % (11.6-17.2)
[2017-05-12 07:20] LABS: HEMO FLAGS AUTO DIFF
[2017-05-12 07:41] LABS: ALT (GPT) 29 U/L (12-78); ANION GAP 5 MEQ/L (5-15); AST (GOT) 23 U/L (15-37); BICARBONATE 31.4 MEQ/L (21.0-32.0); BLOOD UREA NITROGEN 23 MG/DL (7-18); CHLORIDE 101 MEQ/L (98-107); GLOMERULAR FILTRATION RATE 142 ML/MIN (>89); POTASSIUM 3.6 MEQ/L (3.5-5.1); SODIUM (NA) 137 MEQ/L (136-145)
[2017-05-12 07:43] LABS: ALKALINE PHOSPHATASE 58 U/L (45-117); TOTAL BILIRUBIN ADULT 0.3 MG/DL (0.2-1.0)
[2017-05-12 08:00] VITALS: BP 123/60; PULSE 76; RESP 18; TEMP 98; O2SAT 96
[2017-05-12] MEDS: NICOTINE 21 MG/24 HR PATCH T-DERMAL SCH (09:04)
[2017-05-12] MEDS: TAMSULOSIN HCL 0.4 MG CAP PO SCH (09:05)
[2017-05-12] MEDS: guaiFENesin E.R. 600 MG TAB PO SCH ×2 (09:05→21:02)
[2017-05-12] MEDS: PRAVASTATIN SOD 40 MG TAB PO SCH (09:05)
[2017-05-12] MEDS: ASPIRIN 81 MG CHEW TAB CHEW SCH (09:05)
[2017-05-12] MEDS: PANTOPRAZOLE SOD 40 MG DELAYED RELEASE TAB PO SCH (09:05)
[2017-05-12] MEDS: DOCUSATE SODIUM 50 MG/SENNA 8.6 MG TAB PO SCH ×2 (09:05→21:00)
[2017-05-12] MEDS: POTASSIUM BICARBONATE 25 MEQ EFFERVESCENT TAB PO SCH (09:05)
[2017-05-12] MEDS: PYRIDOXINE HCL 50 MG TAB PO SCH (09:05)
[2017-05-12] MEDS: ALLOPURINOL 300 MG TAB PO SCH (09:06)
[2017-05-12] MEDS: SODIUM CHLORIDE 0.9% FLUSH 10 ML FLUSH IV FLUSH SCH ×2 (09:06→21:01)
[2017-05-12] MEDS: NYSTATIN SUSP 500,000 U/5 ML CUP SWISH-SWAL SCH ×4 (09:06→21:04)
[2017-05-12 09:07] LABS: BANDS 4 % (0-6); BASOPHILS 1 % (0-2); NEUTROPHIL # MANUAL DIFF 1.2 TH/MM3 (1.8-7.7); PLATELET ESTIMATE SMEAR LOW (NORMAL); PLATELET MORPHOLOGY NORMAL (NORMAL); POLYS (SEG NEUTROPHILS) 26 % (16-70); SCAN/DIFF FINAL DIFF MANUAL; WBC DIFF SAMPLE 100
[2017-05-12 09:08] LABS: SMUDGE CELLS PRESENT PRESENT
[2017-05-12 09:09] LABS: OVALOCYTES 1+ (NORMAL)
--- NOTE | 2017-05-12 10:39 | PD.ONC.PN ---
Subjective Subjective Remarks Afebrile "I feel like my legs are getting stronger" Ready to start XRT on Sunday Objective Data Date Time Temp Pulse Resp B/P (MAP) Pulse Ox O2 Delivery O2 Flow Rate FiO2 05/12/17 08:00 95 Nasal Cannula 2.00 05/12/17 08:00 98.0 76 18 123/60 (81) 96 05/12/17 04:00 98.3 67 18 120/64 (82) 95 05/12/17 00:00 98.0 85 19 112/57 (75) 92 05/11/17 20:12 95 Nasal Cannula 2.00 05/11/17 20:00 99.0 82 19 113/53 (73) 95 05/11/17 16:21 98.7 88 18 119/58 (78) 97 05/11/17 13:21 110/53 (72) 05/11/17 11:50 97.7 111 16 82/41 (55) 94 05/12/17 05/12/17 05/12/17 07:00 15:00 23:00 Output Total 1575 ml Balance -1575 ml Result Diagram: 05/12/17 0530 05/12/1730 Laboratory Results Laboratory Tests Test 05/11/17 11:48 05/12/17 05:30 05/12/17 09:19 Prothrombin Time 11.4 SEC Prothromb Time International Ratio 1.0 RATIO Activated Partial Thromboplast Time 26.1 SEC Fibrinogen 174 mg/dL White Blood Count 4.0 TH/MM3 Red Blood Count 3.52 MIL/MM3 Hemoglobin 10.2 GM/DL Hematocrit 30.3 % Mean Corpuscular Volume 86.0 FL Mean Corpuscular Hemoglobin 28.9 PG Mean Corpuscular Hemoglobin Concent 33.6 % Red Cell Distribution Width 14.3 % Platelet Count 67 TH/MM3 Mean Platelet Volume 8.3 FL Neutrophils (%) (Auto) 46.4 % Lymphocytes (%) (Auto) 51.7 % Monocytes (%) (Auto) 0.1 % Eosinophils (%) (Auto) 1.6 % Basophils (%) (Auto) 0.2 % Neutrophils # (Auto) 1.9 TH/MM3 Lymphocytes # (Auto) 2.1 TH/MM3 Monocytes # (Auto) 0.0 TH/MM3 Eosinophils # (Auto) 0.1 TH/MM3 Basophils # (Auto) 0.0 TH/MM3 CBC Comment AUTO DIFF Differential Total Cells Counted 100 Neutrophils % (Manual) 26 % Band Neutrophils % 4 % Lymphocytes % 67 % Monocytes % 2 % Basophils % 1 % Neutrophils # (Manual) 1.2 TH/MM3 Differential Comment FINAL DIFF MANUAL Smudge Cells PRESENT Platelet Estimate LOW Platelet Morphology Comment NORMAL Ovalocytes 1+ Blood Urea Nitrogen 23 MG/DL Creatinine 0.56 MG/DL Random Glucose 100 MG/DL Total Protein 4.5 GM/DL Albumin 2.1 GM/DL Calcium Level 7.5 MG/DL Alkaline Phosphatase 58 U/L Aspartate Amino Transf (AST/SGOT) 23 U/L Alanine Aminotransferase (ALT/SGPT) 29 U/L Total Bilirubin 0.3 MG/DL Sodium Level 137 MEQ/L Potassium Level 3.6 MEQ/L Chloride Level 101 MEQ/L Carbon Dioxide Level 31.4 MEQ/L Anion Gap 5 MEQ/L Estimat Glomerular Filtration Rate 142 ML/MIN Administered Medications Medications (Trade) Dose Ordered Sig/Stuart Route PRN Reason Start Time Stop Time Status Last Admin Dose Admin Sodium Chloride (NS Flush) 2 ml UNSCH PRN IV FLUSH FLUSH AFTER USING IV ACCESS 05/02/17 15:30 05/09/17 05:30 Sodium Chloride (NS Flush) 2 ml BID IV FLUSH 05/02/17 21:00 05/12/17 09:06 Senna/Docusate Sodium (Ninfa-Colace) 1 tab BID PO 05/02/17 21:00 05/12/17 09:05 Aspirin (Aspirin Chew) 81 mg DAILY CHEW 05/03/17 09:00 05/12/17 09:05 Pyridoxine HCl (Vitamin B6) 100 mg DAILY PO 05/03/17 09:00 05/12/17 09:05 Pravastatin Sodium (Pravachol) 40 mg DAILY PO 05/03/17 09:00 05/12/17 09:05 Guaifenesin (Mucinex Er) 600 mg BID PO 05/02/17 21:00 05/12/17 09:05 Nystatin (Mycostatin Liq) 5 ml QID SWISH-SWAL 05/02/17 18:00 05/12/17 09:06 Heparin Sodium (Porcine) (Heparin Inj) 5,000 units Q12HR SQ 05/02/17 21:00 Future Hold 05/11/17 21:34 Nicotine (Habitrol 21 Mg Patch.24 Hr) 1 patch DAILY T-DERMAL 05/04/17 09:00 05/12/17 09:04 Miscellaneous Information 1 HS T-DERMAL 05/04/17 21:00 05/11/17 21:37 Hydrochlorothiazide (Microzide) 12.5 mg DAILY PO 05/04/17 10:30 Future Hold 05/10/17 08:00 Lisinopril (Prinivil) 10 mg DAILY PO 05/04/17 10:30 Future Hold 05/10/17 08:00 Allopurinol (Zyloprim) 300 mg DAILY PO 05/05/17 09:00 05/12/17 09:06 Ceftriaxone Sodium 1000 mg/ Sodium Chloride 100 ml @ 200 mls/hr Q24H IV 05/06/17 05:00 05/12/17 05:39 Morphine Sulfate (Morphine Inj) 2 mg Q2HR PRN IV PUSH SEVERE BREAKTHROUGH PAIN 05/07/17 13:30 05/10/17 17:18 Oxycodone HCl (Roxicodone) 10 mg Q4H PRN PO PAIN 1-10 05/07/17 13:30 05/12/17 09:29 Morphine Sulfate (Oramorph Sr) 15 mg Q8HR PO 05/08/17 14:00 05/12/17 05:39 Potassium Bicarbonate (Effer-K Eff) 25 meq DAILY PO 05/10/17 09:00 05/12/17 09:05 Tamsulosin HCl (Flomax) 0.4 mg DAILY PO 05/09/17 10:15 05/12/17 09:05 Lactobacillus Acidophilus (Lactinex Pkt) 1 gm TID PO 05/11/17 13:00 05/11/17 18:00 Dexamethasone (Decadron) 4 mg Q8HR PO 05/11/17 14:00 05/12/17 05:39 Pantoprazole Sodium (Protonix) 40 mg DAILY PO 05/11/17 14:00 05/12/17 09:05 Potassium Chloride/Sodium Chloride 1,000 ml @ 42 mls/hr [id number] IV 05/11/17 15:00 05/12/17 14:48 05/11/17 16:30 Objective Remarks GENERAL: Elderly male, resting in bed watching TV in no acute distress. SKIN: Warm and dry. Ecchymoses to BLE. Appears to have a tinea corporis to L cheek. HEAD: Normocephalic. EYES: No injection or drainage. CARDIOVASCULAR: +S1/S2. RESPIRATORY: Breath sounds equal bilaterally. No accessory muscle use. GASTROINTESTINAL: Abdomen soft, non-tender, nondistended. EXTREMITIES: No cyanosis, or edema. MUSCULOSKELETAL: Adequate muscle tone. NEUROLOGICAL: Moving all extremities. Normal speech. No obvious focal deficit. PSYCHIATRIC: Appropriate mood and affect; insight and judgment normal. Assessment/Plan Assessment 76-year-old male with chronic lymphocytic leukemia/lymphoma, admitted with abdominal pain and back pain and a urinary tract infection. Plan 1. Pt had chemotherapy with R-EPOCH from 05/05 to 05/09. It is noted that his counts are starting to drop. Will stop prophylactic heparin. Continue Neupogen as counts are expected to drop further. 2. Neurosurgery has evaluated him for a destructive process on L2. He is on Decadron 4mg Q8. Would recommend weaning this down as early as feasibly possible. 3. The pt will be getting XRT to T11 and L2 destructive lesions beginning on Sunday. This will take some time but will alleviate some of his back pain. 4. Overall his spirits are good; it is anticipated he will be able to be discharged once he is stronger. Attending Statement The exam, history, and the medical decision-making described in the above note were completed with the assistance of the mid-level provider. I reviewed and agree with the findings presented. I attest that I had a [id number] encounter with the patient on the same day, and personally performed and documented my assessment and findings in the medical record. patient doing well. may have early thrush and will reevaluate in am. leg strength much better and would like to wean or stop steroids when neurosurgery feels appropriate due to risk of infection. will continue neupogen and anticipate counts will fall soon. stop aspirin with falling platelet counts. Lyla Villaseñor May 12, 2017 10:39 Jamie Mojica MD May 12, 2017 10:50
[2017-05-12 12:00] VITALS: BP 116/60; PULSE 71; RESP 18; TEMP 98.1; O2SAT 97
[2017-05-12] MEDS: LACTOBACILLUS ACIDOPHILUS 1 GM PACKET PO SCH ×3 (12:35→17:33)
[2017-05-12] MEDS: FILGRASTIM INJ 480 MCG in DEXTROSE 5% IN WATER INJ 48.4 ML IV SCH ×2 (12:51)
--- NOTE | 2017-05-12 14:13 | HHI.NSPN ---
Labs, Micro, & Vital Signs Results Date Time Temp Pulse Resp B/P (MAP) Pulse Ox O2 Delivery O2 Flow Rate FiO2 05/12/17 14:02 20 05/12/17 12:00 98.1 71 18 116/60 (78) 97 05/12/17 10:37 18 05/12/17 08:00 95 Nasal Cannula 2.00 05/12/17 08:00 98.0 76 18 123/60 (81) 96 05/12/17 04:00 98.3 67 18 120/64 (82) 95 05/12/17 00:00 98.0 85 19 112/57 (75) 92 05/11/17 20:12 95 Nasal Cannula 2.00 05/11/17 20:00 99.0 82 19 113/53 (73) 95 05/11/17 16:21 98.7 88 18 119/58 (78) 97 Constitutional Vital Signs Date Time Temp Pulse Resp B/P (MAP) Pulse Ox O2 Delivery O2 Flow Rate FiO2 05/12/17 14:02 20 05/12/17 12:00 98.1 71 18 116/60 (78) 97 05/12/17 10:37 18 05/12/17 08:00 95 Nasal Cannula 2.00 05/12/17 08:00 98.0 76 18 123/60 (81) 96 05/12/17 04:00 98.3 67 18 120/64 (82) 95 05/12/17 00:00 98.0 85 19 112/57 (75) 92 05/11/17 20:12 95 Nasal Cannula 2.00 05/11/17 20:00 99.0 82 19 113/53 (73) 95 05/11/17 16:21 98.7 88 18 119/58 (78) 97 Medications Current Medications Current Medications Sodium Chloride (NS Flush) 2 ml UNSCH PRN IVF FLUSH AFTER USING IV ACCESS; Start 05/02/17 at 11:00; Stop 05/02/17 at 16:02; Status DC Piperacillin Sod/ Tazobactam Sod 100 ml @ 200 mls/hr ONCE STAT IV Last administered on 05/02/17 12:10; Start 05/02/17 at 12:10; Stop 05/02/17 at 12 :39; Status DC Sodium Chloride 500 ml @ 500 mls/hr BOLUS ONCE IV Last administered on 12:30; Start 05/02/17 at 12:30; Stop 05/02/17 at 13:29; Status DC Sodium Chloride 1,000 ml @ 100 mls/hr Q10H IV Last administered on 05/05/17 04:52; Start 05/02/17 at 17:00; Stop 05/05/17 at 12:21; Status DC Sodium Chloride (NS Flush) 2 ml UNSCH PRN IV FLUSH FLUSH AFTER USING IV ACCESS Last administered on 05/09/17 05:30; Start 05/02/17 at 15:30 Sodium Chloride (NS Flush) 2 ml BID IV FLUSH Last administered on 05/13/17 13 :54; Start 05/02/17 at 21:00 Acetaminophen (Tylenol) 650 mg Q4H PRN PO TEMP > 100.4; Start 05/02/17 at 15: 30 Ondansetron HCl (Zofran Inj) 4 mg Q6H PRN IVP NAUSEA OR VOMITING; Start at 15:30 Naloxone HCl (Narcan Inj) 0.4 mg UNSCH PRN IV PUSH SEE LABEL COMMENTS; Start 05/02/17 at 15:30 Senna/Docusate Sodium (Ninfa-Colace) 1 tab BID PO Last administered on 09:05; Start 05/02/17 at 21:00 Magnesium Hydroxide (Milk Of Magnesia Liq) 30 ml Q12H PRN PO MILD - MODERATE CONSTIPATION; Start 05/02/17 at 15:30 Sennosides (Senokot) 17.2 mg Q12H PRN PO MODERATE - SEVERE CONSTIPATION; Start 05/02/17 at 15:30 Bisacodyl (Dulcolax Supp) 10 mg DAILY PRN RECTAL SEVERE CONSITIPATION; Start 05/02/17 at 15:30 Lactulose (Lactulose Liq) 30 ml DAILY PRN PO SEVERE CONSITIPATION; Start 05/02 at 15:30 Aspirin (Aspirin Chew) 81 mg DAILY CHEW Last administered on 05/12/17 09:05; Start 05/03/17 at 09:00; Stop 05/12/17 at 10:48; Status DC Acetaminophen/ Hydrocodone Bitart ([place] 7.5-325 Mg) 1 tab Q6H PRN PO PAIN Last administered on 05/03/17 23:28; Start 05/02/17 at 15:30; Stop 05/04/17 at 08:49; Status DC Pyridoxine HCl (Vitamin B6) 100 mg DAILY PO Last administered on 05/13/17 08: 16; Start 05/03/17 at 09:00 Pravastatin Sodium (Pravachol) 40 mg DAILY PO Last administered on 05/13/17 08:16; Start 05/03/17 at 09:00 Ceftriaxone Sodium 1000 mg/ Sodium Chloride 100 ml @ 200 mls/hr Q24H IV Last administered on 05/05/17 04:50; Start 05/02/17 at 17:00; Stop 05/05/17 at 17 :44; Status DC Potassium Chloride (KCl) 40 meq ONCE ONCE PO ; Start 05/02/17 at 16:15; Stop 05/02/17 at 16:16; Status DC Sodium Chloride 500 ml @ 500 mls/hr BOLUS ONCE IV Last administered on 18:40; Start 05/02/17 at 16:30; Stop 05/02/17 at 17:29; Status DC Albuterol/ Ipratropium (Duoneb Neb) 1 ampule Q4HR NEB NEB Last administered on 05/06/17 15:44; Start 05/02/17 at 16:00; Stop 05/06/17 at 15:59; Status DC Guaifenesin (Mucinex Er) 600 mg BID PO Last administered on 05/13/17 08:16; Start 05/02/17 at 21:00 Magnesium Sulfate/ Dextrose 100 ml @ 100 mls/hr Q1H IV ; Start 05/02/17 at 17: 00; Stop 05/02/17 at 17:59; Status DC Nystatin (Mycostatin Liq) 5 ml QID SWISH-SWAL Last administered on 05/13/17 16:38; Start 05/02/17 at 18:00 Heparin Sodium (Porcine) (Heparin Inj) 5,000 units Q12HR SQ Last administered on 05/11/17 21:34; Start 05/02/17 at 21:00; Stop 05/12/17 at 10:47; Status DC Diatrizoate Meglum/ Diatrizoate Sod (Md Cates Liyulissa) 18 ml ONCE ONCE PO Last administered on 05/02/17 20:44; Start 05/02/17 at 19:30; Stop 05/02/17 at 19:31; Status DC Magnesium Sulfate/ Dextrose 100 ml @ 100 mls/hr Q1H IV Last administered on 23:36; Start 05/02/17 at 23:30; Stop 05/03/17 at 01:29; Status DC Potassium Bicarb/ Potassium Chloride (K-Lyte Cl Eff) 50 meq ONCE ONCE PO Last administered on 05/03/17 06:43; Start 05/03/17 at 06:45; Stop 05/03/17 at 06:46; Status DC Potassium Chloride (KCl Powder) 40 meq ONCE ONCE PO Last administered on 05/03 11:24; Start 05/03/17 at 08:45; Stop 05/03/17 at 09:43; Status DC Potassium Chloride (KCl Powder) 40 meq ONCE ONCE PO Last administered on 05/03 12:00; Start 05/03/17 at 12:00; Stop 05/03/17 at 12:01; Status DC Lorazepam (Ativan Inj) 1 mg ONCE ONCE IV PUSH Last administered on 05/03/17 11:59; Start 05/03/17 at 12:00; Stop 05/03/17 at 12:01; Status DC Morphine Sulfate (Morphine Inj) 2 mg Q4H PRN IV PAIN GREATER THAN 8 Last administered on 05/04/17 08:19; Start 05/03/17 at 12:00; Stop 05/04/17 at 08 :48; Status DC Dexamethasone (Decadron) 40 mg DAILY PO Last administered on 05/05/17 08:36; Start 05/04/17 at 09:00; Stop 05/06/17 at 10:18; Status DC Potassium Chloride (KCl) 40 meq ONCE ONCE PO Last administered on 05/04/17 09:51; Start 05/04/17 at 08:30; Stop 05/04/17 at 09:14; Status DC Nicotine (Habitrol 14 Mg Patch.24 Hr) 1 patch DAILY T-DERMAL ; Start 05/04/17 at 09:00; Stop 05/04/17 at 09:00; Status DC Miscellaneous Information 1 DAILY T-DERMAL ; Start 05/04/17 at 09:00; Stop at 09:00; Status DC Nicotine (Habitrol 21 Mg Patch.24 Hr) 1 patch DAILY T-DERMAL Last administered on 05/13/17 08:16; Start 05/04/17 at 09:00 Miscellaneous Information 1 HS T-DERMAL Last administered on 05/12/17 21:00; Start 05/04/17 at 21:00 Morphine Sulfate (Morphine Inj) 2 mg Q2HR PRN IV PAIN SCALE 1 TO 5; Start at 09:00; Stop 05/07/17 at 13:32; Status DC Morphine Sulfate (Morphine Inj) 4 mg Q2HR PRN IV PUSH PAIN SCALE 6 TO 8 Last administered on 05/07/17 13:20; Start 05/04/17 at 08:45; Stop 05/07/17 at 13 :32; Status DC Morphine Sulfate (Morphine Inj) 2 mg ONCE ONCE IV PUSH Last administered on 09:52; Start 05/04/17 at 08:45; Stop 05/04/17 at 09:13; Status DC Hydrochlorothiazide (Microzide) 12.5 mg DAILY PO Last administered on 08:00; Start 05/04/17 at 10:30; Status Future Hold Lisinopril (Prinivil) 10 mg DAILY PO Last administered on 05/10/17 08:00; Start 05/04/17 at 10:30; Status Future Hold Morphine Sulfate (Morphine Inj) 6 mg Q4H PRN IV PUSH PAIN SCALE 9 TO 10; Start 05/04/17 at 15:00; Stop 05/07/17 at 13:17; Status DC Allopurinol (Zyloprim) 300 mg DAILY PO Last administered on 05/13/17 08:16; Start 05/05/17 at 09:00 Allopurinol (Zyloprim) 300 mg ONCE ONCE PO Last administered on 05/04/17 17: 06; Start 05/04/17 at 15:00; Stop 05/04/17 at 15:01; Status DC Acetaminophen (Tylenol) 650 mg ONCE ONCE PO Last administered on 05/04/17 17 :06; Start 05/04/17 at 15:30; Stop 05/04/17 at 15:31; Status DC Diphenhydramine HCl (Benadryl) 50 mg ONCE ONCE PO Last administered on 17:05; Start 05/04/17 at 15:30; Stop 05/04/17 at 15:31; Status DC Rituximab 667.5 mg/Sodium Chloride 566.75 ml @ 0 mls/hr ONCE ONCE IV Last administered on 05/04/17 18:28; Start 05/04/17 at 16:00; Stop 05/04/17 at 16 :01; Status DC Prednisone (Deltasone) 100 mg DAILY PO Last administered on 05/06/17 10:25; Start 05/05/17 at 09:00; Stop 05/07/17 at 08:41; Status DC Prednisone (Deltasone) 5 mg DAILY PO Last administered on 05/06/17 09:30; Start 05/05/17 at 09:00; Stop 05/07/17 at 08:42; Status DC Granisetron HCl (Kytril Inj) 1 mg DAILY@1030 IV Last administered on 20:46; Start 05/05/17 at 10:30; Stop 05/09/17 at 10:31; Status DC Dexamethasone Sodium Phosphate 20 mg/Sodium Chloride 55 ml @ 330 mls/hr DAILY@ 1030 IV Last administered on 05/05/17 11:18; Start 05/05/17 at 10:30; Stop 05/05/17 at 12:47; Status DC Etoposide 89 mg/ Doxorubicin HCl 17.8 mg/ Vincristine Sulfate 0.7 mg/ Sodium Chloride 514.05 ml @ 21.419 mls/hr DAILY@1100 IV Last administered on 21:45; Start 05/05/17 at 11:00; Stop 05/09/17 at 10:59; Status DC Cyclophosphamide 1335 mg/Sodium Chloride 570 ml @ 570 mls/hr DAILY@1100 ONCE IV Last administered on 05/09/17 22:32; Start 05/09/17 at 11:00; Stop 05/09 at 11:59; Status DC Ceftriaxone Sodium 1000 mg/ Sodium Chloride 100 ml @ 200 mls/hr Q24H IV Last administered on 05/13/17 05:35; Start 05/06/17 at 05:00; Stop 05/13/17 at 07 :20; Status DC Potassium Chloride (KCl) 40 meq ONCE ONCE PO Last administered on 05/06/17 09:30; Start 05/06/17 at 07:45; Stop 05/06/17 at 07:47; Status DC Oxycodone/ Acetaminophen (Percocet 5-325 Mg) 1 tab Q4H PRN PO PAIN 1-5; Start 05/06/17 at 11:15; Stop 05/07/17 at 13:32; Status DC Oxycodone/ Acetaminophen (Percocet 5-325 Mg) 2 tab Q4H PRN PO PAIN 6-10 Last administered on 05/07/17 09:51; Start 05/06/17 at 11:15; Stop 05/07/17 at 13 :32; Status DC Prednisone (Deltasone) 100 mg BID PO Last administered on 05/09/17 20:43; Start 05/07/17 at 09:00; Stop 05/09/17 at 21:01; Status DC Prednisone (Deltasone) 5 mg BID PO Last administered on 05/09/17 20:43; Start 05/07/17 at 09:00; Stop 05/09/17 at 21:01; Status DC Morphine Sulfate (Oramorph Sr) 15 mg Q12HR PO Last administered on 05/08/17 10:02; Start 05/07/17 at 21:00; Stop 05/08/17 at 10:52; Status DC Morphine Sulfate (Morphine Inj) 2 mg Q2HR PRN IV PUSH SEVERE BREAKTHROUGH PAIN Last administered on 05/10/17 17:18; Start 05/07/17 at 13:30 Oxycodone HCl (Roxicodone) 10 mg Q4H PRN PO PAIN 1-10 Last administered on 16:38; Start 05/07/17 at 13:30 Morphine Sulfate (Oramorph Sr) 15 mg Q8HR PO Last administered on 05/13/17 13 :54; Start 05/08/17 at 14:00 Potassium Bicarbonate (Effer-K Eff) 25 meq DAILY PO Last administered on 08:18; Start 05/10/17 at 09:00 Potassium Bicarbonate (Effer-K Eff) 50 meq ONCE ONCE PO Last administered on 05/09/17 16:05; Start 05/09/17 at 09:30; Stop 05/09/17 at 10:28; Status DC Tamsulosin HCl (Flomax) 0.4 mg DAILY PO Last administered on 05/13/17 08:17; Start 05/09/17 at 10:15 Filgrastim 300 mcg/Dextrose 25 ml @ 100 mls/hr DAILY@14 IV ; Start 05/11/17 at 14:00; Stop 05/11/17 at 15:54; Status DC Sodium Chloride 250 ml @ 250 mls/hr BOLUS ONCE IV Last administered on 09:45; Start 05/11/17 at 09:45; Stop 05/11/17 at 10:44; Status DC Loperamide HCl (Imodium) 4 mg ONCE ONCE PO Last administered on 05/11/17 11: 59; Start 05/11/17 at 11:30; Stop 05/11/17 at 11:34; Status DC Loperamide HCl (Imodium) 2 mg Q4H PRN PO DIARRHEA Last administered on 00:59; Start 05/11/17 at 11:15 Lactobacillus Acidophilus (Lactinex Pkt) 1 gm TID PO Last administered on 05/13 16:38; Start 05/11/17 at 13:00 Dexamethasone (Decadron) 4 mg Q8HR PO Last administered on 05/13/17 13:54; Start 05/11/17 at 14:00 Pantoprazole Sodium (Protonix) 40 mg DAILY PO Last administered on 05/13/17 08:16; Start 05/11/17 at 14:00 Potassium Chloride/Sodium Chloride 1,000 ml @ 42 mls/hr [id number] IV Last administered on 05/11/17 16:30; Start 05/11/17 at 15:00; Stop 05/12/17 at 14 :48; Status DC Filgrastim 480 mcg/Dextrose 50 ml @ 100 mls/hr DAILY@14 IV Last administered on 05/13/17 13:54; Start 05/12/17 at 14:00 Filgrastim 480 mcg/Dextrose 50 ml @ 100 mls/hr ONCE ONCE IV Last administered on 05/11/17t 18:00; Start 05/11/17 at 16:00; Stop 05/11/17 at 16 :29; Status DC Attending Statement I again reviewed Mr. Hercules his clinical and radiological findings. His legs are getting stronger I again discussed with him the alternatives of treatment. He wants to proceed with radiation therapy. He may benefit by an open reduction and internal fixation of his pathological fracture if his pain does not improve. He will proceed with radiation therapy on Sunday He is now infected, and has C diff enteritis, which places him at very high surgical risk HTN. Treat with antihypertensives as needed acetaminophen/cooling blanket as needed for temperature greater than 100.4 respiratory aggressive pulmonary toilette, nasotracheal suction, and breathing treatments with nebulizers. Nutrition. Oral diet Renal. monitor closely urine output, BUN and creatinine Baugh. Monitor intake and output. Monitor electrolytes and replace as indicated per ICU electrolyte replacement protocol. ENDO:Acute hyperglycemia secondary to trauma. Monitor bedside glucose and initiate low-dose insulin sliding scale as indicated for glucose greater than 180 Continue Protonix for stress ulcer prophylaxis Continue Kingsley hose and SCD's for DVT prophylaxis. Carloz Gutierrez MD May 12, 2017 14:13
[2017-05-12] MEDS: LOPERAMIDE HCL 2 MG CAP PO PRN (15:16)
--- NOTE | 2017-05-12 15:18 | HHI.PR ---
Subjective Remarks The patient states that the diarrhea still present, however stool is more formed. Denies fevers or chills, denies nausea, vomiting or abdominal pain. Signs stable, patient has remained afebrile. Objective Vitals Vital Signs Date Time Temp Pulse Resp B/P (MAP) Pulse Ox O2 Delivery O2 Flow Rate FiO2 05/12/17 14:02 20 05/12/17 12:00 98.1 71 18 116/60 (78) 97 05/12/17 10:37 18 05/12/17 08:00 95 Nasal Cannula 2.00 05/12/17 08:00 98.0 76 18 123/60 (81) 96 05/12/17 04:00 98.3 67 18 120/64 (82) 95 05/12/17 00:00 98.0 85 19 112/57 (75) 92 05/11/17 20:12 95 Nasal Cannula 2.00 05/11/17 20:00 99.0 82 19 113/53 (73) 95 05/11/17 16:21 98.7 88 18 119/58 (78) 97 I/O 05/11/17 05/11/17 05/11/17 05/12/17 05/12/17 05/12/17 07:00 15:00 23:00 07:00 15:00 23:00 Intake Total 820 ml 852 ml Output Total 927 ml 1300 ml 1575 ml Balance -107 ml -448 ml -1575 ml Intake Oral 720 ml 720 ml IV Total 100 ml 132 ml Output Urine Total 925 ml 1300 ml 1575 ml Stool Total 2 ml 0 ml # Bowel Movements 4 Result Diagram: 05/12/17 0530 05/12/17 0530 Imaging Last Impressions Hip and Pelvis X-Ray 05/11/17 0000 Signed Impressions: Service Date/Time: Thursday, May 11, 2017 16:52 - CONCLUSION: 1. No acute abnormality. 2. Bilateral hip osteoarthritis. 3. Mildly distended loops of gas-filled small bowel. Rakesh Farnsworth Jr., MD Chest X-Ray 05/08/17 0000 Signed Impressions: Service Date/Time: Monday, May 08, 2017 18:20 - CONCLUSION: No appreciable change. Maribeth Pittman MD Thoracic Spine MRI 05/03/17 0000 Signed Impressions: Service Date/Time: April 12:42 - CONCLUSION: 1. Please see the MRI of the lumbar spine reported separately. 2. Study is motion degraded. 3. Destructive process involving the T11 vertebral body with 40%% loss of height but no retropulsion. This is suggestive of a metastatic focus. Rakesh Farnsworth Jr., MD Lumbar Spine MRI 05/03/17 0000 Signed Impressions: Service Date/Time: April 12:42 - CONCLUSION: 1. Please see the MRI of the thoracic spine reported separately. 2. Current study limited by motion artifact. 3. Destructive process involving the L2 vertebral body with extension into the pedicles bilaterally as well the left lamina with narrowing of the central canal due to posterior displacement of the posterior cortical margin as well as obscuration of the neural foramina. 10%% loss of height. This is felt to relate to a metastatic focus. 4. Prominent retroperitoneal soft tissue previous described on the CT scan. Rakesh Farnsworth Jr., MD Chest CT 05/02/17 0000 Signed Impressions: Service Date/Time: April 01:27 - CONCLUSION: Left upper lobe nodular mass. Parenchymal disease in the right lung base. Moderately large bilateral pleural effusions. Destructive process involving T11 vertebral body Guzman Alcaraz MD Abdomen/Pelvis CT 05/02/17 0000 Signed Impressions: Service Date/Time: April 01:27 - CONCLUSION: Extensive abnormal retroperitoneal soft tissue, presumably confluent adenopathy and adenopathy also present in the celiac region in the upper abdomen. Destructive process involving T11. Bilateral ureteral stents in place. Guzman Alcaraz MD Objective Remarks AAOx3 lungs clear BL abdomen soft, NT, ND S1S2 RRR, no MRG no edema in lower extremities Medications and IVs Current Medications Medications (Trade) Dose Ordered Sig/Stuart Route Start Time Stop Time Status Last Admin (NS Flush) 2 ml UNSCH PRN IV FLUSH 05/02/17 15:30 05/09/17 05:30 (NS Flush) 2 ml BID IV FLUSH 05/02/17 21:00 05/12/17 09:06 (Tylenol) 650 mg Q4H PRN PO 05/02/17 15:30 (Zofran Inj) 4 mg Q6H PRN IVP 05/02/17 15:30 (Narcan Inj) 0.4 mg UNSCH PRN IV PUSH 05/02/17 15:30 (Ninfa-Colace) 1 tab BID PO 05/02/17 21:00 05/12/17 09:05 (Milk Of Magnesia Liq) 30 ml Q12H PRN PO 05/02/17 15:30 (Senokot) 17.2 mg Q12H PRN PO 05/02/17 15:30 (Dulcolax Supp) 10 mg DAILY PRN RECTAL 05/02/17 15:30 (Lactulose Liq) 30 ml DAILY PRN PO 05/02/17 15:30 (Vitamin B6) 100 mg DAILY PO 05/03/17 09:00 05/12/17 09:05 (Pravachol) 40 mg DAILY PO 05/03/17 09:00 05/12/17 09:05 (Mucinex Er) 600 mg BID PO 05/02/17 21:00 05/12/17 09:05 (Mycostatin Liq) 5 ml QID SWISH-SWAL 05/02/17 18:00 05/12/17 12:35 (Habitrol 21 Mg Patch.24 Hr) 1 patch DAILY T-DERMAL 05/04/17 09:00 05/12/17 09:04 Miscellaneous Information 1 HS T-DERMAL 05/04/17 21:00 05/11/17 21:37 (Microzide) 12.5 mg DAILY PO 05/04/17 10:30 Future Hold 05/10/17 08:00 (Prinivil) 10 mg DAILY PO 05/04/17 10:30 Future Hold 05/10/17 08:00 (Zyloprim) 300 mg DAILY PO 05/05/17 09:00 05/12/17 09:06 Ceftriaxone Sodium 1000 mg/ Sodium Chloride 100 ml @ 200 mls/hr Q24H IV 05/06/17 05:00 05/12/17 05:39 (Morphine Inj) 2 mg Q2HR PRN IV PUSH 05/07/17 13:30 05/10/17 17:18 (Roxicodone) 10 mg Q4H PRN PO 05/07/17 13:30 05/12/17 09:29 (Oramorph Sr) 15 mg Q8HR PO 05/08/17 14:00 05/12/17 12:50 (Effer-K Eff) 25 meq DAILY PO 05/10/17 09:00 05/12/17 09:05 (Flomax) 0.4 mg DAILY PO 05/09/17 10:15 05/12/17 09:05 (Imodium) 2 mg Q4H PRN PO 05/11/17 11:15 (Lactinex Pkt) 1 gm TID PO 05/11/17 13:00 05/12/17 12:51 (Decadron) 4 mg Q8HR PO 05/11/17 14:00 05/12/17 12:51 (Protonix) 40 mg DAILY PO 05/11/17 14:00 05/12/17 09:05 Filgrastim 480 mcg/Dextrose 50 ml @ 100 mls/hr DAILY@14 IV 05/12/17 14:00 05/12/17 12:51 Urinary Catheter: No Vascular Central Line Catheter: No A/P Problem List: (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 --05/06: D2 EPOCH. tolerating chemo. no adverse effects. replace potassium. --05/07: D3 EPOCH. continue chemo. resume prednisone BID dosing. --05/08: D4 EPOCH to start this afternoon. will complete chemotherapy tomorrow. --05/09: D5--will complete EPOCH 4th bag this evening and give Cytoxan this evening. --05/09: D6--chemotherapy complete. awaiting start of Radiation (on track to start next week) --05/12 Continue Neupogen as per oncology. 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 --first presented with bulky adenopathy, treated with Rituxan and bendamustine without clear response. --then switched to Ibrutinib with very good response. neck and axillary adenopathy are no longer palpable. --recently developed a large mass in retroperitoneum extending from the lower pole of left kidney down along the iliopsoas muscle to the pelvis, measured at least 10 cm. 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 --plan was to treat him with Revlimid along with R-CHOP. was supposed to start chemotherapy at the clinic but was too weak. (3) UTI (urinary tract infection) ICD Code: N39.0 - Urinary tract infection, site not specified Status: Acute Plan: Continue IV Rocephin. Urine culture negative. 05/11 DC IV Rocephin. Sp treatment x 5 days and culture negative. (4) History of urethral stent ICD Code: Z98.890 - Other specified postprocedural states Status: Acute Plan: Urology consulted. Continue Baugh catheter. (5) Low back pain ICD Code: M54.5 - Low back pain Plan: Likely due to metastatic disease. Continue Morphine SR and Morphine IV Will prescribe K thermia. MRI shows destructive process at the level of L2 extending into the pedicles. Neurosurgery consulted - awaiting recommendations. 05/12 appreciate neurosurgery recommendations. As per surgery assessment the patient has a pathological fracture with retropulsion and cord compression. Surgical decompression with open reduction and internal fixation of the pathological fracture has been recommended. The patient is requesting to proceed with radiation therapy first. (6) Hypokalemia ICD Code: E87.6 - Hypokalemia Status: Acute Plan: Replace K orally and continue to monitor BMP. K 3.0 05/12 K today 3.6. (7) Hyponatremia ICD Code: E87.1 - Hypo-osmolality and hyponatremia Status: Resolved Plan: Resolved, monitor BMP. (8) Hypotension ICD Code: I95.9 - Hypotension, unspecified Status: Resolved Plan: Due to diarrhea, hold antihypertensive medications, Agree with fluid bolus. Continue to monitor vital signs. 05/12 BP much improved. Continue to hold antihypertensive medications for now. Continue to monitor vital signs. (9) Diarrhea ICD Code: R19.7 - Diarrhea, unspecified Plan: C diff negative, likely secondary to chemotherapy. Will Rx Imodium and Lactobacillus Acidophilus. 05/12 diarrhea slightly improved. Continue same treatment as above. Assessment and Plan DVT prophylaxis - heparin SQ GI prophylaxis: Discharge Planning Patient to start Radiotherapy next week. Problem Qualifiers (1) Low back pain: Qualified Codes: M54.5 - Low back pain (2) Diarrhea: Qualified Codes: R19.7 - Diarrhea, unspecified Javier Edouard MD May 12, 2017 15:18
[2017-05-12 16:00] VITALS: BP 124/68; PULSE 81; RESP 22; TEMP 98.4; O2SAT 96
[2017-05-12] MEDS: REMOVE OLD PATCH T-DERMAL SCH (21:00)
[2017-05-12 21:11] VITALS: BP 148/82; PULSE 98; RESP 16; TEMP 99; O2SAT 97
[2017-05-13] VITALS: BP 142/68; PULSE 64; RESP 16; TEMP 98.5; O2SAT 97
[2017-05-13] MEDS: LOPERAMIDE HCL 2 MG CAP PO PRN (00:59)
[2017-05-13] MEDS: MORPHINE SULFATE 15 MG CONTROLLED RELEASE TAB PO SCH ×3 (05:34→22:58)
[2017-05-13] MEDS: cefTRIAXone INJ 1,000 MG in SODIUM CHLORIDE 0.9% INJ 100 ML IV SCH (05:35)
[2017-05-13] MEDS: DEXAMETHASONE 4 MG TAB PO SCH ×3 (05:35→22:59)
[2017-05-13 05:50] VITALS: BP 151/82; PULSE 61; RESP 16; TEMP 98.4; O2SAT 96
--- NOTE | 2017-05-13 07:19 | HHI.PR ---
Subjective Remarks f/u; CLL / low back pain resting comfortably with no distress. back pain is more or less controlled. no nausea or vomiting. afebrile. Objective Vitals Vital Signs Date Time Temp Pulse Resp B/P (MAP) Pulse Ox O2 Delivery O2 Flow Rate FiO2 05/13/17 06:55 16 05/13/17 05:50 98.4 61 16 151/82 (105) 96 05/13/17 02:02 16 05/13/17 00:00 98.5 64 16 142/68 (92) 97 05/12/17 21:11 99.0 98 16 148/82 (104) 97 05/12/17 16:00 98.4 81 22 124/68 (86) 96 05/12/17 12:00 98.1 71 18 116/60 (78) 97 05/12/17 08:00 95 Nasal Cannula 2.00 05/12/17 08:00 98.0 76 18 123/60 (81) 96 I/O 05/12/17 05/12/17 05/12/17 05/13/17 05/13/17 05/13/17 07:00 15:00 23:00 07:00 15:00 23:00 Intake Total 290 ml Output Total 1575 ml 800 ml Balance -1575 ml -510 ml Intake Oral 240 ml IV Total 50 ml Output Urine Total 1575 ml 800 ml Stool Total 0 ml # Bowel Movements 4 Result Diagram: 05/12/17 0530 05/12/17 0530 Imaging Last Impressions Hip and Pelvis X-Ray 05/11/17 0000 Signed Impressions: Service Date/Time: Thursday, May 11, 2017 16:52 - CONCLUSION: 1. No acute abnormality. 2. Bilateral hip osteoarthritis. 3. Mildly distended loops of gas-filled small bowel. Rakesh Farnsworth Jr., MD Chest X-Ray 05/08/17 0000 Signed Impressions: Service Date/Time: Monday, May 08, 2017 18:20 - CONCLUSION: No appreciable change. Maribeth Pittman MD Thoracic Spine MRI 05/03/17 0000 Signed Impressions: Service Date/Time: April 12:42 - CONCLUSION: 1. Please see the MRI of the lumbar spine reported separately. 2. Study is motion degraded. 3. Destructive process involving the T11 vertebral body with 40%% loss of height but no retropulsion. This is suggestive of a metastatic focus. Rakesh Farnsworth Jr., MD Lumbar Spine MRI 05/03/17 0000 Signed Impressions: Service Date/Time: April 12:42 - CONCLUSION: 1. Please see the MRI of the thoracic spine reported separately. 2. Current study limited by motion artifact. 3. Destructive process involving the L2 vertebral body with extension into the pedicles bilaterally as well the left lamina with narrowing of the central canal due to posterior displacement of the posterior cortical margin as well as obscuration of the neural foramina. 10%% loss of height. This is felt to relate to a metastatic focus. 4. Prominent retroperitoneal soft tissue previous described on the CT scan. Rakesh Farnsworth Jr., MD Chest CT 05/02/17 0000 Signed Impressions: Service Date/Time: April 01:27 - CONCLUSION: Left upper lobe nodular mass. Parenchymal disease in the right lung base. Moderately large bilateral pleural effusions. Destructive process involving T11 vertebral body Guzman Alcaraz MD Abdomen/Pelvis CT 05/02/17 0000 Signed Impressions: Service Date/Time: April 01:27 - CONCLUSION: Extensive abnormal retroperitoneal soft tissue, presumably confluent adenopathy and adenopathy also present in the celiac region in the upper abdomen. Destructive process involving T11. Bilateral ureteral stents in place. Guzman Alcaraz MD Objective Remarks GENERAL: This is a well-nourished, well-developed patient, in no apparent distress. CARDIOVASCULAR: Regular rate and irregular rhythm without murmurs, gallops, or rubs. RESPIRATORY: Clear to auscultation. Breath sounds equal bilaterally. No wheezes , rales, or rhonchi. GASTROINTESTINAL: Abdomen soft, non-tender, nondistended. Normal, active bowel sounds MUSCULOSKELETAL: Extremities without clubbing, cyanosis, or edema. NEURO: Alert & Oriented x4 to person, place, time, situation. Moves all ext x4 Medications and IVs Current Medications Sodium Chloride (NS Flush) 2 ml UNSCH PRN IVF FLUSH AFTER USING IV ACCESS; Start 05/02/17 at 11:00; Stop 05/02/17 at 16:02; Status DC Piperacillin Sod/ Tazobactam Sod 100 ml @ 200 mls/hr ONCE STAT IV Last administered on 05/02/17 12:10; Start 05/02/17 at 12:10; Stop 05/02/17 at 12 :39; Status DC Sodium Chloride 500 ml @ 500 mls/hr BOLUS ONCE IV Last administered on 12:30; Start 05/02/17 at 12:30; Stop 05/02/17 at 13:29; Status DC Sodium Chloride 1,000 ml @ 100 mls/hr Q10H IV Last administered on 05/05/17 04:52; Start 05/02/17 at 17:00; Stop 05/05/17 at 12:21; Status DC Sodium Chloride (NS Flush) 2 ml UNSCH PRN IV FLUSH FLUSH AFTER USING IV ACCESS Last administered on 05/09/17 05:30; Start 05/02/17 at 15:30 Sodium Chloride (NS Flush) 2 ml BID IV FLUSH Last administered on 05/12/17 21 :01; Start 05/02/17 at 21:00 Acetaminophen (Tylenol) 650 mg Q4H PRN PO TEMP > 100.4; Start 05/02/17 at 15: 30 Ondansetron HCl (Zofran Inj) 4 mg Q6H PRN IVP NAUSEA OR VOMITING; Start at 15:30 Naloxone HCl (Narcan Inj) 0.4 mg UNSCH PRN IV PUSH SEE LABEL COMMENTS; Start 05/02/17 at 15:30 Senna/Docusate Sodium (Ninfa-Colace) 1 tab BID PO Last administered on 09:05; Start 05/02/17 at 21:00 Magnesium Hydroxide (Milk Of Magnesia Liq) 30 ml Q12H PRN PO MILD - MODERATE CONSTIPATION; Start 05/02/17 at 15:30 Sennosides (Senokot) 17.2 mg Q12H PRN PO MODERATE - SEVERE CONSTIPATION; Start 05/02/17 at 15:30 Bisacodyl (Dulcolax Supp) 10 mg DAILY PRN RECTAL SEVERE CONSITIPATION; Start 05/02/17 at 15:30 Lactulose (Lactulose Liq) 30 ml DAILY PRN PO SEVERE CONSITIPATION; Start 05/02 at 15:30 Aspirin (Aspirin Chew) 81 mg DAILY CHEW Last administered on 05/12/17 09:05; Start 05/03/17 at 09:00; Stop 05/12/17 at 10:48; Status DC Acetaminophen/ Hydrocodone Bitart ([place] 7.5-325 Mg) 1 tab Q6H PRN PO PAIN Last administered on 05/03/17 23:28; Start 05/02/17 at 15:30; Stop 05/04/17 at 08:49; Status DC Pyridoxine HCl (Vitamin B6) 100 mg DAILY PO Last administered on 05/12/17 09: 05; Start 05/03/17 at 09:00 Pravastatin Sodium (Pravachol) 40 mg DAILY PO Last administered on 05/12/17 09:05; Start 05/03/17 at 09:00 Ceftriaxone Sodium 1000 mg/ Sodium Chloride 100 ml @ 200 mls/hr Q24H IV Last administered on 05/05/17 04:50; Start 05/02/17 at 17:00; Stop 05/05/17 at 17 :44; Status DC Potassium Chloride (KCl) 40 meq ONCE ONCE PO ; Start 05/02/17 at 16:15; Stop 05/02/17 at 16:16; Status DC Sodium Chloride 500 ml @ 500 mls/hr BOLUS ONCE IV Last administered on 18:40; Start 05/02/17 at 16:30; Stop 05/02/17 at 17:29; Status DC Albuterol/ Ipratropium (Duoneb Neb) 1 ampule Q4HR NEB NEB Last administered on 05/06/17 15:44; Start 05/02/17 at 16:00; Stop 05/06/17 at 15:59; Status DC Guaifenesin (Mucinex Er) 600 mg BID PO Last administered on 05/12/17 21:02; Start 05/02/17 at 21:00 Magnesium Sulfate/ Dextrose 100 ml @ 100 mls/hr Q1H IV ; Start 05/02/17 at 17: 00; Stop 05/02/17 at 17:59; Status DC Nystatin (Mycostatin Liq) 5 ml QID SWISH-SWAL Last administered on 05/12/17 21:04; Start 05/02/17 at 18:00 Heparin Sodium (Porcine) (Heparin Inj) 5,000 units Q12HR SQ Last administered on 05/11/17 21:34; Start 05/02/17 at 21:00; Stop 05/12/17 at 10:47; Status DC Diatrizoate Meglum/ Diatrizoate Sod (Md Cates Liyulissa) 18 ml ONCE ONCE PO Last administered on 05/02/17 20:44; Start 05/02/17 at 19:30; Stop 05/02/17 at 19:31; Status DC Magnesium Sulfate/ Dextrose 100 ml @ 100 mls/hr Q1H IV Last administered on 23:36; Start 05/02/17 at 23:30; Stop 05/03/17 at 01:29; Status DC Potassium Bicarb/ Potassium Chloride (K-[place] Cl Eff) 50 meq ONCE ONCE PO Last administered on 05/03/17 06:43; Start 05/03/17 at 06:45; Stop 05/03/17 at 06:46; Status DC Potassium Chloride (KCl Powder) 40 meq ONCE ONCE PO Last administered on 05/03 11:24; Start 05/03/17 at 08:45; Stop 05/03/17 at 09:43; Status DC Potassium Chloride (KCl Powder) 40 meq ONCE ONCE PO Last administered on 05/03 12:00; Start 05/03/17 at 12:00; Stop 05/03/17 at 12:01; Status DC Lorazepam (Ativan Inj) 1 mg ONCE ONCE IV PUSH Last administered on 05/03/17 11:59; Start 05/03/17 at 12:00; Stop 05/03/17 at 12:01; Status DC Morphine Sulfate (Morphine Inj) 2 mg Q4H PRN IV PAIN GREATER THAN 8 Last administered on 05/04/17 08:19; Start 05/03/17 at 12:00; Stop 05/04/17 at 08 :48; Status DC Dexamethasone (Decadron) 40 mg DAILY PO Last administered on 05/05/17 08:36; Start 05/04/17 at 09:00; Stop 05/06/17 at 10:18; Status DC Potassium Chloride (KCl) 40 meq ONCE ONCE PO Last administered on 05/04/17 09:51; Start 05/04/17 at 08:30; Stop 05/04/17 at 09:14; Status DC Nicotine (Habitrol 14 Mg Patch.24 Hr) 1 patch DAILY T-DERMAL ; Start 05/04/17 at 09:00; Stop 05/04/17 at 09:00; Status DC Miscellaneous Information 1 DAILY T-DERMAL ; Start 05/04/17 at 09:00; Stop at 09:00; Status DC Nicotine (Habitrol 21 Mg Patch.24 Hr) 1 patch DAILY T-DERMAL Last administered on 05/12/17 09:04; Start 05/04/17 at 09:00 Miscellaneous Information 1 HS T-DERMAL Last administered on 05/12/17 21:00; Start 05/04/17 at 21:00 Morphine Sulfate (Morphine Inj) 2 mg Q2HR PRN IV PAIN SCALE 1 TO 5; Start at 09:00; Stop 05/07/17 at 13:32; Status DC Morphine Sulfate (Morphine Inj) 4 mg Q2HR PRN IV PUSH PAIN SCALE 6 TO 8 Last administered on 05/07/17 13:20; Start 05/04/17 at 08:45; Stop 05/07/17 at 13 :32; Status DC Morphine Sulfate (Morphine Inj) 2 mg ONCE ONCE IV PUSH Last administered on 09:52; Start 05/04/17 at 08:45; Stop 05/04/17 at 09:13; Status DC Hydrochlorothiazide (Microzide) 12.5 mg DAILY PO Last administered on 08:00; Start 05/04/17 at 10:30; Status Future Hold Lisinopril (Prinivil) 10 mg DAILY PO Last administered on 05/10/17 08:00; Start 05/04/17 at 10:30; Status Future Hold Morphine Sulfate (Morphine Inj) 6 mg Q4H PRN IV PUSH PAIN SCALE 9 TO 10; Start 05/04/17 at 15:00; Stop 05/07/17 at 13:17; Status DC Allopurinol (Zyloprim) 300 mg DAILY PO Last administered on 05/12/17 09:06; Start 05/05/17 at 09:00 Allopurinol (Zyloprim) 300 mg ONCE ONCE PO Last administered on 05/04/17 17: 06; Start 05/04/17 at 15:00; Stop 05/04/17 at 15:01; Status DC Acetaminophen (Tylenol) 650 mg ONCE ONCE PO Last administered on 05/04/17 17 :06; Start 05/04/17 at 15:30; Stop 05/04/17 at 15:31; Status DC Diphenhydramine HCl (Benadryl) 50 mg ONCE ONCE PO Last administered on 17:05; Start 05/04/17 at 15:30; Stop 05/04/17 at 15:31; Status DC Rituximab 667.5 mg/Sodium Chloride 566.75 ml @ 0 mls/hr ONCE ONCE IV Last administered on 05/04/17 18:28; Start 05/04/17 at 16:00; Stop 05/04/17 at 16 :01; Status DC Prednisone (Deltasone) 100 mg DAILY PO Last administered on 05/06/17 10:25; Start 05/05/17 at 09:00; Stop 05/07/17 at 08:41; Status DC Prednisone (Deltasone) 5 mg DAILY PO Last administered on 05/06/17 09:30; Start 05/05/17 at 09:00; Stop 05/07/17 at 08:42; Status DC Granisetron HCl (Kytril Inj) 1 mg DAILY@1030 IV Last administered on 20:46; Start 05/05/17 at 10:30; Stop 05/09/17 at 10:31; Status DC Dexamethasone Sodium Phosphate 20 mg/Sodium Chloride 55 ml @ 330 mls/hr DAILY@ 1030 IV Last administered on 05/05/17 11:18; Start 05/05/17 at 10:30; Stop 05/05/17 at 12:47; Status DC Etoposide 89 mg/ Doxorubicin HCl 17.8 mg/ Vincristine Sulfate 0.7 mg/ Sodium Chloride 514.05 ml @ 21.419 mls/hr DAILY@1100 IV Last administered on 21:45; Start 05/05/17 at 11:00; Stop 05/09/17 at 10:59; Status DC Cyclophosphamide 1335 mg/Sodium Chloride 570 ml @ 570 mls/hr DAILY@1100 ONCE IV Last administered on 05/09/17 22:32; Start 05/09/17 at 11:00; Stop 05/09 at 11:59; Status DC Ceftriaxone Sodium 1000 mg/ Sodium Chloride 100 ml @ 200 mls/hr Q24H IV Last administered on 05/13/17 05:35; Start 05/06/17 at 05:00 Potassium Chloride (KCl) 40 meq ONCE ONCE PO Last administered on 05/06/17 09:30; Start 05/06/17 at 07:45; Stop 05/06/17 at 07:47; Status DC Oxycodone/ Acetaminophen (Percocet 5-325 Mg) 1 tab Q4H PRN PO PAIN 1-5; Start 05/06/17 at 11:15; Stop 05/07/17 at 13:32; Status DC Oxycodone/ Acetaminophen (Percocet 5-325 Mg) 2 tab Q4H PRN PO PAIN 6-10 Last administered on 05/07/17 09:51; Start 05/06/17 at 11:15; Stop 05/07/17 at 13 :32; Status DC Prednisone (Deltasone) 100 mg BID PO Last administered on 05/09/17 20:43; Start 05/07/17 at 09:00; Stop 05/09/17 at 21:01; Status DC Prednisone (Deltasone) 5 mg BID PO Last administered on 05/09/17 20:43; Start 05/07/17 at 09:00; Stop 05/09/17 at 21:01; Status DC Morphine Sulfate (Oramorph Sr) 15 mg Q12HR PO Last administered on 05/08/17 10:02; Start 05/07/17 at 21:00; Stop 05/08/17 at 10:52; Status DC Morphine Sulfate (Morphine Inj) 2 mg Q2HR PRN IV PUSH SEVERE BREAKTHROUGH PAIN Last administered on 05/10/17 17:18; Start 05/07/17 at 13:30 Oxycodone HCl (Roxicodone) 10 mg Q4H PRN PO PAIN 1-10 Last administered on 00:59; Start 05/07/17 at 13:30 Morphine Sulfate (Oramorph Sr) 15 mg Q8HR PO Last administered on 05/13/17 05 :34; Start 05/08/17 at 14:00 Potassium Bicarbonate (Effer-K Eff) 25 meq DAILY PO Last administered on 09:05; Start 05/10/17 at 09:00 Potassium Bicarbonate (Effer-K Eff) 50 meq ONCE ONCE PO Last administered on 05/09/17 16:05; Start 05/09/17 at 09:30; Stop 05/09/17 at 10:28; Status DC Tamsulosin HCl (Flomax) 0.4 mg DAILY PO Last administered on 05/12/17 09:05; Start 05/09/17 at 10:15 Filgrastim 300 mcg/Dextrose 25 ml @ 100 mls/hr DAILY@14 IV ; Start 05/11/17 at 14:00; Stop 05/11/17 at 15:54; Status DC Sodium Chloride 250 ml @ 250 mls/hr BOLUS ONCE IV Last administered on 09:45; Start 05/11/17 at 09:45; Stop 05/11/17 at 10:44; Status DC Loperamide HCl (Imodium) 4 mg ONCE ONCE PO Last administered on 05/11/17 11: 59; Start 05/11/17 at 11:30; Stop 05/11/17 at 11:34; Status DC Loperamide HCl (Imodium) 2 mg Q4H PRN PO DIARRHEA Last administered on 00:59; Start 05/11/17 at 11:15 Lactobacillus Acidophilus (Lactinex Pkt) 1 gm TID PO Last administered on 05/12 17:33; Start 05/11/17 at 13:00 Dexamethasone (Decadron) 4 mg Q8HR PO Last administered on 05/13/17 05:35; Start 05/11/17 at 14:00 Pantoprazole Sodium (Protonix) 40 mg DAILY PO Last administered on 05/12/17 09:05; Start 05/11/17 at 14:00 Potassium Chloride/Sodium Chloride 1,000 ml @ 42 mls/hr [id number] IV Last administered on 05/11/17 16:30; Start 05/11/17 at 15:00; Stop 05/12/17 at 14 :48; Status DC Filgrastim 480 mcg/Dextrose 50 ml @ 100 mls/hr DAILY@14 IV Last administered on 05/12/17 12:51; Start 05/12/17 at 14:00 Filgrastim 480 mcg/Dextrose 50 ml @ 100 mls/hr ONCE ONCE IV Last administered on 05/11/17t 18:00; Start 05/11/17 at 16:00; Stop 05/11/17 at 16 :29; Status DC A/P Problem List: (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 - Lymphoblastic (diffuse) lymphoma, unspecified site (2) CLL (chronic lymphocytic leukemia) ICD Code: C91.10 - Chronic lymphocytic leukemia of B-cell type not having achieved remission (3) UTI (urinary tract infection) ICD Code: N39.0 - Urinary tract infection, site not specified Status: Acute (4) History of urethral stent ICD Code: Z98.890 - Other specified postprocedural states Status: Acute (5) Low back pain ICD Code: M54.5 - Low back pain (6) Hypokalemia ICD Code: E87.6 - Hypokalemia Status: Acute (7) Hyponatremia ICD Code: E87.1 - Hypo-osmolality and hyponatremia Status: Resolved (8) Hypotension ICD Code: I95.9 - Hypotension, unspecified Status: Resolved (9) Diarrhea ICD Code: R19.7 - Diarrhea, unspecified Assessment and Plan A/P CLL -recently developed a large mass in retroperitoneum extending from the lower pole of left kidney down along the iliopsoas muscle to the pelvis, measured at least 10 cm. 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 - completed chemo- per oncology. - on Neupogen. Low back pain- Likely due to metastatic disease. -MRI shows destructive process at the level of L2 extending into the pedicles. - Neurosurgery . As per surgery assessment the patient has a pathological fracture with retropulsion and cord compression. Surgical decompression with open reduction and internal fixation of the pathological fracture has been recommended. The patient is requesting to proceed with radiation therapy first. - continue Decadron. -radiation oncology following. -continue with pain control. thrombocytopenia aspirin and heparin on hold- will monitor- Oncology following. UTI (urinary tract infection)- treated; will stop antibiotic. - History of urethral stent - Urology consulted. Continue Baugh catheter. Hypokalemia-replaced. Hyponatremia-resolved. Hypotension- has much improved. Continue to hold antihypertensive medications for now. Continue to monitor vital signs. DVT prophylaxis; SCD's- heparin on hold as noted above. continue PT/OT. Discharge Planning not ready for discharge. Problem Qualifiers (1) Low back pain: Qualified Codes: M54.5 - Low back pain (2) Diarrhea: Qualified Codes: R19.7 - Diarrhea, unspecified Landen Barnes MD May 13, 2017 07:19
[2017-05-13] MEDS: NICOTINE 21 MG/24 HR PATCH T-DERMAL SCH (08:16)
[2017-05-13] MEDS: PANTOPRAZOLE SOD 40 MG DELAYED RELEASE TAB PO SCH (08:16)
[2017-05-13] MEDS: NYSTATIN SUSP 500,000 U/5 ML CUP SWISH-SWAL SCH ×4 (08:16→20:45)
[2017-05-13] MEDS: PYRIDOXINE HCL 50 MG TAB PO SCH (08:16)
[2017-05-13] MEDS: guaiFENesin E.R. 600 MG TAB PO SCH ×2 (08:16→20:45)
[2017-05-13] MEDS: PRAVASTATIN SOD 40 MG TAB PO SCH (08:16)
[2017-05-13] MEDS: ALLOPURINOL 300 MG TAB PO SCH (08:16)
[2017-05-13] MEDS: TAMSULOSIN HCL 0.4 MG CAP PO SCH (08:17)
[2017-05-13] MEDS: LACTOBACILLUS ACIDOPHILUS 1 GM PACKET PO SCH ×3 (08:17→16:38)
[2017-05-13] MEDS: SODIUM CHLORIDE 0.9% FLUSH 10 ML FLUSH IV FLUSH SCH ×2 (08:18→13:54)
[2017-05-13] MEDS: POTASSIUM BICARBONATE 25 MEQ EFFERVESCENT TAB PO SCH (08:18)
[2017-05-13 08:20] LABS: AUTOMATED NEUTROPHIL # 0.2 TH/MM3 (1.8-7.7); BASOPHIL % 0.4 % (0.0-2.0); EOSINOPHIL % 1.7 % (0.0-4.0); HEMATOCRIT 29.2 % (39.0-51.0); LYMPH % 84.7 % (9.0-44.0); LYMPHOCYTE # 1.3 TH/MM3 (1.0-4.8); MEAN CELL VOLUME 86.8 FL (80.0-100.0); MEAN CORPUSCULAR HEMOGLOBIN 28.8 PG (27.0-34.0); MEAN CORPUSCULAR HGB CONC 33.2 % (32.0-36.0); MONO % 0.1 % (0.0-8.0); NEUT % 13.1 % (16.0-70.0); PLATELET COUNT 35 TH/MM3 (150-450); RED BLOOD COUNT 3.36 MIL/MM3 (4.50-5.90); RED CELL DISTRIBUTION WIDTH 14.4 % (11.6-17.2); WHITE BLOOD COUNT 1.6 TH/MM3 (4.0-11.0)
[2017-05-13 08:26] LABS: HEMO FLAGS AUTO DIFF
[2017-05-13 08:32] LABS: ANION GAP 4 MEQ/L (5-15); AST (GOT) 13 U/L (15-37); BICARBONATE 30.4 MEQ/L (21.0-32.0); BLOOD UREA NITROGEN 21 MG/DL (7-18); CHLORIDE 103 MEQ/L (98-107); GLOMERULAR FILTRATION RATE 155 ML/MIN (>89); MAGNESIUM 1.7 MG/DL (1.5-2.5); POTASSIUM 3.9 MEQ/L (3.5-5.1); SODIUM (NA) 137 MEQ/L (136-145)
[2017-05-13 08:33] LABS: ALT (GPT) 27 U/L (12-78)
[2017-05-13 08:36] LABS: ALKALINE PHOSPHATASE 51 U/L (45-117); TOTAL BILIRUBIN ADULT 0.3 MG/DL (0.2-1.0)
[2017-05-13 08:40] VITALS: BP 145/80; PULSE 62; RESP 16; TEMP 98.7; O2SAT 94
[2017-05-13] MEDS: DOCUSATE SODIUM 50 MG/SENNA 8.6 MG TAB PO SCH ×2 (08:50→20:46)
[2017-05-13 08:51] LABS: BANDS 1 % (0-6); EOSINOPHILS 3 % (0-4); NEUTROPHIL # MANUAL DIFF 0.2 TH/MM3 (1.8-7.7); POLYS (SEG NEUTROPHILS) 10 % (16-70); WBC DIFF SAMPLE 100
[2017-05-13 08:52] LABS: PLATELET ESTIMATE SMEAR LOW (NORMAL); PLATELET MORPHOLOGY NORMAL (NORMAL); SCAN/DIFF FINAL DIFF MANUAL; SMUDGE CELLS PRESENT PRESENT
[2017-05-13 08:53] LABS: KERATOCYTES OCC (NORMAL)
--- NOTE | 2017-05-13 09:17 | PD.ONC.PN ---
Subjective Subjective Remarks Afebrile overnight Still with some back pain but he reports his current pain regimen is working well for him Objective Data Date Time Temp Pulse Resp B/P (MAP) Pulse Ox O2 Delivery O2 Flow Rate FiO2 05/13/17 08:40 98.7 62 16 145/80 (101) 94 05/13/17 08:32 94 Nasal Cannula 2.00 05/13/17 06:55 16 05/13/17 05:50 98.4 61 16 151/82 (105) 96 05/13/17 02:02 16 05/13/17 00:00 98.5 64 16 142/68 (92) 97 05/12/17 21:30 Nasal Cannula 2.00 05/12/17 21:11 99.0 98 16 148/82 (104) 97 05/12/17 16:00 98.4 81 22 124/68 (86) 96 05/12/17 12:00 98.1 71 18 116/60 (78) 97 Result Diagram: 05/13/17 0759 05/13/17 0759 Laboratory Results Laboratory Tests Test 05/12/17 09:19 05/13/17 07:59 White Blood Count 1.6 TH/MM3 Red Blood Count 3.36 MIL/MM3 Hemoglobin 9.7 GM/DL Hematocrit 29.2 % Mean Corpuscular Volume 86.8 FL Mean Corpuscular Hemoglobin 28.8 PG Mean Corpuscular Hemoglobin Concent 33.2 % Red Cell Distribution Width 14.4 % Platelet Count 35 TH/MM3 Mean Platelet Volume 8.6 FL Neutrophils (%) (Auto) 13.1 % Lymphocytes (%) (Auto) 84.7 % Monocytes (%) (Auto) 0.1 % Eosinophils (%) (Auto) 1.7 % Basophils (%) (Auto) 0.4 % Neutrophils # (Auto) 0.2 TH/MM3 Lymphocytes # (Auto) 1.3 TH/MM3 Monocytes # (Auto) 0.0 TH/MM3 Eosinophils # (Auto) 0.0 TH/MM3 Basophils # (Auto) 0.0 TH/MM3 CBC Comment AUTO DIFF Differential Total Cells Counted 100 Neutrophils % (Manual) 10 % Band Neutrophils % 1 % Lymphocytes % 86 % Eosinophils % 3 % Neutrophils # (Manual) 0.2 TH/MM3 Differential Comment FINAL DIFF MANUAL Smudge Cells PRESENT Platelet Estimate LOW Platelet Morphology Comment NORMAL Keratocytes OCC Blood Urea Nitrogen 21 MG/DL Creatinine 0.52 MG/DL Random Glucose 105 MG/DL Total Protein 4.3 GM/DL Albumin 2.2 GM/DL Calcium Level 7.9 MG/DL Phosphorus Level 2.0 MG/DL Magnesium Level 1.7 MG/DL Alkaline Phosphatase 51 U/L Aspartate Amino Transf (AST/SGOT) 13 U/L Alanine Aminotransferase (ALT/SGPT) 27 U/L Total Bilirubin 0.3 MG/DL Sodium Level 137 MEQ/L Potassium Level 3.9 MEQ/L Chloride Level 103 MEQ/L Carbon Dioxide Level 30.4 MEQ/L Anion Gap 4 MEQ/L Estimat Glomerular Filtration Rate 155 ML/MIN Administered Medications Medications (Trade) Dose Ordered Sig/Stuart Route PRN Reason Start Time Stop Time Status Last Admin Dose Admin Sodium Chloride (NS Flush) 2 ml UNSCH PRN IV FLUSH FLUSH AFTER USING IV ACCESS 05/02/17 15:30 05/09/17 05:30 Sodium Chloride (NS Flush) 2 ml BID IV FLUSH 05/02/17 21:00 05/13/17 08:18 Senna/Docusate Sodium (Ninfa-Colace) 1 tab BID PO 05/02/17 21:00 05/12/17 09:05 Pyridoxine HCl (Vitamin B6) 100 mg DAILY PO 05/03/17 09:00 05/13/17 08:16 Pravastatin Sodium (Pravachol) 40 mg DAILY PO 05/03/17 09:00 05/13/17 08:16 Guaifenesin (Mucinex Er) 600 mg BID PO 05/02/17 21:00 05/13/17 08:16 Nystatin (Mycostatin Liq) 5 ml QID SWISH-SWAL 05/02/17 18:00 05/13/17 08:16 Nicotine (Habitrol 21 Mg Patch.24 Hr) 1 patch DAILY T-DERMAL 05/04/17 09:00 05/13/17 08:16 Miscellaneous Information 1 HS T-DERMAL 05/04/17 21:00 05/12/17 21:00 Hydrochlorothiazide (Microzide) 12.5 mg DAILY PO 05/04/17 10:30 Future Hold 05/10/17 08:00 Lisinopril (Prinivil) 10 mg DAILY PO 05/04/17 10:30 Future Hold 05/10/17 08:00 Allopurinol (Zyloprim) 300 mg DAILY PO 05/05/17 09:00 05/13/17 08:16 Morphine Sulfate (Morphine Inj) 2 mg Q2HR PRN IV PUSH SEVERE BREAKTHROUGH PAIN 05/07/17 13:30 05/10/17 17:18 Oxycodone HCl (Roxicodone) 10 mg Q4H PRN PO PAIN 1-10 05/07/17 13:30 05/13/17 08:17 Morphine Sulfate (Oramorph Sr) 15 mg Q8HR PO 05/08/17 14:00 05/13/17 05:34 Potassium Bicarbonate (Effer-K Eff) 25 meq DAILY PO 05/10/17 09:00 05/13/17 08:18 Tamsulosin HCl (Flomax) 0.4 mg DAILY PO 05/09/17 10:15 05/13/17 08:17 Loperamide HCl (Imodium) 2 mg Q4H PRN PO DIARRHEA 05/11/17 11:15 05/13/17 00:59 Lactobacillus Acidophilus (Lactinex Pkt) 1 gm TID PO 05/11/17 13:00 05/13/17 08:17 Dexamethasone (Decadron) 4 mg Q8HR PO 05/11/17 14:00 05/13/17 05:35 Pantoprazole Sodium (Protonix) 40 mg DAILY PO 05/11/17 14:00 05/13/17 08:16 Filgrastim 480 mcg/Dextrose 50 ml @ 100 mls/hr DAILY@14 IV 05/12/17 14:00 05/12/17 12:51 Objective Remarks GENERAL: Elderly male, resting in bed eating breakfast in no acute distress SKIN: Warm and dry. Ecchymoses to BLE. Tinea lesion to cheek appears improved. ENT: No thrush today HEAD: Normocephalic. EYES: No injection or drainage. CARDIOVASCULAR: +S1/S2. RESPIRATORY: Breath sounds equal bilaterally. No accessory muscle use. GASTROINTESTINAL: Abdomen soft, non-tender, nondistended. EXTREMITIES: No cyanosis, or edema. MUSCULOSKELETAL: Adequate muscle tone. NEUROLOGICAL: Moving all extremities. Normal speech. No obvious focal deficit. PSYCHIATRIC: Appropriate mood and affect; insight and judgment normal. Assessment/Plan Assessment 76-year-old male with chronic lymphocytic leukemia/lymphoma, admitted with abdominal pain and back pain and a urinary tract infection. Plan Pt had chemotherapy with R-EPOCH from 05/05 to 05/09. He is now neutropenic but is not having fevers. Will continue Neupogen. Monitor CBC; anticipate possible need for platelet transfusion in the next couple of days. XRT begins tomorrow to spine lesions. Thrush on his tongue is much improved today. Will continue Nystatin mouthwash. Attending Statement The exam, history, and the medical decision-making described in the above note were completed with the assistance of the mid-level provider. I reviewed and agree with the findings presented. I attest that I had a [id number] encounter with the patient on the same day, and personally performed and documented my assessment and findings in the medical record. patient doing well. now severely neutropenic and platelets will soon be very low. no temperature and remains stable. leg strength is excellent and it is my understanding he will begin XRT tomorrow. will need to taper steroids. Lyla Villaseñor May 13, 2017 09:17 Jamie Mojica MD May 13, 2017 13:37
[2017-05-13 12:00] VITALS: BP 129/66; PULSE 68; RESP 18; TEMP 96.9
[2017-05-13 13:12] LABS: HEPARIN INDUCED PLATELET AB NEGATIVE (NEGATIVE)
[2017-05-13] MEDS: FILGRASTIM INJ 480 MCG in DEXTROSE 5% IN WATER INJ 48.4 ML IV SCH ×2 (13:54)
--- NOTE | 2017-05-13 17:44 | HHI.NSPN ---
Labs, Micro, & Vital Signs Results Date Time Temp Pulse Resp B/P (MAP) Pulse Ox O2 Delivery O2 Flow Rate FiO2 05/13/17 12:00 96.9 68 18 129/66 (87) 05/13/17 08:40 98.7 62 16 145/80 (101) 94 05/13/17 08:32 94 Nasal Cannula 2.00 05/13/17 06:55 16 05/13/17 05:50 98.4 61 16 151/82 (105) 96 05/13/17 02:02 16 05/13/17 00:00 98.5 64 16 142/68 (92) 97 05/12/17 21:30 Nasal Cannula 2.00 05/12/17 21:11 99.0 98 16 148/82 (104) 97 Constitutional Vital Signs Date Time Temp Pulse Resp B/P (MAP) Pulse Ox O2 Delivery O2 Flow Rate FiO2 05/13/17 12:00 96.9 68 18 129/66 (87) 05/13/17 08:40 98.7 62 16 145/80 (101) 94 05/13/17 08:32 94 Nasal Cannula 2.00 05/13/17 06:55 16 05/13/17 05:50 98.4 61 16 151/82 (105) 96 05/13/17 02:02 16 05/13/17 00:00 98.5 64 16 142/68 (92) 97 05/12/17 21:30 Nasal Cannula 2.00 05/12/17 21:11 99.0 98 16 148/82 (104) 97 Attending Statement I again reviewed Mr. Hercules his clinical and radiological findings. His legs are getting stronger I again discussed with him the alternatives of treatment. He wants to proceed with radiation therapy. He may benefit by an open reduction and internal fixation of his pathological fracture if his pain does not improve. He will proceed with radiation therapy tomorrow He is now infected, and has C diff enteritis, which places him at very high surgical risk HTN. Treat with antihypertensives as needed acetaminophen/cooling blanket as needed for temperature greater than 100.4 respiratory aggressive pulmonary toilette, nasotracheal suction, and breathing treatments with nebulizers. Nutrition. Oral diet Renal. monitor closely urine output, BUN and creatinine [place]. Monitor intake and output. Monitor electrolytes and replace as indicated per ICU electrolyte replacement protocol. ENDO:Acute hyperglycemia secondary to trauma. Monitor bedside glucose and initiate low-dose insulin sliding scale as indicated for glucose greater than 180 Continue Protonix for stress ulcer prophylaxis Continue Kingsley hose and SCD's for DVT prophylaxis. Carloz Gutierrez MD May 13, 2017 17:44
[2017-05-13 20:27] VITALS: BP 122/72; PULSE 78; RESP 16; TEMP 98.5; O2SAT 99
[2017-05-13] MEDS: REMOVE OLD PATCH T-DERMAL SCH (22:59)
[2017-05-14] VITALS (9 sets, daily range): BP systolic 124–161; BP diastolic 63–84; PULSE 69–112; RESP 16–20; TEMP 97.9–101.2; O2SAT 97–100
[2017-05-14] MEDS: MORPHINE SULFATE 15 MG CONTROLLED RELEASE TAB PO SCH ×3 (05:03→21:55)
[2017-05-14] MEDS: DEXAMETHASONE 4 MG TAB PO SCH ×2 (05:03→17:55)
[2017-05-14] MEDS ORDERED: SODIUM CHLORIDE 0.9% FLUSH 10 ML FLUSH IV FLUSH PRN (05:15)
[2017-05-14 06:38] LABS: HEMATOCRIT 30.7 % (39.0-51.0); MEAN CELL VOLUME 86.7 FL (80.0-100.0); MEAN CORPUSCULAR HEMOGLOBIN 28.8 PG (27.0-34.0); MEAN CORPUSCULAR HGB CONC 33.2 % (32.0-36.0); PLATELET COUNT 21 TH/MM3 (150-450); RED BLOOD COUNT 3.54 MIL/MM3 (4.50-5.90); RED CELL DISTRIBUTION WIDTH 14.5 % (11.6-17.2)
[2017-05-14 06:39] LABS: HEMO FLAGS AUTO DIFF
[2017-05-14 07:10] LABS: ALKALINE PHOSPHATASE 53 U/L (45-117); ALT (GPT) 42 U/L (12-78); ANION GAP 7 MEQ/L (5-15); AST (GOT) 27 U/L (15-37); BICARBONATE 29.3 MEQ/L (21.0-32.0); BLOOD UREA NITROGEN 22 MG/DL (7-18); CHLORIDE 100 MEQ/L (98-107); GLOMERULAR FILTRATION RATE 155 ML/MIN (>89); SODIUM (NA) 136 MEQ/L (136-145); TOTAL BILIRUBIN ADULT 0.4 MG/DL (0.2-1.0)
[2017-05-14] MEDS ORDERED: SODIUM CHLOR 0.9% 250 ML INJ 250 ML IV ONE (07:45)
[2017-05-14 08:42] LABS: EOSINOPHILS 3 % (0-4); POLYS (SEG NEUTROPHILS) 1 % (16-70); WBC DIFF SAMPLE 80
[2017-05-14 08:43] LABS: PLATELET ESTIMATE SMEAR LOW (NORMAL); PLATELET MORPHOLOGY NORMAL (NORMAL); SCAN/DIFF FINAL DIFF MANUAL; SMUDGE CELLS PRESENT PRESENT
[2017-05-14] MEDS: POTASSIUM BICARBONATE 25 MEQ EFFERVESCENT TAB PO SCH (09:00)
[2017-05-14] MEDS: DOCUSATE SODIUM 50 MG/SENNA 8.6 MG TAB PO SCH ×2 (09:00→19:14)
[2017-05-14] MEDS: TAMSULOSIN HCL 0.4 MG CAP PO SCH (09:36)
[2017-05-14] MEDS: NICOTINE 21 MG/24 HR PATCH T-DERMAL SCH (09:36)
[2017-05-14] MEDS: PRAVASTATIN SOD 40 MG TAB PO SCH (09:37)
[2017-05-14] MEDS: ALLOPURINOL 300 MG TAB PO SCH (09:37)
[2017-05-14] MEDS: NYSTATIN SUSP 500,000 U/5 ML CUP SWISH-SWAL SCH ×4 (09:38→21:53)
[2017-05-14] MEDS: LACTOBACILLUS ACIDOPHILUS 1 GM PACKET PO SCH ×3 (09:38→13:56)
[2017-05-14] MEDS: PYRIDOXINE HCL 50 MG TAB PO SCH (09:38)
[2017-05-14] MEDS: PANTOPRAZOLE SOD 40 MG DELAYED RELEASE TAB PO SCH (09:38)
[2017-05-14] MEDS: guaiFENesin E.R. 600 MG TAB PO SCH ×2 (09:38→21:53)
[2017-05-14] MEDS: SODIUM CHLORIDE 0.9% FLUSH 10 ML FLUSH IV FLUSH SCH ×2 (09:39→19:40)
--- NOTE | 2017-05-14 10:23 | HHI.PR ---
Subjective Remarks Patient says he is feeling all right today. Denies any chest pain or shortness of breath. Denies abdominal pain. Reports loose bowel movement continue. Denies nausea or vomiting Discussed with nurse. Transfusion ordered by oncology today. Objective Vital Signs Date Time Temp Pulse Resp B/P (MAP) Pulse Ox O2 Delivery O2 Flow Rate FiO2 05/14/17 04:05 98.4 71 16 151/83 (105) 98 05/14/17 00:38 98.3 69 16 149/84 (105) 97 05/13/17 20:27 98.5 78 16 122/72 (89) 99 05/13/17 20:00 Nasal Cannula 1.00 05/13/17 12:00 96.9 68 18 129/66 (87) I/O 05/13/17 05/13/17 05/13/17 05/14/17 05/14/17 05/14/17 07:00 15:00 23:00 07:00 15:00 23:00 Intake Total 840 ml Output Total 1425 ml 500 ml Balance -585 ml -500 ml Intake Oral 840 ml Output Urine Total 1425 ml 500 ml Result Diagram: 05/14/17 0410 05/14/17 0410 Procedures None Objective Remarks GENERAL: Patient lying in bed. Appears comfortable SKIN: Warm and dry. Scattered ecchymosis. HEAD: Normocephalic. EYES: No scleral icterus. No injection or drainage. NECK: Supple, trachea midline. No JVD. CARDIOVASCULAR: Regular rate and rhythm without murmurs, gallops, or rubs. RESPIRATORY: Breath sounds equal bilaterally. No accessory muscle use. GASTROINTESTINAL: Abdomen soft, non-tender, nondistended. MUSCULOSKELETAL: No cyanosis, or edema. BACK: Nontender without obvious deformity. No CVA tenderness. A/P Assessment and Plan ==== 05/14/17 = ANC continue 0.0. Continue to monitor. No signs of infection. Hematology following. Appreciate assistance. /Thrombocytopenia. Platelets 21. Patient does have scattered ecchymosis. Transfusion ordered. Appreciate hematology assistance. //Dehydration. BUN 22. Encourage by mouth intake. Repeat labs tomorrow. //CLL -recently developed a large mass in retroperitoneum extending from the lower pole of left kidney down along the iliopsoas muscle to the pelvis, measured at least 10 cm. 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 - completed chemo- per oncology. - on Neupogen. = Hematology following. Appreciate assistance. //Low back pain- Likely due to metastatic disease. -MRI shows destructive process at the level of L2 extending into the pedicles. - Neurosurgery . As per surgery assessment the patient has a pathological fracture with retropulsion and cord compression. Surgical decompression with open reduction and internal fixation of the pathological fracture has been recommended. The patient is requesting to proceed with radiation therapy first. - continue Decadron. -radiation oncology following. -continue with pain control. //thrombocytopenia -aspirin and heparin on hold- will monitor- Oncology following. //UTI (urinary tract infection)- treated; will stop antibiotic. - History of urethral stent - Urology consulted. Continue Baugh catheter. //Resolved after replacement. //Hyponatremia-resolved. //Hypotension-resolved. Continue to hold hypertensives at this time. Continue to monitor //DVT prophylaxis; SCD's- heparin on hold as noted above. continue PT/OT. Discharge Planning Starting radiation therapy today for back pain. Continues with neutropenia -PT recommends rehabilitation. -Pending clearance by hematology. Bro Hernandez MD May 14, 2017 10:23
[2017-05-14] MEDS ORDERED: diphenhydrAMINE HCL 25 MG CAP PO PRN (10:30)
[2017-05-14] MEDS ORDERED: ACETAMINOPHEN 325 MG TAB PO PRN (10:30)
--- NOTE | 2017-05-14 10:58 | PD.ONC.PN ---
Subjective Subjective Remarks Afebrile overnight. Patient resting in bed in nad. Reports continued pain in right flank, controlled with pain regimen. Excited to start radiation today. Objective Data Date Time Temp Pulse Resp B/P (MAP) Pulse Ox O2 Delivery O2 Flow Rate FiO2 05/14/17 08:00 98.4 84 20 127/73 (91) 97 05/14/17 04:05 98.4 71 16 151/83 (105) 98 05/14/17 00:38 98.3 69 16 149/84 (105) 97 05/13/17 20:27 98.5 78 16 122/72 (89) 99 05/13/17 20:00 Nasal Cannula 1.00 05/13/17 12:00 96.9 68 18 129/66 (87) 05/14/17 05/14/17 05/14/17 07:00 15:00 23:00 Output Total 500 ml Balance -500 ml Result Diagram: 05/14/17 0410 05/14/17 0410 Laboratory Results Laboratory Tests Test 05/14/17 04:10 White Blood Count 1.0 TH/MM3 Red Blood Count 3.54 MIL/MM3 Hemoglobin 10.2 GM/DL Hematocrit 30.7 % Mean Corpuscular Volume 86.7 FL Mean Corpuscular Hemoglobin 28.8 PG Mean Corpuscular Hemoglobin Concent 33.2 % Red Cell Distribution Width 14.5 % Platelet Count 21 TH/MM3 Mean Platelet Volume 9.0 FL CBC Comment AUTO DIFF Differential Total Cells Counted 80 Neutrophils % (Manual) 1 % Lymphocytes % 95 % Monocytes % 1 % Eosinophils % 3 % Neutrophils # (Manual) 0.0 TH/MM3 Differential Comment FINAL DIFF MANUAL Smudge Cells PRESENT Platelet Estimate LOW Platelet Morphology Comment NORMAL Red Cell Morphology Comment NORMAL Blood Urea Nitrogen 22 MG/DL Creatinine 0.52 MG/DL Random Glucose 105 MG/DL Total Protein 4.5 GM/DL Albumin 2.2 GM/DL Calcium Level 8.0 MG/DL Alkaline Phosphatase 53 U/L Aspartate Amino Transf (AST/SGOT) 27 U/L Alanine Aminotransferase (ALT/SGPT) 42 U/L Total Bilirubin 0.4 MG/DL Sodium Level 136 MEQ/L Potassium Level 4.0 MEQ/L Chloride Level 100 MEQ/L Carbon Dioxide Level 29.3 MEQ/L Anion Gap 7 MEQ/L Estimat Glomerular Filtration Rate 155 ML/MIN Administered Medications Medications (Trade) Dose Ordered Sig/Stuart Route PRN Reason Start Time Stop Time Status Last Admin Dose Admin Sodium Chloride (NS Flush) 2 ml UNSCH PRN IV FLUSH FLUSH AFTER USING IV ACCESS 05/02/17 15:30 05/09/17 05:30 Sodium Chloride (NS Flush) 2 ml BID IV FLUSH 05/02/17 21:00 05/14/17 09:39 Senna/Docusate Sodium (Ninfa-Colace) 1 tab BID PO 05/02/17 21:00 05/12/17 09:05 Pyridoxine HCl (Vitamin B6) 100 mg DAILY PO 05/03/17 09:00 05/14/17 09:38 Pravastatin Sodium (Pravachol) 40 mg DAILY PO 05/03/17 09:00 05/14/17 09:37 Guaifenesin (Mucinex Er) 600 mg BID PO 05/02/17 21:00 05/14/17 09:38 Nystatin (Mycostatin Liq) 5 ml QID SWISH-SWAL 05/02/17 18:00 05/14/17 09:38 Nicotine (Habitrol 21 Mg Patch.24 Hr) 1 patch DAILY T-DERMAL 05/04/17 09:00 05/14/17 09:36 Miscellaneous Information 1 HS T-DERMAL 05/04/17 21:00 05/13/17 22:59 Hydrochlorothiazide (Microzide) 12.5 mg DAILY PO 05/04/17 10:30 Future Hold 05/10/17 08:00 Lisinopril (Prinivil) 10 mg DAILY PO 05/04/17 10:30 Future Hold 05/10/17 08:00 Allopurinol (Zyloprim) 300 mg DAILY PO 05/05/17 09:00 05/14/17 09:37 Morphine Sulfate (Morphine Inj) 2 mg Q2HR PRN IV PUSH SEVERE BREAKTHROUGH PAIN 05/07/17 13:30 05/10/17 17:18 Oxycodone HCl (Roxicodone) 10 mg Q4H PRN PO PAIN 1-10 05/07/17 13:30 05/14/17 09:37 Morphine Sulfate (Oramorph Sr) 15 mg Q8HR PO 05/08/17 14:00 05/14/17 05:03 Potassium Bicarbonate (Effer-K Eff) 25 meq DAILY PO 05/10/17 09:00 05/13/17 08:18 Tamsulosin HCl (Flomax) 0.4 mg DAILY PO 05/09/17 10:15 05/14/17 09:36 Loperamide HCl (Imodium) 2 mg Q4H PRN PO DIARRHEA 05/11/17 11:15 05/13/17 00:59 Lactobacillus Acidophilus (Lactinex Pkt) 1 gm TID PO 05/11/17 13:00 05/14/17 09:38 Pantoprazole Sodium (Protonix) 40 mg DAILY PO 05/11/17 14:00 05/14/17 09:38 Filgrastim 480 mcg/Dextrose 50 ml @ 100 mls/hr DAILY@14 IV 05/12/17 14:00 05/13/17 13:54 Objective Remarks GENERAL: Elderly male upright in bed in nad. SKIN: Warm and dry. HEAD: Normocephalic. EYES: No injection or drainage. NECK: Supple, trachea midline. CARDIOVASCULAR: Regular rate and rhythm RESPIRATORY: Breath sounds equal bilaterally. No accessory muscle use. GASTROINTESTINAL: Abdomen soft, non-tender, nondistended. EXTREMITIES: No cyanosis NEUROLOGICAL: awake and alert, normal speech. Assessment/Plan Problem List: (1) Pancytopenia due to antineoplastic chemotherapy ICD Codes: D61.810 - Antineoplastic chemotherapy induced pancytopenia; T45.1X5A - Adverse effect of antineoplastic and immunosuppressive drugs, initial encounter Plan: --continue Neupogen --transfuse as needed platelets and pRBC --monitor for fever --obtain blood cultures STAT for any fever >100.4 if blood cultures not obtained in the previous 24 hours. 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 --05/06: D2 EPOCH. tolerating chemo. no adverse effects. replace potassium. --05/07: D3 EPOCH. continue chemo. resume prednisone BID dosing. --05/08: D4 EPOCH to start this afternoon. will complete chemotherapy tomorrow. --05/09: D5--will complete EPOCH 4th bag this evening and give Cytoxan this evening. --05/09: D6--chemotherapy complete. 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 --first presented with bulky adenopathy, treated with Rituxan and bendamustine without clear response. --then switched to Ibrutinib with very good response. neck and axillary adenopathy are no longer palpable. --recently developed a large mass in retroperitoneum extending from the lower pole of left kidney down along the iliopsoas muscle to the pelvis, measured at least 10 cm. 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 --plan was to treat him with Revlimid along with R-CHOP. was supposed to start chemotherapy at the clinic but was too weak. (4) Flank pain ICD Codes: R10.9 - Unspecified abdominal pain Plan: --on PRN IV morphine and PRN Oxycodone, --long acting morphine started on 05/07 -- Abdominal pain and flank pain due to the large retroperitoneal mass encroaching the iliopsoas muscle. -- Lesion noted on T11 that may be able to get kyphoplasty -- s/p simulation 05/04. to start radiation on 05/14 (5) History of urethral stent ICD Codes: Z98.890 - Other specified postprocedural states Status: Acute Plan: --had a urethral stent placement for hydronephrosis on 05/01 --urine culture negative. --currently on antibiotics per urology recommendations --Mcmillan catheter in place. last seen by urology on 05/09. recommends: Maintain mcmillan for now. Void trial when he is up and ambulating; --on Flomax (6) Dyspnea ICD Codes: R06.00 - Dyspnea, unspecified Plan: --reports he has had chronic cough for the last year --not on home O2 --h/o COPD --CT chest on 05/02 showed left upper lobe nodular mass, parenchymal disease at the right lung base and bilateral pleural effusions --repeat CXR, 05/08, showed no change Assessment 76-year-old male with chronic lymphocytic leukemia/lymphoma, admitted with abdominal pain and back pain and a urinary tract infection. Plan 1. start XRT today 2. monitor CBC 3. continue pain management 4. continue neutropenic precautions 5. reduce Decadron to BID dosing 6. give 1 unit platelets today. Attending Statement The exam, history, and the medical decision-making described in the above note were completed with the assistance of the mid-level provider. I reviewed and agree with the findings presented. I attest that I had a [id number] encounter with the patient on the same day, and personally performed and documented my assessment and findings in the medical record. Back pain better controlled. Blood counts nadiring. Continue nuepogen and transfusion prn. He is starting XRT to spine today. Taper steroid. Discussed with pt and his sister. Problem Qualifiers (1) Dyspnea: Qualified Codes: R06.02 - Shortness of breath Karen Pinto May 14, 2017 10:58 Aaron Montalvo MD May 14, 2017 15:40
[2017-05-14] MEDS: FILGRASTIM INJ 480 MCG in DEXTROSE 5% IN WATER INJ 48.4 ML IV SCH ×2 (13:59)
[2017-05-14] MEDS: LOPERAMIDE HCL 2 MG CAP PO PRN (13:59)
--- NOTE | 2017-05-14 16:15 | HHI.NSPN ---
Note Status Status: Progress Note Interval History Interval History 05/14. No changes./ Pain is controlled. legs getting stronger. Starting radiation therapy today Labs, Micro, & Vital Signs Results Date Time Temp Pulse Resp B/P (MAP) Pulse Ox O2 Delivery O2 Flow Rate FiO2 05/14/17 15:35 100.0 90 18 161/79 99 05/14/17 15:25 97.9 84 20 142/76 100 05/14/17 15:21 98.3 89 20 151/76 (101) 100 05/14/17 12:20 Nasal Cannula 1.00 05/14/17 11:32 98.3 71 16 136/75 (95) 99 05/14/17 08:00 98.4 84 20 127/73 (91) 97 05/14/17 04:05 98.4 71 16 151/83 (105) 98 05/14/17 00:38 98.3 69 16 149/84 (105) 97 05/13/17 20:27 98.5 78 16 122/72 (89) 99 05/13/17 20:00 Nasal Cannula 1.00 05/15/17 07:00 Intake Total 10 ml Output Total 1000 ml Balance -990 ml Constitutional Vital Signs Date Time Temp Pulse Resp B/P (MAP) Pulse Ox O2 Delivery O2 Flow Rate FiO2 05/14/17 15:35 100.0 90 18 161/79 99 05/14/17 15:25 97.9 84 20 142/76 100 05/14/17 15:21 98.3 89 20 151/76 (101) 100 05/14/17 12:20 Nasal Cannula 1.00 05/14/17 11:32 98.3 71 16 136/75 (95) 99 05/14/17 08:00 98.4 84 20 127/73 (91) 97 05/14/17 04:05 98.4 71 16 151/83 (105) 98 05/14/17 00:38 98.3 69 16 149/84 (105) 97 05/13/17 20:27 98.5 78 16 122/72 (89) 99 05/13/17 20:00 Nasal Cannula 1.00 05/15/17 07:00 Intake Total 10 ml Output Total 1000 ml Balance -990 ml Attending Statement He startedradiation therapy today HTN. Treat with antihypertensives as needed acetaminophen/cooling blanket as needed for temperature greater than 100.4 respiratory aggressive pulmonary toilette, nasotracheal suction, and breathing treatments with nebulizers. Nutrition. Oral diet Renal. monitor closely urine output, BUN and creatinine [place]. Monitor intake and output. Monitor electrolytes and replace as indicated per ICU electrolyte replacement protocol. ENDO:Acute hyperglycemia secondary to trauma. Monitor bedside glucose and initiate low-dose insulin sliding scale as indicated for glucose greater than 180 Continue Protonix for stress ulcer prophylaxis Continue Kingsley hose and SCD's for DVT prophylaxis. Carloz Gutierrez MD May 14, 2017 16:15
[2017-05-14] MEDS: CEFEPIME INJ 2,000 MG in SODIUM CHLORIDE 0.9% INJ 100 ML IV SCH (17:54)
[2017-05-14] MEDS: MORPHINE SULFATE 2 MG/ML INJ IV PUSH PRN (19:39)
[2017-05-14] MEDS: ACETAMINOPHEN 325 MG TAB PO PRN (19:52)
[2017-05-14] MEDS: REMOVE OLD PATCH T-DERMAL SCH (22:00)
[2017-05-15] VITALS (9 sets, daily range): BP systolic 91–161; BP diastolic 49–77; PULSE 74–134; RESP 16–20; TEMP 98.3–101; O2SAT 95–99
[2017-05-15] MEDS: CEFEPIME INJ 2,000 MG in SODIUM CHLORIDE 0.9% INJ 100 ML IV SCH ×3 (01:23→16:48)
[2017-05-15] MEDS: SODIUM CHLORIDE 0.9% FLUSH 10 ML FLUSH IV FLUSH PRN ×2 (01:24→02:57)
[2017-05-15 04:33] LABS: HEMATOCRIT 28.8 % (39.0-51.0); MEAN CELL VOLUME 85.5 FL (80.0-100.0); MEAN CORPUSCULAR HEMOGLOBIN 28.6 PG (27.0-34.0); MEAN CORPUSCULAR HGB CONC 33.5 % (32.0-36.0); PLATELET COUNT 31 TH/MM3 (150-450); RED BLOOD COUNT 3.37 MIL/MM3 (4.50-5.90); RED CELL DISTRIBUTION WIDTH 14.6 % (11.6-17.2); WHITE BLOOD COUNT 0.5 TH/MM3 (4.0-11.0)
[2017-05-15 04:52] LABS: HEMO FLAGS AUTO DIFF
[2017-05-15 05:02] LABS: BICARBONATE 29.6 MEQ/L (21.0-32.0); MAGNESIUM 1.6 MG/DL (1.5-2.5); POTASSIUM 4.1 MEQ/L (3.5-5.1)
[2017-05-15 05:14] LABS: CALCIUM-PROTEIN CORRECTED 8.7 MG/DL (8.5-10.1)
[2017-05-15] MEDS: DEXAMETHASONE 4 MG TAB PO SCH ×2 (05:26→16:48)
[2017-05-15] MEDS: MORPHINE SULFATE 15 MG CONTROLLED RELEASE TAB PO SCH ×3 (05:27→21:39)
[2017-05-15 05:44] LABS: EOSINOPHILS 4 % (0-4); WBC DIFF SAMPLE 25
[2017-05-15 05:45] LABS: OVALOCYTES 1+ (NORMAL); PLATELET ESTIMATE SMEAR LOW (NORMAL); PLATELET MORPHOLOGY NORMAL (NORMAL); SCAN/DIFF FINAL DIFF MANUAL
--- NOTE | 2017-05-15 08:43 | PD.ONC.PN ---
Subjective Subjective Remarks Tmax 101.2 overnight. Resting in room comfortably. Having some throat pain. Has developed oral ulcers. Tolerated first radiation yesterday. Objective Data Date Time Temp Pulse Resp B/P (MAP) Pulse Ox O2 Delivery O2 Flow Rate FiO2 05/15/17 03:49 98.3 74 16 117/64 (81) 96 05/15/17 00:00 98.6 84 16 102/49 (66) 97 05/14/17 20:00 Nasal Cannula 1.00 05/14/17 19:35 101.2 112 16 124/63 (83) 98 05/14/17 16:00 98.3 90 20 147/70 97 05/14/17 15:35 100.0 90 18 161/79 99 05/14/17 15:25 97.9 84 20 142/76 100 05/14/17 15:21 98.3 89 20 151/76 (101) 100 05/14/17 12:20 Nasal Cannula 1.00 05/14/17 11:32 98.3 71 16 136/75 (95) 99 05/15/17 05/15/17 05/15/17 07:00 15:00 23:00 Intake Total 605 ml Output Total 1650 ml Balance -1045 ml Result Diagram: 05/15/17 0300 05/15/17 0300 Laboratory Results Laboratory Tests Test 05/15/17 03:00 White Blood Count 0.5 TH/MM3 Red Blood Count 3.37 MIL/MM3 Hemoglobin 9.6 GM/DL Hematocrit 28.8 % Mean Corpuscular Volume 85.5 FL Mean Corpuscular Hemoglobin 28.6 PG Mean Corpuscular Hemoglobin Concent 33.5 % Red Cell Distribution Width 14.6 % Platelet Count 31 TH/MM3 Mean Platelet Volume 7.8 FL CBC Comment AUTO DIFF Differential Total Cells Counted 25 Lymphocytes % 96 % Eosinophils % 4 % Differential Comment FINAL DIFF MANUAL Platelet Estimate LOW Platelet Morphology Comment NORMAL Ovalocytes 1+ Blood Urea Nitrogen 21 MG/DL Creatinine 0.65 MG/DL Random Glucose 119 MG/DL Total Protein 4.5 GM/DL Albumin 2.0 GM/DL Calcium Level 7.2 MG/DL Phosphorus Level 2.6 MG/DL Magnesium Level 1.6 MG/DL Sodium Level 135 MEQ/L Potassium Level 4.1 MEQ/L Chloride Level 100 MEQ/L Carbon Dioxide Level 29.6 MEQ/L Anion Gap 5 MEQ/L Estimat Glomerular Filtration Rate 120 ML/MIN Protein Corrected Calcium 8.7 MG/DL Culture Results Microbiology Date/Time Source Procedure Growth Status 05/14/17 16:55 Blood Peripheral Aerobic Blood Culture Pending Received 05/14/17 16:55 Blood Peripheral Anaerobic Blood Culture Pending Received 05/14/17 16:50 Blood Line Aerobic Blood Culture Pending Received 05/14/17 16:50 Blood Line Anaerobic Blood Culture Pending Received Administered Medications Medications (Trade) Dose Ordered Sig/Stuart Route PRN Reason Start Time Stop Time Status Last Admin Dose Admin Sodium Chloride (NS Flush) 2 ml UNSCH PRN IV FLUSH FLUSH AFTER USING IV ACCESS 05/02/17 15:30 05/15/17 02:57 Sodium Chloride (NS Flush) 2 ml BID IV FLUSH 05/02/17 21:00 05/14/17 19:40 Acetaminophen (Tylenol) 650 mg Q4H PRN PO TEMP > 100.4 05/02/17 15:30 05/14/17 19:52 Senna/Docusate Sodium (Ninfa-Colace) 1 tab BID PO 05/02/17 21:00 05/12/17 09:05 Pyridoxine HCl (Vitamin B6) 100 mg DAILY PO 05/03/17 09:00 05/14/17 09:38 Pravastatin Sodium (Pravachol) 40 mg DAILY PO 05/03/17 09:00 05/14/17 09:37 Guaifenesin (Mucinex Er) 600 mg BID PO 05/02/17 21:00 05/14/17 21:53 Nystatin (Mycostatin Liq) 5 ml QID SWISH-SWAL 05/02/17 18:00 05/14/17 21:53 Nicotine (Habitrol 21 Mg Patch.24 Hr) 1 patch DAILY T-DERMAL 05/04/17 09:00 05/14/17 09:36 Miscellaneous Information 1 HS T-DERMAL 05/04/17 21:00 05/14/17 22:00 Hydrochlorothiazide (Microzide) 12.5 mg DAILY PO 05/04/17 10:30 Future Hold 05/10/17 08:00 Lisinopril (Prinivil) 10 mg DAILY PO 05/04/17 10:30 Future Hold 05/10/17 08:00 Allopurinol (Zyloprim) 300 mg DAILY PO 05/05/17 09:00 05/14/17 09:37 Morphine Sulfate (Morphine Inj) 2 mg Q2HR PRN IV PUSH SEVERE BREAKTHROUGH PAIN 05/07/17 13:30 05/14/17 19:39 Oxycodone HCl (Roxicodone) 10 mg Q4H PRN PO PAIN 1-10 05/07/17 13:30 05/15/17 02:56 Morphine Sulfate (Oramorph Sr) 15 mg Q8HR PO 05/08/17 14:00 05/15/17 05:27 Potassium Bicarbonate (Effer-K Eff) 25 meq DAILY PO 05/10/17 09:00 05/13/17 08:18 Tamsulosin HCl (Flomax) 0.4 mg DAILY PO 05/09/17 10:15 05/14/17 09:36 Loperamide HCl (Imodium) 2 mg Q4H PRN PO DIARRHEA 05/11/17 11:15 05/14/17 13:59 Lactobacillus Acidophilus (Lactinex Pkt) 1 gm TID PO 05/11/17 13:00 05/14/17 13:56 Pantoprazole Sodium (Protonix) 40 mg DAILY PO 05/11/17 14:00 05/14/17 09:38 Filgrastim 480 mcg/Dextrose 50 ml @ 100 mls/hr DAILY@14 IV 05/12/17 14:00 05/14/17 13:59 Heparin Sodium (Porcine) (Heparin Central Flush) 250 units UNSCH PRN IV FLUSH SEE PROTOCOL TABLE 05/14/17 05:15 05/15/17 02:57 Sodium Chloride (NS Flush) 5 ml UNSCH PRN IV FLUSH FLUSH AFTER USING IV ACCESS 05/14/17 05:15 05/15/17 02:57 Dexamethasone (Decadron) 4 mg Q12H PO 05/14/17 17:00 05/15/17 05:26 Cefepime HCl 2000 mg/Sodium Chloride 100 ml @ 200 mls/hr Q8H IV 05/14/17 17:00 05/15/17 01:23 Objective Remarks GENERAL: Elderly male sitting up in bed in nad. SKIN: Warm and dry. HEAD: Normocephalic. EYES: No injection or drainage. NECK: Supple, trachea midline. CARDIOVASCULAR: +S1/S2, a few extra beats auscultated. RESPIRATORY: anterior sanchez clear. GASTROINTESTINAL: Abdomen soft, non-tender, nondistended. EXTREMITIES: No cyanosis NEUROLOGICAL: awake and alert. normal speech. moving all extremities. Assessment/Plan Problem List: (1) Neutropenic fever ICD Codes: D70.9 - Neutropenia, unspecified; R50.81 - Fever presenting with conditions classified elsewhere Plan: --on IV Cefepime --BC, 05/14 pending --U/A pending --CXR pending (2) Pancytopenia due to antineoplastic chemotherapy ICD Codes: D61.810 - Antineoplastic chemotherapy induced pancytopenia; T45.1X5A - Adverse effect of antineoplastic and immunosuppressive drugs, initial encounter Plan: --continue Neupogen --transfuse as needed platelets and pRBC --monitor for fever --obtain blood cultures STAT for any fever >100.4 if blood cultures not obtained in the previous 24 hours. 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 --05/06: D2 EPOCH. tolerating chemo. no adverse effects. replace potassium. --05/07: D3 EPOCH. continue chemo. resume prednisone BID dosing. --05/08: D4 EPOCH to start this afternoon. will complete chemotherapy tomorrow. --05/09: D5--will complete EPOCH 4th bag this evening and give Cytoxan this evening. --05/09: D6--chemotherapy complete. 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 --first presented with bulky adenopathy, treated with Rituxan and bendamustine without clear response. --then switched to Ibrutinib with very good response. neck and axillary adenopathy are no longer palpable. --recently developed a large mass in retroperitoneum extending from the lower pole of left kidney down along the iliopsoas muscle to the pelvis, measured at least 10 cm. 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 --plan was to treat him with Revlimid along with R-CHOP. was supposed to start chemotherapy at the clinic but was too weak. (5) Flank pain ICD Codes: R10.9 - Unspecified abdominal pain Plan: --on PRN IV morphine and PRN Oxycodone, --long acting morphine started on 05/07 -- Abdominal pain and flank pain due to the large retroperitoneal mass encroaching the iliopsoas muscle. -- Lesion noted on T11 that may be able to get kyphoplasty -- s/p simulation 05/04. to start radiation on 05/14 (6) History of urethral stent ICD Codes: Z98.890 - Other specified postprocedural states Status: Acute Plan: --had a urethral stent placement for hydronephrosis on 05/01 --urine culture negative. --Mcmillan catheter in place. last seen by urology on 05/09. recommends: Maintain mcmillan for now. Void trial when he is up and ambulating; --on Flomax (7) Dyspnea ICD Codes: R06.00 - Dyspnea, unspecified Plan: --reports he has had chronic cough for the last year --not on home O2 --h/o COPD --CT chest on 05/02 showed left upper lobe nodular mass, parenchymal disease at the right lung base and bilateral pleural effusions --repeat CXR, 05/08, showed no change Assessment 76-year-old male with chronic lymphocytic leukemia/lymphoma, admitted with abdominal pain and back pain and a urinary tract infection. Plan 1. check CXR and U/A 2. check ECG and start tele for extra beats heard on exam 3. continue Neupogen 4. monitor blood cultures 5. start magic mouthwash for mouth pain. Attending Statement The exam, history, and the medical decision-making described in the above note were completed with the assistance of the mid-level provider. I reviewed and agree with the findings presented. I attest that I had a [id number] encounter with the patient on the same day, and personally performed and documented my assessment and findings in the medical record. Had fever overnight. Started on abx. Counts still nadiring. Pain better controlled. COntinue XRT. Monitor CBC and transfuse prn. Problem Qualifiers (1) Dyspnea: Qualified Codes: R06.02 - Shortness of breath Karen Pinto May 15, 2017 08:43 Aaron Montalvo MD May 15, 2017 17:06
[2017-05-15] MEDS: NYSTAT/DIPHENHY/LIDO MOUTHWASH (Adult) 120ML SWISH-SWAL SCH ×4 (09:00→21:37)
--- NOTE | 2017-05-15 09:06 | RADRPT ---
EXAM DATE/TIME: 05/15/2017 08:47 [facility] COMPARISON: CT SIMULATION, May 04, 2017, 13:09. CHEST SINGLE AP, May 08, 2017, 18:20. INDICATIONS : Cough. MEDICAL HISTORY : Hypertension. Chronic obstructive pulmonary disease. Leukemia. SURGICAL HISTORY : Port placement. ENCOUNTER: Subsequent ACUITY: 2 weeks PAIN SCORE: 0/10 LOCATION: Bilateral chest FINDINGS: Stable right [id number] in place. Stable bilateral lower lobe airspace disease and likely trace as sociated pleural effusions. Cardiac mediastinal contours are stable. Remainder of exam is unchanged. CONCLUSION: 1. Stable bilateral lower lobe airspace disease and small associated pleural effusions. 2. No significant interval change. Pito Mitchell MD on May 15, 2017 at 9:02 Board Certified Radiologist. This report was verified electronically.
[2017-05-15] MEDS: NICOTINE 21 MG/24 HR PATCH T-DERMAL SCH (09:09)
[2017-05-15] MEDS: PANTOPRAZOLE SOD 40 MG DELAYED RELEASE TAB PO SCH (09:09)
[2017-05-15] MEDS: NYSTATIN SUSP 500,000 U/5 ML CUP SWISH-SWAL SCH ×2 (09:09→13:20)
[2017-05-15] MEDS: SODIUM CHLORIDE 0.9% FLUSH 10 ML FLUSH IV FLUSH SCH ×2 (09:09→21:43)
[2017-05-15] MEDS: POTASSIUM BICARBONATE 25 MEQ EFFERVESCENT TAB PO SCH (09:10)
[2017-05-15] MEDS: LACTOBACILLUS ACIDOPHILUS 1 GM PACKET PO SCH (09:10)
[2017-05-15] MEDS: DOCUSATE SODIUM 50 MG/SENNA 8.6 MG TAB PO SCH ×2 (09:10→21:00)
[2017-05-15] MEDS: guaiFENesin E.R. 600 MG TAB PO SCH ×2 (09:10→21:00)
[2017-05-15] MEDS: PRAVASTATIN SOD 40 MG TAB PO SCH (09:10)
[2017-05-15] MEDS: ALLOPURINOL 300 MG TAB PO SCH (09:10)
[2017-05-15] MEDS: TAMSULOSIN HCL 0.4 MG CAP PO SCH (09:10)
[2017-05-15] MEDS: PYRIDOXINE HCL 50 MG TAB PO SCH (09:11)
[2017-05-15 10:22] LABS: BACTERIA, URINE RARE /hpf; BLOOD, URINE LARGE (NEG); GLUCOSE,URINE NEG (NEG); GRANULAR CAST, URINE 1 /lpf; KETONE, URINE NEG (NEG); MUCUS URINE FEW /lpf (OCC); NITRITE,URINE NEG (NEG); URINE COLOR YELLOW (YELLW/STRAW)
[2017-05-15 10:23] LABS: COMMENT (UR) CATH-CULTURE IND; CULTURE IF INDICATED CATH CULTURE IND
[2017-05-15] MEDS: FILGRASTIM INJ 480 MCG in DEXTROSE 5% IN WATER INJ 48.4 ML IV SCH ×2 (13:19)
[2017-05-15] MEDS ORDERED: SODIUM CHLORID 0.9% 500 ML INJ 500 ML IV ONE ×2 (15:00→19:15)
--- NOTE | 2017-05-15 15:27 | HHI.PR ---
Subjective Remarks Patient seen earlier this morning around 11 He has no complaints. States he is sore on bilateral flanks which he attributed to radiation. Objective Vitals Vital Signs Date Time Temp Pulse Resp B/P (MAP) Pulse Ox O2 Delivery O2 Flow Rate FiO2 05/15/17 09:55 Nasal Cannula 2.00 05/15/17 03:49 98.3 74 16 117/64 (81) 96 05/15/17 00:00 98.6 84 16 102/49 (66) 97 05/14/17 20:00 Nasal Cannula 1.00 05/14/17 19:35 101.2 112 16 124/63 (83) 98 05/14/17 16:00 98.3 90 20 147/70 97 05/14/17 15:35 100.0 90 18 161/79 99 I/O 05/14/17 05/14/17 05/14/17 05/15/17 05/15/17 05/15/17 07:00 15:00 23:00 07:00 15:00 23:00 Intake Total 599 ml 605 ml Output Total 500 ml 1800 ml 1650 ml Balance -500 ml -1201 ml -1045 ml Intake Oral 240 ml 500 ml IV Total 150 ml 105 ml Platelets 189 ml Blood Product IV Normal Saline Flush 20 ml Output Urine Total 500 ml 1800 ml 1650 ml # Bowel Movements 1 1 Result Diagram: 05/15/17 0300 05/15/17 0300 Objective Remarks GENERAL: Elderly male in no apparent distress. CARDIOVASCULAR: Normal rate and regular rhythm without murmurs, gallops, or rubs. RESPIRATORY: Good respiratory efforts. Breath sounds equal and clear to auscultation bilaterally. GASTROINTESTINAL: Abdomen soft, non-tender, non-distended. Normal active bowel sounds. Reports flank pain is deep. Not tender to palpation. MUSCULOSKELETAL: Extremities without cyanosis, or edema. NEURO: Alert & Oriented x4 to person, place, time, situation. Moves all ext x4 PSYCH: Appropriate mood and affect. A/P Problem List: (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 - Lymphoblastic (diffuse) lymphoma, unspecified site (2) CLL (chronic lymphocytic leukemia) ICD Code: C91.10 - Chronic lymphocytic leukemia of B-cell type not having achieved remission (3) UTI (urinary tract infection) ICD Code: N39.0 - Urinary tract infection, site not specified Status: Acute (4) History of urethral stent ICD Code: Z98.890 - Other specified postprocedural states Status: Acute (5) Low back pain ICD Code: M54.5 - Low back pain (6) Hypokalemia ICD Code: E87.6 - Hypokalemia Status: Acute (7) Hyponatremia ICD Code: E87.1 - Hypo-osmolality and hyponatremia Status: Resolved (8) Hypotension ICD Code: I95.9 - Hypotension, unspecified Status: Resolved (9) Diarrhea ICD Code: R19.7 - Diarrhea, unspecified Assessment and Plan 76-year-old male with CLL, pancytopenia, neutropenic fever Pancytopenia: Hematology following. Transfusion as needed. CLL:? Lymphoblastic phase -recently developed a large mass in retroperitoneum extending from the lower pole of left kidney down along the iliopsoas muscle to the pelvis, measured at least 10 cm. 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 - completed chemo- per oncology. - on Neupogen. - Oncology following. Appreciate assistance. Patient started on radiation. Low back pain/flank pain- Likely due to metastatic disease. Pain control as needed. -MRI shows destructive process at the level of L2 extending into the pedicles. - Neurosurgery . As per surgery assessment the patient has a pathological fracture with retropulsion and cord compression. Surgical decompression with open reduction and internal fixation of the pathological fracture initially recommended. The patient is requesting to proceed with radiation therapy first. - continue Decadron. -radiation oncology following. -continue with pain control. thrombocytopenia -aspirin and heparin on hold- will monitor- Oncology following. Neutropenic fever: Initially had abnormal urinalysis but urine culture was negative. - Fever overnight. Repeat blood cultures. Start cefepime for neutropenic fever. - Follow repeat urine culture. X-ray today shows bilateral lower lobe airspace disease and small pleural effusions. History of urethral stent - Urology consulted. Continue Baugh catheter. Hypotension-resolved. Continue to hold hypertensives at this time. Continue to monitor DVT prophylaxis; SCD's- heparin on hold as noted above. continue PT/OT. Discharge Planning Continue inpatient treatment. Problem Qualifiers (1) Low back pain: Qualified Codes: M54.5 - Low back pain (2) Diarrhea: Qualified Codes: R19.7 - Diarrhea, unspecified Rohit Jasso MD May 15, 2017 15:27
--- NOTE | 2017-05-15 15:47 | EKG ---
Date Performed: 05/15/2017 Time Performed: 08:30:21 PTAGE: 76 years EKG: Sinus rhythm WITH OCCASIONAL SUPRAVENTRICULAR PREMATURE COMPLEXES NONSPECIFIC T-WAVE ABNORMALITY BORDERLINE ECG C ompared to prior tracing no significant change PREVIOUS TRACING : 05/02/2017 11.13 DOCTOR: Baltazar Mae Interpretating Date/Time 05/15/2017 15:45:41
[2017-05-15] MEDS ORDERED: METOPROLOL TARTRATE 25 MG TAB PO ONE (16:30)
--- NOTE | 2017-05-15 16:47 | RADRPT ---
EXAM DATE/TIME: 05/15/2017 16:14 [facility] COMPARISON: No previous studies available for comparison. INDICATIONS : Abdominal pain. MEDICAL HISTORY : Hypertension. Chronic obstructive pulmonary disease. Leukemia. Kidney disease. SURGICAL HISTORY : Inguinal hernia repair. ENCOUNTER: Initial ACUITY: 3 days PAIN SCORE: 5/10 LOCATION: abdomen. FINDINGS: There is marked gaseous distention of the stomach. No dilated loops of small or large bowel. Double -J stents are present. There is a linear area of density parallel to the left stent at the level of the sacrum which is of uncertain significance; cannot exclude calcification in the left ureter. No c alcifications project over the left kidney. There are 2 tiny calcifications project over the medial right kidney measuring 2 mm. Osseous structures are grossly intact. CONCLUSION: 1. Gaseous distention of the stomach. 2. Double-J stents in place with possible linear calcification along the mid left ureter. Rakesh Ramirez MD on May 15, 2017 at 16:44 Board Certified Radiologist. This report was verified electronically.
[2017-05-15] MEDS: SODIUM CHLOR 0.9% 1000 ML INJ 1,000 ML IV SCH ×3 (16:48→21:44)
[2017-05-15] MEDS: REMOVE OLD PATCH T-DERMAL SCH (21:00)
--- NOTE | 2017-05-15 21:57 | EKG ---
Date Performed: 05/15/2017 Time Performed: 15:25:52 PTAGE: 76 years EKG: Sinus tachycardia Inferior/lateral ST-T changes Abnormal ECG PREVIOUS TRACING : 05/15/2017 08.30 Compared to the previous tracing ST now present DOCTOR: Bipin Hernandez Interpretating Date/Time 05/15/2017 21:55:43
[2017-05-16] VITALS (10 sets, daily range): BP systolic 86–125; BP diastolic 50–95; PULSE 63–135; RESP 16–35; TEMP 98–100.4; O2SAT 92–97
[2017-05-16] MEDS: CEFEPIME INJ 2,000 MG in SODIUM CHLORIDE 0.9% INJ 100 ML IV SCH (00:44)
[2017-05-16] MEDS: SODIUM CHLOR 0.9% 1000 ML INJ 1,000 ML IV SCH (03:58)
[2017-05-16 04:49] LABS: HEMATOCRIT 33.3 % (39.0-51.0); MEAN CELL VOLUME 84.3 FL (80.0-100.0); MEAN CORPUSCULAR HEMOGLOBIN 28.3 PG (27.0-34.0); MEAN CORPUSCULAR HGB CONC 33.5 % (32.0-36.0); RED BLOOD COUNT 3.96 MIL/MM3 (4.50-5.90); RED CELL DISTRIBUTION WIDTH 14.7 % (11.6-17.2); WHITE BLOOD COUNT 0.6 TH/MM3 (4.0-11.0)
[2017-05-16 05:18] LABS: BICARBONATE 26.2 MEQ/L (21.0-32.0); CALCIUM-PROTEIN CORRECTED 8.7 MG/DL (8.5-10.1); HEMO FLAGS AUTO DIFF; POTASSIUM 3.7 MEQ/L (3.5-5.1); TOTAL BILIRUBIN ADULT 0.7 MG/DL (0.2-1.0)
[2017-05-16] MEDS: ACETAMINOPHEN 325 MG TAB PO PRN (05:21)
[2017-05-16] MEDS: MORPHINE SULFATE 15 MG CONTROLLED RELEASE TAB PO SCH (05:21)
[2017-05-16] MEDS: DEXAMETHASONE 4 MG TAB PO SCH (05:21)
[2017-05-16 05:24] LABS: PLATELET COUNT 13 TH/MM3 (150-450)
[2017-05-16 05:25] LABS: APTT (PATIENT) 41.9 SEC (24.3-30.1); INTERNATIONAL NORMALIZED RATIO 1.2 RATIO; PROTHROMBIN TIME - PATIENT 13.4 SEC (9.8-11.6)
[2017-05-16] MEDS: MORPHINE SULFATE 2 MG/ML INJ IV PUSH PRN (06:02)
[2017-05-16] MEDS ORDERED: DILTIAZEM HCL 25 MG/5 ML VIAL IV ONE (06:30)
[2017-05-16] MEDS ORDERED: SODIUM CHLOR 0.9% 250 ML INJ 250 ML IV ONE (07:00)
[2017-05-16] MEDS ORDERED: VANCOMYCIN INJ 1,000 MG in SODIUM CHLOR 0.9% 250 ML INJ 250 ML IV SCH (08:00)
[2017-05-16 08:10] LABS: WBC DIFF SAMPLE 50
[2017-05-16 08:17] LABS: PLATELET ESTIMATE SMEAR RARE (NORMAL); PLATELET MORPHOLOGY NORMAL (NORMAL); SCAN/DIFF FINAL DIFF MANUAL
[2017-05-16 08:18] LABS: OVALOCYTES 1+ (NORMAL); ROULEAUX PRESENT (NORMAL)
[2017-05-16] MEDS: PRAVASTATIN SOD 40 MG TAB PO SCH (08:19)
[2017-05-16] MEDS: SODIUM CHLORIDE 0.9% FLUSH 10 ML FLUSH IV FLUSH SCH (08:19)
[2017-05-16] MEDS: TAMSULOSIN HCL 0.4 MG CAP PO SCH (08:19)
[2017-05-16] MEDS: POTASSIUM BICARBONATE 25 MEQ EFFERVESCENT TAB PO SCH (08:19)
[2017-05-16] MEDS: guaiFENesin E.R. 600 MG TAB PO SCH (08:19)
[2017-05-16] MEDS: ALLOPURINOL 300 MG TAB PO SCH (08:19)
[2017-05-16] MEDS: NICOTINE 21 MG/24 HR PATCH T-DERMAL SCH (08:19)
[2017-05-16] MEDS: PANTOPRAZOLE SOD 40 MG DELAYED RELEASE TAB PO SCH (08:19)
[2017-05-16] MEDS: PYRIDOXINE HCL 50 MG TAB PO SCH (08:19)
[2017-05-16] MEDS: NYSTAT/DIPHENHY/LIDO MOUTHWASH (Adult) 120ML SWISH-SWAL SCH (08:19)
--- NOTE | 2017-05-16 08:29 | HHI.PR ---
Subjective Remarks I was notified by RN that Pt is hypotensive and tachycardic. He was evaluated by Dr. Montalvo and he would like pt transferred to the ICU and has already placed a consult to the [facility]. I did go evaluate the patient. He tells me that he doesn't feel well. Has chills , feels nauseous but no vomiting. Denies any chest pains but does complain of SOB. Continues to have pain in his "kidneys", flank and abdomen. at bedside. Objective Vitals Vital Signs Date Time Temp Pulse Resp B/P (MAP) Pulse Ox O2 Delivery O2 Flow Rate FiO2 05/16/17 07:08 135 30 86/50 (62) 05/16/17 06:41 99.1 131 20 88/52 (64) 92 05/16/17 05:42 133 05/16/17 04:16 127 05/16/17 03:55 118 05/16/17 03:52 100.4 117 16 121/67 (85) 96 05/16/17 00:50 100.4 110 18 108/55 (72) 97 05/16/17 00:01 110 05/15/17 21:10 Nasal Cannula 2.00 05/15/17 20:55 100.9 115 18 91/50 (64) 95 05/15/17 20:07 112 05/15/17 18:31 124 05/15/17 16:50 101.0 128 18 131/76 (94) 97 05/15/17 16:00 134 05/15/17 12:00 99.0 95 18 161/77 (105) 99 05/15/17 09:55 Nasal Cannula 2.00 I/O 05/15/17 05/15/17 05/15/17 05/16/17 05/16/17 05/16/17 07:00 15:00 23:00 07:00 15:00 23:00 Intake Total 605 ml 100 ml 1350 ml 1620 ml Output Total 1650 ml 1375 ml 650 ml Balance -1045 ml 100 ml -25 ml 970 ml Intake Oral 500 ml 240 ml IV Total 105 ml 100 ml 1350 ml 1380 ml Output Urine Total 1650 ml 1375 ml 650 ml # Bowel Movements 1 1 Result Diagram: 05/16/17 0350 05/16/17 0350 Imaging Last Impressions Abdomen X-Ray 05/15/17 1539 Signed Impressions: Service Date/Time: Monday, May 15, 2017 16:14 - CONCLUSION: 1. Gaseous distention of the stomach. 2. Double-J stents in place with possible linear calcification along the mid left ureter. Rakesh Ramirez MD Chest X-Ray 05/15/17 Signed Impressions: Service Date/Time: Monday, May 15, 2017 08:47 - CONCLUSION: 1. Stable bilateral lower lobe airspace disease and small associated pleural effusions. 2. No significant interval change. Pito Mitchell MD Hip and Pelvis X-Ray 05/11/17 Signed Impressions: Service Date/Time: Thursday, May 11, 2017 16:52 - CONCLUSION: 1. No acute abnormality. 2. Bilateral hip osteoarthritis. 3. Mildly distended loops of gas-filled small bowel. Rakesh Farnsworth Jr., MD Thoracic Spine MRI 05/03/17 Signed Impressions: Service Date/Time: April 12:42 - CONCLUSION: 1. Please see the MRI of the lumbar spine reported separately. 2. Study is motion degraded. 3. Destructive process involving the T11 vertebral body with 40%% loss of height but no retropulsion. This is suggestive of a metastatic focus. Rakesh Farnsworth Jr., MD Lumbar Spine MRI 05/03/17 Signed Impressions: Service Date/Time: April 12:42 - CONCLUSION: 1. Please see the MRI of the thoracic spine reported separately. 2. Current study limited by motion artifact. 3. Destructive process involving the L2 vertebral body with extension into the pedicles bilaterally as well the left lamina with narrowing of the central canal due to posterior displacement of the posterior cortical margin as well as obscuration of the neural foramina. 10%% loss of height. This is felt to relate to a metastatic focus. 4. Prominent retroperitoneal soft tissue previous described on the CT scan. Rakesh Farnsworth Jr., MD Chest CT 05/02/17 0000 Signed Impressions: Service Date/Time: April 01:27 - CONCLUSION: Left upper lobe nodular mass. Parenchymal disease in the right lung base. Moderately large bilateral pleural effusions. Destructive process involving T11 vertebral body Guzman Alcaraz MD Abdomen/Pelvis CT 10/11/17 0000 Signed Impressions: Service Date/Time: April 01:27 - CONCLUSION: Extensive abnormal retroperitoneal soft tissue, presumably confluent adenopathy and adenopathy also present in the celiac region in the upper abdomen. Destructive process involving T11. Bilateral ureteral stents in place. Guzman Alcaraz MD Objective Remarks GENERAL: Elderly male, appears anxious. CARDIOVASCULAR: tachycardic, sounds somewhat irregular however Heart sounds are somewhat distant, no obvious murmurs appreciated. RESPIRATORY: no wheezing, no crackles GASTROINTESTINAL: Abdomen soft, some discomfort w deep palpation but no pain reported during my exam. Normal active bowel sounds. some pain w palpation on the right flank MUSCULOSKELETAL: Extremities without edema. Multiple bruising noted on the lower extremities. NEURO: Alert & Oriented. Moves all ext x4 PSYCH: Anxious A/P Problem List: (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 - Lymphoblastic (diffuse) lymphoma, unspecified site (2) CLL (chronic lymphocytic leukemia) ICD Code: C91.10 - Chronic lymphocytic leukemia of B-cell type not having achieved remission (3) UTI (urinary tract infection) ICD Code: N39.0 - Urinary tract infection, site not specified Status: Acute (4) History of urethral stent ICD Code: Z98.890 - Other specified postprocedural states Status: Acute (5) Low back pain ICD Code: M54.5 - Low back pain (6) Hypokalemia ICD Code: E87.6 - Hypokalemia Status: Acute (7) Hyponatremia ICD Code: E87.1 - Hypo-osmolality and hyponatremia Status: Resolved (8) Hypotension ICD Code: I95.9 - Hypotension, unspecified Status: Resolved (9) Diarrhea ICD Code: R19.7 - Diarrhea, unspecified Assessment and Plan 76-year-old male with CLL, pancytopenia, neutropenic fever Neutropenic fever/severe sepsis/hypotension : Initially had abnormal urinalysis but urine culture was negative. - Fever overnight, up to 100.9 Repeat blood cultures and urine cultures 05/15 pending. on cefepime and now started on vanco for neutropenic fever. I will consult infectious disease for assistance and recs. - X-ray 05/15/17 showed bilateral lower lobe airspace disease and small pleural effusions. Repeat chest x-ray already ordered. -hypotension: MAP<65 w tachycardia. I will order 1L NS bolus now. I have discussed the case w Dr. Cui, [facility] and oncology has already placed consult. hold hypertensives at this time. Continue to monitor Pancytopenia: Hematology/oncology following. -aspirin and heparin on hold- will monitor- Oncology following. Platelet count down to 13 today. Onc has ordered platelet transfusion today -on neupogen CLL:? Lymphoblastic phase -recently developed a large mass in retroperitoneum extending from the lower pole of left kidney down along the iliopsoas muscle to the pelvis, measured at least 10 cm. 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 - completed chemo- per oncology. - on Neupogen. - Oncology following. Appreciate assistance. Patient started on radiation. Low back pain/flank pain- Likely due to metastatic disease. Pain control as needed. -MRI shows destructive process at the level of L2 extending into the pedicles. - Neurosurgery . As per surgery assessment the patient has a pathological fracture with retropulsion and cord compression. Surgical decompression with open reduction and internal fixation of the pathological fracture initially recommended. The patient is requesting to proceed with radiation therapy first. - continue Decadron. - radiation oncology following. -continue with pain control. History of urethral stent - Urology consulted. Continue Baugh catheter. DVT prophylaxis; SCD's- heparin on hold as noted above. continue PT/OT. Discharge Planning transfer to [facility] service ID consulted. STAT EKG Problem Qualifiers (1) Low back pain: Qualified Codes: M54.5 - Low back pain (2) Diarrhea: Qualified Codes: R19.7 - Diarrhea, unspecified Deborah Wolfe MD May 16, 2017 08:29
[2017-05-16] MEDS ORDERED: SODIUM CHLOR 0.9% 1000 ML INJ 1,000 ML IV ONE (08:30)
--- NOTE | 2017-05-16 08:56 | PD.CONS ---
[facility] Service Critical Care Medicine Consult Requested By Dr. Wolfe Reason for Consult Neutropenic fever, hypotension Primary Care Physician No Primary Care Physician History of Present Illness This is a 76-year-old male. Date of admission 05/02/2017. Date of consultation 05/16/2017. 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 Patient received rituximab on 05/04 and 5 days of EPOCH therapy 1014 through 05/09. Patient was noted to have T11/L2 fractures and was evaluated by neurosurgery as well. Patient has developed neutropenic fever and management was initially on cefepime and vancomycin. Infectious disease and critical care were consulted today for management of patient's underlying issues. Noted the patient's platelets were 13. Patient received 4 L normal saline and one pack of platelets overnight. According to RN patient had a systolic blood pressure in 80s and 90s. Patient was in his normal state of health complaining of abdominal pain. Patient was taking his medications and became unresponsive. Patient's nurse was moving the patient to the ICU when a CODE BLUE was called at the 6 pink elevators. Upon arrival, patient had di aspiration throughout with no suctioning available. She was in PEA rhythm/A. fib with RVR with heart rate in the 180s. Patient was placed on the elevator and brought to room 521 where CPR was continued in route and on the floor. Suction was established an ET tube was placed without complication. Patient received 5 mg epinephrine, 2 ampules of bicarbonate, 150 mg amiodarone and one gram of calcium chloride. Patient is currently on 3 vasopressors with an elevated lactate. All labs are currently pending. Chest x-ray revealed adequate positioning of ET tube present 3 cm above the latia. Bilateral infiltrates. No free air under the diaphragm. Review of Systems ROS Limitations: Intubated Past Family Social History Allergies: Coded Allergies: levofloxacin (Verified Allergy, Severe, welts and rash, 05/02/17) patient states not an allergy; r/o after it was entered in as an allergy. Sulfa (Sulfonamide Antibiotics) (Verified Allergy, Unknown, welts and rash , 05/02/17) Past Medical History History of temporal arteritis Hypertension Dyslipidemia Chronic kidney disease History of CLL with transformation to lymphoma plasma/lymphoblastic lymphoma Osteoarthritis COPD Past Surgical History Bilateral double-J stent placement for hydronephrosis Dr. Crews Left and right Hernia repair Right Port-A-Cath T&A Reported Medications Lortab (Hydrocodone-Acetaminophen) 7.5-325 Mg Tab 1 Tab PO Q6H PRN Imbruvica (Ibrutinib) 140 Mg Cap 420 Mg Wal-Dryl Allergy (Diphenhydramine HCl) 25 Mg Cap Pyridoxine (Pyridoxine HCl) 100 Mg Tab 100 Mg PO DAILY Multi For Him (Multiple Vitamins W/ Minerals) 0.4 Mg-2 Mg-250 Mcg Tab Simvastatin 20 Mg Tab 20 Mg PO DAILY Lotensin Hct (Benazepril-Hydrochlorothiazide) 10-12.5 Mg Tab 1 Tab PO DAILY Glucosamine 1500 Complex (Jcpxdqqcjwm-Hhejfixxdez-Jun C-) 1 Cap Cap Docusate Sodium-Senna (Sennosides-Docusate Sodium) 8.6-50 Mg Tab 1 Tab PO HS Aspirin 81 Mg Chew 81 Mg CHEW DAILY Active Ordered Medications Reviewed in EMR Family History Father with cardiac issues. Social History [id number] tobacco. Quit. Quit alcohol use. No IV drug use. Physical Exam Vital Signs Vital Signs Date Time Temp Pulse Resp B/P (MAP) Pulse Ox O2 Delivery O2 Flow Rate FiO2 05/16/17 08:30 98.0 128 35 125/95 05/16/17 07:08 135 30 86/50 (62) 05/16/17 06:41 99.1 131 20 88/52 (64) 92 05/16/17 05:42 133 05/16/17 04:16 127 05/16/17 03:55 118 05/16/17 03:52 100.4 117 16 121/67 (85) 96 05/16/17 00:50 100.4 110 18 108/55 (72) 97 05/16/17 00:01 110 05/15/17 21:10 Nasal Cannula 2.00 05/15/17 20:55 100.9 115 18 91/50 (64) 95 05/15/17 20:07 112 05/15/17 18:31 124 05/15/17 16:50 101.0 128 18 131/76 (94) 97 05/15/17 16:00 134 05/15/17 12:00 99.0 95 18 161/77 (105) 99 05/15/17 09:55 Nasal Cannula 2.00 Physical Exam GENERAL: 76-year-old male, currently orotracheally intubated SKIN: Cool and dry. No rash. Ecchymosis/petechiae upper extremities HEAD: Atraumatic. Normocephalic. EYES: Pupils equal and round about formulas bilaterally and fixed. Upward gaze.. No scleral icterus. No injection or drainage. ENT: No nasal bleeding or discharge. Mucous membranes pink and moist. NECK: Trachea midline. No JVD. CARDIOVASCULAR: Tachycardia, rr. S1, S2 no S4 without murmur RESPIRATORY: Coarse rhonchorous Crackles appreciated throughout both anterior and posterior lung sanchez. GASTROINTESTINAL: Abdomen soft, non-tender, nondistended. No bowel sounds are appreciated MUSCULOSKELETAL: Extremities with trace lower extremity edema. No obvious deformities. NEUROLOGICAL: Patient does have a blink. Patient does have a gag. Patient is currently biting onto. Patient upper and lower extremities are moving outward/ decerebrate Laboratory Laboratory Tests Test 05/15/17 09:30 05/16/17 03:50 Urine Color YELLOW Urine Turbidity CLEAR Urine pH 7.0 Urine Specific [place] 1.013 Urine Protein 30 Urine Glucose (UA) NEG Urine Ketones NEG Urine Occult Blood LARGE Urine Nitrite NEG Urine Bilirubin NEG Urine Urobilinogen LESS THAN 2.0 Urine Leukocyte Esterase NEG Urine RBC Urine WBC 1 Urine Bacteria RARE Urine Granular Casts 1 Urine Mucus FEW Microscopic Urinalysis Comment CATH-CULTURE IND White Blood Count 0.6 Red Blood Count 3.96 Hemoglobin 11.2 Hematocrit 33.3 Mean Corpuscular Volume 84.3 Mean Corpuscular Hemoglobin 28.3 Mean Corpuscular Hemoglobin Concent 33.5 Red Cell Distribution Width 14.7 Platelet Count 13 Mean Platelet Volume 9.0 CBC Comment AUTO DIFF Differential Total Cells Counted 50 Neutrophils % (Manual) Lymphocytes % 100 Neutrophils # (Manual) 0.0 Differential Comment FINAL DIFF MANUAL Platelet Estimate RARE Platelet Morphology Comment NORMAL Ovalocytes 1+ Rouleau PRESENT Prothrombin Time 13.4 Prothromb Time International Ratio 1.2 Activated Partial Thromboplast Time 41.9 Fibrinogen 522 Blood Urea Nitrogen 23 Creatinine 0.87 Random Glucose 110 Total Protein 4.6 Albumin 1.8 Calcium Level 7.3 Alkaline Phosphatase 56 Aspartate Amino Transf (AST/SGOT) 7 Alanine Aminotransferase (ALT/SGPT) 21 Total Bilirubin 0.7 Sodium Level 136 Potassium Level 3.7 Chloride Level 103 Carbon Dioxide Level 26.2 Anion Gap 7 Estimat Glomerular Filtration Rate 86 Protein Corrected Calcium 8.7 Date/Time Source Procedure Growth Status 05/15/17 19:26 Blood Line Aerobic Blood Culture Pending Received 05/15/17 19:26 Blood Line Anaerobic Blood Culture Pending Received 05/15/17 09:30 Urine Catheterized Urine Urine Culture Pending Received Result Diagram: 05/16/17 0350 05/16/17 0350 Imaging Last Impressions Chest X-Ray 05/16/17 0000 Signed Impressions: Service Date/Time: Tuesday, May 16, 2017 09:29 - CONCLUSION: 1. Bibasilar infiltrates more pronounced from the prior study. 2. Tip of endotracheal tube in good position. Rakesh Farnsworth Jr., MD Abdomen X-Ray 05/15/17 1539 Signed Impressions: Service Date/Time: Monday, May 15, 2017 16:14 - CONCLUSION: 1. Gaseous distention of the stomach. 2. Double-J stents in place with possible linear calcification along the mid left ureter. Rakesh Ramirez MD Hip and Pelvis X-Ray 05/11/17 0000 Signed Impressions: Service Date/Time: Thursday, May 11, 2017 16:52 - CONCLUSION: 1. No acute abnormality. 2. Bilateral hip osteoarthritis. 3. Mildly distended loops of gas-filled small bowel. Rakesh Farnsworth Jr., MD Thoracic Spine MRI 05/03/17 0000 Signed Impressions: Service Date/Time: April 12:42 - CONCLUSION: 1. Please see the MRI of the lumbar spine reported separately. 2. Study is motion degraded. 3. Destructive process involving the T11 vertebral body with 40%% loss of height but no retropulsion. This is suggestive of a metastatic focus. Rakesh Farnsworth Jr., MD Lumbar Spine MRI 05/03/17 0000 Signed Impressions: Service Date/Time: April 12:42 - CONCLUSION: 1. Please see the MRI of the thoracic spine reported separately. 2. Current study limited by motion artifact. 3. Destructive process involving the L2 vertebral body with extension into the pedicles bilaterally as well the left lamina with narrowing of the central canal due to posterior displacement of the posterior cortical margin as well as obscuration of the neural foramina. 10%% loss of height. This is felt to relate to a metastatic focus. 4. Prominent retroperitoneal soft tissue previous described on the CT scan. Rakesh Farnsworth Jr., MD Chest CT 05/02/17 0000 Signed Impressions: Service Date/Time: April 01:27 - CONCLUSION: Left upper lobe nodular mass. Parenchymal disease in the right lung base. Moderately large bilateral pleural effusions. Destructive process involving T11 vertebral body Guzman Alcaraz MD Abdomen/Pelvis CT 05/02/17 0000 Signed Impressions: Service Date/Time: April 01:27 - CONCLUSION: Extensive abnormal retroperitoneal soft tissue, presumably confluent adenopathy and adenopathy also present in the celiac region in the upper abdomen. Destructive process involving T11. Bilateral ureteral stents in place. Guzman Alcaraz MD Assessment and Plan Assessment and Plan Neuro/Psych: Possible anoxic brain injury Narcotic use Temporal arteritis by history T11, L2 neoplastic fracture status post radiation therapy Patient is currently on propofol/fentanyl drips if needed for sedation/ analgesia while intubated Goal of RA SS -[address] brain once stable hemodynamically Previously on MS Contin 15 mg every 8 hours and oxycodone 5 mg every 6 hours. Breakthrough pain Was considered a candidate for kyphoplasty T11 CV: Severe sepsis with multisystem organ failure Lactic acidosis History of hypertension History of dyslipidemia A. fib with RVR Status post amiodarone 150 mg during code. Unsuccessful synchronized cardioversion with 100 200 J 2-D echocardiogram/EKG ordered Currently on norepinephrine 100 g a minute, Prabhu-Synephrine at 3 mcg/m and vasopressin 0.04 units/hour with stress dose Solu-Cortef 100 mg every 8 hours Holding pravastatin 40 mg by mouth daily. Resume when clinically indicated Status post 5 L normal saline. Currently on normal saline 125 cc an hour Serial lactates until cleared Resp: Acute hypoxemic respiratory failure COPD PRVC 16/500/1.2/ Ventilator bundle Albuterol/ipratropium aerosols every 6 hours with albuterol aerosols every 2 hours. Dyspnea Spontaneous breathing trials when clinically indicated Chest x-ray revealed bilateral lobe infiltrates GI: Nausea/vomiting Large retroperitoneal mass encroaching an ellipse psoas muscle NG tube to low intermittent wall suction IV pantoprazole for GI prophylaxis Follow-up LFTs, lipase : Bilateral hydronephrosis with double-J stent placement Dr. Crews 05/01 Baugh catheter to be maintained. Urology following Currently on tamsulosin 0.4 mg by mouth daily Endo: Sliding-scale insulin to maintain euglycemiamedium protocol every 6 hours Check TSH Renal: Acute on chronic kidney disease Status post double-J stent placement by Dr. Crews 05/01. 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 EPOCH 05/05-05/09. Followed by Dr. cabrera, hematology oncology Transfuse 1 packed platelets today. Hemoglobin currently 8.6. Continue Neupogen 480 mg subcutaneous daily Transfuse platelet and PRBC as clinically indicated Continue allopurinol will renally dose if needed for tumor lysis syndrome ID: Neutropenic fever Present cefepime/vancomycin. Switch to meropenem and azithromycin and micafungin per ID. Continue vancomycin, Follow up on cultures MSK: Osteoarthritis PT evaluate and treat FEN: Replace electrolytes as clinically indicated Access - Utilize right Port-A-Cath. Right femoral arterial catheter day 1 placed 05/16 Prophylaxis - GI - pantoprazole - DVT - SCD/holding pharmacological prophylaxis in light of thrombocytopenia Critical Care: The total critical care time was 55 minutes. Time to perform other separately billable procedures was not included in the critical care time. Code Status Full code Discussed Condition With Son. [employer]. Care plan discussed and all questions answered. Artis Cui MD May 16, 2017 08:56
[2017-05-16] MEDS ORDERED: TERBUTALINE INJ 1 MG/ML AMP SQ PRN (09:00)
--- NOTE | 2017-05-16 09:03 | RADRPT ---
EXAM DATE/TIME: 05/16/2017 08:34 [facility] COMPARISON: CHEST SINGLE AP, May 15, 2017, 8:47. INDICATIONS : Short of breath. MEDICAL HISTORY : Leukemia. SURGICAL HISTORY : Hernia repair ENCOUNTER: Initial ACUITY: 1 day PAIN SCORE: 0/10 LOCATION: Bilateral chest FINDINGS: A single portable frontal view of the chest shows persistent bilateral pleural effusions and bibasila r pulmonary infiltrates. No significant change. The heart is normal in size. Power port overlies the right chest. CONCLUSION: Unchanged small effusions and bibasilar infiltrates. Rakesh Farnsworth Jr., MD on May 16, 2017 at 8:59 Board Certified Radiologist. This report was verified electronically.
[2017-05-16] MEDS ORDERED: PHENYLEPHRINE HCL 10 MG/ML VIAL ONE (09:17)
[2017-05-16 09:34] LABS: BLOOD GAS BASE EXCESS -8.8 mmol/L (-2-2); BLOOD GAS CARBOXYHEMOGLOBIN 1.1 % (0-4); BLOOD GAS HCO3 16 mmol/L (22-26); BLOOD GAS O2 HGB SATURATION 97 % (90-100); BLOOD GAS OXYGEN CONTENT 12.8 Vol % (12.0-20.0); BLOOD GAS PCO2 33 mmHg (38-42); BLOOD GAS PO2 216 mmHg (61-120); CRITICAL VALUE YES; FIO2 100 %; LITER FLOW 15 L/M; OXYGEN DEVICE AMBU; TEMP CORR TO 98.6
[2017-05-16 09:35] LABS: DRAW SITE LT FEMORAL; NUMBER OF ARTERIAL PUNCTURES 2; STAT YES
[2017-05-16] MEDS ORDERED: VASOPRESSIN 20 UNITS/ML VIAL (IVTITR) ONE ×2 (09:47→09:49)
[2017-05-16] MEDS ORDERED: PHENYLEPHRINE INJ 160 MG in DEXTROSE 5% IN WATE 500 ML INJ 484 ML IV PRN ×2 (10:00)
--- NOTE | 2017-05-16 10:14 | RADRPT ---
EXAM DATE/TIME: 05/16/2017 09:29 [facility] COMPARISON: CHEST SINGLE AP, May 16, 2017, 8:34. INDICATIONS : Post intubation. MEDICAL HISTORY : Leukemia. SURGICAL HISTORY : Hernia repair ENCOUNTER: Subsequent ACUITY: 1 week PAIN SCORE: Non-responsive. LOCATION: Bilateral chest FINDINGS: A single portable frontal view of the chest shows interval placement of an endotracheal tube. The tip of the endotracheal tube is 3 cm cephalad to the latia. A right-sided power port noted. The visuali zed lung bases show bibasilar intra-alveolar infiltrates. Costophrenic angle on the right is omitted from the film. Heart is normal in size. A degenerative thoracic spine. CONCLUSION: 1. Bibasilar infiltrates more pronounced from the prior study. 2. Tip of endotracheal tube in good position. Rakesh Farnsworth Jr., MD on May 16, 2017 at 10:10 Board Certified Radiologist. This report was verified electronically.
--- NOTE | 2017-05-16 10:41 | PD.PROCEDR ---
Procedure Note Procedure DATE: 05/16/2017 PROCEDURE: Right femoral arterial catheter placement INDICATION: Hemodynamic access DETAILS OF PROCEDURE The patient was placed in supine position. The skin was cleansed with Chloraprep. Additional barrier precautions included large sterile drape, sterile gloves, sterile gown, face mask, and hat. 1% lidocaine was used for local anesthesia. Under direct ultrasound guidance and on the initial attempt, the artery was accessed with an introducer needle. The guide wire was advanced. Using Seldinger technique 20 gauge arterial catheter was placed. The guide wire was removed. The catheter was connected to a transducer line and flushed with saline. The video monitor displayed normal arterial wave forms. The catheter was secured with 2-0 silk. A sterile dressing with antibiotic disc was applied. ESTIMATED BLOOD LOSS: minimal COMPLICATIONS: None Artis Cui MD May 16, 2017 10:41
[2017-05-16] MEDS ORDERED: MAGNESIUM SULFATE 1 GM PREMIX 100 ML IV SCH (10:45)
[2017-05-16] MEDS ORDERED: LEVOFLOXACIN 750 MG PREMIX INJ 150 ML IV SCH (10:45)
[2017-05-16] MEDS ORDERED: DIGOXIN 0.5 MG/2 ML VIAL IV PUSH ONE (10:45)
[2017-05-16] MEDS ORDERED: MISCELLANEOUS PHARMACY INFORMATION XX PRN (10:45)
[2017-05-16] MEDS ORDERED: PANTOPRAZOLE SODIUM 40 MG VIAL IV PUSH SCH (10:45)
[2017-05-16] MEDS ORDERED: Vancomycin Consult Pharmacy 1 EA OTHER SCH (10:45)
[2017-05-16] MEDS ORDERED: SODIUM BICARBONATE 8.4% INJ 50 MEQ/50 ML SYR IV PUSH ONE (10:45)
[2017-05-16] MEDS ORDERED: NOREPINEPHRINE 16 MG/D5W 250 ML IV PRN ×4 (10:45→11:00)
[2017-05-16] MEDS ORDERED: ASP: Other exception documentation: ( ) PRN (10:45)
--- NOTE | 2017-05-16 10:47 | PD.ID.CON ---
History of Present Illness Service ID Consult Requested By Reason for Consult Evaluation and Mment of Septic Shock, MODS,Aspiration Pneumonia, Neutropenic fever. 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 Reportedly, the plan was to treat with R-CHOP and Allopurinol, continue Pain medicine. Patient also reportedly has decreased appetite during the last months, he has Acute on chronic renal insufficiency and Pleural effusions. Patient has an outpatient ureteral stent placement for hydronephrosis and subsequently noticed generalized weakness and hematuria. Patient had excruciating back pain on admission so an MRI of spine was done. Extensive destruction of L2 with foraminal narrowing, loss of 10% height of the vertebral body noted reported as due to metastatic disease per radiology report. Neurosurgery was consulted and patient was not deemed suitable candidate for surgery at present time. Patient was neutropenic last few days while on the floor. Patient also developed fever, tachycardia and periods of hypotension. Patient was on Cefepime IV. This morning when saw him he was hypotensive and sicker looking. Hospitalist was called and Survey Rodman consulted. En route to the ICU while being transferred a princess bustillo was called. Patient received CPR en route and emergently intubated and Right groin CL placed emergently. At the time of my evaluation, patient is in the IMC currently intubated on 100% FIO2, Peep 5, AC 16. Pt is on max dose of 3 pressors. UO ok. Sedated and Intubated. No family at bedside. Palliative care has been consulted as family wished to intubate at present time. informed me that patient was aspirating his GI contents en route to ICU prior to intubation. Patient is in critical condition. ID has been consulted for evaluation and Mment of Septic Shock, MODS, aspiration PNA and Neutropenic fever. Review of Systems ROS Limitations: Intubated Past Family Social History Allergies: Coded Allergies: levofloxacin (Verified Allergy, Severe, welts and rash, 05/02/17) patient states not an allergy; r/o after it was entered in as an allergy. Sulfa (Sulfonamide Antibiotics) (Verified Allergy, Unknown, welts and rash , 05/02/17) Past Medical History Chronic lymphocytic leukemia (Chronic lymphocytic leukemia with deletion of 13q which is a good prognostic feature (P70 was positive, CD38 was negative). He developed bulky adenopathy in the neck, mediastinum, axillary, retroperitoneal, para-aortic area. He also developed anemia and thrombocytopenia. He has no hemolysis. Rituxan/Treanda x 2 cycle Jul 2016 poor tolerance ibrutinib 08/2016) Hyperlipidemia Hypertension Kidney Disease Obesity Temporal arteritis COPD Port in place. Radiation therapy. Past Surgical History Hernia repair in 1962 - Left Right 03/2015 Tonsillectomy in 194 Port placement. Reported Medications I attest I reviewed, obtained or updated pts home meds and current meds for name , dose, freq, and route of administration. Reported Meds & Active Scripts Active Reported Lortab (Hydrocodone-Acetaminophen) 7.5-325 Mg Tab 1 Tab PO Q6H PRN Imbruvica (Ibrutinib) 140 Mg Cap 420 Mg Wal-Dryl Allergy (Diphenhydramine HCl) 25 Mg Cap Pyridoxine (Pyridoxine HCl) 100 Mg Tab 100 Mg PO DAILY Multi For Him (Multiple Vitamins W/ Minerals) 0.4 Mg-2 Mg-250 Mcg Tab Simvastatin 20 Mg Tab 20 Mg PO DAILY Lotensin Hct (Benazepril-Hydrochlorothiazide) 10-12.5 Mg Tab 1 Tab PO DAILY Glucosamine 1500 Complex (Cmsmljryvtj-Bihwdajaycg-Hib C-) 1 Cap Cap Docusate Sodium-Senna (Sennosides-Docusate Sodium) 8.6-50 Mg Tab 1 Tab PO HS Aspirin 81 Mg Chew 81 Mg CHEW DAILY Active Ordered Medications Current Medications Medications (Trade) Dose Ordered Sig/Stuart Route Start Time Stop Time Status Last Admin (NS Flush) 2 ml UNSCH PRN IV FLUSH 05/02/17 15:30 05/15/17 02:57 (NS Flush) 2 ml BID IV FLUSH 05/02/17 21:00 05/16/17 08:19 (Tylenol) 650 mg Q4H PRN PO 05/02/17 15:30 05/16/17 05:21 (Zofran Inj) 4 mg Q6H PRN IVP 05/02/17 15:30 (Narcan Inj) 0.4 mg UNSCH PRN IV PUSH 05/02/17 15:30 (Ninfa-Colace) 1 tab BID PO 05/02/17 21:00 05/15/17 09:10 (Milk Of Magnesia Liq) 30 ml Q12H PRN PO 05/02/17 15:30 (Senokot) 17.2 mg Q12H PRN PO 05/02/17 15:30 (Dulcolax Supp) 10 mg DAILY PRN RECTAL 05/02/17 15:30 (Lactulose Liq) 30 ml DAILY PRN PO 05/02/17 15:30 (Vitamin B6) 100 mg DAILY PO 05/03/17 09:00 05/16/17 08:19 (Pravachol) 40 mg DAILY PO 05/03/17 09:00 Future Hold 05/16/17 08:19 (Mucinex Er) 600 mg BID PO 05/02/17 21:00 Future Hold 05/16/17 08:19 (Habitrol 21 Mg Patch.24 Hr) 1 patch DAILY T-DERMAL 05/04/17 09:00 Future Hold 05/16/17 08:19 Miscellaneous Information 1 HS T-DERMAL 05/04/17 21:00 05/15/17 21:00 (Microzide) 12.5 mg DAILY PO 05/04/17 10:30 Future Hold 05/10/17 08:00 (Prinivil) 10 mg DAILY PO 05/04/17 10:30 Future Hold 05/10/17 08:00 (Zyloprim) 300 mg DAILY PO 05/05/17 09:00 05/16/17 08:19 (Morphine Inj) 2 mg Q2HR PRN IV PUSH 05/07/17 13:30 05/16/17 06:02 (Roxicodone) 10 mg Q4H PRN PO 05/07/17 13:30 05/16/17 04:53 (Oramorph Sr) 15 mg Q8HR PO 05/08/17 14:00 Future Hold 05/16/17 05:21 (Effer-K Eff) 25 meq DAILY PO 05/10/17 09:00 Future Hold 05/16/17 08:19 (Flomax) 0.4 mg DAILY PO 05/09/17 10:15 05/16/17 08:19 (Imodium) 2 mg Q4H PRN PO 05/11/17 11:15 Future Hold 05/14/17 13:59 Filgrastim 480 mcg/Dextrose 50 ml @ 100 mls/hr DAILY@14 IV 05/12/17 14:00 05/15/17 13:19 (Heparin Central Flush) 250 units UNSCH PRN IV FLUSH 05/14/17 05:15 05/15/17 02:57 (Heparin Central Flush) 500 units UNSCH IV FLUSH 05/14/17 05:15 (NS Flush) 5 ml UNSCH PRN IV FLUSH 05/14/17 05:15 05/15/17 02:57 (Decadron) 4 mg Q12H PO 05/14/17 17:00 Future Hold 05/16/17 05:21 (Magic Mouthwash Adult Liq) 5 ml QID SWISH-SWAL 05/15/17 09:00 05/16/17 08:19 Sodium Chloride 1,000 ml @ 125 mls/hr Q8H IV 05/15/17 15:00 05/16/17 03:58 Sodium Chloride 250 ml @ 15 mls/hr ONCE ONCE IV 05/16/17 07:00 05/16/17 23:39 05/16/17 08:18 Phenylephrine HCl 160 mg/Dextrose 500 ml @ 7.5 mls/hr TITRATE PRN IV 05/16/17 10:00 (Brethine Inj) 1 mg UNSCH PRN SQ 05/16/17 09:00 Norepinephrine Bitartrate 16 mg/ Dextrose 250 ml @ 18.75 mls/ hr TITRATE PRN IV 05/16/17 10:45 (SoluCORTEF INJ) 100 mg Q8HR IV PUSH 05/16/17 10:40 UNV (ASP Crit: Other exception documentation) 1 UNSCH X1 PRN .XX 05/16/17 10:45 05/17/17 10:44 ([facility] Information) 1 UNSCH X1 PRN XX 05/16/17 10:45 05/17/17 10:44 Meropenem 1000 mg/ Sodium Chloride 100 ml @ 200 mls/hr Q8H IV 05/16/17 12:00 Pharmacy Profile Note 0 ml @ 0 mls/hr UNSCH OTHER 05/16/17 10:45 Micafungin Sodium 150 mg/Sodium Chloride 100 ml @ 100 mls/hr Q24H IV 05/16/17 13:00 (Sodium Bicarbonate 8.4% Inj) 100 meq ONCE ONCE IV PUSH 05/16/17 10:45 05/16/17 10:46 UNV (Protonix Inj) 40 mg Q24H IV PUSH 05/16/17 10:45 UNV Levofloxacin/ Dextrose 150 ml @ 100 mls/hr Q24H IV 05/16/17 10:45 UNV Vancomycin HCl 1500 mg/Sodium Chloride 515 ml @ 250 mls/hr Q12H IV 05/16/17 11:00 Magnesium Sulfate/ Dextrose 100 ml @ 100 mls/hr Q1H IV 05/16/17 10:45 05/16/17 12:44 UNV (Lanoxin Inj) 0.5 mg ONCE ONCE IV PUSH 05/16/17 10:45 05/16/17 10:46 UNV Miscellaneous Information SPECIFIC LAB TO BE DRAWN:VANCOMYCIN TROUGH DATE TO... ONCE ONCE .XX 05/17/17 22:45 05/17/17 22:46 Family History Father with Cardiac pathologies. Social History Lives with his Son in Law Tobacco dependence one pack daily Physical Exam Vital Signs Vital Signs Date Time Temp Pulse Resp B/P (MAP) Pulse Ox O2 Delivery O2 Flow Rate FiO2 05/16/17 08:30 98.0 128 35 125/95 05/16/17 07:08 135 30 86/50 (62) 05/16/17 06:41 99.1 131 20 88/52 (64) 92 05/16/17 05:42 133 05/16/17 04:16 127 05/16/17 03:55 118 05/16/17 03:52 100.4 117 16 121/67 (85) 96 05/16/17 00:50 100.4 110 18 108/55 (72) 97 05/16/17 00:01 110 05/15/17 21:10 Nasal Cannula 2.00 05/15/17 20:55 100.9 115 18 91/50 (64) 95 05/15/17 20:07 112 05/15/17 18:31 124 05/15/17 16:50 101.0 128 18 131/76 (94) 97 10/24/17 16:00 134 05/15/17 12:00 99.0 95 18 161/77 (905) 99 Physical Exam GENERAL: This is a well-nourished, well-developed patient. SKIN: No rashes. Multiple areas of ecchymoses with mottling of skin peripherally noted. Cool Clammy skin. HEAD: Atraumatic. Normocephalic. No temporal or scalp tenderness. EYES: Pupils equal round and reactive. Extraocular motions intact. No scleral icterus. No injection or drainage. ENT: Intubated. NECK: Trachea midline. Supple, nontender, no meningeal signs. CARDIOVASCULAR: Regular rate and rhythm without murmurs. RESPIRATORY: Clear to auscultation. Breath sounds decreased bilaterally. GASTROINTESTINAL: Abdomen soft, non-tender, nondistended. Radiation site markings noted. MUSCULOSKELETAL: Extremities without clubbing, cyanosis, or edema. No joint tenderness, effusion, or edema noted. No calf tenderness. Negative Homans sign bilaterally. NEUROLOGICAL: Sedated Psych could not be assessed Rt chest Port site with no e.o infection Rt groin line with no e.o infection newly placed 05/16/17. Laboratory Laboratory Tests Test 05/16/17 03:50 05/16/17 09:15 05/16/17 09:20 White Blood Count 0.6 Red Blood Count 3.96 Hemoglobin 11.2 Hematocrit 33.3 Mean Corpuscular Volume 84.3 Mean Corpuscular Hemoglobin 28.3 Mean Corpuscular Hemoglobin Concent 33.5 Red Cell Distribution Width 14.7 Platelet Count 13 Mean Platelet Volume 9.0 CBC Comment AUTO DIFF Differential Total Cells Counted 50 Neutrophils % (Manual) Lymphocytes % 100 Neutrophils # (Manual) 0.0 Differential Comment FINAL DIFF MANUAL Platelet Estimate RARE Platelet Morphology Comment NORMAL Ovalocytes 1+ Rouleau PRESENT Prothrombin Time 13.4 Prothromb Time International Ratio 1.2 Activated Partial Thromboplast Time 41.9 Fibrinogen 522 Blood Urea Nitrogen 23 Creatinine 0.87 Random Glucose 110 Total Protein 4.6 Albumin 1.8 Calcium Level 7.3 Alkaline Phosphatase 56 Aspartate Amino Transf (AST/SGOT) 7 Alanine Aminotransferase (ALT/SGPT) 21 Total Bilirubin 0.7 Sodium Level 136 Potassium Level 3.7 Chloride Level 103 Carbon Dioxide Level 26.2 Anion Gap 7 Estimat Glomerular Filtration Rate 86 Protein Corrected Calcium 8.7 Blood Gas Puncture Site LT FEMORAL Blood Gas Patient Temperature 98.6 Blood Gas HCO3 16 Blood Gas Base Excess -8.8 Blood Gas Oxygen Saturation 97 Arterial Blood pH 7.32 Arterial Blood Partial Pressure CO2 33 Arterial Blood Partial Pressure O2 216 Arterial Blood Oxygen Content 12.8 Arterial Blood Carboxyhemoglobin 1.1 Arterial Blood Methemoglobin 1.0 Blood Gas Hemoglobin 9.0 Oxygen Delivery Device AMBU Blood Gas Liter Flow 15 Blood Gas Inspired Oxygen 100 Lactic Acid Level 12.3 Date/Time Source Procedure Growth Status 05/15/17 19:26 Blood Line Aerobic Blood Culture Pending Received 05/15/17 19:26 Blood Line Anaerobic Blood Culture Pending Received 05/15/17 09:30 Urine Catheterized Urine Urine Culture Pending Received Result Diagram: 05/16/17 0350 05/16/17 0350 Imaging Last Impressions Chest X-Ray 05/16/17 0000 Signed Impressions: Service Date/Time: Tuesday, May 16, 2017 09:29 - CONCLUSION: 1. Bibasilar infiltrates more pronounced from the prior study. 2. Tip of endotracheal tube in good position. Rakesh Farnsworth Jr., MD Abdomen X-Ray 05/15/17 1539 Signed Impressions: Service Date/Time: Monday, May 15, 2017 16:14 - CONCLUSION: 1. Gaseous distention of the stomach. 2. Double-J stents in place with possible linear calcification along the mid left ureter. Rakesh Ramirez MD Hip and Pelvis X-Ray 05/11/17 0000 Signed Impressions: Service Date/Time: Thursday, May 11, 2017 16:52 - CONCLUSION: 1. No acute abnormality. 2. Bilateral hip osteoarthritis. 3. Mildly distended loops of gas-filled small bowel. Rakesh Farnsworth Jr., MD Thoracic Spine MRI 05/03/17 0000 Signed Impressions: Service Date/Time: April 12:42 - CONCLUSION: 1. Please see the MRI of the lumbar spine reported separately. 2. Study is motion degraded. 3. Destructive process involving the T11 vertebral body with 40%% loss of height but no retropulsion. This is suggestive of a metastatic focus. Rakesh Farnsworth Jr., MD Lumbar Spine MRI 05/03/17 0000 Signed Impressions: Service Date/Time: April 12:42 - CONCLUSION: 1. Please see the MRI of the thoracic spine reported separately. 2. Current study limited by motion artifact. 3. Destructive process involving the L2 vertebral body with extension into the pedicles bilaterally as well the left lamina with narrowing of the central canal due to posterior displacement of the posterior cortical margin as well as obscuration of the neural foramina. 10%% loss of height. This is felt to relate to a metastatic focus. 4. Prominent retroperitoneal soft tissue previous described on the CT scan. Rakesh Farnsworth Jr., MD Chest CT 05/02/17 0000 Signed Impressions: Service Date/Time: April 01:27 - CONCLUSION: Left upper lobe nodular mass. Parenchymal disease in the right lung base. Moderately large bilateral pleural effusions. Destructive process involving T11 vertebral body Guzman Alcaraz MD Abdomen/Pelvis CT 05/02/17 0000 Signed Impressions: Service Date/Time: April 01:27 - CONCLUSION: Extensive abnormal retroperitoneal soft tissue, presumably confluent adenopathy and adenopathy also present in the celiac region in the upper abdomen. Destructive process involving T11. Bilateral ureteral stents in place. Guzman Alcaraz MD Assessment and Plan Assessment and Plan Septic Shock with Multiorgan dysfunction syndrome(MODS), max dose on 3 pressors. Aspiration Pneumonia/HCAP. 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 Immune compromised on Chemotherapy and radiation therapy. Acute resp failure on vent Acute renal failure: sepsis. Recs Stat blood culture (1 from port and 1 from [facility]) DC Cefepime IV DC Vanco IV (no dose given so far called and spoke to pharmacist Nolan) Start Meropenem IV (ASP: Septic shock while on Cefepime IV concern for ESBL) Start Vanco IV (possible MRSA HCAP or bacteremia in neutropenic septic pt) Start Micafungin IV( neutropenic pt with septic shock) Start Azithro IV (for atypical PNA, ? infiltrate on admission) Follow cultures Follow clinically. Reviewed CXR and compared to prior. Reviewed CT Chest and imaging results of MRI and other consult notes. d/w and . Time spent in excess of 80 mins. MAR reviewed, interactions checked, critical thinking and decision making. Critical condition, prognosis guarded. Palliative care consult ordered. Jennifer Richard MD May 16, 2017 10:47
--- NOTE | 2017-05-16 10:56 | PD.PROCEDR ---
Procedure Note Procedure DATE: 05/16/2017 PROCEDURE: Orotracheal intubation INDICATION: Respiratory failure DETAILS OF PROCEDURE The patient was placed in optimal position and preoxygenated with 100% FiO2 via bag valve mask. At the start oxygen saturation was unknown as patient frankly aspirating in a CODE BLUE situation. The patient was administered no medication. I entered the oropharynx with a size 4 Chery laryngoscope blade and obtained a grade 3 view of the airway. On single attempt a size [] cuffed endotracheal tube was passed through the vocal cords. Correct tube location was confirmed with end tidal CO2 detector and by auscultating over bilateral lung sanchez. The endotracheal tube was secured with adhesive tape at a depth of 22 cm at the lips. The patient was connected to the ventilator. The patient tolerated the procedure well without any apparent complications. Oxygen saturations were measured at 70% on pulse ox but PO2 was 200 on ABG. Echocardiogram to rule out shunt ordered.. STAT chest x-ray reveals ET tube 3 cm above latia. Artis Cui MD May 16, 2017 10:56
[2017-05-16] MEDS ORDERED: fentaNYL DRIP 250 ML IV PRN (11:00)
[2017-05-16] MEDS ORDERED: PROPOFOL 1000 MG/100 ML INJ 100 ML IV PRN (11:00)
[2017-05-16] MEDS ORDERED: VANCOMYCIN INJ 1,500 MG in SODIUM CHLORID 0.9% 500 ML INJ 500 ML IV SCH (11:00)
[2017-05-16 11:08] LABS: AMYLASE 42 U/L (25-115); ANION GAP 18 MEQ/L (5-15); AST (GOT) 26 U/L (15-37); BICARBONATE 19.1 MEQ/L (21.0-32.0); BLOOD UREA NITROGEN 26 MG/DL (7-18); CHLORIDE 102 MEQ/L (98-107); GLOMERULAR FILTRATION RATE 42 ML/MIN (>89); MAGNESIUM 1.8 MG/DL (1.5-2.5); POTASSIUM 3.8 MEQ/L (3.5-5.1); SODIUM (NA) 139 MEQ/L (136-145)
[2017-05-16 11:17] LABS: ALKALINE PHOSPHATASE 44 U/L (45-117); ALT (GPT) 24 U/L (12-78); TOTAL BILIRUBIN ADULT 0.5 MG/DL (0.2-1.0)
[2017-05-16 11:19] LABS: CREATINE KINASE 48 U/L (39-308); HEMATOCRIT 26.6 % (39.0-51.0); MEAN CELL VOLUME 88.2 FL (80.0-100.0); MEAN CORPUSCULAR HEMOGLOBIN 28.5 PG (27.0-34.0); MEAN CORPUSCULAR HGB CONC 32.4 % (32.0-36.0); PLATELET COUNT 43 TH/MM3 (150-450); RED BLOOD COUNT 3.02 MIL/MM3 (4.50-5.90); RED CELL DISTRIBUTION WIDTH 14.7 % (11.6-17.2)
[2017-05-16 11:21] LABS: HEMO FLAGS AUTO DIFF
[2017-05-16 11:25] LABS: APTT (PATIENT) 42.7 SEC (24.3-30.1); INTERNATIONAL NORMALIZED RATIO 1.5 RATIO; PROTHROMBIN TIME - PATIENT 17.1 SEC (9.8-11.6)
[2017-05-16] MEDS ORDERED: HYDROCORTISONE SOD SUCCINATE 100 MG VIAL IV PUSH SCH (12:00)
[2017-05-16] MEDS ORDERED: AZITHROMYCIN INJ 500 MG in SODIUM CHLOR 0.9% 250 ML INJ 250 ML IV SCH (12:00)
[2017-05-16] MEDS ORDERED: MEROPENEM INJ 1,000 MG in SODIUM CHLORIDE 0.9% INJ 100 ML IV SCH (12:00)
[2017-05-16 12:27] LABS: BLOOD GAS VENOUS BASE EXCESS -15.8 mmol/L (-2-2); BLOOD GAS VENOUS HCO3 16 mmol/L (22-26); BLOOD GAS VENOUS O2 CONTENT 4.4 Vol % (9.0-17.0); BLOOD GAS VENOUS O2 HGB SAT 36 % (70-76); BLOOD GAS VENOUS PCO2 90 mmHg (44-48); BLOOD GAS VENOUS PO2 40 mmHg (35-40); BLOOD GAS VENOUS pH 6.87 (7.360-7.400); CRITICAL VALUE YES; OXYGEN DEVICE VENTILATOR; TEMP CORR TO 98.6
[2017-05-16 12:28] LABS: FIO2 100 %
[2017-05-16 12:29] LABS: DRAW SITE IV; STAT NO
[2017-05-16 12:30] LABS: WBC DIFF SAMPLE 100
[2017-05-16] MEDS ORDERED: MAGNESIUM HYDROXIDE SUSP 30 ML CUP PO PRN (12:30)
[2017-05-16] MEDS ORDERED: CHLORHEXIDINE GLUCONATE 2 % 1 PACK (2 CLOTHS) TOP PRN (12:30)
[2017-05-16] MEDS ORDERED: RESP: ALBUTEROL 2.5 MG/3 ML NEB (PRN) INH (12:30)
[2017-05-16] MEDS ORDERED: SENNOSIDES 8.6 MG TAB PO PRN (12:30)
[2017-05-16] MEDS ORDERED: BISACODYL 10 MG SUPP RECTAL PRN (12:30)
[2017-05-16] MEDS ORDERED: LACTULOSE SYRUP 20 GM/30 ML CUP PO PRN (12:30)
[2017-05-16] MEDS ORDERED: GLUCAGON 1 MG/ML VIAL IM PRN (12:30)
[2017-05-16] MEDS ORDERED: MISCELLANEOUS NURSING INFORMATION XX SCH (12:30)
[2017-05-16] MEDS ORDERED: GLUCAGON 1 MG/ML VIAL OTHER PRN (12:30)
[2017-05-16] MEDS ORDERED: SODIUM CHLORIDE 0.9% FLUSH 10 ML FLUSH IV FLUSH PRN (12:30)
[2017-05-16] MEDS ORDERED: DEXTROSE 50% IN WATER 50 ML VIAL(D50) IV PUSH PRN (12:30)
[2017-05-16 12:34] LABS: ACANTHOCYTES OCC (NORMAL); OVALOCYTES 1+ (NORMAL); PLATELET ESTIMATE SMEAR LOW (NORMAL); PLATELET MORPHOLOGY NORMAL (NORMAL); SCAN/DIFF FINAL DIFF MANUAL
[2017-05-16] MEDS ORDERED: DOBUTamine PREMIX DRIP 250 ML ONE (12:54)
[2017-05-16] MEDS ORDERED: EPINEPHrine HCL (1:1000) 1 MG/ML VIAL ONE (12:56)
[2017-05-16] MEDS ORDERED: MICAFUNGIN INJ 150 MG in SODIUM CHLORIDE 0.9% INJ 100 ML IV SCH (13:00)
--- NOTE | 2017-05-16 13:09 | PD.CONS ---
Consult Service Palliative Care . Consult Requested By Cr. Cui . Primary Care Physician No Primary Care Physician . Reason for Consultation a. To assist with evaluation and management of symptoms including: dyspnea; encephalopathy b. To assist medical decision maker(s) with: better understanding of current medical conditions; weighing benefits/burdens of medical treatment options; making medical treatment decisions. . HPI History of Present Illness Mr. Hercules is a 76 y/o male first diagnosed with Chrominc lymphocytic leukemia in [address] 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 He was supposed to start outpatient chemotherapy the same day. The patient had undergone urethral stenting for hydronephrosis the day before. When awakening on 05/02 he was so weak that his family could barely get him into the care. He slipped from the car seat to the ground and suffered abrasions to his legs. He reported hematuria after stent palcement. He had been eating/drinking little for several days. He denied fever, chills, chest pain, cough, dyspnea, nausea. He did report bilateral flank pain radiating to the groin and anterior legs. He also complained of severe back pain. Per the oncology consultation note of Dr. Montalvo from 05/02/17... * He first presented with bulky adenopathy, treated with Rituxan and bendamustine without clear response. He was then switched to Ibrutinib with very good response. The neck and axillary adenopathy are no longer palpable. However, he recently developed a large mass in retroperitoneum extending from the lower pole of left kidney down along the iliopsoas muscle to the pelvis, measured at least 10 cm. 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 The initial plan is to treat him with Revlimid along with R-CHOP. He was supposed to start chemotherapy at the clinic today but he was not able to make it in the clinic because of weakness. At this point will hold the chemotherapy until he is a little stronger. If he is too weak to be discharge. we may have to give him the chemotherapy as inpatient. Initial vital signs in the emergency department were as follows; temperature 98.4; pulse 103; respiratory rate 14; blood pressure 120/54; pulse oximetry 96% on room air Initial examination by the emergency supervisor warping department noted the following: Patient is well-developed and in mild distress. There was mild left lower quadrant abdominal tenderness without guarding or rebound or distention. The remainder of the examination was unremarkable. Initial diagnostic testing revealed the following: * CBC showed WBC 24.9; hemoglobin 11.3; platelet count 210. There were 9% band neutrophils. * Coagulation profile showed PT 11.3; INR 1.0; PTT 28.4 * Chemistry profile showed sodium 128; potassium 3.6; chloride 92; CO2 26.2; BUN 39; creatinine 2.09; glucose 69; anion gap 10; GFR 31 * Cardiac serology showed total CK 618; CK-MB 16.8; MB percent 2.7; troponin 0.05 * Urinalysis was remarkable for protein at 100 mg/dL; trace ketones; large occult blood; moderate leukocyte esterase; 63 WBCs * EKG showed sinus tachycardia at a rate of [address]-T wave changes * CT of the abdomen/pelvis showed extensive abnormal retroperitoneal soft tissue which was felt to be confluent adenopathy. There is also adenopathy present in the celiac region in the upper abdomen. There was a destructive process involving T11. Bilateral ureteral stents were in place. * CT of the chest showed left upper lobe nodular mass. There is parenchymal disease in the right lung base. There were moderately large bilateral pleural effusions. The destructive process involving T11 was noted again. * MRI of the lumbar spine showed a destructive process involving L2 with narrowing of the central canal and 10% loss of height. * MRI of the thoracic spine showed a 40% loss of height in the T11 vertebral body. The patient was admitted for probable sepsis and for further evaluation of his extreme weakness. Though cultures of the urine and blood revealed no growth patient has been on antibiotics. His pain required opiate analgesics. Neurosurgery was ultimately consulted as well as radiation oncology for the back pain attributed to tumor involvement of the spine and nerve compressio. The patient opted to forego initial surgical decompression and chose radiation therapy. Patient received rituximab on 05/04 and 5 days of EPOCH therapy 1013 through . The patient was found to be hypotensive and tachycardic on the floor. He was seen by his oncologist and transferred to intensive care unit was recommended as well as critical care consultation. The patient was complaining of chills nausea as well as flank and abdominal pain. Apparently, nursing staff was in the process of moving the patient to the intensive care unit when a CODE BLUE was called . The patient elevators. When critical care arrived at the scene. It was apparent that the patient had aspirated. No suction was available at that site. The highway maintenance crew worker felt the patient was in a pulseless electrical arrest and at times atrial fibrillation with a heart rate in the 180s. The patient was brought to the medical intensive care unit where CPR was continued both en route and on the floor. The patient was suctioned. An endotracheal tube was placed and the patient was placed on mechanical ventilation. During the code, the patient received 5 mg of epinephrine; 2 ampules of bicarbonate; 150 mg of amiodarone; and 1 g of chloride. The patient had return of pulses but has remained hemodynamically unstable. He is currently on 3 pressor agents. At the time of my visit, patient is intubated, mechanically ventilated, sedated , unresponsive, and ashen appearing in the medical intensive care unit. A sister is at the bedside. Case was discussed with Dr. Cui (highway maintenance crew worker) on floor. . Function/Cognitive Trajectory though the patient has been battling CLL since 2013, prior to his ureteral stent placement, he was vital and taking care of all ADLs. . Review of Systems ROS Limitations: Clinical Condition (Patient is intubated, unresponsive. ROS taken as best as possible from available family and medical record.) Constitutional: COMPLAINS OF: Generalized weakness Eyes: COMPLAINS OF: Vision loss (normally wears glasses), DENIES: Blurred vision, Diplopia Ears, nose, mouth, throat: COMPLAINS OF: Oral lesions, DENIES: Hearing loss Respiratory: COMPLAINS OF: Shortness of breath, DENIES: Apneas, Cough, Snoring , Hemoptysis Cardiovascular: COMPLAINS OF: Dyspnea on Exertion Gastrointestinal: COMPLAINS OF: Nausea, DENIES: Vomiting Musculoskeletal: COMPLAINS OF: Joint pain, Muscle aches, Back pain, Neck pain Neurologic: DENIES: Seizures Psychiatric: DENIES: Hallucinations Past Family Social History Coded Allergies: levofloxacin (Verified Allergy, Severe, welts and rash, 05/02/17) patient states not an allergy; r/o after it was entered in as an allergy. 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 He developed bulky adenopathy in the neck, mediastinum, axillary, retroperitoneal, para-aortic area. He also developed anemia and thrombocytopenia. He has no hemolysis. Rituxan/Treanda x 2 cycle Jul 2016 poor tolerance ibrutinib 08/2016) Arthritis Hyperlipidemia Hypertension Chronic Kidney Disease Obesity Preferred Language for Healthcare Information (Croatian) Temporal arteritis COPD Past Surgical History Left inguinal hernia repair in 1963 Right 03/2015 Orthopedic procedure left fifth digit Tonsillectomy in 194 Port placement right chest. Ureteral stent placements for hydronephrosis . Reported Medications Pre-hospitalization medications at time of ER arrival included: Lortab (Hydrocodone-Acetaminophen) 7.5-325 Mg Tab 1 Tab PO Q6H PRN Imbruvica (Ibrutinib) 140 Mg Cap 420 Mg Wal-Dryl Allergy (Diphenhydramine HCl) 25 Mg Cap Pyridoxine (Pyridoxine HCl) 100 Mg Tab 100 Mg PO DAILY Multi For Him (Multiple Vitamins W/ Minerals) 0.4 Mg-2 Mg-250 Mcg Tab Simvastatin 20 Mg Tab 20 Mg PO DAILY Lotensin Hct (Benazepril-Hydrochlorothiazide) 10-12.5 Mg Tab 1 Tab PO DAILY Glucosamine 1500 Complex (Xpyksrhgggg-Vrveudeehgg-Epl C-) 1 Cap Cap Docusate Sodium-Senna (Sennosides-Docusate Sodium) 8.6-50 Mg Tab 1 Tab PO HS Aspirin 81 Mg Chew 81 Mg CHEW DAILY . Current Medications Medications (Trade) Dose Ordered Sig/Stuart Route Start Time Stop Time Status Last Admin (NS Flush) 2 ml UNSCH PRN IV FLUSH 05/02/17 15:30 05/15/17 02:57 (NS Flush) 2 ml BID IV FLUSH 05/02/17 21:00 05/16/17 08:19 (Tylenol) 650 mg Q4H PRN PO 05/02/17 15:30 05/16/17 05:21 (Zofran Inj) 4 mg Q6H PRN IVP 05/02/17 15:30 (Narcan Inj) 0.4 mg UNSCH PRN IV PUSH 05/02/17 15:30 (Ninfa-Colace) 1 tab BID PO 05/02/17 21:00 05/15/17 09:10 (Milk Of Magnesia Liq) 30 ml Q12H PRN PO 05/02/17 15:30 (Senokot) 17.2 mg Q12H PRN PO 05/02/17 15:30 (Dulcolax Supp) 10 mg DAILY PRN RECTAL 05/02/17 15:30 (Lactulose Liq) 30 ml DAILY PRN PO 05/02/17 15:30 (Vitamin B6) 100 mg DAILY PO 05/03/17 09:00 05/16/17 08:19 (Pravachol) 40 mg DAILY PO 05/03/17 09:00 Future Hold 05/16/17 08:19 (Mucinex Er) 600 mg BID PO 05/02/17 21:00 Future Hold 05/16/17 08:19 (Habitrol 21 Mg Patch.24 Hr) 1 patch DAILY T-DERMAL 05/04/17 09:00 Future Hold 05/16/17 08:19 Miscellaneous Information 1 HS T-DERMAL 05/04/17 21:00 05/15/17 21:00 (Microzide) 12.5 mg DAILY PO 05/04/17 10:30 Future Hold 05/10/17 08:00 (Prinivil) 10 mg DAILY PO 05/04/17 10:30 Future Hold 05/10/17 08:00 (Zyloprim) 300 mg DAILY PO 05/05/17 09:00 05/16/17 08:19 (Morphine Inj) 2 mg Q2HR PRN IV PUSH 05/07/17 13:30 05/16/17 06:02 (Roxicodone) 10 mg Q4H PRN PO 05/07/17 13:30 05/16/17 04:53 (Oramorph Sr) 15 mg Q8HR PO 05/08/17 14:00 Future Hold 05/16/17 05:21 (Effer-K Eff) 25 meq DAILY PO 05/10/17 09:00 Future Hold 05/16/17 08:19 (Flomax) 0.4 mg DAILY PO 05/09/17 10:15 05/16/17 08:19 (Imodium) 2 mg Q4H PRN PO 05/11/17 11:15 Future Hold 05/14/17 13:59 Filgrastim 480 mcg/Dextrose 50 ml @ 100 mls/hr DAILY@14 IV 05/12/17 14:00 05/15/17 13:19 (Heparin Central Flush) 250 units UNSCH PRN IV FLUSH 05/14/17 05:15 05/15/17 02:57 (Heparin Central Flush) 500 units UNSCH IV FLUSH 05/14/17 05:15 (NS Flush) 5 ml UNSCH PRN IV FLUSH 05/14/17 05:15 05/15/17 02:57 (Decadron) 4 mg Q12H PO 05/14/17 17:00 Future Hold 05/16/17 05:21 (Magic Mouthwash Adult Liq) 5 ml QID SWISH-SWAL 05/15/17 09:00 05/16/17 08:19 Sodium Chloride 250 ml @ 15 mls/hr ONCE ONCE IV 05/16/17 07:00 05/16/17 23:39 05/16/17 08:18 Phenylephrine HCl 160 mg/Dextrose 500 ml @ 7.5 mls/hr TITRATE PRN IV 05/16/17 10:00 (Brethine Inj) 1 mg UNSCH PRN SQ 05/16/17 09:00 Norepinephrine Bitartrate 16 mg/ Dextrose 250 ml @ 18.75 mls/ hr TITRATE PRN IV 05/16/17 10:45 (SoluCORTEF INJ) 100 mg Q8H IV PUSH 05/16/17 12:00 (ASP Crit: Other exception documentation) 1 UNSCH X1 PRN .XX 05/16/17 10:45 05/17/17 10:44 ([facility] [place] [facility]) 1 UNSCH X1 PRN XX 05/16/17 10:45 05/17/17 10:44 Meropenem 1000 mg/ Sodium Chloride 100 ml @ 200 mls/hr Q8H IV 05/16/17 12:00 Pharmacy Profile Note 0 ml @ 0 mls/hr UNSCH OTHER 05/16/17 10:45 Micafungin Sodium 150 mg/Sodium Chloride 100 ml @ 100 mls/hr Q24H IV 05/16/17 13:00 (Protonix Inj) 40 mg DAILY IV PUSH 05/16/17 10:45 Vancomycin HCl 1500 mg/Sodium Chloride 515 ml @ 250 mls/hr Q12H IV 05/16/17 11:00 Magnesium Sulfate/ Dextrose 100 ml @ 100 mls/hr Q1H IV 05/16/17 10:45 05/16/17 12:44 Miscellaneous Information SPECIFIC LAB TO BE DRAWN:VANCOMYCIN TROUGH DATE TO... ONCE ONCE .XX 05/17/17 22:45 05/17/17 22:46 (Peridex 0.12% Liq) 15 ml BID@08,20 MT 05/16/17 20:00 Propofol 100 ml @ 2.121 mls/ hr TITRATE PRN IV 05/16/17 11:00 Fentanyl Citrate 250 ml @ 5 mls/hr TITRATE PRN IV 05/16/17 11:00 Azithromycin 500 mg/Sodium Chloride 250 ml @ 250 mls/hr Q24H IV 05/16/17 12:00 (D50w (Vial) Inj) 50 ml UNSCH PRN IV PUSH 05/16/17 12:30 UNV (Glucagon Inj) 1 mg STAT PRN IM 05/16/17 12:30 UNV (D50w (Vial) Inj) 50 ml UNSCH PRN IV PUSH 05/16/17 12:30 UNV (Glucagon Inj) 1 mg UNSCH PRN OTHER 05/16/17 12:30 UNV (NovoLIN R SUPPLEMENTAL SCALE) 1 Q6HR SQ 05/16/17 18:00 UNV Family History Father of an PR in his 50s Mother of a cerebral aneurysm No cancers or leukemias in the family . Substance Use Tobacco: Former 1 ppd smoker for over 50 years. Alcohol: Stopped drinking over 30 years ago Prescription med abuse: No history of abuse Illicits: No known use of illicits. Psychosocial History High school education Patient served in the [employer] for 30 years. 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 Had a son from the first marriage that has been completely estranged and family does not know where he is. Second several years ago. Patient has been living with his son , Maldonado and Maldonado's girlfriend. . Spiritual/Cultural Factors Worship. The sulfuric acid plant operator has visited and anointed the patient. . Living Will: Copy in medical record Health Care Surrogate: Copy in medical record Durable Power of Aircraft Maintenance Technician: Never completed Date completed: Combined living will and designation of health care surrogate were completed on 02/23/2014 . Health Care Surrogate(s): The patient has designated his son-- Maldonado Hercules -- as his health care surrogate. ' Documented care wishes: Patient has completed a standard [place] [employer] living will. It indicates he would not want life prolonging measures should he be found to have a terminal condition, end-stage condition, or persistent vegetative state. It further states. "My son -- Maldonado -- will have the final say after consulting with my doctor." . Today's verbally stated goals: Patient is unable to verbally state his own healthcare preferences/goals/wishes due to his clinical condition. . Family/friends goals: See below. . Ethical and Legal Issues Patient is incapacitated. There is no reasonable probability that he will regain capacity to make his own health care decisions. Son, Maldonado, is the health care surrogate. . . Physical Exam Vital Signs Date Time Temp Pulse Resp B/P (MAP) Pulse Ox O2 Delivery O2 Flow Rate FiO2 05/16/17 09:30 93 100 05/16/17 08:30 98.0 128 35 125/95 05/16/17 08:00 Nasal Cannula 2.00 05/16/17 07:08 135 30 86/50 (62) 05/16/17 06:41 99.1 131 20 88/52 (64) 92 05/16/17 05:42 133 05/16/17 04:16 127 05/16/17 03:55 118 05/16/17 03:52 100.4 117 16 121/67 (85) 96 05/16/17 00:50 100.4 110 18 108/55 (72) 97 05/16/17 00:01 110 05/15/17 21:10 Nasal Cannula 2.00 05/15/17 20:55 100.9 115 18 91/50 (64) 95 05/15/17 20:07 112 05/15/17 18:31 124 05/15/17 16:50 101.0 128 18 131/76 (94) 97 05/15/17 16:00 134 . 05/16/17 05/17/17 19:00 07:00 Intake Total 2 ml Balance 2 ml Blood Product IV Normal Saline Flush 2 ml . Exam CONSTITUTIONAL/GENERAL: This is an adequately nourished patient, unresponsive, intubated, mechanically ventilated, ashen appearing in an MICU bed. TUBES/LINES/DRAINS: right chest port; peripheral iv; orotracheal tube; orogastric tube; right femoral arterial line; mcmillan catheter SKIN: No jaundice, rashes, or lesions. Ecchymoses on upper extremities. No wounds seen anteriorly. Skin temperature appropriate. Not diaphoretic. HEAD: Atraumatic. Normocephalic. EYES: Pupils equal and round and reactive. Extraocular motions intact. No scleral icterus. No injection or drainage. Fundi not examined. ENT: Hearing grossly normal. Nose without bleeding or purulent drainage. Throat without visible erythema, exudates, masses, or lesions. NECK: Trachea midline. Supple, nontender. No palpable thyroid enlargement or nodularity. CARDIOVASCULAR: Regular rate and rhythm without murmurs, gallops, or rubs. No JVD. Peripheral pulses symmetric. RESPIRATORY/CHEST: Symmetric, unlabored respirations. Clear to auscultation. Breath sounds equal bilaterally. No wheezes, rales, or rhonchi. GASTROINTESTINAL: Abdomen soft, non-tender, nondistended. No hepato-splenomegaly , or palpable masses. No guarding. Bowel sounds present. GENITOURINARY: Without palpable bladder distension. Mcmillan catheter in place. MUSCULOSKELETAL: Extremities without clubbing, cyanosis, or edema. No joint tenderness or effusion noted. No calf tenderness. No mottling or clubbing. LYMPHATICS: No palpable cervical or supraclavicular adenopathy. NEUROLOGICAL: Awake and alert. Motor and sensory grossly within normal limits. Follows commands. Cognitively sharp. Moves all extremities. PSYCHIATRIC: No obvious anxiety/depression. no apparent hallucinations or other psychotic thought process. . Diagnostic Tests Laboratory Laboratory Tests Test 05/14/17 04:10 05/15/17 03:00 05/15/17 09:30 05/16/17 03:50 White Blood Count 1.0 TH/MM3 (4.0-11.0) 0.5 TH/MM3 (4.0-11.0) 0.6 TH/MM3 (4.0-11.0) Red Blood Count 3.54 MIL/MM3 (4.50-5.90) 3.37 MIL/MM3 (4.50-5.90) 3.96 MIL/MM3 (4.50-5.90) Hemoglobin 10.2 GM/DL (13.0-17.0) 9.6 GM/DL (13.0-17.0) 11.2 GM/DL (13.0-17.0) Hematocrit 30.7 % (39.0-51.0) 28.8 % (39.0-51.0) 33.3 % (39.0-51.0) Mean Corpuscular Volume 86.7 FL (80.0-100.0) 85.5 FL (80.0-100.0) 84.3 FL (80.0-100.0) Mean Corpuscular Hemoglobin 28.8 PG (27.0-34.0) 28.6 PG (27.0-34.0) 28.3 PG (27.0-34.0) Mean Corpuscular Hemoglobin Concent 33.2 % (32.0-36.0) 33.5 % (32.0-36.0) 33.5 % (32.0-36.0) Red Cell Distribution Width 14.5 % (11.6-17.2) 14.6 % (11.6-17.2) 14.7 % (11.6-17.2) Platelet Count 21 TH/MM3 (150-450) 31 TH/MM3 (150-450) 13 TH/MM3 (150-450) Mean Platelet Volume 9.0 FL (7.0-11.0) 7.8 FL (7.0-11.0) 9.0 FL (7.0-11.0) CBC Comment AUTO DIFF AUTO DIFF AUTO DIFF Differential Total Cells Counted 80 25 50 Neutrophils % (Manual) 1 % (16-70) % (16-70) Lymphocytes % 95 % (9-44) 96 % (9-44) 100 % (9-44) Monocytes % 1 % (0-8) Eosinophils % 3 % (0-4) 4 % (0-4) Neutrophils # (Manual) 0.0 TH/MM3 (1.8-7.7) 0.0 TH/MM3 (1.8-7.7) Differential Comment FINAL DIFF MANUAL FINAL DIFF MANUAL FINAL DIFF MANUAL Smudge Cells PRESENT Platelet Estimate LOW (NORMAL) LOW (NORMAL) RARE (NORMAL) Platelet Morphology Comment NORMAL (NORMAL) NORMAL (NORMAL) NORMAL (NORMAL) Red Cell Morphology Comment NORMAL (NORMAL) Blood Urea Nitrogen 22 MG/DL (7-18) 21 MG/DL (7-18) 23 MG/DL (7-18) Creatinine 0.52 MG/DL (0.60-1.30) 0.65 MG/DL (0.60-1.30) 0.87 MG/DL (0.60-1.30) Random Glucose 105 MG/DL (74-106) 119 MG/DL (74-106) 110 MG/DL (74-106) Total Protein 4.5 GM/DL (6.4-8.2) 4.5 GM/DL (6.4-8.2) 4.6 GM/DL (6.4-8.2) Albumin 2.2 GM/DL (3.4-5.0) 2.0 GM/DL (3.4-5.0) 1.8 GM/DL (3.4-5.0) Calcium Level 8.0 MG/DL (8.5-10.1) 7.2 MG/DL (8.5-10.1) 7.3 MG/DL (8.5-10.1) Alkaline Phosphatase 53 U/L (45-117) 56 U/L (45-117) Aspartate Amino Transf (AST/SGOT) 27 U/L (15-37) 7 U/L (15-37) Alanine Aminotransferase (ALT/SGPT) 42 U/L (12-78) 21 U/L (12-78) Total Bilirubin 0.4 MG/DL (0.2-1.0) 0.7 MG/DL (0.2-1.0) Sodium Level 136 MEQ/L (136-145) 135 MEQ/L (136-145) 136 MEQ/L (136-145) Potassium Level 4.0 MEQ/L (3.5-5.1) 4.1 MEQ/L (3.5-5.1) 3.7 MEQ/L (3.5-5.1) Chloride Level 100 MEQ/L (98-107) 100 MEQ/L (98-107) 103 MEQ/L (98-107) Carbon Dioxide Level 29.3 MEQ/L (21.0-32.0) 29.6 MEQ/L (21.0-32.0) 26.2 MEQ/L (21.0-32.0) Anion Gap 7 MEQ/L (5-15) 5 MEQ/L (5-15) 7 MEQ/L (5-15) Estimat Glomerular Filtration Rate 155 ML/MIN (>89) 120 ML/MIN (>89) 86 ML/MIN (>89) Ovalocytes 1+ (NORMAL) 1+ (NORMAL) Phosphorus Level 2.6 MG/DL (2.5-4.9) Magnesium Level 1.6 MG/DL (1.5-2.5) Protein Corrected Calcium 8.7 MG/DL (8.5-10.1) 8.7 MG/DL (8.5-10.1) Urine Color YELLOW (YELLW/STRAW) Urine Turbidity CLEAR (CLEAR) Urine pH 7.0 (5.0-8.5) Urine Specific Trail 1.013 (1.002-1.035) Urine Protein 30 mg/dL (NEG-TRACE) Urine Glucose (UA) NEG mg/dL (NEG) Urine Ketones NEG mg/dL (NEG) Urine Occult Blood LARGE (NEG) Urine Nitrite NEG (NEG) Urine Bilirubin NEG (NEG) Urine Urobilinogen LESS THAN 2.0 MG/DL (LESS Urine Leukocyte Esterase NEG (NEG) Urine RBC /hpf (0-3) Urine WBC 1 /hpf (0-5) Urine Bacteria RARE /hpf (NONE) Urine Granular Casts 1 /lpf (NONE) Urine Mucus FEW /lpf (OCC) Microscopic Urinalysis Comment CATH-CULTURE IND Rouleau PRESENT (NORMAL) Prothrombin Time 13.4 SEC (9.8-11.6) Prothromb Time International Ratio 1.2 RATIO Activated Partial Thromboplast Time 41.9 SEC (24.3-30.1) Fibrinogen 522 mg/dL (227-377) Test 05/16/17 09:15 05/16/17 09:20 05/16/17 12:12 Blood Gas Puncture Site LT FEMORAL Blood Gas Patient Temperature 98.6 Blood Gas HCO3 16 mmol/L (22-26) Blood Gas Base Excess -8.8 mmol/L (-2-2) Blood Gas Oxygen Saturation 97 % (90-100) Arterial Blood pH 7.32 (7.380-7.420) Arterial Blood Partial Pressure CO2 33 mmHg (38-42) Arterial Blood Partial Pressure O2 216 mmHg (61-120) Arterial Blood Oxygen Content 12.8 Vol % (12.0-20.0) Arterial Blood Carboxyhemoglobin 1.1 % (0-4) Arterial Blood Methemoglobin 1.0 % (0-2) Blood Gas Hemoglobin 9.0 G/DL (12.0-16.0) Oxygen Delivery Device AMBU Blood Gas Liter Flow 15 L/M Blood Gas Inspired Oxygen 100 % White Blood Count 2.0 TH/MM3 (4.0-11.0) Red Blood Count 3.02 MIL/MM3 (4.50-5.90) Hemoglobin 8.6 GM/DL (13.0-17.0) Hematocrit 26.6 % (39.0-51.0) Mean Corpuscular Volume 88.2 FL (80.0-100.0) Mean Corpuscular Hemoglobin 28.5 PG (27.0-34.0) Mean Corpuscular Hemoglobin Concent 32.4 % (32.0-36.0) Red Cell Distribution Width 14.7 % (11.6-17.2) Platelet Count 43 TH/MM3 (150-450) Mean Platelet Volume 8.2 FL (7.0-11.0) CBC Comment AUTO DIFF Prothrombin Time 17.1 SEC (9.8-11.6) Prothromb Time International Ratio 1.5 RATIO Activated Partial Thromboplast Time 42.7 SEC (24.3-30.1) Blood Urea Nitrogen 26 MG/DL (7-18) Creatinine 1.61 MG/DL (0.60-1.30) Random Glucose 203 MG/DL (74-106) Total Protein 3.6 GM/DL (6.4-8.2) Albumin 1.4 GM/DL (3.4-5.0) Calcium Level 8.5 MG/DL (8.5-10.1) Phosphorus Level 4.8 MG/DL (2.5-4.9) Magnesium Level 1.8 MG/DL (1.5-2.5) Alkaline Phosphatase 44 U/L (45-117) Aspartate Amino Transf (AST/SGOT) 26 U/L (15-37) Alanine Aminotransferase (ALT/SGPT) 24 U/L (12-78) Total Bilirubin 0.5 MG/DL (0.2-1.0) Sodium Level 139 MEQ/L (136-145) Potassium Level 3.8 MEQ/L (3.5-5.1) Chloride Level 102 MEQ/L (98-107) Carbon Dioxide Level 19.1 MEQ/L (21.0-32.0) Anion Gap 18 MEQ/L (5-15) Estimat Glomerular Filtration Rate 42 ML/MIN (>89) Lactic Acid Level 12.3 mmol/L (0.4-2.0) Total Creatine Kinase 48 U/L (39-308) Troponin I 0.10 NG/ML (0.02-0.05) Amylase Level 42 U/L (25-115) Thyroid Stimulating Hormone 3rd Gen 0.775 uIU/ML (0.358-3.740) Result Diagram: 05/16/1791905/16/17 09 Microbiology Microbiology Date/Time Source Procedure Growth Status 05/16/17 12:12 Blood Other Aerobic Blood Culture Pending Received 05/16/17 12:12 Blood Other Anaerobic Blood Culture Pending Received 05/16/17 12:07 Blood Other Aerobic Blood Culture Pending Received 05/16/17 12:07 Blood Other Anaerobic Blood Culture Pending Received 05/15/17 19:26 Blood Line Aerobic Blood Culture - Preliminary NO GROWTH IN 1 DAY Resulted 05/15/17 19:26 Blood Line Anaerobic Blood Culture - Preliminary NO GROWTH IN 1 DAY Resulted 05/14/17 16:55 Blood Peripheral Aerobic Blood Culture - Preliminary NO GROWTH IN 2 DAYS Resulted 05/14/17 16:55 Blood Peripheral Anaerobic Blood Culture - Preliminary NO GROWTH IN 2 DAYS Resulted 05/14/17 16:50 Blood Line Aerobic Blood Culture - Preliminary NO GROWTH IN 2 DAYS Resulted 05/14/17 16:50 Blood Line Anaerobic Blood Culture - Preliminary NO GROWTH IN 2 DAYS Resulted 05/15/17 09:30 Urine Catheterized Urine Urine Culture Pending Received . Imaging Last Impressions Chest X-Ray 05/16/17 0000 Signed Impressions: Service Date/Time: Tuesday, May 16, 2017 09:29 - CONCLUSION: 1. Bibasilar infiltrates more pronounced from the prior study. 2. Tip of endotracheal tube in good position. Rakesh Farnsworth Jr., MD Abdomen X-Ray 05/15/17 1539 Signed Impressions: Service Date/Time: Monday, May 15, 2017 16:14 - CONCLUSION: 1. Gaseous distention of the stomach. 2. Double-J stents in place with possible linear calcification along the mid left ureter. Rakesh Ramirez MD Hip and Pelvis X-Ray 05/11/17 Signed Impressions: Service Date/Time: Thursday, May 11, 2017 16:52 - CONCLUSION: 1. No acute abnormality. 2. Bilateral hip osteoarthritis. 3. Mildly distended loops of gas-filled small bowel. Rakesh Farnsworth Jr., MD Thoracic Spine MRI 05/03/17 Signed Impressions: Service Date/Time: April 12:42 - CONCLUSION: 1. Please see the MRI of the lumbar spine reported separately. 2. Study is motion degraded. 3. Destructive process involving the T11 vertebral body with 40%% loss of height but no retropulsion. This is suggestive of a metastatic focus. Rakesh Farnsworth Jr., MD Lumbar Spine MRI 05/03/17 Signed Impressions: Service Date/Time: April 12:42 - CONCLUSION: 1. Please see the MRI of the thoracic spine reported separately. 2. Current study limited by motion artifact. 3. Destructive process involving the L2 vertebral body with extension into the pedicles bilaterally as well the left lamina with narrowing of the central canal due to posterior displacement of the posterior cortical margin as well as obscuration of the neural foramina. 10%% loss of height. This is felt to relate to a metastatic focus. 4. Prominent retroperitoneal soft tissue previous described on the CT scan. Rakesh Farnsworth Jr., MD Chest CT 05/02/17 Signed Impressions: Service Date/Time: April 01:27 - CONCLUSION: Left upper lobe nodular mass. Parenchymal disease in the right lung base. Moderately large bilateral pleural effusions. Destructive process involving T11 vertebral body Guzman Alcaraz MD Abdomen/Pelvis CT 05/02/17 Signed Impressions: Service Date/Time: April 01:27 - CONCLUSION: Extensive abnormal retroperitoneal soft tissue, presumably confluent adenopathy and adenopathy also present in the celiac region in the upper abdomen. Destructive process involving T11. Bilateral ureteral stents in place. Guzman Alcaraz MD . Procedures * intubation/mechanical ventilation * right femoral arterial line * CPR . Patient/Family Conference Present at Family Conference: Maldonado (son) Maldonado's girlfriend Patient's Sister Maldonado's friend . Family Conference Time (mins): 40 Family Conference Location: Consult Room Issues Discussed: * Additional medical, psychosocial, and spiritual history * Patients general health, functional status, and cognitive changes in the months leading up to the current hospitalization * Family understanding of the current medical problems * Family understanding of prognosis * Patients goals of care as best understood from advance directives and/or conversations and/or values * Questions answered to the best of my ability * Palliative care contact information provided I had spoken with patient's sister at bedside briefly and made arrangements for larger family conference including the son to begin at 14:00. At about 13:40, the patient "coded" again. I ran to the floor and met urgently with family. We discussed the patient's dire condition, how the chances of him surviving the hospitalization even after a successful resuscitation were remote, and how we may not be able to get him off a ventilator. Maldonado ultimately agreed to stop resuscitation efforts. . Assessment and Plan Disease Oriented Problem List: (1) Cardiopulmonary arrest (2) Lymphoblastic diffuse lymphoma (3) Acute hypoxemic respiratory failure (4) Aspiration pneumonia (5) CLL (chronic lymphocytic leukemia) (6) Pancytopenia due to antineoplastic chemotherapy (7) Severe sepsis with acute organ dysfunction Symptom Scale: (1) Encephalopathy 0-10 Scale: Unable to quantify (2) Dyspnea 0-10 Scale: Unable to quantify Pertinent Non-Medical Issues Psychosocial: Patient normally lives with his son Maldonado and Maldonado's girlfriend who are his primary support system. Career [employer]. Spiritual: Worship. The sulfuric acid plant operator has visited. Legal: and [facility] scanned into EMR Ethical issues impacting care: Patient incapacitated with no reasonable probability of recovering capacity. . Important Contacts * Maldonado Hercules (son and health care surrogate) [phone]; [phone] . Prognosis Patient is actively dying at time of my visit. He is terminal. . Code Status: No Code Plan == Code status: Code status changed to NO CODE at time of my conversation with family while Code Blue was in progress. == Decision makers: Patient's son Maldonado is the health care surrogate. == Goals of medical treatment: I spoke with family (see above) while a "code blue" was in progress. The health care surrogate agreed to discontinue to the code. I notified the team and the patient . . Time Spent Total Floor Time (mins): 75 (Total time included chart review, patient exam, in -person discussion with Dr. Cui, above referenced family meeting.) Face to Face Time (mins): 10 >50% Counseling/Coord of Care: Yes Thank you for the opportunity to participate in the care of Mr. Hercules. . Attestation To help prompt me to consider important information that might be impacting today's encounter and assessment, information from prior notes written by myself or my colleagues may have been "brought forward" into today's note. My signature on this note, however, is an attestation that I personally performed the exam, history, and/or decision-making noted today, and, unless otherwise indicated, the interactions with patient, family, and staff as well as the review of records all occurred today. I also attest that the listed assessment and stated plan reflect my best clinical judgment today based on the combination of historical information, prior notes, and today's exam/ interactions. When time spent is documented, it refers only to time spent today by the signer, or if indicated, combined time spent today by collaborating physician/nurse practitioner. . Rodrigue Au MD May 16, 2017 13:09
[2017-05-16] MEDS ORDERED: VANCOMYCIN INJ 1,500 MG in SODIUM CHLORID 0.9% 500 ML INJ 500 ML IV ONE (14:00)
--- NOTE | 2017-05-16 14:11 | HHI.DS ---
Summary Note Date of : May 16, 2017 Time Of : 13:48 Admission Date May 02, 2017 at 16:19 Admitting Diagnosis Diagnosis at Time of : (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 - Lymphoblastic (diffuse) lymphoma, unspecified site Diagnosis: Principal (2) CLL (chronic lymphocytic leukemia) ICD Code: C91.10 - Chronic lymphocytic leukemia of B-cell type not having achieved remission Diagnosis: Secondary (3) UTI (urinary tract infection) ICD Code: N39.0 - Urinary tract infection, site not specified Diagnosis: Secondary (4) History of urethral stent ICD Code: Z98.890 - Other specified postprocedural states Diagnosis: Secondary (5) Low back pain ICD Code: M54.5 - Low back pain Diagnosis: Secondary (6) Hypokalemia ICD Code: E87.6 - Hypokalemia Diagnosis: Secondary (7) Hyponatremia ICD Code: E87.1 - Hypo-osmolality and hyponatremia Diagnosis: Secondary (8) Hypotension ICD Code: I95.9 - Hypotension, unspecified Diagnosis: Secondary (9) Diarrhea ICD Code: R19.7 - Diarrhea, unspecified Diagnosis: Secondary (10) Lactic acidosis ICD Code: E87.2 - Acidosis Diagnosis: Principal (11) Severe sepsis with acute organ dysfunction ICD Code: A41.9 - Sepsis, unspecified organism; R65.20 - Severe sepsis without septic shock Diagnosis: Principal (12) Neutropenic fever ICD Code: D70.9 - Neutropenia, unspecified; R50.81 - Fever presenting with conditions classified elsewhere Diagnosis: Principal Procedures Right femoral arterial line Brief History This is a pleasant 76 y/o male on management by process improvement specialist Doctor Aaron Montalvo due to Chronic Lymphocytic Leukemia deletion 13Q he developed bulky adenopathy treated with Rituximab and Bendamustine without clear response, on Ibrutinib with improvement, but developed a large mass in the retroperitoneum extending into the pole of the left kidney, 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 today he came to ER after he had a procedure performed yesterday by Doctor Bull had Urethral stens placed came due to General Weakness. Seen in Emergency room in the presence of nurse, dehydrated. oral thrush. severe ecchymotic lesions on all four extremities. Hematuria present. CBC/BMP: 05/16/17 0920 05/16/17 0920 Significant Findings Laboratory Tests Test 05/14/17 04:10 05/15/17 03:00 05/15/17 09:30 05/16/17 03:50 White Blood Count 1.0 TH/MM3 (4.0-11.0) 0.5 TH/MM3 (4.0-11.0) 0.6 TH/MM3 (4.0-11.0) Red Blood Count 3.54 MIL/MM3 (4.50-5.90) 3.37 MIL/MM3 (4.50-5.90) 3.96 MIL/MM3 (4.50-5.90) Hemoglobin 10.2 GM/DL (13.0-17.0) 9.6 GM/DL (13.0-17.0) 11.2 GM/DL (13.0-17.0) Hematocrit 30.7 % (39.0-51.0) 28.8 % (39.0-51.0) 33.3 % (39.0-51.0) Platelet Count 21 TH/MM3 (150-450) 31 TH/MM3 (150-450) 13 TH/MM3 (150-450) Neutrophils % (Manual) 1 % (16-70) Lymphocytes % 95 % (9-44) 96 % (9-44) 100 % (9-44) Neutrophils # (Manual) 0.0 TH/MM3 (1.8-7.7) 0.0 TH/MM3 (1.8-7.7) Platelet Estimate LOW (NORMAL) LOW (NORMAL) RARE (NORMAL) Blood Urea Nitrogen 22 MG/DL (7-18) 21 MG/DL (7-18) 23 MG/DL (7-18) Creatinine 0.52 MG/DL (0.60-1.30) Total Protein 4.5 GM/DL (6.4-8.2) 4.5 GM/DL (6.4-8.2) 4.6 GM/DL (6.4-8.2) Albumin 2.2 GM/DL (3.4-5.0) 2.0 GM/DL (3.4-5.0) 1.8 GM/DL (3.4-5.0) Calcium Level 8.0 MG/DL (8.5-10.1) 7.2 MG/DL (8.5-10.1) 7.3 MG/DL (8.5-10.1) Ovalocytes 1+ (NORMAL) 1+ (NORMAL) Random Glucose 119 MG/DL (74-106) 110 MG/DL (74-106) Sodium Level 135 MEQ/L (136-145) Urine Protein 30 mg/dL (NEG-TRACE) Urine Occult Blood LARGE (NEG) Urine Bacteria RARE /hpf (NONE) Urine Mucus FEW /lpf (OCC) Rouleau PRESENT (NORMAL) Prothrombin Time 13.4 SEC (9.8-11.6) Activated Partial Thromboplast Time 41.9 SEC (24.3-30.1) Fibrinogen 522 mg/dL (227-377) Aspartate Amino Transf (AST/SGOT) 7 U/L (15-37) Estimat Glomerular Filtration Rate 86 ML/MIN (>89) Test 05/16/17 09:15 05/16/17 09:20 05/16/17 12:10 05/16/17 12:12 Blood Gas HCO3 16 mmol/L (22-26) Blood Gas Base Excess -8.8 mmol/L (-2-2) Arterial Blood pH 7.32 (7.380-7.420) Arterial Blood Partial Pressure CO2 33 mmHg (38-42) Arterial Blood Partial Pressure O2 216 mmHg (61-120) Blood Gas Hemoglobin 9.0 G/DL (12.0-16.0) White Blood Count 2.0 TH/MM3 (4.0-11.0) Red Blood Count 3.02 MIL/MM3 (4.50-5.90) Hemoglobin 8.6 GM/DL (13.0-17.0) Hematocrit 26.6 % (39.0-51.0) Platelet Count 43 TH/MM3 (150-450) Lymphocytes % 100 % (9-44) Neutrophils # (Manual) 0.0 TH/MM3 (1.8-7.7) Platelet Estimate LOW (NORMAL) Ovalocytes 1+ (NORMAL) Prothrombin Time 17.1 SEC (9.8-11.6) Activated Partial Thromboplast Time 42.7 SEC (24.3-30.1) Blood Urea Nitrogen 26 MG/DL (7-18) Creatinine 1.61 MG/DL (0.60-1.30) Random Glucose 203 MG/DL (74-106) Total Protein 3.6 GM/DL (6.4-8.2) Albumin 1.4 GM/DL (3.4-5.0) Alkaline Phosphatase 44 U/L (45-117) Carbon Dioxide Level 19.1 MEQ/L (21.0-32.0) Anion Gap 18 MEQ/L (5-15) Estimat Glomerular Filtration Rate 42 ML/MIN (>89) Lactic Acid Level 12.3 mmol/L (0.4-2.0) Troponin I 0.10 NG/ML (0.02-0.05) Venous Blood pH 6.87 (7.360-7.400) Venous Blood Partial Pressure CO2 90 mmHg (44-48) Venous Blood HCO3 16 mmol/L (22-26) Venous Blood Oxygen Saturation 36 % (70-76) Venous Blood Oxygen Content 4.4 Vol % (9.0-17.0) Venous Blood Base Excess -15.8 mmol/L (-2-2) Ammonia 380 MCMOL/L (11-32) Imaging Last Impressions Chest X-Ray 05/16/17 0000 Signed Impressions: Service Date/Time: Tuesday, May 16, 2017 09:29 - CONCLUSION: 1. Bibasilar infiltrates more pronounced from the prior study. 2. Tip of endotracheal tube in good position. Rakesh Farnsworth Jr., MD Abdomen X-Ray 05/15/17 1539 Signed Impressions: Service Date/Time: Monday, May 15, 2017 16:14 - CONCLUSION: 1. Gaseous distention of the stomach. 2. Double-J stents in place with possible linear calcification along the mid left ureter. Rakesh Ramirez MD Hip and Pelvis X-Ray 05/11/17 0000 Signed Impressions: Service Date/Time: Thursday, May 11, 2017 16:52 - CONCLUSION: 1. No acute abnormality. 2. Bilateral hip osteoarthritis. 3. Mildly distended loops of gas-filled small bowel. Rakesh Farnsworth Jr., MD Thoracic Spine MRI 05/03/17 0000 Signed Impressions: Service Date/Time: April 12:42 - CONCLUSION: 1. Please see the MRI of the lumbar spine reported separately. 2. Study is motion degraded. 3. Destructive process involving the T11 vertebral body with 40%% loss of height but no retropulsion. This is suggestive of a metastatic focus. Rakesh Farnsworth Jr., MD Lumbar Spine MRI 05/03/17 0000 Signed Impressions: Service Date/Time: April 12:42 - CONCLUSION: 1. Please see the MRI of the thoracic spine reported separately. 2. Current study limited by motion artifact. 3. Destructive process involving the L2 vertebral body with extension into the pedicles bilaterally as well the left lamina with narrowing of the central canal due to posterior displacement of the posterior cortical margin as well as obscuration of the neural foramina. 10%% loss of height. This is felt to relate to a metastatic focus. 4. Prominent retroperitoneal soft tissue previous described on the CT scan. Rakesh Farnsworth Jr., MD Chest CT 05/02/17 0000 Signed Impressions: Service Date/Time: April 01:27 - CONCLUSION: Left upper lobe nodular mass. Parenchymal disease in the right lung base. Moderately large bilateral pleural effusions. Destructive process involving T11 vertebral body Guzman Alcaraz MD Abdomen/Pelvis CT 05/02/17 0000 Signed Impressions: Service Date/Time: April 01:27 - CONCLUSION: Extensive abnormal retroperitoneal soft tissue, presumably confluent adenopathy and adenopathy also present in the celiac region in the upper abdomen. Destructive process involving T11. Bilateral ureteral stents in place. Guzman Alcaraz MD Hospital Course Neuro/Psych: Possible anoxic brain injury Narcotic use Temporal arteritis by history T11, L2 neoplastic fracture status post radiation therapy Patient is currently on propofol/fentanyl drips if needed for sedation/ analgesia while intubated Goal of RA SS -[address] brain once stable hemodynamically Previously on MS Contin 15 mg every 8 hours and oxycodone 5 mg every 6 hours. Breakthrough pain Was considered a candidate for kyphoplasty T11 CV: Severe sepsis with multisystem organ failure Lactic acidosis History of hypertension History of dyslipidemia A. fib with RVR Status post amiodarone 150 mg during code. Unsuccessful synchronized cardioversion with 100 200 J 2-D echocardiogram/EKG ordered Currently on norepinephrine 100 g a minute, Prabhu-Synephrine at 3 mcg/m and vasopressin 0.04 units/hour with stress dose Solu-Cortef 100 mg every 8 hours Holding pravastatin 40 mg by mouth daily. Resume when clinically indicated Status post 5 L normal saline. Currently on normal saline 125 cc an hour Serial lactates until cleared Resp: Acute hypoxemic respiratory failure [facility] 16/500/1.2 Ventilator bundle Albuterol/ipratropium aerosols every 6 hours with albuterol aerosols every 2 hours. Dyspnea Spontaneous breathing trials when clinically indicated Chest x-ray revealed bilateral lobe infiltrates GI: Nausea/vomiting Large retroperitoneal mass encroaching an ellipse psoas muscle NG tube to low intermittent wall suction IV pantoprazole for GI prophylaxis Follow-up LFTs, lipase : Bilateral hydronephrosis with double-J stent placement Dr. Crews 05/01 Baugh catheter to be maintained. Urology following Currently on tamsulosin 0.4 mg by mouth daily Endo: Sliding-scale insulin to maintain euglycemiamedium protocol every 6 hours Check TSH Renal: Acute on chronic kidney disease Status post double-J stent placement by Dr. Crews 05/01. 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 EPOCH 05/05-05/09. Followed by Dr. montalvo, hematology oncology Transfuse 1 packed platelets today. Hemoglobin currently 8.6. Continue Neupogen 480 mg subcutaneous daily Transfuse platelet and PRBC as clinically indicated Continue allopurinol will renally dose if needed for tumor lysis syndrome ID: Neutropenic fever Present cefepime/vancomycin. Switch to meropenem and azithromycin and micafungin per ID. Continue vancomycin, Follow up on cultures MSK: Osteoarthritis PT evaluate and treat FEN: Replace electrolytes as clinically indicated Access - Utilize right Port-A-Cath. Right femoral arterial catheter day 1 placed 05/16 Prophylaxis - GI - pantoprazole - DVT - SCD/holding pharmacological prophylaxis in light of thrombocytopenia Critical Care: The total critical care time was 55 minutes. Time to perform other separately billable procedures was not included in the critical care time. Code Status Full code Discussed Condition With Patient did code the second time. Discuss with family doctor 7 code was stopped at 1340. Patient was on 4 vasopressors. Severely septic with multisystem organ failure. No obvious source of infection. Unable to image secondary to hemodynamic instability. Bedside ultrasound did not reveal any significant cardiac tamponade features/pericardial effusions. No RV bulging noted for pulmonary embolism. There was no Pneumothorax seen. Artis Cui MD May 16, 2017 14:11
--- NOTE | 2017-05-16 14:13 | DEATH SUM ---
Pronouncement Date Pronounced : May 16, 2017 Time Of : 13:48 Pronouncement Called to pronounce of patient. Identified patient as [place] with wrist band MR# [id number]. Patient with no cardiac activity in 2 separate leads and no palpable/auscible cardiac activity. Patient with no spontaneous respirations, no corneal reflex or response to painful stimuli. Pupils fixed and dilated. Preliminary Cause of : Sepsis Artis Cui MD May 16, 2017 14:13
--- NOTE | 2017-05-16 14:18 | HHI.PR ---
Addendum to Inpatient Note Addendum Reason: Additional Documentation Additional Information Note: Documentation for two codes Residents responded to first code blue at around 0930. Patient's nurse was moving the patient to the ICU when a CODE BLUE was called at the 6 pink elevators. Upon arrival, patient had di aspiration throughout with no suctioning available. He was in PEA rhythm/A. fib with RVR with heart rate in the 180s. Transferred to ICU, CPR continued en route. Suction was established an ET tube was placed without complication by astronomy department chair Dr. Cui on arrival to ICU. Patient received 5 mg epinephrine, 2 ampules of bicarbonate, 150 mg amiodarone and one gram of calcium chloride. ROSC achieved. Around 1340, MIKE WATSON was called on patient again. On resident arrival, astronomy department chair at bedside and patient receiving CPR. After 3 cycles of CPR including 2 doses epinephrine, CODE team notified by Palliative Care team that the family decided to stop interventions (decision just made during the second CODE BLUE). Patient in asystole and aggressive life-saving measures ceased. Ryan García MD R2 May 16, 2017 14:18
[2017-05-16] MEDS ORDERED: EPINEPHrine 8 MG/D5W 250 ML IV PRN ×2 (15:00)
[2017-05-16] MEDS ORDERED: RESP: ALBUTEROL 2.5 MG/IPRATROPIUM 0.5 MG NEB (SCH) INH (16:00)
--- NOTE | 2017-05-16 16:24 | PD.ONC.PN ---
Subjective Subjective Remarks Late entry. Saw patient 0710. He had episode of hypotension overnight and given NS bolus. He denies any chest pain. He has mild SOB. He has LLQ pain since XRT yesterday. He still has fever and sinus tachycardia. Objective Data Date Time Temp Pulse Resp B/P (MAP) Pulse Ox O2 Delivery O2 Flow Rate FiO2 05/16/17 13:48 Room Air 05/16/17 09:30 93 100 05/16/17 08:30 98.0 128 35 125/95 05/16/17 08:00 Nasal Cannula 2.00 05/16/17 07:08 135 30 86/50 (62) 05/16/17 06:41 99.1 131 20 88/52 (64) 92 05/16/17 05:42 133 05/16/17 04:16 127 05/16/17 03:55 118 05/16/17 03:52 100.4 117 16 121/67 (85) 96 05/16/17 00:50 100.4 110 18 108/55 (72) 97 05/16/17 00:01 110 05/15/17 21:10 Nasal Cannula 2.00 05/15/17 20:55 100.9 115 18 91/50 (64) 95 05/15/17 20:07 112 05/15/17 18:31 124 05/15/17 16:50 101.0 128 18 131/76 (94) 97 05/16/17 05/16/17 05/16/17 07:00 15:00 23:00 Intake Total 1620 ml 2 ml Output Total 650 ml Balance 970 ml 2 ml Result Diagram: 05/16/1791905/16/17919 Laboratory Results Laboratory Tests Test 05/16/17 03:50 05/16/17 09:15 05/16/17 09:20 05/16/17 12:10 White Blood Count 0.6 TH/MM3 2.0 TH/MM3 Red Blood Count 3.96 MIL/MM3 3.02 MIL/MM3 Hemoglobin 11.2 GM/DL 8.6 GM/DL Hematocrit 33.3 % 26.6 % Mean Corpuscular Volume 84.3 FL 88.2 FL Mean Corpuscular Hemoglobin 28.3 PG 28.5 PG Mean Corpuscular Hemoglobin Concent 33.5 % 32.4 % Red Cell Distribution Width 14.7 % 14.7 % Platelet Count 13 TH/MM3 43 TH/MM3 Mean Platelet Volume 9.0 FL 8.2 FL CBC Comment AUTO DIFF AUTO DIFF Differential Total Cells Counted 50 100 Neutrophils % (Manual) % Lymphocytes % 100 % 100 % Neutrophils # (Manual) 0.0 TH/MM3 0.0 TH/MM3 Differential Comment FINAL DIFF MANUAL FINAL DIFF MANUAL Platelet Estimate RARE LOW Platelet Morphology Comment NORMAL NORMAL Ovalocytes 1+ 1+ Rouleau PRESENT Prothrombin Time 13.4 SEC 17.1 SEC Prothromb Time International Ratio 1.2 RATIO 1.5 RATIO Activated Partial Thromboplast Time 41.9 SEC 42.7 SEC Fibrinogen 522 mg/dL Blood Urea Nitrogen 23 MG/DL 26 MG/DL Creatinine 0.87 MG/DL 1.61 MG/DL Random Glucose 110 MG/DL 203 MG/DL Total Protein 4.6 GM/DL 3.6 GM/DL Albumin 1.8 GM/DL 1.4 GM/DL Calcium Level 7.3 MG/DL 8.5 MG/DL Alkaline Phosphatase 56 U/L 44 U/L Aspartate Amino Transf (AST/SGOT) 7 U/L 26 U/L Alanine Aminotransferase (ALT/SGPT) 21 U/L 24 U/L Total Bilirubin 0.7 MG/DL 0.5 MG/DL Sodium Level 136 MEQ/L 139 MEQ/L Potassium Level 3.7 MEQ/L 3.8 MEQ/L Chloride Level 103 MEQ/L 102 MEQ/L Carbon Dioxide Level 26.2 MEQ/L 19.1 MEQ/L Anion Gap 7 MEQ/L 18 MEQ/L Estimat Glomerular Filtration Rate 86 ML/MIN 42 ML/MIN Protein Corrected Calcium 8.7 MG/DL Blood Gas Puncture Site LT FEMORAL IV Blood Gas Patient Temperature 98.6 98.6 Blood Gas HCO3 16 mmol/L Blood Gas Base Excess -8.8 mmol/L Blood Gas Oxygen Saturation 97 % Arterial Blood pH 7.32 Arterial Blood Partial Pressure CO2 33 mmHg Arterial Blood Partial Pressure O2 216 mmHg Arterial Blood Oxygen Content 12.8 Vol % Arterial Blood Carboxyhemoglobin 1.1 % Arterial Blood Methemoglobin 1.0 % Blood Gas Hemoglobin 9.0 G/DL Oxygen Delivery Device AMBU VENTILATOR Blood Gas Liter Flow 15 L/M Blood Gas Inspired Oxygen 100 % 100 % Corrected White Blood Count TH/MM3 Acanthocytes OCC Phosphorus Level 4.8 MG/DL Magnesium Level 1.8 MG/DL Lactic Acid Level 12.3 mmol/L Total Creatine Kinase 48 U/L Troponin I 0.10 NG/ML Amylase Level 42 U/L Thyroid Stimulating Hormone 3rd Gen 0.775 uIU/ML Venous Blood pH 6.87 Venous Blood Partial Pressure CO2 90 mmHg Venous Blood Partial Pressure O2 40 mmHg Venous Blood HCO3 16 mmol/L Venous Blood Oxygen Saturation 36 % Venous Blood Oxygen Content 4.4 Vol % Venous Blood Base Excess -15.8 mmol/L Blood Gas Ventilator Setting Test 05/16/17 12:12 Ammonia 380 MCMOL/L Culture Results Microbiology Date/Time Source Procedure Growth Status 05/16/17 12:12 Blood Other Aerobic Blood Culture Pending Received 05/16/17 12:12 Blood Other Anaerobic Blood Culture Pending Received 05/16/17 12:07 Blood Other Aerobic Blood Culture Pending Received 05/16/17 12:07 Blood Other Anaerobic Blood Culture Pending Received 05/15/17 19:26 Blood Line Aerobic Blood Culture - Preliminary NO GROWTH IN 1 DAY Resulted 05/15/17 19:26 Blood Line Anaerobic Blood Culture - Preliminary NO GROWTH IN 1 DAY Resulted 05/14/17 16:55 Blood Peripheral Aerobic Blood Culture - Preliminary NO GROWTH IN 2 DAYS Resulted 05/14/17 16:55 Blood Peripheral Anaerobic Blood Culture - Preliminary NO GROWTH IN 2 DAYS Resulted 05/14/17 16:50 Blood Line Aerobic Blood Culture - Preliminary NO GROWTH IN 2 DAYS Resulted 05/14/17 16:50 Blood Line Anaerobic Blood Culture - Preliminary NO GROWTH IN 2 DAYS Resulted 05/15/17 09:30 Urine Catheterized Urine Urine Culture Pending Received Imaging Studies Last 24 hours Impressions Chest X-Ray 05/16/17 0000 Signed Impressions: Service Date/Time: Tuesday, May 16, 2017 09:29 - CONCLUSION: 1. Bibasilar infiltrates more pronounced from the prior study. 2. Tip of endotracheal tube in good position. Rakesh Farnsworth Jr., MD Chest X-Ray 05/16/17 0000 Signed Impressions: Service Date/Time: Tuesday, May 16, 2017 08:34 - CONCLUSION: Unchanged small effusions and bibasilar infiltrates. Rakesh Farnsworth Jr., MD Administered Medications Medications (Trade) Dose Ordered Sig/Stuart Route PRN Reason Start Time Stop Time Status Last Admin Dose Admin Acetaminophen (Tylenol) 650 mg Q4H PRN PO TEMP > 100.4 05/02/17 15:30 05/16/17 05:21 Pyridoxine HCl (Vitamin B6) 100 mg DAILY PO 05/03/17 09:00 05/16/17 08:19 Pravastatin Sodium (Pravachol) 40 mg DAILY PO 05/03/17 09:00 Future Hold 05/16/17 08:19 Guaifenesin (Mucinex Er) 600 mg BID PO 05/02/17 21:00 Future Hold 05/16/17 08:19 Nicotine (Habitrol 21 Mg Patch.24 Hr) 1 patch DAILY T-DERMAL 05/04/17 09:00 Future Hold 05/16/17 08:19 Miscellaneous Information 1 HS T-DERMAL 05/04/17 21:00 05/15/17 21:00 Hydrochlorothiazide (Microzide) 12.5 mg DAILY PO 05/04/17 10:30 Future Hold 05/10/17 08:00 Lisinopril (Prinivil) 10 mg DAILY PO 05/04/17 10:30 Future Hold 05/10/17 08:00 Allopurinol (Zyloprim) 300 mg DAILY PO 05/05/17 09:00 05/16/17 08:19 Morphine Sulfate (Morphine Inj) 2 mg Q2HR PRN IV PUSH SEVERE BREAKTHROUGH PAIN 05/07/17 13:30 05/16/17 06:02 Oxycodone HCl (Roxicodone) 10 mg Q4H PRN PO PAIN 1-10 05/07/17 13:30 05/16/17 04:53 Morphine Sulfate (Oramorph Sr) 15 mg Q8HR PO 05/08/17 14:00 Future Hold 05/16/17 05:21 Potassium Bicarbonate (Effer-K Eff) 25 meq DAILY PO 05/10/17 09:00 Future Hold 05/16/17 08:19 Tamsulosin HCl (Flomax) 0.4 mg DAILY PO 05/09/17 10:15 05/16/17 08:19 Loperamide HCl (Imodium) 2 mg Q4H PRN PO DIARRHEA 05/11/17 11:15 Future Hold 05/14/17 13:59 Filgrastim 480 mcg/Dextrose 50 ml @ 100 mls/hr DAILY@14 IV 05/12/17 14:00 05/15/17 13:19 Heparin Sodium (Porcine) (Heparin Central Flush) 250 units UNSCH PRN IV FLUSH SEE PROTOCOL TABLE 05/14/17 05:15 05/15/17 02:57 Sodium Chloride (NS Flush) 5 ml UNSCH PRN IV FLUSH FLUSH AFTER USING IV ACCESS 05/14/17 05:15 05/15/17 02:57 Dexamethasone (Decadron) 4 mg Q12H PO 05/14/17 17:00 Future Hold 05/16/17 05:21 Multi-Ingredient Mouthwash/Gargle (Magic Mouthwash Adult Liq) 5 ml QID SWISH-SWAL 05/15/17 09:00 05/16/17 08:19 Sodium Chloride 250 ml @ 15 mls/hr ONCE ONCE IV 05/16/17 07:00 05/16/17 23:39 05/16/17 08:18 Objective Remarks GENERAL: Well-nourished, well-developed patient. Weak, AOx3. SKIN: Warm and dry. HEAD: Normocephalic. EYES: No scleral icterus. No injection or drainage. NECK: Supple, trachea midline. No JVD or lymphadenopathy. LYMPHATIC: No adenopathy. CARDIOVASCULAR: Regular rate and rhythm without murmurs. RESPIRATORY: Breath sounds equal bilaterally. No accessory muscle use. GASTROINTESTINAL: Abdomen soft, nondistended, tender LLQ, no acute abdomen, + BS EXTREMITIES: No cyanosis, or edema. MUSCULOSKELETAL: Adequate muscle tone. NEUROLOGICAL: No obvious focal deficit. Awake, alert, and oriented x3. PSYCHIATRIC: Appropriate mood and affect; insight and judgment normal. Assessment/Plan Problem List: (1) Neutropenic fever ICD Codes: D70.9 - Neutropenia, unspecified; R50.81 - Fever presenting with conditions classified elsewhere Plan: --Still has fever, CXR yesterday stable. Cultures negative to date. Will repeat CXR, add vancomycin and consult ID. Pt has early sepsis and will transfer to ICU. --on IV Cefepime --BC, 05/14 pending --U/A pending --CXR pending (2) Pancytopenia due to antineoplastic chemotherapy ICD Codes: D61.810 - Antineoplastic chemotherapy induced pancytopenia; T45.1X5A - Adverse effect of antineoplastic and immunosuppressive drugs, initial encounter Plan: --continue Neupogen --transfuse as needed platelets and pRBC --monitor for fever --obtain blood cultures STAT for any fever >100.4 if blood cultures not obtained in the previous 24 hours. 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 --05/06: D2 EPOCH. tolerating chemo. no adverse effects. replace potassium. --05/07: D3 EPOCH. continue chemo. resume prednisone BID dosing. --05/08: D4 EPOCH to start this afternoon. will complete chemotherapy tomorrow. --05/09: D5--will complete EPOCH 4th bag this evening and give Cytoxan this evening. --05/09: D6--chemotherapy complete. 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 --first presented with bulky adenopathy, treated with Rituxan and bendamustine without clear response. --then switched to Ibrutinib with very good response. neck and axillary adenopathy are no longer palpable. --recently developed a large mass in retroperitoneum extending from the lower pole of left kidney down along the iliopsoas muscle to the pelvis, measured at least 10 cm. 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 --plan was to treat him with Revlimid along with R-CHOP. was supposed to start chemotherapy at the clinic but was too weak. (5) Flank pain ICD Codes: R10.9 - Unspecified abdominal pain Plan: --Will need repeat CT if pain does not improve. --on PRN IV morphine and PRN Oxycodone, --long acting morphine started on 05/07 -- Abdominal pain and flank pain due to the large retroperitoneal mass encroaching the iliopsoas muscle. -- Lesion noted on T11 that may be able to get kyphoplasty -- s/p simulation 05/04. to start radiation on 05/14 (6) History of urethral stent ICD Codes: Z98.890 - Other specified postprocedural states Status: Acute Plan: --had a urethral stent placement for hydronephrosis on 05/01 --urine culture negative. --Mcmillan catheter in place. last seen by urology on 05/09. recommends: Maintain mcmillan for now. Void trial when he is up and ambulating; --on Flomax (7) Dyspnea ICD Codes: R06.00 - Dyspnea, unspecified Plan: --reports he has had chronic cough for the last year --not on home O2 --h/o COPD --CT chest on 05/02 showed left upper lobe nodular mass, parenchymal disease at the right lung base and bilateral pleural effusions --repeat CXR, 05/08, showed no change Assessment 76-year-old male with chronic lymphocytic leukemia/lymphoma, admitted with abdominal pain and back pain and a urinary tract infection. Plan 1. Transfer to ICU and consult Machine Taper. 2. Add Vancomycin and consult ID. 3. continue Neupogen 4. monitor blood cultures 5. Transfuse platelet 1 U. Problem Qualifiers (1) Dyspnea: Qualified Codes: R06.02 - Shortness of breath Aaron Montalvo MD May 16, 2017 16:24
[2017-05-16] MEDS ORDERED: INSULIN NovoLIN REGULAR SUPPLEMENTAL SCALE SQ SCH (18:00)
[2017-05-16] MEDS ORDERED: CHLORHEXIDINE 0.12% (ORAL KIT) 15 ML CUP MT SCH (20:00)
[2017-05-16] MEDS ORDERED: DOCUSATE SODIUM 50 MG/SENNA 8.6 MG TAB PO SCH (21:00)
[2017-05-16] MEDS ORDERED: SODIUM CHLORIDE 0.9% FLUSH 10 ML FLUSH IV FLUSH SCH (21:00)
--- NOTE | 2017-05-16 21:07 | EKG ---
Date Performed: 05/16/2017 Time Performed: 08:22:37 PTAGE: 76 years EKG: SINUS TACHYCARDIA NONSPECIFIC ST & T-WAVE ABNORMALITY ABNORMAL ECG PREVIOUS TRACING : 05/15/2017 15.25 Compared to prior tracing no significant change DOCTOR: Bipin Hernandez Interpretating Date/Time 05/16/2017 21:06:47
[2017-05-17] MEDS ORDERED: CHLORHEXIDINE GLUCONATE 2 % 1 PACK (2 CLOTHS) TOP SCH (04:00)
[2017-05-17] MEDS ORDERED: PHARMACY ORDERED LAB ONE (22:45)
== END 2017-05-16 13:48 | disposition expired | DRG 840 ==
LOC: NEPC 10:20 → NEDA 15:30 → OBSVTOIN 16:19 → N07B 16:54 → HCIS 05-04 16:48 → HIMN 05-16 09:05
PROVIDERS: ADMIT Hospitalist; ATTEND Hospitalist
PROC: 0T9B70Z Drainage of Bladder with Drainage Device, Via Natural or Artificial Opening (ICD-10-PCS; 2017-05-02)
PROC: 3E03305 Introduction of Other Antineoplastic into Peripheral Vein, Percutaneous Approach (ICD-10-PCS; 2017-05-04)
PROC: 6A550Z2 Pheresis of Platelets, Single (ICD-10-PCS; principal; 2017-05-14)
PROC: 04HY32Z Insertion of Monitoring Device into Lower Artery, Percutaneous Approach (ICD-10-PCS; 2017-05-16)
PROC: 5A12012 Performance of Cardiac Output, Single, Manual (ICD-10-PCS; 2017-05-16)
PROC: 5A2204Z Restoration of Cardiac Rhythm, Single (ICD-10-PCS; 2017-05-16)
PROC: 0BH17EZ Insertion of Endotracheal Airway into Trachea, Via Natural or Artificial Opening (ICD-10-PCS; 2017-05-16)
DX: C83.00 Small cell B-cell lymphoma, unspecified site (principal); A41.9 Sepsis, unspecified organism; R65.20 Severe sepsis without septic shock; J96.01 Acute respiratory failure with hypoxia; N17.9 Acute kidney failure, unspecified; J90 Pleural effusion, not elsewhere classified; D61.810 Antineoplastic chemotherapy induced pancytopenia; E87.2 Acidosis; C79.51 Secondary malignant neoplasm of bone; N39.0 Urinary tract infection, site not specified; B37.0 Candidal stomatitis; M84.48XA Pathological fracture, other site, initial encounter for fracture; E87.1 Hypo-osmolality and hyponatremia; N13.2 Hydronephrosis with renal and ureteral calculous obstruction; K52.1 Toxic gastroenteritis and colitis; N18.3 Chronic kidney disease, stage 3 (moderate); M31.6 Other giant cell arteritis; J44.9 Chronic obstructive pulmonary disease, unspecified; E86.0 Dehydration; M19.90 Unspecified osteoarthritis, unspecified site; R00.0 Tachycardia, unspecified; F17.210 Nicotine dependence, cigarettes, uncomplicated; M54.2 Cervicalgia; E78.00 Pure hypercholesterolemia, unspecified; I12.9 Hypertensive chronic kidney disease with stage 1 through stage 4 chronic kidney disease, or unspecified chronic kidney disease; R31.9 Hematuria, unspecified; S80.812A Abrasion, left lower leg, initial encounter; S80.811A Abrasion, right lower leg, initial encounter; W17.89XA Other fall from one level to another, initial encounter; Y93.89 Activity, other specified; K59.00 Constipation, unspecified; T45.1X5A Adverse effect of antineoplastic and immunosuppressive drugs, initial encounter; M54.5 Low back pain; E87.6 Hypokalemia; R50.81 Fever presenting with conditions classified elsewhere; I46.9 Cardiac arrest, cause unspecified; I48.91 Unspecified atrial fibrillation; Y92.230 Patient room in hospital as the place of occurrence of the external cause
CPT/HCPCS: 31500; 36430; 36556; 36600; 71010; 71250; 72146; 72148; 73502; 74000; 74176; 80048; 80053; 80069; 81001; 82140; 82150; 82550; 82552; 82805; 83036; 83605; 83615; 83735; 84100; 84155; 84439; 84443; 84484; 84550; 85007; 85027; 85384; 85610; 85730; 86022; 86850; 86900; 86901; 87040; 87077; 87086; 87186; 87493; 93005; 94150; 94640; 94664; J0171; J0692; J0696; J1100; J1250; J1442; J1626; J1642; J1644; J2060; J2270; J2370; J2543; J3475; J3480; J7030; J7040; J7050; J7512; J8540; J9000; J9070; J9181; J9310; J9370; L0200; L0484; P9035; Q0163; Q9963